=== PATIENT | female | born 1935 | race Caucasian/White ===

== ENCOUNTER 2019-02-09 08:46 | Day surgery (SDC) | payer MEDICARE, OTHER ==
--- NOTE | 2019-02-09 07:38 | HP ---
DATE OF SURGERY: 01/30/2019 HISTORY OF PRESENT ILLNESS: The patient is an 83 year-old with no prior colonoscopy, may have been hemoccult positive. She denied any gross bloody stools. Family history sister with colon cancer. She denies any abdominal pain, denies any change in bowel movements. She is in need of screening colonoscopy. PAST MEDICAL HISTORY: Hypertension. PAST SURGICAL HISTORY: Foot surgery. Hysterectomy. Bilateral knee surgery. MEDICATIONS: Potassium. Pravastatin for some hypercholesterolemia. She takes some clonidine, lisinopril. ALLERGIES: NKDA. FAMILY HISTORY: Colon cancer. SOCIAL HISTORY: No smoking or alcohol abuse. REVIEW OF SYSTEMS: Twelve systems reviewed negative or noncontributory as above and per preadmission questionnaire. PHYSICAL EXAMINATION: GENERAL: No acute distress. HEENT: Sclerae nonicteric. NECK: No JVD. CHEST: Equal excursion, nonlabored breathing. CVS: Regular rate and rhythm. ABDOMEN: Soft. No peritoneal signs. EXTREMITIES: No significant edema. NEURO: Alert, oriented, moving extremities symmetrically. No gross motor deficits noted. RECTAL: Deferred timed to endoscopy exam. IMPRESSION: No prior colonoscopy. Question whether she is hemoccult positive or not. Either way she is in need of screening colonoscopy as she has not had a prior colonoscopy. Risks and benefits explained in detail including but not limited to bleeding or infection, risk of bowel injury or perforation possibly requiring open procedure, risk of missed or nondiagnosis or incomplete exam possibly requiring barium enema, other studies or procedures. She understands and agrees to the planned procedure, will proceed with outpatient colonoscopy.
[~2019-02-09 08:46] MED LIST: Lactated Ringers 1,000 ML IV ONE; Lactated Ringers 1,000 ML IV SCH
[2019-02-09] MEDS ORDERED: Ketamine HCl 50 MG/ML IV ONE (08:47)
[2019-02-09] MEDS ORDERED: DIPRIVAN 200 MG/20 ML IV ONE (08:47)
[2019-02-09 13:12] VITALS: BP 176/93; PULSE 71; O2SAT 93
[2019-02-09 13:12] LABS: BLOOD UREA NITROGEN 12 mg/dL (7-17); Creatinine 1 0.89 mg/dL (0.52-1.04)
--- NOTE | 2019-02-10 08:32 | OP ---
SURGERY DATE/TIME: 02/09/2019 1135 PREOPERATIVE DIAGNOSES: 1) Need for screening colonoscopy. No history of colonoscopy. 2) Question whether she was hemoccult positive or not. We do not have the results. Family history of colon cancer. POSTOPERATIVE DIAGNOSES: 1) Sessile polypoid lesion ascending colon. Unable to be safely removed endoscopically. 2) Diverticulosis. 3) Small internal and external hemorrhoids. 4) Small raised lesion versus hyperplastic lesion versus early polyp transverse colon. PROCEDURES: 1) Colonoscopy to cecum with multiple cold biopsies as well as some hot biopsies of areas of this descending colon sessile polypoid lesion. 2) Hot biopsy removal of small raised lesion proximal transverse colon. SURGEON: Dr. Luke Velasquez. ANESTHESIA: MAC. ESTIMATED BLOOD LOSS: Minimal. INDICATIONS: As noted above. Risks and benefits explained in detail but not limited to and consent obtained. DESCRIPTION OF PROCEDURE AND FINDINGS: The patient is taken to the operating room. MAC anesthesia introduced. Digital rectal exam did not reveal any rectal masses. She did have some internal and external hemorrhoids. Video colonoscope inserted and passed up the tortuous sigmoid, descending, transverse and ascending colon. With positioning on her back as the colon is tortuous and with a couple staff members external pressure the scope was able to be passed to the cecum. Appendiceal orifice and valve well visualized. It should be noted in the proximal ascending colon there is a sessile polypoid lesion appeared to be about 3.5 cm in size, this was behind a fold and was to flat and large to be safely removed endoscopically. The scope required retroflexion to take multiple biopsies of this area. A few cold and a few hot small vascular areas of the specimen. Good hemostasis noted. The scope is then straightened and pulled back slowly carefully through the colon. Prep overall was adequate. There was some semisolid liquidy stool limiting exam but slowly and carefully withdrawn this was suction irrigated as well as possible slightly limiting exam for very tiny lesions. The scope was carefully withdrawn. Proximal transverse colon small raised lesion versus hyperplastic lesion versus early polyp removed with hot biopsy forceps. Good hemostasis noted. The scope is slowly and carefully withdrawn throughout the colon. She had some mild diverticulosis, had some small internal and external hemorrhoids. There were no signs of any other large polyps, masses or obstructing lesions. Again the prep did limit the exam a little bit. The scope is withdrawn. Findings discussed with the family out in the waiting area including the fact that it was recommended that this be removed surgically whether it is a malignancy or large polyp that would remove surgically. Will order a CEA level, check CT scan abdomen and pelvis to evaluate for any other lesions anywhere else as an outpatient and see her back in the office in a week or two to go over the results and discuss timing of operative intervention.
== END 2019-02-09 13:24 | disposition home or self-care (01) ==
LOC: SDC 08:46
PROVIDERS: ATTEND Surgery
DX: Z12.11 Encounter for screening for malignant neoplasm of colon (principal); K63.5 Polyp of colon; D12.2 Benign neoplasm of ascending colon; K64.4 Residual hemorrhoidal skin tags; K57.30 Diverticulosis of large intestine without perforation or abscess without bleeding; K64.8 Other hemorrhoids; Z80.0 Family history of malignant neoplasm of digestive organs
CPT/HCPCS: 36415; 82378; 82565; 84520; 99100; J2704

== ENCOUNTER 2019-04-27 09:22 | Inpatient (IN) | payer MEDICARE, OTHER | END 2019-05-01 16:15 | disposition home or self-care (01) | LOC: MED SURG 09:22 ==

== ENCOUNTER 2023-09-24 10:59 | Emergency (ER) | payer MEDICARE, OTHER ==
[2023-09-24 11:14] VITALS: TEMP 97.4
[2023-09-24] MEDS ORDERED: Sodium Chloride 0.9% 1000 ML 1,000 ML IV SCH (11:30)
[2023-09-24 11:44] LABS: BASOPHIL % 0.6 % (0.0-0.4); Basophil (Absolute #) 0.06 x10^3/uL (0-0.4); Eosinophil % 1.2 % (0.00-5.0); Eosinophil (Absolute #) 0.12 x10^3/uL (0-0.5); Hematocrit 44.9 % (35-47); Hemoglobin 14.5 g/dL (12.0-16.0); IMMATURE GRAN # 0.04 x10^3u/L (0.00-0.03); IMMATURE GRAN % 0.4 % (0.00-0.4); Lymphocyte (Absolute #) 1.83 x10^3/uL (1.0-4.6); Lymphocytes % 17.6 % (24.0-44.0); Mean Cell Volume 91.4 fL (78-100); Mean Corpuscular Hemoglobin 29.5 pg (26-32); Mean Corpuscular Hgb Concent. 32.3 g/dL (32-36); Mean Platelet Volume 9.6 fL (7.5-11.0); Monocyte (Absolute #) 0.76 x10^3/uL (0.0-1.3); Monocytes % 7.3 % (0.0-12.0); Neutrophil % 72.9 % (36.0-66.0); Platelet Count 336 x10^3/uL (150-450); Red Blood Count 4.91 x10^6/uL (4.1-5.4); Red Cell Distribution Width 13.3 % (11.5-14.0); White Blood Count 10.4 x10^3/uL (4.0-10.5)
[2023-09-24 11:55] LABS: ALBUMIN 3.4 g/dL (3.5-5.0); ANION GAP 13.9 MEQ/L (5-15); BILIRUBIN,TOTAL 1.2 mg/dL (0.2-1.3); Calcium 8.8 mg/dL (8.4-10.2); Creatinine 1 0.93 mg/dL (0.52-1.04); EST GLOMERULAR FILTRATION RATE 60.2 ML/MIN; Potassium 3.8 mmol/L (3.5-5.1); Total Protein 6.7 g/dL (6.3-8.2)
--- NOTE | 2023-09-24 12:11 | XRAY ---
Indication: Confusion. Multiple contiguous axial images obtained through the head without contrast. Comparison: None. Age-appropriate global atrophy and moderate periventricular degenerative micro-ischemia bilaterally. No acute intracranial hemorrhage, abnormal extra-axial fluid collection, or mass effect. Fourth ventricle is midline without hydrocephalus. Bony calvarium intact. Visualized paranasal sinuses and mastoid air cells are clear. Impression: Nonacute senile brain.
[2023-09-24 12:18] VITALS: O2SAT 94
[2023-09-24] MEDS ORDERED: Sodium Chloride 0.9% 1000 ML 1,000 ML ONE (12:18)
--- NOTE | 2023-09-24 12:37 | ERPHSYRPT ---
- History of Present Illness Time Seen by Provider: 09/24/23 11:10 Source: patient Exam Limitations: no limitations Patient Subjective Stated Complaint: Pt daughter states "She brought urine into the hospital on Saturday and they called today and said she has a UTI but we have not picked up the antibiotics yet and today she is a little more confused than normal. She does have dementia." Triage Nursing Assessment: PT presented alert and oriented X 3, skin pwd. Pt ambulates with a slow gait, able to speak in clear full sentences. Pt resting comfortably on the bed. Physician History: 89-year-old female presents to our ED with her daughter for evaluation of confusion. She reports patient was diagnosed with a urinary tract infection recently. However she has yet to start her antibiotics. Patient denies numbness tingling or weakness. No trauma no fever. Symptoms are mild to moderate in intensity. No specific worsening or improving factors. They voiced no other complaints or concerns at this time Portions of this note were created with voice recognition technology. There may be grammatical, spelling, punctuation or sound alike errors Timing/Duration: yesterday Severity: moderate Modifying Factors: Improves With: nothing Associated Symptoms: denies symptoms Allergies/Adverse Reactions: No Known Drug Allergies Allergy (Verified 04/27/19 10:15) Home Medications: Clonidine HCl 0.1 mg [Clonidine 0.1 mg Tablet] 0.1 mg PO BID 01/29/19 [H istory] Lisinopril 10 mg [Zestril 10 MG] 10 mg PO DAILY 01/29/19 [History] Potassium Chloride Tab* [Klor Con] 10 meq PO BID 01/29/19 [History] Pravastatin Sodium [Pravachol] 10 mg PO DAILY 01/29/19 [History] Hx Tetanus, Diphtheria Vaccination/Date Given: No Hx Influenza Vaccination/Date Given: Yes Hx Pneumococcal Vaccination/Date Given: Yes Immunizations Up to Date: No Travel Risk - International Travel Have you traveled outside of the country in past 3 weeks: No - Coronavirus Screening Are you exhibiting any of the following symptoms?: No Close contact with a COVID-19 positive Pt in past 14-21 Days: No - Vaccine Status Have you recieved a Covid-19 vaccination: Yes Commodities Clerk: Unknown - Vaccination Dates Dates if Unknown: 2020 - Review of Systems Constitutional: No Symptoms, No Fever, No Chills Eyes: No Symptoms Ears, Nose, & Throat: No Symptoms Respiratory: No Symptoms, No Cough, No Dyspnea Cardiac: No Symptoms, No Chest Pain, No Edema, No Syncope Abdominal/Gastrointestinal: No Symptoms, No Abdominal Pain, No Nausea, No Vomiting, No Diarrhea Genitourinary Symptoms: No Symptoms, No Dysuria Musculoskeletal: No Symptoms, No Back Pain, No Neck Pain Skin: No Symptoms, No Rash Neurological: No Symptoms, No Dizziness, No Focal Weakness, No Sensory Changes Psychological: No Symptoms Endocrine: No Symptoms Hematologic/Lymphatic: No Symptoms Immunological/Allergic: No Symptoms - Past Medical History Pertinent Past Medical History: Yes Neurological History: Dementia ENT History: No Pertinent History Cardiac History: Hypertension Respiratory History: No Pertinent History Endocrine Medical History: No Pertinent History Musculoskeletal History: Arthritis GI Medical History: No Pertinent History History: No Pertinent History Psycho-Social History: No Pertinent History Female Reproductive Disorders: No Pertinent History - Past Surgical History Past Surgical History: Yes Neuro Surgical History: No Pertinent History Cardiac: No Pertinent History Respiratory: No Pertinent History Gastrointestinal: No Pertinent History Genitourinary: No Pertinent History Musculoskeletal: Joint Replacement, Orthopedic Surgery Female Surgical History: Hysterectomy Other Surgical History: Abdias. Knee replacements, left ankle reconstruction - Social History Smoking Status: Never smoker Exposure to second hand smoke: No Drug Use: none Patient Lives Alone: No - Nursing Vital Signs Nursing Vital Signs: Initial Vital Signs Temperature 97.4 F 09/24/23 11:05 Pain Scale Pain Intensity 0 - Physical Exam General Appearance: no apparent distress, alert Eye Exam: PERRL/EOMI, eyes nml inspection Ears, Nose, Throat Exam: normal ENT inspection, TMs normal, pharynx normal, moist mucous membranes Neck Exam: normal inspection, non-tender, supple, full range of motion Respiratory Exam: normal breath sounds, lungs clear, airway intact, No respiratory distress Cardiovascular Exam: regular rate/rhythm, normal heart sounds, normal peripheral pulses Gastrointestinal/Abdomen Exam: soft, normal bowel sounds, No tenderness, No mass Back Exam: normal inspection, normal range of motion, No CVA tenderness, No vertebral tenderness Extremity Exam: normal inspection, normal range of motion, pelvis stable Neurologic Exam: alert, oriented x 3, cooperative, normal mood/affect, sensation nml, No motor deficits Skin Exam: normal color, warm, dry, No rash Lymphatic Exam: No adenopathy SpO2 Interpretation: normal SpO2: 94 O2 Delivery: Room Air - Course Nursing assessment & vital signs reviewed: Yes EKG Interpreted by Me: RATE (94), Sinus Rhythm, NORMAL AXIS, NORMAL INTERVALS, Right Bundle Branch Block - CT Exams Head CT Interpretation: Tele-radiologist Report (Nonacute senile brain) Ordered Tests: Active Orders 24 hr Category Date Time Status Automatic Brine Mixer Operator STAT Care 09/24/23 11:24 Active EKG-ER Only STAT Care 09/24/23 11:23 Active IV Insertion STAT Care 09/24/23 11:23 Active Pulse Oximetry (ED) STAT Care 09/24/23 11:23 Active HEAD WITHOUT CONTRAST [CT] Stat Exams 09/24/23 11:53 Completed CBC W DIFF Stat Lab 09/24/23 11:30 Completed CMP Stat Lab 09/24/23 11:30 Completed TROPONIN Q4H Lab 09/24/23 11:30 Completed TROPONIN Q4H Lab 09/24/23 15:30 Ordered TROPONIN Q4H Lab 09/24/23 19:30 Ordered UA W/RFX UR CULTURE Stat Lab 09/24/23 11:24 Ordered Medication Summary Generic Name Dose Route Start Last Admin Trade Name Freq PRN Reason Stop Dose Admin Sodium Chloride 1,000 mls @ 50 mls/hr 09/24/23 11:30 09/24/23 12:20 Sodium Chloride 0.9% 1000 Ml IV 10/24/23 11:29 50 mls/hr .Q20H ARMEN Administration Lab/Rad Data: Laboratory Result Diagrams 09/24/23 11:30 09/24/23 11:30 Laboratory Results 09/24/23 09/24/23 09/24/23 Range/Units 11:30 11:30 11:30 WBC 10.4 (4.0-10.5) x10^3/uL RBC 4.91 (4.1-5.4) x10^6/uL Hgb 14.5 (12.0-16.0) g/dL Hct 44.9 (35-47) % MCV 91.4 (78-100) fL MCH 29.5 (26-32) pg MCHC 32.3 (32-36) g/dL RDW 13.3 (11.5-14.0) % Plt Count 336 (150-450) x10^3/uL MPV 9.6 (7.5-11.0) fL Gran % 72.9 H (36.0-66.0) % Immature Gran % (Auto) 0.4 (0.00-0.4) % Nucleat RBC Rel Count 0.0 (0.00-0.1) % Eos # (Auto) 0.12 (0-0.5) x10^3/uL Immature Gran # (Auto) 0.04 H (0.00-0.03) x10^3u/L Absolute Lymphs (auto) 1.83 (1.0-4.6) x10^3/uL Absolute Monos (auto) 0.76 (0.0-1.3) x10^3/uL Absolute Nucleated RBC 0.00 (0.00-0.01) x10^3u/L Lymphocytes % 17.6 L (24.0-44.0) % Monocytes % 7.3 (0.0-12.0) % Eosinophils % 1.2 (0.00-5.0) % Basophils % 0.6 (0.0-0.4) % Absolute Granulocytes 7.60 H (1.4-6.9) x10^3/uL Basophils # 0.06 (0-0.4) x10^3/uL Sodium 136 L (137-145) mmol/L Potassium 3.8 (3.5-5.1) mmol/L Chloride 103 (98-107) mmol/L Carbon Dioxide 23 (22-30) mmol/L Anion Gap 13.9 (5-15) MEQ/L BUN 14 (7-17) mg/dL Creatinine 0.93 (0.52-1.04) mg/dL Estimated GFR 60.2 ML/MIN Glucose 104 (74-106) mg/dL Calcium 8.8 (8.4-10.2) mg/dL Total Bilirubin 1.20 (0.2-1.3) mg/dL AST 31 (14-36) U/L ALT 19 (0-35) U/L Alkaline Phosphatase 98 (38-126) U/L Troponin I 0.017 (0.000-0.034) ng/mL Serum Total Protein 6.7 (6.3-8.2) g/dL Albumin 3.4 L (3.5-5.0) g/dL - Progress Progress: improved Progress Note: 87-year-old female With a history of dementiapresents to our ED with daughter for evaluation of some confusion. On physical exam patient appears to be at her baseline. Patient conversant well-appearing no distress. No focal or lateralizing symptoms. Neurologic exam At patient's baseline.Workup essentially nonremarkable. CBC CMP nonremarkable. Troponin negative. Urinalysis not obtained. However it is noted that patient has a urinary tract infection. Patient received a dose of Rocephin and normal saline in our ED. Daughter is a nurse and states they will lease picker patient's antibiotics at the pharmacy and Ini tiate them today. Complexity of problems addressed is moderate acute complicated No critical care time. Complexity of data reviewed and analyzed is moderate. Test ordered test reviewed. Results analyzed and correlated clinically with history and physical exam. Risk of complication and or risk of morbidity/mortality of patient management is moderate. Patient received a dose of Rocephin in our ED. Patient has a prescription written to her by Dr. Jj for urinary tract infection. Vital stable. Time spent to discharge patient is approximately 15 minutes. Plan of care established for shared decision making. No social determinants of health present impede follow-up. Portions of this note were created with voice recognition technology. There may be grammatical, spelling, punctuation or sound alike errors 09/24/23 12:48 Counseled pt/family regarding: lab results, diagnosis, need for follow-up, rad results - Departure Departure Disposition: Home Clinical Impression: UTI (urinary tract infection) Condition: Stable Critical Care Time: No Referrals: BRITTANY JJ DO [Primary Care Provider] - Follow up/PCP as directed Additional Instructions: Discharge/Care Plan VINAYAK RIVERO was seen on 09/24/23 in the Emergency Room. The patient was counseled regarding Diagnosis,Lab results, Imaging studies, need for follow up and when to return to the Emergency Room. Prescriptions given: Discharge Note I have spoken with the patient and/or caregivers. I have explained the patient's condition, diagnosis and treatment plan based on the information available to me at this time. I have answered the patient's and/or caregiver's questions and addressed any concerns. The patient and/or caregivers have as good understanding of the patient's diagnosis, condition and treatment plan as can be expected at this point. The vital signs have been stable. The patient's condition is stable and appropriate for discharge from the emergency department. The patient will pursue further outpatient evaluation with the primary care physician or other designated or consulting physician as outlined in the discharge instructions. The patient and/or caregivers are agreeable to this plan of care and follow-up instructions have been explained in detail. The patient and/or caregivers have received these instruction. The patient/and or caregivers are aware that any significant change in condition or worsening of symptoms should prompt an immediate return to this or the closest emergency department or call 911.
[2023-09-24 12:41] VITALS: BP 114/58; PULSE 91; RESP 22
[2023-09-24] MEDS ORDERED: ROCEPHIN 1 Gm-D5w 50 ml Bag** 1 G/50 ML IVPB IV STA (12:45)
[2023-09-24] MEDS ORDERED: ROCEPHIN 1 Gm-D5w 50 ml Bag** 1 G/50 ML IVPB IV ONE (12:46)
== END 2023-09-24 13:07 | disposition home or self-care (01) ==
LOC: ED 10:59
DX: N39.0 Urinary tract infection, site not specified (principal); R41.0 Disorientation, unspecified; I10 Essential (primary) hypertension; Z79.899 Other long term (current) drug therapy
CPT/HCPCS: 36000; 36415; 70450; 80053; 84484; 85025; 93005; 93041; 94760; 96360; 99284; J0696

== ENCOUNTER 2024-01-12 12:35 | Observation (INO) | payer MEDICARE, OTHER ==
--- NOTE | 2024-01-12 13:21 | ERPHSYRPT ---
- History of Present Illness Time Seen by Provider: 01/12/24 12:46 Source: patient, family Exam Limitations: no limitations Patient Subjective Stated Complaint: C/O UTI symptoms. Daughter at bedside states that patient was confused during the night yelling "help me, help me" out her window at 0300. Triage Nursing Assessment: Patient ambulated back to ER. She is alert but not oriented to time. No s/s of pain and denies pain. Attempted to get a urine specimen from patient but she could only void a few drops. Physician History: 88-year-old female with history of recurrent UTIs currently on prophylactic antibiotics is brought in the ER by daughter with complains of not acting herself, some confusion. Patient has history of baseline dementia but she is a little more confused than usual. She woke up around 3 AM, crying for help. She denies any chest pain, difficulty breathing, abdominal pain nausea or vomiting. Patient walked in the room without any limitations. Daughter reports having symptoms similar to when she had UTI. No recent fall or trauma reported. Patient is awake and alert but not fully oriented, history is limited. Allergies/Adverse Reactions: No Known Drug Allergies Allergy (Verified 01/12/24 12:54) Home Medications: Lisinopril 10 mg [Zestril 10 MG] 20 mg PO DAILY 01/29/19 [History] Potassium Chloride Tab* [Klor Con] 10 meq PO DAILY 01/29/19 [History] Pravastatin Sodium [Pravachol] 20 mg PO DAILY 01/29/19 [History] cephALEXin [Cephalexin] 1 cap PO DAILY 01/12/24 [History] Hx Tetanus, Diphtheria Vaccination/Date Given: No Hx Influenza Vaccination/Date Given: Yes Hx Pneumococcal Vaccination/Date Given: Yes Immunizations Up to Date: Yes Travel Risk - International Travel Have you traveled outside of the country in past 3 weeks: No - Emerging Infectious Disease Are you exhibiting symptoms associated with any current EIDs: No - Review of Systems All Other Systems: Unable due to dementia - Past Medical History Pertinent Past Medical History: Yes Neurological History: Dementia ENT History: No Pertinent History Cardiac History: High Cholesterol, Hypertension Respiratory History: No Pertinent History Endocrine Medical History: No Pertinent History Musculoskeletal History: Arthritis GI Medical History: No Pertinent History History: Other Psycho-Social History: No Pertinent History Female Reproductive Disorders: No Pertinent History Other Medical History: UTI (can't get into Dr. Guerin until May 2024). - Past Surgical History Past Surgical History: Yes Neuro Surgical History: No Pertinent History Cardiac: No Pertinent History Respiratory: No Pertinent History Gastrointestinal: No Pertinent History Genitourinary: No Pertinent History Musculoskeletal: Orthopedic Surgery, Joint Replacement Female Surgical History: Hysterectomy Other Surgical History: Abdias. Knee replacements, left ankle reconstruction - Social History Smoking Status: Never smoker Exposure to second hand smoke: No Drug Use: none Patient Lives Alone: No - Nursing Vital Signs Nursing Vital Signs: Initial Vital Signs Temperature 97.6 F 01/12/24 13:03 Pulse Rate 104 H 01/12/24 13:03 Respiratory Rate 18 01/12/24 13:03 Blood Pressure 121/83 01/12/24 13:03 O2 Sat by Pulse Oximetry 94 L 01/12/24 13:03 Pain Scale Pain Intensity 0 - Physical Exam General Appearance: no apparent distress, alert Eye Exam: PERRL/EOMI Ears, Nose, Throat Exam: normal ENT inspection Neck Exam: normal inspection, supple, full range of motion Respiratory Exam: normal breath sounds, lungs clear Cardiovascular Exam: regular rate/rhythm, normal heart sounds Gastrointestinal/Abdomen Exam: soft, normal bowel sounds, No tenderness Back Exam: normal inspection Extremity Exam: normal inspection, normal range of motion Neurologic Exam: alert, oriented x 3, cooperative Skin Exam: normal color SpO2 Interpretation: normal SpO2: 95 O2 Delivery: Room Air Ordered Tests: Active Orders 24 hr Category Date Time Status IV Insertion STAT Care 01/12/24 13:18 Active CHEST 1 VIEW (PORTABLE) Stat Exams 01/12/24 13:38 Taken BLOOD CULTURE Stat Lab 01/12/24 13:17 Received CBC W DIFF Stat Lab 01/12/24 13:18 Completed CMP Stat Lab 01/12/24 13:18 Completed CULTURE,URINE Stat Lab 01/12/24 13:25 Received Lactic Acid Stat Lab 01/12/24 13:04 Completed MAGNESIUM Stat Lab 01/12/24 13:18 Completed PROCALCITONIN Stat Lab 01/12/24 13:25 Completed UA W/RFX UR CULTURE Stat Lab 01/12/24 13:18 Completed Medication Summary Discontinued Medications Generic Name Dose Route Start Last Admin Trade Name Freq PRN Reason Stop Dose Admin Ceftriaxone Sodium 2 gm/ 100 mls @ 200 mls/hr 01/12/24 14:32 01/12/24 14:51 Sodium Chloride IV 01/12/24 15:01 200 mls/hr STAT STA Administration Ceftriaxone Sodium/Dextrose Confirm 01/12/24 14:50 Rocephin 2 Gm-D5w 50ml Bag Administered 01/12/24 14:51 Dose 2 g in 50 mls @ ud IV .STK-MED ONE Lab/Rad Data: Laboratory Result Diagrams 01/12/24 13:18 01/12/24 13:18 Laboratory Results 01/12/24 01/12/24 01/12/24 Range/Units 13:25 13:18 13:18 WBC (4.0-10.5) x10^3/uL RBC (4.1-5.4) x10^6/uL Hgb (12.0-16.0) g/dL Hct (35-47) % MCV (78-100) fL MCH (26-32) pg MCHC (32-36) g/dL RDW (11.5-14.0) % Plt Count (150-450) x10^3/uL MPV (7.5-11.0) fL Gran % (36.0-66.0) % Immature Gran % (Auto) (0.00-0.4) % Nucleat RBC Rel Count (0.00-0.1) % Eos # (Auto) (0-0.5) x10^3/uL Immature Gran # (Auto) (0.00-0.03) x10^3u/L Absolute Lymphs (auto) (1.0-4.6) x10^3/uL Absolute Monos (auto) (0.0-1.3) x10^3/uL Absolute Nucleated RBC (0.00-0.01) x10^3u/L Lymphocytes % (24.0-44.0) % Monocytes % (0.0-12.0) % Eosinophils % (0.00-5.0) % Basophils % (0.0-0.4) % Absolute Granulocytes (1.4-6.9) x10^3/uL Basophils # (0-0.4) x10^3/uL Sodium 142 (135-145) mmol/L Potassium 3.8 (3.5-5.1) mmol/L Chloride 111 H (98-107) mmol/L Carbon Dioxide 20 L (22-30) mmol/L Anion Gap 14.3 (5-15) MEQ/L BUN 25 H (7-17) mg/dL Creatinine 0.98 (0.52-1.04) mg/dL Estimated GFR 56.2 ML/MIN Glucose 105 (74-106) mg/dL Lactic Acid (0.4-2.0) Calcium 8.6 (8.4-10.2) mg/dL Magnesium 1.7 (1.6-2.3) mg/dL Total Bilirubin 0.70 (0.2-1.3) mg/dL AST 32 (14-36) U/L ALT 21 (0-35) U/L Alkaline Phosphatase 93 (38-126) U/L Serum Total Protein 7.3 (6.3-8.2) g/dL Albumin 3.7 (3.5-5.0) g/dL Procalcitonin 0.064 (0.030-0.080) ng/mL Urine Color Dark Yellow A (Yellow) Urine Appearance Turbid A (Clear) Urine pH 5.5 (4.6-8.0) Ur Specific [place] 1.020 (1.005-1.030) Urine Protein 30 (Negative) Urine Glucose (UA) Negative (Negative) mg/dL Urine Ketones Negative (Negative) Urine Blood Small A (Negative) Urine Nitrite Negative (Negative) Urine Bilirubin Negative (Negative) Urine Urobilinogen 0.2 (0.2) mg/dL Ur Leukocyte Esterase Large A (Negative) U Hyaline Cast (Auto) 3-5 A (0-2) /LPF Urine Microscopic RBC 0-2 (0-5) /HPF Urine Microscopic WBC >100 A (0-5) /HPF Ur Epithelial Cells Moderate A (None Seen) /HPF Urine Bacteria Few A (None Seen) /HPF Urine Culture Reflexed ORDERED SEPARATELY (NO) 01/12/24 01/12/24 Range/Units 13:18 13:04 WBC 6.8 (4.0-10.5) x10^3/uL RBC 5.17 (4.1-5.4) x10^6/uL Hgb 15.3 (12.0-16.0) g/dL Hct 47.1 H (35-47) % MCV 91.1 (78-100) fL MCH 29.6 (26-32) pg MCHC 32.5 (32-36) g/dL RDW 13.2 (11.5-14.0) % Plt Count 308 (150-450) x10^3/uL MPV 10.7 (7.5-11.0) fL Gran % 47.6 (36.0-66.0) % Immature Gran % (Auto) 0.4 (0.00-0.4) % Nucleat RBC Rel Count 0.0 (0.00-0.1) % Eos # (Auto) 0.02 (0-0.5) x10^3/uL Immature Gran # (Auto) 0.03 (0.00-0.03) x10^3u/L Absolute Lymphs (auto) 2.81 (1.0-4.6) x10^3/uL Absolute Monos (auto) 0.66 (0.0-1.3) x10^3/uL Absolute Nucleated RBC 0.00 (0.00-0.01) x10^3u/L Lymphocytes % 41.4 (24.0-44.0) % Monocytes % 9.7 (0.0-12.0) % Eosinophils % 0.3 (0.00-5.0) % Basophils % 0.6 (0.0-0.4) % Absolute Granulocytes 3.22 (1.4-6.9) x10^3/uL Basophils # 0.04 (0-0.4) x10^3/uL Sodium (135-145) mmol/L Potassium (3.5-5.1) mmol/L Chloride (98-107) mmol/L Carbon Dioxide (22-30) mmol/L Anion Gap (5-15) MEQ/L BUN (7-17) mg/dL Creatinine (0.52-1.04) mg/dL Estimated GFR ML/MIN Glucose (74-106) mg/dL Lactic Acid 2.4 H (0.4-2.0) Calcium (8.4-10.2) mg/dL Magnesium (1.6-2.3) mg/dL Total Bilirubin (0.2-1.3) mg/dL AST (14-36) U/L ALT (0-35) U/L Alkaline Phosphatase (38-126) U/L Serum Total Protein (6.3-8.2) g/dL Albumin (3.5-5.0) g/dL Procalcitonin (0.030-0.080) ng/mL Urine Color (Yellow) Urine Appearance (Clear) Urine pH (4.6-8.0) Ur Specific [place] (1.005-1.030) Urine Protein (Negative) Urine Glucose (UA) (Negative) mg/dL Urine Ketones (Negative) Urine Blood (Negative) Urine Nitrite (Negative) Urine Bilirubin (Negative) Urine Urobilinogen (0.2) mg/dL Ur Leukocyte Esterase (Negative) U Hyaline Cast (Auto) (0-2) /LPF Urine Microscopic RBC (0-5) /HPF Urine Microscopic WBC (0-5) /HPF Ur Epithelial Cells (None Seen) /HPF Urine Bacteria (None Seen) /HPF Urine Culture Reflexed (NO) - Progress Progress: unchanged, re-examined Progress Note: 01/12/24 15:20 88 years old is evaluated in the ER for possible UTI, altered mental status. Patient is awake alert but not fully oriented. She is not in any distress. She walked in the ER without any limitations. Lungs bilateral clear to auscultation. She is on room air in mid 90s. She has no abdominal tenderness. Chest x-ray negative for any acute cardiopulmonary findings reviewed by me, official report is pending. EKG did not show any acute ischemic changes. Workup showed normal white count, fairly unremarkable chemistries but does have UTI. Given a dose of Rocephin IV. I believe patient with being on antibiotics and still having UTI with altered mental status, would benefit with IV and discussed with Dr. Dawson, reviewed history, workup and agreed with admission. Shared the results of workup with patient and her daughter, plan of admission which they understand and agree. Discussed with DrNaresh: Other Will see patient in: hospital (observation) Counseled pt/family regarding: lab results, diagnosis, rad results Medical Desision Making - Independent Historian Additional History obtained from: Child - Discussion of managment Care discussed with:: hospitalist (Dr. Driver) Reviewed:: Test results Agreed on:: Treatment plan Will see patient: in hospital - Diagnostic Testing Diagnostic test were ordered, analyzed, and reviewed by me: Yes Radiological Interpretation: Interpreted by me, Reviewed by me - Risk of complications The pt has a high risk of morbidity or mortality based on: Decision regarding hospitilization or escalation of hosp level of care - Departure Departure Disposition: Observation Clinical Impression: Acute UTI (urinary tract infection), Sepsis Condition: Stable Critical Care Time: No Referrals: BRITTANY JJ DO [Primary Care Provider] - Follow up/PCP as directed
[2024-01-12 13:30] LABS: Absolute Neutrophil Ct (ANC) 3.22 x10^3/uL (1.4-6.9); BASOPHIL % 0.6 % (0.0-0.4); Basophil (Absolute #) 0.04 x10^3/uL (0-0.4); Eosinophil % 0.3 % (0.00-5.0); Eosinophil (Absolute #) 0.02 x10^3/uL (0-0.5); Hematocrit 47.1 % (35-47); Hemoglobin 15.3 g/dL (12.0-16.0); IMMATURE GRAN # 0.03 x10^3u/L (0.00-0.03); IMMATURE GRAN % 0.4 % (0.00-0.4); Lymphocyte (Absolute #) 2.81 x10^3/uL (1.0-4.6); Lymphocytes % 41.4 % (24.0-44.0); Mean Cell Volume 91.1 fL (78-100); Mean Corpuscular Hemoglobin 29.6 pg (26-32); Mean Corpuscular Hgb Concent. 32.5 g/dL (32-36); Mean Platelet Volume 10.7 fL (7.5-11.0); Monocyte (Absolute #) 0.66 x10^3/uL (0.0-1.3); Monocytes % 9.7 % (0.0-12.0); Neutrophil % 47.6 % (36.0-66.0); Platelet Count 308 x10^3/uL (150-450); Red Blood Count 5.17 x10^6/uL (4.1-5.4); Red Cell Distribution Width 13.2 % (11.5-14.0); White Blood Count 6.8 x10^3/uL (4.0-10.5)
[2024-01-12 13:45] LABS: Appearance Turbid (Clear); Bacteria Few /HPF (None Seen); Bilirubin Negative (Negative); Blood Small (Negative); Epithelial Cells Moderate /HPF (None Seen); Glucose, Urine Negative (Negative); Ketones Negative (Negative); Leukocyte Esterase Large (Negative); Nitrite Negative (Negative); Ph 5.5 (4.6-8.0); Protein,Urine Dip 30 (Negative); RBC 0-2 /HPF (0-5); Urobilinogen 0.2 mg/dL (0.2); WBC >100 /HPF (0-5)
[2024-01-12 13:49] LABS: ALBUMIN 3.7 g/dL (3.5-5.0); ANION GAP 14.3 MEQ/L (5-15); BILIRUBIN,TOTAL 0.7 mg/dL (0.2-1.3); Calcium 8.6 mg/dL (8.4-10.2); Creatinine 1 0.98 mg/dL (0.52-1.04); EST GLOMERULAR FILTRATION RATE 56.2 ML/MIN; MAGNESIUM 1.7 mg/dL (1.6-2.3); Potassium 3.8 mmol/L (3.5-5.1); Total Protein 7.3 g/dL (6.3-8.2)
[2024-01-12 14:02] LABS: ADD URINE CULTURE? ORDERED SEPARATELY (NO)
[2024-01-12] MEDS ORDERED: ROCEPHIN 2 Gm-D5w 50ML BAG** 2 G/50 ML IVPB IV ONE (14:50)
[2024-01-12] MEDS: SODIUM CHLORIDE MINI IV STA (14:51)
[2024-01-12] MEDS: CEFTRIAXONE IV STA (14:51)
--- NOTE | 2024-01-12 16:22 | PCM.HP ---
History of Present Illness - Chief Complaint Chief Complaint: Sepsis UTI Date: 01/12/24 History of Present Illness: is a 88 year old female with hx of chronic UTI's, CAD, dementia, HTN, Hyperlipidemia, and chronic low potassium. With history of recurrent UTIs c urrently on prophylactic antibiotics. She was brought in the ER by daughter with complains of not acting herself, some confusion. Patient has history of baseline dementia but she is a little more confused than usual. She woke up around 3 AM, crying for help. She denies any chest pain, difficulty breathing, abdominal pain nausea or vomiting. Patient walked in the room without any limitations. Daughter reports having symptoms similar to when she had UTI in the past. No recent fall or trauma reported. Patient is awake and alert but not fully oriented, history is limited. Daughter is in room and she is a nurse. She explains pt has been getting UTI's Q 3 weeks since October. She is scheduled to see Urology in May and that is the earliest she could get in with Dr. Guerin'. She denies any further concerns at this time and states she feels fine other than a little bit of back pain. - Review of Systems Constitutional: No Fever, No Chills Eyes: No Symptoms Ears, Nose, & Throat: No Symptoms Respiratory: No Cough, No Short Of Breath Cardiac: Edema (BLLE), No Chest Pain, No Syncope Abdominal/Gastrointestinal: No Abdominal Pain, No Nausea, No Vomiting, No Diarrhea Genitourinary Symptoms: No Dysuria Musculoskeletal: Back Pain, No Neck Pain Skin: No Rash Neurological: Other (increased confusion), No Dizziness, No Focal Weakness, No Sensory Changes Psychological: No Symptoms Endocrine: No Symptoms Hematologic/Lymphatic: No Symptoms Immunological/Allergic: No Symptoms Medications & Allergies Home Medications: Home Medication List Lisinopril 10 mg [Zestril 10 MG] 20 mg PO DAILY 01/29/19 [History Confirmed 01/12/24] Potassium Chloride Tab* [Klor Con] 10 meq PO DAILY 01/29/19 [History Confirmed 01/12/24] Atorvastatin Calcium [Lipitor] 20 mg PO DAILY 01/12/24 [History Confirmed 01/12/24] cephALEXin [Cephalexin] 250 mg PO DAILY 01/12/24 [History Confirmed 01/12/24] Allergies/Adverse Reactions: Allergies Allergy/AdvReac Type Severity Reaction Status Date / Time No Known Drug Allergies Allergy Verified 01/12/24 12:54 - Past Medical History Past Medical History: Yes Neurological History: Dementia ENT History: No Pertinent History Cardiac History: High Cholesterol, Hypertension Respiratory History: No Pertinent History Endocrine Medical History: No Pertinent History Musculoskelatal History: Arthritis GI Medical History: No Pertinent History History: Other Pyscho-Social History: No Pertinent History Reproductive Disorders: No Pertinent History Comment: UTI (can't get into Dr. Guerin until May 2024). - Past Surgical History Past Surgical History: Yes Neuro Surgical History: No Pertinent History Cardiac History: No Pertinent History Respiratory Surgery: No Pertinent History GI Surgical History: No Pertinent History Genitourinary Surgical Hx: No Pertinent History Musculskeletal Surgical Hx: Orthopedic Surgery, Joint Replacement Female Surgical History: Hysterectomy Other Surgical History: Abdias. Knee replacements, left ankle reconstruction - Social History Smoking Status: Never smoker Exposure to second hand smoke: No Alcohol: None Drug Use: none - Social Determinants of Health Will the patient participate in the screening: Yes Do you worry about a steady place to live?: No Do you have any problems with any of the following?: No known problems In the past 12 months,have you had to go without utilities?: No Have you or anyone in your house had to go without enough: No Transportation Issues: No Has anyone in your support network made you feel unsafe?: No - Physical Exam Vital Signs: Vital Signs - 24 hr Temp Pulse Resp BP BP Pulse Ox 01/12/24 15:25 95 01/12/24 15:01 145/81 95 01/12/24 15:00 96 01/12/24 14:50 96 H 19 95 01/12/24 14:40 96 01/12/24 14:33 95 01/12/24 14:01 111/61 91 L 01/12/24 13:30 90 114/57 93 L 01/12/24 13:03 97.6 F 89 18 121/83 121/83 95 General Appearance: no apparent distress, alert Neurologic Exam: alert, cooperative, normal mood/affect, nml cerebellar function, nml station & gait, sensation nml, No motor deficits Eye Exam: PERRL/EOMI, eyes nml inspection Ears, Nose, Throat Exam: normal ENT inspection, TMs normal, pharynx normal, moist mucous membranes Neck Exam: normal inspection, non-tender, supple, full range of motion Respiratory Exam: normal breath sounds, lungs clear, No respiratory distress Cardiovascular Exam: regular rate/rhythm, normal heart sounds, normal peripheral pulses Gastrointestinal/Abdomen Exam: soft, normal bowel sounds, No tenderness, No mass Back Exam: normal inspection, normal range of motion, No CVA tenderness, No vertebral tenderness Extremity Exam: normal inspection, normal range of motion, pelvis stable Skin Exam: normal color, warm, dry, No rash Lymphatic Exam: No adenopathy Results - Labs Lab/Micro Results: Lab Results-Last 24 Hours 01/12/24 01/12/24 01/12/24 Range/Units 13:04 13:18 13:18 WBC 6.8 (4.0-10.5) x10^3/uL RBC 5.17 (4.1-5.4) x10^6/uL Hgb 15.3 (12.0-16.0) g/dL Hct 47.1 H (35-47) % MCV 91.1 (78-100) fL MCH 29.6 (26-32) pg MCHC 32.5 (32-36) g/dL RDW 13.2 (11.5-14.0) % Plt Count 308 (150-450) x10^3/uL MPV 10.7 (7.5-11.0) fL Gran % 47.6 (36.0-66.0) % Immature Gran % (Auto) 0.4 (0.00-0.4) % Nucleat RBC Rel Count 0.0 (0.00-0.1) % Eos # (Auto) 0.02 (0-0.5) x10^3/uL Immature Gran # (Auto) 0.03 (0.00-0.03) x10^3u/L Absolute Lymphs (auto) 2.81 (1.0-4.6) x10^3/uL Absolute Monos (auto) 0.66 (0.0-1.3) x10^3/uL Absolute Nucleated RBC 0.00 (0.00-0.01) x10^3u/L Lymphocytes % 41.4 (24.0-44.0) % Monocytes % 9.7 (0.0-12.0) % Eosinophils % 0.3 (0.00-5.0) % Basophils % 0.6 (0.0-0.4) % Absolute Granulocytes 3.22 (1.4-6.9) x10^3/uL Basophils # 0.04 (0-0.4) x10^3/uL Sodium 142 (135-145) mmol/L Potassium 3.8 (3.5-5.1) mmol/L Chloride 111 H (98-107) mmol/L Carbon Dioxide 20 L (22-30) mmol/L Anion Gap 14.3 (5-15) MEQ/L BUN 25 H (7-17) mg/dL Creatinine 0.98 (0.52-1.04) mg/dL Estimated GFR 56.2 ML/MIN Glucose 105 (74-106) mg/dL Lactic Acid 2.4 H (0.4-2.0) Calcium 8.6 (8.4-10.2) mg/dL Magnesium 1.7 (1.6-2.3) mg/dL Total Bilirubin 0.70 (0.2-1.3) mg/dL AST 32 (14-36) U/L ALT 21 (0-35) U/L Alkaline Phosphatase 93 (38-126) U/L Serum Total Protein 7.3 (6.3-8.2) g/dL Albumin 3.7 (3.5-5.0) g/dL Procalcitonin (0.030-0.080) ng/mL Urine Color (Yellow) Urine Appearance (Clear) Urine pH (4.6-8.0) Ur Specific [place] (1.005-1.030) Urine Protein (Negative) Urine Glucose (UA) (Negative) mg/dL Urine Ketones (Negative) Urine Blood (Negative) Urine Nitrite (Negative) Urine Bilirubin (Negative) Urine Urobilinogen (0.2) mg/dL Ur Leukocyte Esterase (Negative) U Hyaline Cast (Auto) (0-2) /LPF Urine Microscopic RBC (0-5) /HPF Urine Microscopic WBC (0-5) /HPF Ur Epithelial Cells (None Seen) /HPF Urine Bacteria (None Seen) /HPF Urine Culture Reflexed (NO) 01/12/24 01/12/24 Range/Units 13:18 13:25 WBC (4.0-10.5) x10^3/uL RBC (4.1-5.4) x10^6/uL Hgb (12.0-16.0) g/dL Hct (35-47) % MCV (78-100) fL MCH (26-32) pg MCHC (32-36) g/dL RDW (11.5-14.0) % Plt Count (150-450) x10^3/uL MPV (7.5-11.0) fL Gran % (36.0-66.0) % Immature Gran % (Auto) (0.00-0.4) % Nucleat RBC Rel Count (0.00-0.1) % Eos # (Auto) (0-0.5) x10^3/uL Immature Gran # (Auto) (0.00-0.03) x10^3u/L Absolute Lymphs (auto) (1.0-4.6) x10^3/uL Absolute Monos (auto) (0.0-1.3) x10^3/uL Absolute Nucleated RBC (0.00-0.01) x10^3u/L Lymphocytes % (24.0-44.0) % Monocytes % (0.0-12.0) % Eosinophils % (0.00-5.0) % Basophils % (0.0-0.4) % Absolute Granulocytes (1.4-6.9) x10^3/uL Basophils # (0-0.4) x10^3/uL Sodium (135-145) mmol/L Potassium (3.5-5.1) mmol/L Chloride (98-107) mmol/L Carbon Dioxide (22-30) mmol/L Anion Gap (5-15) MEQ/L BUN (7-17) mg/dL Creatinine (0.52-1.04) mg/dL Estimated GFR ML/MIN Glucose (74-106) mg/dL Lactic Acid (0.4-2.0) Calcium (8.4-10.2) mg/dL Magnesium (1.6-2.3) mg/dL Total Bilirubin (0.2-1.3) mg/dL AST (14-36) U/L ALT (0-35) U/L Alkaline Phosphatase (38-126) U/L Serum Total Protein (6.3-8.2) g/dL Albumin (3.5-5.0) g/dL Procalcitonin 0.064 (0.030-0.080) ng/mL Urine Color Dark Yellow A (Yellow) Urine Appearance Turbid A (Clear) Urine pH 5.5 (4.6-8.0) Ur Specific [place] 1.020 (1.005-1.030) Urine Protein 30 (Negative) Urine Glucose (UA) Negative (Negative) mg/dL Urine Ketones Negative (Negative) Urine Blood Small A (Negative) Urine Nitrite Negative (Negative) Urine Bilirubin Negative (Negative) Urine Urobilinogen 0.2 (0.2) mg/dL Ur Leukocyte Esterase Large A (Negative) U Hyaline Cast (Auto) 3-5 A (0-2) /LPF Urine Microscopic RBC 0-2 (0-5) /HPF Urine Microscopic WBC >100 A (0-5) /HPF Ur Epithelial Cells Moderate A (None Seen) /HPF Urine Bacteria Few A (None Seen) /HPF Urine Culture Reflexed ORDERED SEPARATELY (NO) - Radiology Impressions Radiology Exams & Impressions: Radiology Procedures Category Date Time Status CHEST 1 VIEW (PORTABLE) Stat Exams 01/12/24 13:38 Taken Assessment/Plan (1) Sepsis Current Visit: Yes Status: Acute Assessment & Plan: - 2:2 UTI - antbx - IVF - Lactic acid 2.4 in ER- no IVF gave - give 500ml fluid bolus now. - hx CAD Echo EF 58% per old records - repeat LA @ 1700 - gentle hydration after bolus - chest XR pending- ordered in ER (2) Complicated UTI (urinary tract infection) Current Visit: Yes Status: Acute Assessment & Plan: - Acute on chronic - Has chronic UTI's on prophylactic antibiotics OP - UC pending - BC x2 pending - IVF - She has been on Keflex, Levaquin, Macrobid all recently for UTI's OP- no current diarrhea - Ceftriaxone started in ER- will continue - KUB - Consider CT - Increased confusion from baseline per daughter. Code(s): N39.0 - URINARY TRACT INFECTION, SITE NOT SPECIFIED (3) HTN (hypertension) Current Visit: No Status: Chronic Assessment & Plan: - BP stable- continue home meds Code(s): I10 - ESSENTIAL (PRIMARY) HYPERTENSION (4) Hyperlipidemia Current Visit: No Status: Chronic Qualifiers: Assessment & Plan: - Cont statin Code(s): E78.5 - HYPERLIPIDEMIA, UNSPECIFIED (5) Edema Current Visit: Yes Status: Acute Qualifiers: Edema type: localized Qualified Code(s): R60.0 - Localized edema Assessment & Plan: - BLLE - elevate legs - OCHOA hose Code(s): R60.9 - EDEMA, UNSPECIFIED (6) JOSE (acute kidney injury) Current Visit: Yes Status: Acute Assessment & Plan: - trend labs - IVF Code(s): N17.9 - ACUTE KIDNEY FAILURE, UNSPECIFIED (7) Confusion Current Visit: Yes Status: Acute Assessment & Plan: - HAs hx of dementia - currenlty more confused than usual per family - 2:2 UTI VTE: Lovenox Next of Kin: Luke Chacon - child D/C plan: 1-2 days Code status: full Code(s): R41.0 - DISORIENTATION, UNSPECIFIED Telemedicine Encounter - Telemedicine Encounter Telemedicine Encounter: The entirety of this encounter was performed via Telemedicine"
[2024-01-12] MEDS: Sodium Chloride 0.9% 500 ML 500 ML IV ONE (17:12)
[2024-01-12] MEDS: ROCEPHIN 1 GM / 100 ML NaCl 1 GM/100 ML IVPB IV SCH (19:10)
--- NOTE | 2024-01-12 19:45 | XRAY ---
Indication: Chronic UTI. Comparison: None KUB nonacute and nonobstructed. Solid organs unremarkable. Osseous structures intact with osteopenia, moderate/advanced multilevel degenerative spondylosis, and mild double curvature scoliosis.
--- NOTE | 2024-01-12 19:51 | XRAY ---
Indication: Confusion. Comparison: None Portable chest clear with chronic right hemidiaphragm elevation. Heart not enlarged with tortuous descending aorta. Bony thorax intact with osteopenia, mild degenerative changes, and mild double curvature scoliosis. Impression: Nonacute chest with chronic features.
[2024-01-12] MEDS: Sodium Chloride 0.9% 1000 ML 1,000 ML IV SCH (20:41)
[2024-01-12] MEDS: MELATONIN PO PRN (23:47)
[2024-01-13 05:19] LABS: Hematocrit 46.3 % (35-47); Hemoglobin 14.4 g/dL (12.0-16.0); Mean Cell Volume 93.2 fL (78-100); Mean Corpuscular Hgb Concent. 31.1 g/dL (32-36); Mean Platelet Volume 11.2 fL (7.5-11.0); Platelet Count 243 x10^3/uL (150-450); Red Blood Count 4.97 x10^6/uL (4.1-5.4); Red Cell Distribution Width 13.2 % (11.5-14.0); White Blood Count 6.8 x10^3/uL (4.0-10.5)
[2024-01-13 05:31] LABS: ALBUMIN 3.2 g/dL (3.5-5.0); ANION GAP 11.6 MEQ/L (5-15); BILIRUBIN,TOTAL 0.4 mg/dL (0.2-1.3); Calcium 8.2 mg/dL (8.4-10.2); Creatinine 1 0.87 mg/dL (0.52-1.04); EST GLOMERULAR FILTRATION RATE 64.8 ML/MIN; Potassium 3.6 mmol/L (3.5-5.1); Total Protein 6.4 g/dL (6.3-8.2)
--- NOTE | 2024-01-13 05:34 | PCM.NOTE ---
Date and Time: 01/13/24530 Subjective Assessment: 88 year old female with a pmhx of chronic UTI's(on prophylactic antibiotics/Urology Dr. Guerin), CAD, dementia, HTN, Hyperlipidemia, and chronic low potassium admitted 01/12/24 with AMS secondary to UTI and JOSE. Current treatment with Rocephin with blood and urine cultures pending. 01/12: Met with patient and daughter bedside. Patient A&O to self which is baseline for her. Daughter states mentation is better today but not at baseline. Urine cult with gram negative ID. Plan for Ceftriaxone tonight, most likely discharge tomorrow. - Review of Systems Constitutional: No Symptoms Eyes: No Symptoms Ears, Nose, & Throat: No Symptoms Respiratory: No Symptoms Cardiac: No Symptoms Abdominal/Gastrointestinal: No Symptoms Genitourinary Symptoms: Dysuria Musculoskeletal: No Symptoms Skin: No Symptoms Neurological: No Symptoms Psychological: Other (confusion above baseline) Endocrine: No Symptoms Hematologic/Lymphatic: No Symptoms Immunological/Allergic: No Symptoms Objective Exam General Appearance: no apparent distress Neurologic Exam: alert, cooperative, confusion, other (A&O to self) Skin Exam: normal color Eye Exam: PERRL Ears, Nose, Throat Exam: normal ENT inspection Neck Exam: normal inspection Respiratory Exam: normal breath sounds, lungs clear Cardiovascular Exam: regular rate/rhythm, normal heart sounds Gastrointestinal/Abdomen Exam: soft, normal bowel sounds Extremity Exam: normal inspection Back Exam: normal inspection Pelvic Exam: deferred Objective Data Vital Signs: Vital Signs - 24 hr Temp Pulse Resp BP BP Pulse Ox 01/13/24 04:00 97.4 F 89 19 140/70 92 L 01/13/24 00:00 98.2 F 80 20 154/77 94 L 01/12/24 20:00 98.7 F 86 21 176/86 94 L 01/12/24 18:20 95 01/12/24 17:58 97.1 F 83 18 142/84 97 01/12/24 17:29 97 01/12/24 16:09 97.1 F 83 19 142/84 97 01/12/24 15:25 95 01/12/24 15:01 145/81 95 01/12/24 15:00 96 01/12/24 14:50 96 H 19 95 01/12/24 14:40 96 01/12/24 14:33 95 01/12/24 14:01 111/61 91 L 01/12/24 13:30 90 114/57 93 L 01/12/24 13:03 97.6 F 89 18 121/83 121/83 95 Pain Assessment - Last Documented Pain Intensity 0 Intake and Output: Intake & Output 01/10/24 01/11/24 01/12/24 01/13/24 11:59 11:59 11:59 11:59 Weight 82.5 kg Lab Results: Lab Results-Last 24 Hours 01/12/24 01/12/24 01/12/24 Range/Units 13:04 13:18 13:18 WBC 6.8 (4.0-10.5) x10^3/uL RBC 5.17 (4.1-5.4) x10^6/uL Hgb 15.3 (12.0-16.0) g/dL Hct 47.1 H (35-47) % MCV 91.1 (78-100) fL MCH 29.6 (26-32) pg MCHC 32.5 (32-36) g/dL RDW 13.2 (11.5-14.0) % Plt Count 308 (150-450) x10^3/uL MPV 10.7 (7.5-11.0) fL Gran % 47.6 (36.0-66.0) % Immature Gran % (Auto) 0.4 (0.00-0.4) % Nucleat RBC Rel Count 0.0 (0.00-0.1) % Eos # (Auto) 0.02 (0-0.5) x10^3/uL Immature Gran # (Auto) 0.03 (0.00-0.03) x10^3u/L Absolute Lymphs (auto) 2.81 (1.0-4.6) x10^3/uL Absolute Monos (auto) 0.66 (0.0-1.3) x10^3/uL Absolute Nucleated RBC 0.00 (0.00-0.01) x10^3u/L Lymphocytes % 41.4 (24.0-44.0) % Monocytes % 9.7 (0.0-12.0) % Eosinophils % 0.3 (0.00-5.0) % Basophils % 0.6 (0.0-0.4) % Absolute Granulocytes 3.22 (1.4-6.9) x10^3/uL Basophils # 0.04 (0-0.4) x10^3/uL Sodium 142 (135-145) mmol/L Potassium 3.8 (3.5-5.1) mmol/L Chloride 111 H (98-107) mmol/L Carbon Dioxide 20 L (22-30) mmol/L Anion Gap 14.3 (5-15) MEQ/L BUN 25 H (7-17) mg/dL Creatinine 0.98 (0.52-1.04) mg/dL Estimated GFR 56.2 ML/MIN Glucose 105 (74-106) mg/dL Lactic Acid 2.4 H (0.4-2.0) Calcium 8.6 (8.4-10.2) mg/dL Magnesium 1.7 (1.6-2.3) mg/dL Total Bilirubin 0.70 (0.2-1.3) mg/dL AST 32 (14-36) U/L ALT 21 (0-35) U/L Alkaline Phosphatase 93 (38-126) U/L Serum Total Protein 7.3 (6.3-8.2) g/dL Albumin 3.7 (3.5-5.0) g/dL Procalcitonin (0.030-0.080) ng/mL Urine Color (Yellow) Urine Appearance (Clear) Urine pH (4.6-8.0) Ur Specific [place] (1.005-1.030) Urine Protein (Negative) Urine Glucose (UA) (Negative) mg/dL Urine Ketones (Negative) Urine Blood (Negative) Urine Nitrite (Negative) Urine Bilirubin (Negative) Urine Urobilinogen (0.2) mg/dL Ur Leukocyte Esterase (Negative) U Hyaline Cast (Auto) (0-2) /LPF Urine Microscopic RBC (0-5) /HPF Urine Microscopic WBC (0-5) /HPF Ur Epithelial Cells (None Seen) /HPF Urine Bacteria (None Seen) /HPF Urine Culture Reflexed (NO) 01/12/24 01/12/24 01/12/24 Range/Units 13:18 13:25 17:00 WBC (4.0-10.5) x10^3/uL RBC (4.1-5.4) x10^6/uL Hgb (12.0-16.0) g/dL Hct (35-47) % MCV (78-100) fL MCH (26-32) pg MCHC (32-36) g/dL RDW (11.5-14.0) % Plt Count (150-450) x10^3/uL MPV (7.5-11.0) fL Gran % (36.0-66.0) % Immature Gran % (Auto) (0.00-0.4) % Nucleat RBC Rel Count (0.00-0.1) % Eos # (Auto) (0-0.5) x10^3/uL Immature Gran # (Auto) (0.00-0.03) x10^3u/L Absolute Lymphs (auto) (1.0-4.6) x10^3/uL Absolute Monos (auto) (0.0-1.3) x10^3/uL Absolute Nucleated RBC (0.00-0.01) x10^3u/L Lymphocytes % (24.0-44.0) % Monocytes % (0.0-12.0) % Eosinophils % (0.00-5.0) % Basophils % (0.0-0.4) % Absolute Granulocytes (1.4-6.9) x10^3/uL Basophils # (0-0.4) x10^3/uL Sodium (135-145) mmol/L Potassium (3.5-5.1) mmol/L Chloride (98-107) mmol/L Carbon Dioxide (22-30) mmol/L Anion Gap (5-15) MEQ/L BUN (7-17) mg/dL Creatinine (0.52-1.04) mg/dL Estimated GFR ML/MIN Glucose (74-106) mg/dL Lactic Acid 0.8 (0.4-2.0) Calcium (8.4-10.2) mg/dL Magnesium (1.6-2.3) mg/dL Total Bilirubin (0.2-1.3) mg/dL AST (14-36) U/L ALT (0-35) U/L Alkaline Phosphatase (38-126) U/L Serum Total Protein (6.3-8.2) g/dL Albumin (3.5-5.0) g/dL Procalcitonin 0.064 (0.030-0.080) ng/mL Urine Color Dark Yellow A (Yellow) Urine Appearance Turbid A (Clear) Urine pH 5.5 (4.6-8.0) Ur Specific [place] 1.020 (1.005-1.030) Urine Protein 30 (Negative) Urine Glucose (UA) Negative (Negative) mg/dL Urine Ketones Negative (Negative) Urine Blood Small A (Negative) Urine Nitrite Negative (Negative) Urine Bilirubin Negative (Negative) Urine Urobilinogen 0.2 (0.2) mg/dL Ur Leukocyte Esterase Large A (Negative) U Hyaline Cast (Auto) 3-5 A (0-2) /LPF Urine Microscopic RBC 0-2 (0-5) /HPF Urine Microscopic WBC >100 A (0-5) /HPF Ur Epithelial Cells Moderate A (None Seen) /HPF Urine Bacteria Few A (None Seen) /HPF Urine Culture Reflexed ORDERED SEPARATELY (NO) Radiology Exams: Radiology Procedures Category Date Time Status CHEST 1 VIEW (PORTABLE) Stat Exams 01/12/24 13:38 Completed KUB Routine Exams 01/12/24 18:45 Completed Assessment/Plan (1) Sepsis Current Visit: Yes Status: Acute Assessment & Plan: - 2:2 UTI - antbx - IVF - Lactic acid 2.4 in ER- no IVF gave - give 500ml fluid bolus now. - hx CAD Echo EF 58% per old records - repeat LA @ 1700 - gentle hydration after bolus - chest XR pending- ordered in ER 01/13/24: -Does not meet criteria (2) Complicated UTI (urinary tract infection) Current Visit: Yes Status: Acute Assessment & Plan: - Acute on chronic - Has chronic UTI's on prophylactic antibiotics OP - UC pending - BC x2 pending - IVF - She has been on Keflex, Levaquin, Macrobid all recently for UTI's OP- no current diarrhea - Ceftriaxone started in ER- will continue - KUB - Consider CT - Increased confusion from baseline per daughter. 01/12: -KUB is nonacute/nonobstructed -continue ceftriaxone - switch to oral tomorrow -Appt with urology moved up Code(s): N39.0 - URINARY TRACT INFECTION, SITE NOT SPECIFIED (3) HTN (hypertension) Current Visit: No Status: Chronic Assessment & Plan: - BP stable- continue home meds Code(s): I10 - ESSENTIAL (PRIMARY) HYPERTENSION (4) Hyperlipidemia Current Visit: No Status: Chronic Qualifiers: Assessment & Plan: - Cont statin Code(s): E78.5 - HYPERLIPIDEMIA, UNSPECIFIED (5) Edema Current Visit: Yes Status: Acute Qualifiers: Edema type: localized Qualified Code(s): R60.0 - Localized edema Assessment & Plan: - BLLE - elevate legs - OCHOA grise Code(s): R60.9 - EDEMA, UNSPECIFIED (6) JOSE (acute kidney injury) Current Visit: Yes Status: Acute Assessment & Plan: - trend labs - IVF 01/12: -Resolved Code(s): N17.9 - ACUTE KIDNEY FAILURE, UNSPECIFIED (7) Confusion Current Visit: Yes Status: Acute Assessment & Plan: - HAs hx of dementia - currenlty more confused than usual per family - 2:2 UTI 01/12: -near baseline per family, will continue to monitor VTE: Lovenox Next of Kin: Luke Chacon - child D/C plan: 1-2 days Code status: full (2) JOSE (acute kidney injury) Current Visit: Yes Status: Acute Code(s): N17.9 - ACUTE KIDNEY FAILURE, UNSPECIFIED (3) Complicated UTI (urinary tract infection) Current Visit: Yes Status: Acute Code(s): N39.0 - URINARY TRACT INFECTION, SITE NOT SPECIFIED (4) Confusion Current Visit: Yes Status: Acute Code(s): R41.0 - DISORIENTATION, UNSPECIFIED (5) Edema Current Visit: Yes Status: Acute Qualifiers: Edema type: localized Qualified Code(s): R60.0 - Localized edema Code(s): R60.9 - EDEMA, UNSPECIFIED (6) HTN (hypertension) Current Visit: No Status: Chronic Code(s): I10 - ESSENTIAL (PRIMARY) HYPERTENSION (7) Hyperlipidemia Current Visit: No Status: Chronic Qualifiers: Code(s): E78.5 - HYPERLIPIDEMIA, UNSPECIFIED
[2024-01-13] MEDS ORDERED: Zestril 10 MG PO SCH (10:00)
[2024-01-13] MEDS ORDERED: PRAVASTATIN SODIUM 10 MG PO SCH (10:00)
[2024-01-13] MEDS ORDERED: NON-FORMULARY ITEM (Atorvastatin Calcium [Lipitor] 20 MG Tablet) PO SCH (10:00)
[2024-01-13] MEDS: Zestril 20 MG PO SCH (10:47)
[2024-01-13] MEDS: ENOXAPARIN SODIUM SQ SCH (10:47)
[2024-01-13] MEDS: ROCEPHIN 1 GM / 100 ML NaCl 1 GM/100 ML IVPB IV SCH (10:48)
[2024-01-13] MEDS: Klor Con PO SCH (10:48)
[2024-01-13] MEDS: ZOCOR 20MG PO SCH (10:48)
[2024-01-14 04:46] LABS: Absolute Neutrophil Ct (ANC) 1.08 x10^3/uL (1.4-6.9); BASOPHIL % 0.9 % (0.0-0.4); Basophil (Absolute #) 0.04 x10^3/uL (0-0.4); Eosinophil % 2.9 % (0.00-5.0); Eosinophil (Absolute #) 0.13 x10^3/uL (0-0.5); Hematocrit 40.7 % (35-47); Hemoglobin 12.9 g/dL (12.0-16.0); IMMATURE GRAN # 0.02 x10^3u/L (0.00-0.03); IMMATURE GRAN % 0.5 % (0.00-0.4); Lymphocyte (Absolute #) 2.61 x10^3/uL (1.0-4.6); Lymphocytes % 58.9 % (24.0-44.0); Mean Cell Volume 92.9 fL (78-100); Mean Corpuscular Hemoglobin 29.5 pg (26-32); Mean Corpuscular Hgb Concent. 31.7 g/dL (32-36); Mean Platelet Volume 10.9 fL (7.5-11.0); Monocyte (Absolute #) 0.55 x10^3/uL (0.0-1.3); Monocytes % 12.4 % (0.0-12.0); Neutrophil % 24.4 % (36.0-66.0); Platelet Count 211 x10^3/uL (150-450); Red Blood Count 4.38 x10^6/uL (4.1-5.4); Red Cell Distribution Width 13.2 % (11.5-14.0); White Blood Count 4.4 x10^3/uL (4.0-10.5)
[2024-01-14 05:14] LABS: ALBUMIN 2.5 g/dL (3.5-5.0); BILIRUBIN,TOTAL 0.3 mg/dL (0.2-1.3); Calcium 7.6 mg/dL (8.4-10.2); Creatinine 1 0.83 mg/dL (0.52-1.04); EST GLOMERULAR FILTRATION RATE 68.6 ML/MIN; Potassium 3.5 mmol/L (3.5-5.1); Total Protein 5.4 g/dL (6.3-8.2)
--- NOTE | 2024-01-14 10:38 | PCM.DS ---
Discharge Summary Date of Admission: 01/12/24 16:04 Date of Discharge: 01/14/24 Admitting Physician: ARLEEN BROTHERS MD Primary Care Provider: BRITTANY JJ DO Allergies Allergies No Known Drug Allergies Allergy (Verified 01/12/24 12:54) Hospital Summary - Hospital Course Hospital Course: 88 year old female with a pmhx of chronic UTI's(on prophylactic antibiotics/Urology Dr. Guerin), CAD, dementia, HTN, Hyperlipidemia, and chronic low potassium admitted 01/12/24 with AMS secondary to UTI and JOSE. IP treatment with Rocephin. Urine Culture with enterobacter clocae complex. Mentation now at baseline. Paitent stable for discharge. Will send home on cefdinir. Patient does have appt with urology in February to evaluate recurrent UTIs. Advised follow up with PCP for resolution of current UTI. Patient/daughter agreeable to plan and ready for discharge. Discharge Note New Diagnosis:UTI New Medications:Cefdinir Follow Up: PCP Latest Assessment & Plan (1) Sepsis Current Visit: Yes Status: Acute Assessment & Plan: - 2:2 UTI - antbx - IVF - Lactic acid 2.4 in ER- no IVF gave - give 500ml fluid bolus now. - hx CAD Echo EF 58% per old records - repeat LA @ 1700 - gentle hydration after bolus - chest XR pending- ordered in ER 01/13/24: -Does not meet criteria (2) Complicated UTI (urinary tract infection) Current Visit: Yes Status: Acute Assessment & Plan: - Acute on chronic - Has chronic UTI's on prophylactic antibiotics OP - UC pending - BC x2 pending - IVF - She has been on Keflex, Levaquin, Macrobid all recently for UTI's OP- no current diarrhea - Ceftriaxone started in ER- will continue - KUB - Consider CT - Increased confusion from baseline per daughter. 01/12: -KUB is nonacute/nonobstructed -continue ceftriaxone - switch to oral cefdinir tomorrow -Appt with urology moved up to February Code(s): N39.0 - URINARY TRACT INFECTION, SITE NOT SPECIFIED (3) HTN (hypertension) Current Visit: No Status: Chronic Assessment & Plan: - BP stable- continue home meds Code(s): I10 - ESSENTIAL (PRIMARY) HYPERTENSION (4) Hyperlipidemia Current Visit: No Status: Chronic Qualifiers: Assessment & Plan: - Cont statin Code(s): E78.5 - HYPERLIPIDEMIA, UNSPECIFIED (5) Edema Current Visit: Yes Status: Acute Qualifiers: Edema type: localized Qualified Code(s): R60.0 - Localized edema Assessment & Plan: - BLLE - elevate legs - OCHOA hose Code(s): R60.9 - EDEMA, UNSPECIFIED (6) JOSE (acute kidney injury) Current Visit: Yes Status: Acute Assessment & Plan: - trend labs - IVF 01/12: -Resolved Code(s): N17.9 - ACUTE KIDNEY FAILURE, UNSPECIFIED (7) Confusion Current Visit: Yes Status: Acute Assessment & Plan: - HAs hx of dementia - currenlty more confused than usual per family - 2:2 UTI 01/12: -near baseline per family, will continue to monitor 01/13: -at baseline I spent 35 minutes [id number] with the patient on the day of discharge performing discharge exam, discussing hospital stay and discharge instructions with patient and caregivers, preparation of discharge records, prescriptions & referral forms and addressing any questions/concerns the patient had as documented above. - Vitals & Intake/Output Vital Signs: Vital Signs Temperature 97.5 F 01/14/24 06:46 Pulse Rate 69 01/14/24 06:46 Respiratory Rate 20 01/14/24 06:46 Blood Pressure 137/84 01/14/24 06:46 O2 Sat by Pulse Oximetry 96 01/14/24 06:46 Intake & Output: Intake & Output 01/11/24 01/12/24 01/13/24 01/14/24 11:59 11:59 11:59 11:59 Intake Total 1423 2014 Balance 1423 2014 Weight 82.5 kg - Lab Result Diagrams: 01/14/24 04:19 01/14/24 04:19 Lab Results-Last 24 Hrs: Lab Results-Last 24 Hours 01/14/24 01/14/24 Range/Units 04:19 04:19 WBC 4.4 (4.0-10.5) x10^3/uL RBC 4.38 (4.1-5.4) x10^6/uL Hgb 12.9 (12.0-16.0) g/dL Hct 40.7 (35-47) % MCV 92.9 (78-100) fL MCH 29.5 (26-32) pg MCHC 31.7 L (32-36) g/dL RDW 13.2 (11.5-14.0) % Plt Count 211 (150-450) x10^3/uL MPV 10.9 (7.5-11.0) fL Gran % 24.4 L (36.0-66.0) % Immature Gran % (Auto) 0.5 H (0.00-0.4) % Nucleat RBC Rel Count 0.0 (0.00-0.1) % Eos # (Auto) 0.13 (0-0.5) x10^3/uL Immature Gran # (Auto) 0.02 (0.00-0.03) x10^3u/L Absolute Lymphs (auto) 2.61 (1.0-4.6) x10^3/uL Absolute Monos (auto) 0.55 (0.0-1.3) x10^3/uL Absolute Nucleated RBC 0.00 (0.00-0.01) x10^3u/L Lymphocytes % 58.9 H (24.0-44.0) % Monocytes % 12.4 H (0.0-12.0) % Eosinophils % 2.9 (0.00-5.0) % Basophils % 0.9 (0.0-0.4) % Absolute Granulocytes 1.08 L (1.4-6.9) x10^3/uL Basophils # 0.04 (0-0.4) x10^3/uL Sodium 139 (135-145) mmol/L Potassium 3.5 (3.5-5.1) mmol/L Chloride 113 H (98-107) mmol/L Carbon Dioxide 23 (22-30) mmol/L Anion Gap 7.0 (5-15) MEQ/L BUN 18 H (7-17) mg/dL Creatinine 0.83 (0.52-1.04) mg/dL Estimated GFR 68.6 ML/MIN Glucose 80 (74-106) mg/dL Calcium 7.6 L (8.4-10.2) mg/dL Total Bilirubin 0.30 (0.2-1.3) mg/dL AST 27 (14-36) U/L ALT 15 (0-35) U/L Alkaline Phosphatase 71 (38-126) U/L Serum Total Protein 5.4 L (6.3-8.2) g/dL Albumin 2.5 L (3.5-5.0) g/dL Micro Results-Entire Visit: Microbiology 01/12/24 13:23 Blood Culture - Preliminary Blood 01/12/24 13:17 Blood Culture - Preliminary Blood 01/12/24 13:25 Urine Culture - Final Urine, Catheterized Enterobacter Clocae Complex - Radiology Exams Ordered Rad Exams-Entire Visit: Radiology Procedures Category Date Time Status CHEST 1 VIEW (PORTABLE) Stat Exams 01/12/24 13:38 Completed KUB Routine Exams 01/12/24 18:45 Completed - Procedures and Test Procedures and Tests throughout Hospitalization: Therapy Orders & Screens 01/12/24 18:54 OT Screen per Nursing Assess ONCE Comment: Protocol Order Physician Instructions: Greater than 3 points order OT Admission Screening Reason For Exam: Triggered on Admission Diagnosis: Sepsis UTI Open Wound/Cellutlitis/Pressure Ulcers: Yes: top of head Acute Fx/ORIF/Change in wt bearing status: No Severe MUSCULOSKELETAL pain: No ADL Dysfunction: No Acute CVA w/Hemiparesis/Hemiplegia: No Decreased Functional Mobility/Strength: No Sprain/Strain: No Acute Post-op Mobility Dysfunction: No Total Points: 5 PT Screen per Nursing Assess ONCE Comment: Protocol Order Physician Instructions: Greater than 3 points order PT Admission Screenin Reason For Exam: Triggered on Admission Diagnosis: Sepsis UTI Open Wound/Cellutlitis/Pressure Ulcers: Yes: top of head Acute Fx/ORIF/Change in wt bearing status: No Severe MUSCULOSKELETAL pain: No ADL Dysfunction: No Acute CVA w/Hemiparesis/Hemiplegia: No Decreased Functional Mobility/Strength: No Sprain/Strain: No Acute Post-op Mobility Dysfunction: No Total Points: 5 Discharge Exam General Appearance: no apparent distress Neurologic Exam: alert, cooperative, confusion Eye Exam: PERRL Ears, Nose, Throat Exam: normal ENT inspection Neck Exam: normal inspection Respiratory Exam: normal breath sounds Cardiovascular Exam: regular rate/rhythm, normal heart sounds Gastrointestinal/Abdomen Exam: soft, normal bowel sounds Pelvic Exam: deferred Rectal Exam: deferred Back Exam: normal inspection Extremity Exam: normal inspection Skin Exam: normal color Final Diagnosis/Problem List - Final Discharge Diagnosis/Problem (1) Sepsis Current Visit: Yes Status: Acute (2) JOSE (acute kidney injury) Current Visit: Yes Status: Acute Code(s): N17.9 - ACUTE KIDNEY FAILURE, UNSPECIFIED (3) Complicated UTI (urinary tract infection) Current Visit: Yes Status: Acute Code(s): N39.0 - URINARY TRACT INFECTION, SITE NOT SPECIFIED (4) Confusion Current Visit: Yes Status: Acute Code(s): R41.0 - DISORIENTATION, UNSPECIFIED (5) Edema Current Visit: Yes Status: Acute Code(s): R60.9 - EDEMA, UNSPECIFIED (6) HTN (hypertension) Current Visit: No Status: Chronic Code(s): I10 - ESSENTIAL (PRIMARY) HYPERTENSION (7) Hyperlipidemia Current Visit: No Status: Chronic Code(s): E78.5 - HYPERLIPIDEMIA, UNSPECIFIED - Discharge Disposition: Home, Self-Care Condition: Stable Prescriptions: New Cefdinir 300 mg PO BID 10 Days #20 cap Continue Lisinopril 10 mg [Zestril 10 MG] 20 mg PO DAILY Potassium Chloride Tab* [Klor Con] 10 meq PO DAILY Atorvastatin Calcium [Lipitor] 20 mg PO DAILY Discontinued cephALEXin [Cephalexin] 250 mg PO DAILY Follow up with: REBEL GUERIN [COURTESY STAFF] - 02/12/24 2:15 pm
[2024-01-14 12:00] VITALS: BP 146/87; PULSE 93; RESP 18; TEMP 97; O2SAT 99
== END 2024-01-14 13:17 | disposition home or self-care (01) ==
LOC: ED 12:35 → MED SURG 16:04
PROVIDERS: ADMIT Internal Medicine; ATTEND Internal Medicine
DX: A41.9 Sepsis, unspecified organism (principal); N39.0 Urinary tract infection, site not specified; I10 Essential (primary) hypertension; E78.5 Hyperlipidemia, unspecified; R60.9 Edema, unspecified; N17.9 Acute kidney failure, unspecified; R41.0 Disorientation, unspecified; I25.10 Atherosclerotic heart disease of native coronary artery without angina pectoris; E87.6 Hypokalemia; F03.90 Unspecified dementia, unspecified severity, without behavioral disturbance, psychotic disturbance, mood disturbance, and anxiety; Z79.899 Other long term (current) drug therapy; Z20.828 Contact with and (suspected) exposure to other viral communicable diseases
CPT/HCPCS: 36000; 36415; 71045; 74018; 80053; 81001; 83605; 83735; 84145; 85025; 85027; 87040; 87077; 87086; 87186; 93268; 94762; 96374; 99285; J0696; J1650; P9612; Q3014; A9270-GY; G0378

== ENCOUNTER 2024-05-23 13:16 | Observation (INO) | payer MEDICARE, OTHER ==
--- NOTE | 2024-05-23 13:37 | ERPHSYRPT ---
- History of Present Illness Time Seen by Provider: 05/23/24 13:36 Source: patient, family Exam Limitations: no limitations Physician History: 88yo f presents w/ son via private vehicle for confusion. Son reports he took pt out for lunch today and believes she has been much more confused than her baseline. Pt reports she has behaved this way before on several occasions, states pt has had a UTI each time. Pt is AxO x 2 on exam, not alert to time, does have some tangential speech on exam. Pt denies any diaphoresis, cp, n/v/d. Pt has mild nonpitting LE edema b/l that son states is baseline for pt. Timing/Duration: today Activites at Onset: none Quality: other (no pain) Onset Location: other (no pain) Pain Radiation: none Severity of Pain-Max: none Severity of Pain-Current: none Prior abdominal problems: UTI Sexual intercourse history: not active Modifying Factors: Improves With: nothing Associated Symptoms: No abdominal pain, No fever, No diaphoresis, No nausea, No vomiting, No dysuria, No loss of bladder control, No lower back pain Allergies/Adverse Reactions: No Known Drug Allergies Allergy (Verified 05/23/24 13:29) Home Medications: Lisinopril 10 mg [Zestril 10 MG] 20 mg PO DAILY 01/29/19 [History] Potassium Chloride Tab* [Klor Con] 10 meq PO DAILY 01/29/19 [History] Atorvastatin Calcium [Lipitor] 20 mg PO DAILY 01/12/24 [History] Memantine HCl 10 mg PO DAILY 02/15/24 [History] Hx Tetanus, Diphtheria Vaccination/Date Given: No Hx Influenza Vaccination/Date Given: Yes Hx Pneumococcal Vaccination/Date Given: Yes Travel Risk - Emerging Infectious Disease Are you exhibiting symptoms associated with any current EIDs: No - Review of Systems Constitutional: No Fever, No Chills Respiratory: No Symptoms Cardiac: No Symptoms Abdominal/Gastrointestinal: No Symptoms Genitourinary Symptoms: No Dysuria, No Frequency, No Hematuria, No Hesitancy, No Incontinence, No Urgency, No Urinary Retention, No Flank Pain - Past Medical History Pertinent Past Medical History: Yes Neurological History: Dementia ENT History: No Pertinent History Cardiac History: High Cholesterol, Hypertension Respiratory History: No Pertinent History Endocrine Medical History: No Pertinent History Musculoskeletal History: Arthritis GI Medical History: No Pertinent History History: Other Psycho-Social History: No Pertinent History Female Reproductive Disorders: No Pertinent History Other Medical History: UTI (can't get into Dr. Guerin until May 2024). - Past Surgical History Past Surgical History: Yes Neuro Surgical History: No Pertinent History Cardiac: No Pertinent History Respiratory: No Pertinent History Gastrointestinal: Colon Resection Genitourinary: No Pertinent History Musculoskeletal: Orthopedic Surgery, Joint Replacement Female Surgical History: Hysterectomy Other Surgical History: Abdias. Knee replacements, left ankle reconstruction - Social History Smoking Status: Never smoker Exposure to second hand smoke: Yes Drug Use: none Patient Lives Alone: No - Social Determinants of Health Will the patient participate in the screening: Yes Do you worry about a steady place to live?: No In the past 12 months,have you had to go without utilities?: No Transportation Issues: No Has anyone in your support network made you feel unsafe?: No Have you or anyone in your house had to go without enough: No - Nursing Vital Signs Nursing Vital Signs: Initial Vital Signs Temperature 98 F 05/23/24 13:30 Pulse Rate 104 H 05/23/24 13:30 Respiratory Rate 18 05/23/24 13:30 Blood Pressure 145/83 05/23/24 13:30 O2 Sat by Pulse Oximetry 94 L 05/23/24 13:30 Pain Scale Pain Intensity 0 - Physical Exam General Appearance: no apparent distress, alert Respiratory Exam: normal breath sounds, lungs clear, airway intact, No chest tenderness, No respiratory distress Cardiovascular Exam: regular rate/rhythm, normal heart sounds Gastrointestinal/Abdomen Exam: soft, normal bowel sounds, No tenderness, No distention Neurologic Exam: alert, cooperative, solutions operator II-XII nml as tested, sensation nml, disoriented, confusion, other (AxO x 2, not oriented to place, pleasantly confused, tangential speech), No motor deficits, No sensory deficit, No agitation, No motor weakness, No facial droop, No slurred speech Ordered Tests: Active Orders 24 hr Category Date Time Status IV Insertion STAT Care 05/23/24 13:37 Active cath [Cath for Specimen-Straight] STAT Care 05/23/24 13:28 Active BLOOD CULTURE Stat Lab 05/23/24 13:50 Received CBC W DIFF Stat Lab 05/23/24 13:40 Completed CMP Stat Lab 05/23/24 13:40 Completed CULTURE,URINE Stat Lab 05/23/24 13:29 Received UA W/RFX UR CULTURE Stat Lab 05/23/24 13:29 Completed Medication Summary Generic Name Dose Route Start Last Admin Trade Name Malik PRN Reason Stop Dose Admin Sodium Chloride 1,000 mls @ 999 mls/hr 05/23/24 13:37 05/23/24 13:44 Sodium Chloride 0.9% 1000 Ml IV 05/23/24 14:37 999 mls/hr .Q1H1M STA Administration Ceftriaxone Sodium 1 gm in 100 mls @ 200 mls/hr 05/23/24 14:20 05/23/24 14:24 Rocephin 1 Gm / 100 Ml Nacl IV 05/23/24 14:49 200 ml/hr STAT ONE 200 mls/hr Administration Discontinued Medications Generic Name Dose Route Start Last Admin Trade Name Malik PRN Reason Stop Dose Admin Sodium Chloride Confirm 05/23/24 13:42 Sodium Chloride 0.9% 1000 Ml Administered 05/23/24 13:43 Dose 1,000 mls @ ud .ROUTE .STK-MED ONE Ceftriaxone Sodium Confirm 05/23/24 14:22 Rocephin 1 Gm / 100 Ml Nacl Administered 05/23/24 14:23 Dose 1 gm in 100 mls @ ud IV .STK-MED ONE Lab/Rad Data: Laboratory Result Diagrams 05/23/24 13:40 05/23/24 13:40 Laboratory Results 05/23/24 05/23/24 05/23/24 Range/Units 13:40 13:40 13:29 WBC 9.7 (3.98-10.04) x10^3/uL RBC 5.27 H (3.93-5.22) x10^6/uL Hgb 15.4 (11.2-15.7) g/dL Hct 47.6 H (34.1-44.9) % MCV 90.3 (79.4-94.8) fL MCH 29.2 (25.6-32.2) pg MCHC 32.4 (32.2-35.5) g/dL RDW 13.0 (11.7-14.4) % Plt Count 303 (182-369) x10^3/uL MPV 10.2 (9.4-12.3) fL Gran % 68.8 (34.0-71.1) % Immature Gran % (Auto) 0.3 (0.001-0.429) % Nucleat RBC Rel Count 0.0 (0.00-0.2) % Eos # (Auto) 0.13 (0.04-0.36) x10^3/uL Immature Gran # (Auto) 0.03 (0.001-0.031) x10^3u/L Absolute Lymphs (auto) 2.08 (1.18-3.74) x10^3/uL Absolute Monos (auto) 0.71 (0.24-0.86) x10^3/uL Absolute Nucleated RBC 0.00 (0.00-0.012) x10^3u/L Lymphocytes % 21.4 (19.3-51.7) % Monocytes % 7.3 (4.7-12.5) % Eosinophils % 1.3 (0.7-5.8) % Basophils % 0.9 (0.1-1.2) % Absolute Granulocytes 6.69 H (1.56-6.13) x10^3/uL Basophils # 0.09 H (0.01-0.08) x10^3/uL Sodium 143 (135-145) mmol/L Potassium 3.9 (3.5-5.1) mmol/L Chloride 110 H (98-107) mmol/L Carbon Dioxide 21 L (22-30) mmol/L Anion Gap 15.8 H (5-15) MEQ/L BUN 17 (7-17) mg/dL Creatinine 1.07 H (0.52-1.04) mg/dL Estimated GFR 50.6 ML/MIN Glucose 133 H (74-106) mg/dL Calcium 8.9 (8.4-10.2) mg/dL Total Bilirubin 0.80 (0.2-1.3) mg/dL AST 29 (14-36) U/L ALT 28 (0-35) U/L Alkaline Phosphatase 93 (38-126) U/L Serum Total Protein 7.1 (6.3-8.2) g/dL Albumin 3.9 (3.5-5.0) g/dL Urine Color Yellow (Yellow) Urine Appearance Clear (Clear) Urine pH 6.5 (4.6-8.0) Ur Specific [place] 1.020 (1.005-1.030) Urine Protein 30 (Negative) Urine Glucose (UA) Negative (Negative) mg/dL Urine Ketones Trace A (Negative) Urine Blood Negative (Negative) Urine Nitrite Negative (Negative) Urine Bilirubin Negative (Negative) Urine Urobilinogen 1.0 A (0.2) mg/dL Ur Leukocyte Esterase Small A (Negative) U Hyaline Cast (Auto) NONE SEEN (0-2) /LPF Urine Microscopic RBC 3-5 (0-5) /HPF Urine Microscopic WBC 21-50 A (0-5) /HPF Ur Epithelial Cells Rare (None Seen) /HPF Calcium Oxalate Crystal 3-5 A (None Seen) /HPF Urine Bacteria None Seen (None Seen) /HPF Urine Culture Reflexed ORDERED SEPARATELY (NO) - Progress Progress: re-examined Air Movement: good Progress Note: 05/23/24 14:31 UA suggestive of UTI given dose of IV rocephin in ED pt continues to be pleasantly confused w/ tangential speech I discussed admission for obs w/ hospitalist Dr Lawson who is willing to accept Blood Culture(s) Obtained: Yes Antibiotics given: Yes Will see patient in: hospital (observation) Counseled pt/family regarding: lab results, diagnosis Medical Desision Making - Discussion of managment Care discussed with:: hospitalist Reviewed:: Test results Agreed on:: place in obs Will see patient: in hospital - Diagnostic Testing Diagnostic test were ordered, analyzed, and reviewed by me: No - Risk of complications The pt has a high risk of morbidity or mortality based on: Decision regarding hospitilization or escalation of hosp level of care - Departure Departure Disposition: Observation Clinical Impression: Confusion UTI (urinary tract infection) Qualifiers: Urinary tract infection type: acute cystitis Hematuria presence: without hematuria Qualified Code(s): N30.00 - Acute cystitis without hematuria Condition: Stable Critical Care Time: No Referrals: BRITTANY JJ DO [Primary Care Provider] - Follow up/PCP as directed
[2024-05-23] MEDS ORDERED: Sodium Chloride 0.9% 1000 ML 1,000 ML ONE (13:42)
[2024-05-23] MEDS: Sodium Chloride 0.9% 1000 ML 1,000 ML IV STA (13:44)
[2024-05-23 13:57] LABS: Absolute Neutrophil Ct (ANC) 6.69 x10^3/uL (1.56-6.13); BASOPHIL % 0.9 % (0.1-1.2); Basophil (Absolute #) 0.09 x10^3/uL (0.01-0.08); Eosinophil % 1.3 % (0.7-5.8); Eosinophil (Absolute #) 0.13 x10^3/uL (0.04-0.36); Hematocrit 47.6 % (34.1-44.9); Hemoglobin 15.4 g/dL (11.2-15.7); IMMATURE GRAN # 0.03 x10^3u/L (0.001-0.031); IMMATURE GRAN % 0.3 % (0.001-0.429); Lymphocyte (Absolute #) 2.08 x10^3/uL (1.18-3.74); Lymphocytes % 21.4 % (19.3-51.7); Mean Cell Volume 90.3 fL (79.4-94.8); Mean Corpuscular Hemoglobin 29.2 pg (25.6-32.2); Mean Corpuscular Hgb Concent. 32.4 g/dL (32.2-35.5); Mean Platelet Volume 10.2 fL (9.4-12.3); Monocyte (Absolute #) 0.71 x10^3/uL (0.24-0.86); Monocytes % 7.3 % (4.7-12.5); Neutrophil % 68.8 % (34.0-71.1); Platelet Count 303 x10^3/uL (182-369); Red Blood Count 5.27 x10^6/uL (3.93-5.22); White Blood Count 9.7 x10^3/uL (3.98-10.04)
[2024-05-23 14:10] LABS: ALBUMIN 3.9 g/dL (3.5-5.0); ANION GAP 15.8 MEQ/L (5-15); BILIRUBIN,TOTAL 0.8 mg/dL (0.2-1.3); Calcium 8.9 mg/dL (8.4-10.2); Creatinine 1 1.07 mg/dL (0.52-1.04); EST GLOMERULAR FILTRATION RATE 50.6 ML/MIN; Potassium 3.9 mmol/L (3.5-5.1); Total Protein 7.1 g/dL (6.3-8.2)
[2024-05-23 14:13] LABS: ADD URINE CULTURE? ORDERED SEPARATELY (NO); Appearance Clear (Clear); Bacteria None Seen /HPF (None Seen); Bilirubin Negative (Negative); Blood Negative (Negative); Epithelial Cells Rare /HPF (None Seen); Glucose, Urine Negative (Negative); Hyaline Casts NONE SEEN /LPF (0-2); Ketones Trace (Negative); Leukocyte Esterase Small (Negative); Nitrite Negative (Negative); Ph 6.5 (4.6-8.0); Protein,Urine Dip 30 (Negative); WBC 21-50 /HPF (0-5)
[2024-05-23] MEDS ORDERED: ROCEPHIN 1 GM / 100 ML NaCl 1 GM/100 ML IVPB IV ONE (14:22)
[2024-05-23] MEDS: ROCEPHIN 1 GM / 100 ML NaCl 1 GM/100 ML IVPB IV ONE (14:24)
--- NOTE | 2024-05-23 15:39 | PCM.HP ---
<CHARLES PENA - Last Filed: 05/23/24 15:44> History of Present Illness - Chief Complaint Chief Complaint: UTI Date: 05/23/24 History of Present Illness: Ms. Mckenzie is an 88 year old female with a pmhx of HLD, dementia, HTN, and recurrent UTI (follows with Dr. Guerin urology) who presented to ED 05/23/24 with AMS. Son reports that during lunch today he noticed her confusion was above baseline. She does have recurrent UTIs for which she follows with urologist Dr. Guerin. Cystoscopy was normal. She is on prophylactic antibiotics (family to call with abx information). Son explains she has presented with similar symptoms with previous UTIs. She does report back pain and some nausea. Denies dysuria, frequency, hematuria. She is alert to self. Upon arrival to ED patient afebrile with stable vitals. Lab findings remarkable for elevated GAP, hypochloremia, mild JOSE, and UA with trace ketones, leukocyte and microscopic WBC. Previous urine cultures reviewed from 01/12/24 showing enterobacter clocae complex -sensitive to ceftriaxone. Ceftriaxone given in ED along with fluid bolus. Plan for Obs admission with IV abx. Follow culture. - Review of Systems Constitutional: No Symptoms Eyes: No Symptoms Ears, Nose, & Throat: No Symptoms Respiratory: No Symptoms Cardiac: No Symptoms Abdominal/Gastrointestinal: Nausea Genitourinary Symptoms: No Symptoms Musculoskeletal: Back Pain Skin: No Symptoms Neurological: No Symptoms Psychological: Other (confusion) Endocrine: No Symptoms Hematologic/Lymphatic: No Symptoms Immunological/Allergic: No Symptoms Medications & Allergies Home Medications: Home Medication List Lisinopril 10 mg [Zestril 10 MG] 20 mg PO DAILY 01/29/19 [History Confirmed 05/23/24] Potassium Chloride Tab* [Klor Con] 10 meq PO DAILY 01/29/19 [History Confirmed 05/23/24] Atorvastatin Calcium [Lipitor] 20 mg PO DAILY 01/12/24 [History Confirmed 05/23/24] Memantine HCl 10 mg PO DAILY 02/15/24 [History Confirmed 05/23/24] Cephalexin Mh 250 mg [Keflex 250 mg] 250 mg PO DAILY 05/23/24 [History Confirmed 05/23/24] Allergies/Adverse Reactions: Allergies Allergy/AdvReac Type Severity Reaction Status Date / Time No Known Drug Allergies Allergy Verified 05/23/24 13:29 - Past Medical History Past Medical History: Yes Neurological History: Dementia ENT History: No Pertinent History Cardiac History: High Cholesterol, Hypertension Respiratory History: No Pertinent History Endocrine Medical History: No Pertinent History Musculoskelatal History: Arthritis GI Medical History: No Pertinent History History: Other Pyscho-Social History: No Pertinent History Reproductive Disorders: No Pertinent History Comment: UTI (can't get into Dr. Guerin until May 2024). - Past Surgical History Past Surgical History: Yes Neuro Surgical History: No Pertinent History Cardiac History: No Pertinent History Respiratory Surgery: No Pertinent History GI Surgical History: Colon Resection Genitourinary Surgical Hx: No Pertinent History Musculskeletal Surgical Hx: Orthopedic Surgery, Joint Replacement Female Surgical History: Hysterectomy Other Surgical History: Abdias. Knee replacements, left ankle reconstruction - Social History Smoking Status: Never smoker Exposure to second hand smoke: Yes Alcohol: None Drug Use: none - Social Determinants of Health Will the patient participate in the screening: Yes Do you worry about a steady place to live?: No In the past 12 months,have you had to go without utilities?: No Have you or anyone in your house had to go without enough: No Transportation Issues: No Has anyone in your support network made you feel unsafe?: No Does the patient want assistance with any of the above?: No - Physical Exam Vital Signs: Vital Signs - 24 hr Temp Pulse Resp BP BP Pulse Ox 05/23/24 15:04 97.8 F 84 20 173/83 91 L 05/23/24 14:10 88 18 133/75 94 L 05/23/24 14:01 210/148 95 05/23/24 13:34 145/83 95 05/23/24 13:30 98 F 104 H 18 145/83 94 L General Appearance: no apparent distress Neurologic Exam: alert, cooperative, confusion Eye Exam: PERRL/EOMI Ears, Nose, Throat Exam: normal ENT inspection Neck Exam: normal inspection Respiratory Exam: normal breath sounds, lungs clear Cardiovascular Exam: regular rate/rhythm, normal heart sounds Pelvic Exam: not done Rectal Exam: deferred Back Exam: normal inspection Extremity Exam: other (BLE edema -trace) Skin Exam: normal color Results - Labs Lab/Micro Results: Lab Results-Last 24 Hours 05/23/24 05/23/2405/23/24 Range/Units 13:29 13:40 13:40 WBC 9.7 (3.98-10.04) x10^3/uL RBC 5.27 H (3.93-5.22) x10^6/uL Hgb 15.4 (11.2-15.7) g/dL Hct 47.6 H (34.1-44.9) % MCV 90.3 (79.4-94.8) fL MCH 29.2 (25.6-32.2) pg MCHC 32.4 (32.2-35.5) g/dL RDW 13.0 (11.7-14.4) % Plt Count 303 (182-369) x10^3/uL MPV 10.2 (9.4-12.3) fL Gran % 68.8 (34.0-71.1) % Immature Gran % (Auto) 0.3 (0.001-0.429) % Nucleat RBC Rel Count 0.0 (0.00-0.2) % Eos # (Auto) 0.13 (0.04-0.36) x10^3/uL Immature Gran # (Auto) 0.03 (0.001-0.031) x10^3u/L Absolute Lymphs (auto) 2.08 (1.18-3.74) x10^3/uL Absolute Monos (auto) 0.71 (0.24-0.86) x10^3/uL Absolute Nucleated RBC 0.00 (0.00-0.012) x10^3u/L Lymphocytes % 21.4 (19.3-51.7) % Monocytes % 7.3 (4.7-12.5) % Eosinophils % 1.3 (0.7-5.8) % Basophils % 0.9 (0.1-1.2) % Absolute Granulocytes 6.69 H (1.56-6.13) x10^3/uL Basophils # 0.09 H (0.01-0.08) x10^3/uL Sodium 143 (135-145) mmol/L Potassium 3.9 (3.5-5.1) mmol/L Chloride 110 H (98-107) mmol/L Carbon Dioxide 21 L (22-30) mmol/L Anion Gap 15.8 H (5-15) MEQ/L BUN 17 (7-17) mg/dL Creatinine 1.07 H (0.52-1.04) mg/dL Estimated GFR 50.6 ML/MIN Glucose 133 H (74-106) mg/dL Calcium 8.9 (8.4-10.2) mg/dL Total Bilirubin 0.80 (0.2-1.3) mg/dL AST 29 (14-36) U/L ALT 28 (0-35) U/L Alkaline Phosphatase 93 (38-126) U/L Serum Total Protein 7.1 (6.3-8.2) g/dL Albumin 3.9 (3.5-5.0) g/dL Urine Color Yellow (Yellow) Urine Appearance Clear (Clear) Urine pH 6.5 (4.6-8.0) Ur Specific [place] 1.020 (1.005-1.030) Urine Protein 30 (Negative) Urine Glucose (UA) Negative (Negative) mg/dL Urine Ketones Trace A (Negative) Urine Blood Negative (Negative) Urine Nitrite Negative (Negative) Urine Bilirubin Negative (Negative) Urine Urobilinogen 1.0 A (0.2) mg/dL Ur Leukocyte Esterase Small A (Negative) U Hyaline Cast (Auto) NONE SEEN (0-2) /LPF Urine Microscopic RBC 3-5 (0-5) /HPF Urine Microscopic WBC 21-50 A (0-5) /HPF Ur Epithelial Cells Rare (None Seen) /HPF Calcium Oxalate Crystal 3-5 A (None Seen) /HPF Urine Bacteria None Seen (None Seen) /HPF Urine Culture Reflexed ORDERED SEPARATELY (NO) Assessment/Plan (1) UTI (urinary tract infection) Current Visit: Yes Status: Acute Qualifiers: Urinary tract infection type: acute cystitis Hematuria presence: without hematuria Qualified Code(s): N30.00 - Acute cystitis without hematuria Assessment & Plan: -recurrent -follows with Urology- has appt this month -cystoscopy with normal results -prophylactic abx as OP -previous UTI with enterobacter clocae complex on culture sensitive to ceftriaxone -Ceftriaxone started in ED, will continue - follow culture -IVF Code(s): N39.0 - URINARY TRACT INFECTION, SITE NOT SPECIFIED (2) AMS (altered mental status) Current Visit: Yes Status: Acute Assessment & Plan: -Most likely secondary to UTI, similar symptoms in the past -consider head CT if no improvement Code(s): R41.82 - ALTERED MENTAL STATUS, UNSPECIFIED (3) Dementia Current Visit: Yes Status: Acute Assessment & Plan: -Continue memantine Code(s): F03.90 - UNSP DEMENTIA, UNSP SEVERITY, WITHOUT BEH/PSYCH/MOOD/ANX (4) JOSE (acute kidney injury) Current Visit: No Status: Acute Assessment & Plan: -mild -Most likely secondary to hypovolemia - poor oral intake -Avoid nephrotoxic medications -monitor renal/lytes daily -IVF Code(s): N17.9 - ACUTE KIDNEY FAILURE, UNSPECIFIED (5) HTN (hypertension) Current Visit: No Status: Chronic Assessment & Plan: -Continue home meds Code(s): I10 - ESSENTIAL (PRIMARY) HYPERTENSION (6) Hyperlipidemia Current Visit: No Status: Chronic Assessment & Plan: -continue statin VTE: Heparin Code status: full code Dispo: 1-2 days Code(s): E78.5 - HYPERLIPIDEMIA, UNSPECIFIED Telemedicine Encounter - Telemedicine Encounter Telemedicine Encounter: "The entirety of this encounter was performed via Telemedicine" This visit was performed using real-time audio and video connection between my location and thepatients locationwith the assistance of a surrogateat the patients location. Written or verbal consent was obtained from the patient/guardian to perform this visit [facility]. Any patient questions regarding the telemedicine interaction were answered. <JOHNNY DANG - Last Filed: 05/23/24 22:22> History of Present Illness - Chief Complaint History of Present Illness: is a 88 year old female. - Physical Exam Vital Signs: Vital Signs - 24 hr Temp Pulse Resp BP BP Pulse Ox 05/23/24 20:00 97.2 F 71 22 146/74 93 L 05/23/24 15:26 84 20 173/83 91 L 05/23/24 15:04 97.8 F 84 20 173/83 91 L 05/23/24 14:10 88 18 133/75 94 L 05/23/24 14:01 210/148 95 05/23/24 13:34 145/83 95 05/23/24 13:30 98 F 104 H 18 145/83 94 L Results - Labs Lab/Micro Results: Lab Results-Last Hours 05/23/24 05/23/24 05/23/24 Range/Units 13:29 13:40 13:40 WBC 9.7 (3.98-10.04) x10^3/uL RBC 5.27 H (3.93-5.22) x10^6/uL Hgb 15.4 (11.2-15.7) g/dL Hct 47.6 H (34.1-44.9) % MCV 90.3 (79.4-94.8) fL MCH 29.2 (25.6-32.2) pg MCHC 32.4 (32.2-35.5) g/dL RDW 13.0 (11.7-14.4) % Plt Count 303 (182-369) x10^3/uL MPV 10.2 (9.4-12.3) fL Gran % 68.8 (34.0-71.1) % Immature Gran % (Auto) 0.3 (0.001-0.429) % Nucleat RBC Rel Count 0.0 (0.00-0.2) % Eos # (Auto) 0.13 (0.04-0.36) x10^3/uL Immature Gran # (Auto) 0.03 (0.001-0.031) x10^3u/L Absolute Lymphs (auto) 2.08 (1.18-3.74) x10^3/uL Absolute Monos (auto) 0.71 (0.24-0.86) x10^3/uL Absolute Nucleated RBC 0.00 (0.00-0.012) x10^3u/L Lymphocytes % 21.4 (19.3-51.7) % Monocytes % 7.3 (4.7-12.5) % Eosinophils % 1.3 (0.7-5.8) % Basophils % 0.9 (0.1-1.2) % Absolute Granulocytes 6.69 H (1.56-6.13) x10^3/uL Basophils # 0.09 H (0.01-0.08) x10^3/uL Sodium 143 (135-145) mmol/L Potassium 3.9 (3.5-5.1) mmol/L Chloride 110 H (98-107) mmol/L Carbon Dioxide 21 L (22-30) mmol/L Anion Gap 15.8 H (5-15) MEQ/L BUN 17 (7-17) mg/dL Creatinine 1.07 H (0.52-1.04) mg/dL Estimated GFR 50.6 ML/MIN Glucose 133 H (74-106) mg/dL Calcium 8.9 (8.4-10.2) mg/dL Total Bilirubin 0.80 (0.2-1.3) mg/dL AST 29 (14-36) U/L ALT 28 (0-35) U/L Alkaline Phosphatase 93 (38-126) U/L Serum Total Protein 7.1 (6.3-8.2) g/dL Albumin 3.9 (3.5-5.0) g/dL Urine Color Yellow (Yellow) Urine Appearance Clear (Clear) Urine pH 6.5 (4.6-8.0) Ur Specific [place] 1.020 (1.005-1.030) Urine Protein 30 (Negative) Urine Glucose (UA) Negative (Negative) mg/dL Urine Ketones Trace A (Negative) Urine Blood Negative (Negative) Urine Nitrite Negative (Negative) Urine Bilirubin Negative (Negative) Urine Urobilinogen 1.0 A (0.2) mg/dL Ur Leukocyte Esterase Small A (Negative) U Hyaline Cast (Auto) NONE SEEN (0-2) /LPF Urine Microscopic RBC 3-5 (0-5) /HPF Urine Microscopic WBC 21-50 A (0-5) /HPF Ur Epithelial Cells Rare (None Seen) /HPF Calcium Oxalate Crystal 3-5 A (None Seen) /HPF Urine Bacteria None Seen (None Seen) /HPF Urine Culture Reflexed ORDERED SEPARATELY (NO) Telemedicine Encounter - Telemedicine Encounter Telemedicine Encounter: "The entirety of this encounter was performed via Telemedicine" This visit was performed using real-time audio and video connection between my location and thepatients locationwith the assistance of a surrogateat the patients location. Written or verbal consent was obtained from the patient/guardian to perform this visit usingsynchrBlueSwarmtelemedicine technology. Any patient questions regarding the telemedicine interaction were answered. ЕЛЕНА Encounter - ЕЛЕНА Encounter Attestation ЕЛЕНА Encounter Attestation: "IhavepersonallyseenandexaminedLAND,VINAYAK DONALD andhavediscussed pertinent aspects of their care with Charles Deanand agree with the history, physical exam (any modifications based on my personal exam will be noted below), assessment, and plan as outlined in original note. Please see immediately below for my summary of findings and additional assessment and plan along with any meaningful corrections/explanations to the Subjective/Objective portions of the ЕЛЕНА note will be noted." My portion of the encounter took place via telemedicine. -Patient with dementia, presenting with worsening confusion per family who were concerned about a UTI. Patient pleasant but does appear to have some confusion when answering questions. Will start antibiotic pending culture results.
[2024-05-23] MEDS ORDERED: Zofran 4 MG/2 ML VIAL IV PRN (15:46)
[2024-05-23] MEDS ORDERED: TYLENOL 325 MG PO PRN (15:46)
[2024-05-23] MEDS: Sodium Chloride 0.9% 1000 ML 1,000 ML IV SCH (16:12)
[2024-05-23] MEDS: HEPARIN 5000 UNITS/0.5 ML (HIGH RISK MED) SQ SCH (23:11)
[2024-05-24 06:29] LABS: BASOPHIL % 1.3 % (0.1-1.2); Basophil (Absolute #) 0.09 x10^3/uL (0.01-0.08); Eosinophil % 3.1 % (0.7-5.8); Eosinophil (Absolute #) 0.22 x10^3/uL (0.04-0.36); Hemoglobin 13.2 g/dL (11.2-15.7); IMMATURE GRAN # 0.03 x10^3u/L (0.001-0.031); IMMATURE GRAN % 0.4 % (0.001-0.429); Lymphocyte (Absolute #) 2.16 x10^3/uL (1.18-3.74); Lymphocytes % 30.9 % (19.3-51.7); Mean Cell Volume 91.3 fL (79.4-94.8); Mean Corpuscular Hemoglobin 28.7 pg (25.6-32.2); Mean Corpuscular Hgb Concent. 31.4 g/dL (32.2-35.5); Mean Platelet Volume 10.2 fL (9.4-12.3); Monocyte (Absolute #) 0.69 x10^3/uL (0.24-0.86); Monocytes % 9.9 % (4.7-12.5); Neutrophil % 54.4 % (34.0-71.1); Platelet Count 241 x10^3/uL (182-369)
[2024-05-24 06:48] LABS: ANION GAP 9.7 MEQ/L (5-15); BILIRUBIN,TOTAL 0.7 mg/dL (0.2-1.3); Calcium 8.2 mg/dL (8.4-10.2); Creatinine 1 0.86 mg/dL (0.52-1.04); EST GLOMERULAR FILTRATION RATE 65.8 ML/MIN; Potassium 3.7 mmol/L (3.5-5.1); Total Protein 5.8 g/dL (6.3-8.2)
[2024-05-24] MEDS: ROCEPHIN 1 GM / 100 ML NaCl 1 GM/100 ML IVPB IV SCH (10:00)
[2024-05-24] MEDS: Zestril 20 MG PO SCH (11:43)
[2024-05-24] MEDS: Namenda 5 MG PO SCH (11:43)
[2024-05-24] MEDS: Klor Con PO SCH (11:43)
[2024-05-24] MEDS: ZOCOR 20MG PO SCH (11:44)
--- NOTE | 2024-05-24 12:08 | PCM.NOTE ---
Date and Time: 05/24/24 1204 Subjective Assessment: HPI: Ms. Mckenzie is an 88 year old female with a pmhx of HLD, dementia, HTN, and recurrent UTI (follows with Dr. Guerin urology) who presented to ED 05/23/24 with AMS. Son reports that during lunch today he noticed her confusion was above baseline. She does have recurrent UTIs for which she follows with urologist Dr. Guerin. Cystoscopy was normal. She is on prophylactic antibiotics (family to call with abx information). Son explains she has presented with similar symptoms with previous UTIs. She does report back pain and some nausea. Denies dysuria, frequency, hematuria. She is alert to self. Upon arrival to ED patient afebrile with stable vitals. Lab findings remarkable for elevated GAP, hypochloremia, mild JOSE, and UA with trace ketones, leukocyte and microscopic WBC. Previous urine cultures reviewed from 01/12/24 showing enterobacter clocae complex -sensitive to ceftriaxone. Ceftriaxone given in ED along with fluid bolus. Plan for Obs admission with IV abx. Follow culture. 05/24/24: Met with patient bedside. Mentation has improved some but not at baseline. Urine culture with gram - ID, will continue on ceftriaxone. Plan for discharge tomorrow if mentation improved. <CHARLES PENA - Last Filed: 05/24/24 12:04> Date and Time: 05/24/24 4205 <JOHNNY DANG - Last Filed: 05/24/24 21:47> - Review of Systems Constitutional: No Symptoms Eyes: No Symptoms Ears, Nose, & Throat: No Symptoms Respiratory: No Symptoms Cardiac: No Symptoms Abdominal/Gastrointestinal: No Symptoms Genitourinary Symptoms: Dysuria Musculoskeletal: No Symptoms Neurological: No Symptoms Psychological: Memory Loss, Other (confusion) Endocrine: No Symptoms Hematologic/Lymphatic: No Symptoms Immunological/Allergic: No Symptoms <CHARLES PENA - Last Filed: 05/24/24 12:04> Objective Exam General Appearance: no apparent distress Neurologic Exam: alert, cooperative, confusion Skin Exam: normal color Eye Exam: PERRL Ears, Nose, Throat Exam: normal ENT inspection Neck Exam: normal inspection Respiratory Exam: normal breath sounds, lungs clear Cardiovascular Exam: regular rate/rhythm, normal heart sounds Gastrointestinal/Abdomen Exam: soft, normal bowel sounds Extremity Exam: normal inspection Back Exam: normal inspection Pelvic Exam: deferred Rectal Exam: deferred <CHARLES PENA - Last Filed: 05/24/24 12:04> Objective Data Vital Signs: Vital Signs - 24 hr Temp Pulse Resp BP BP Pulse Ox 05/24/24 08:00 98.4 F 75 20 145/87 94 L 05/24/24 04:00 97.8 F 71 18 129/85 94 L 05/24/24 00:00 97.8 F 75 20 136/64 95 05/23/24 20:00 97.2 F 71 22 146/74 93 L 05/23/24 15:26 84 20 173/83 91 L 05/23/24 15:04 97.8 F 84 20 173/83 91 L 05/23/24 14:10 88 18 133/75 94 L 05/23/24 14:01 210/148 95 05/23/24 13:34 145/83 95 05/23/24 13:30 98 F 104 H 18 145/83 94 L Pain Assessment - Last Documented Pain Intensity 0 Intake and Output: Intake & Output 05/22/24 05/23/24 05/24/24 05/25/24 11:59 11:59 11:59 11:59 Intake Total 977 Balance 977 Weight 85.3 kg Lab Results: Lab Results-Last 24 Hours 05/23/24 05/23/24 05/23/24 Range/Units 13:29 13:40 13:40 WBC 9.7 (3.98-10.04) x10^3/uL RBC 5.27 H (3.93-5.22) x10^6/uL Hgb 15.4 (11.2-15.7) g/dL Hct 47.6 H (34.1-44.9) % MCV 90.3 (79.4-94.8) fL MCH 29.2 (25.6-32.2) pg MCHC 32.4 (32.2-35.5) g/dL RDW 13.0 (11.7-14.4) % Plt Count 303 (182-369) x10^3/uL MPV 10.2 (9.4-12.3) fL Gran % 68.8 (34.0-71.1) % Immature Gran % (Auto) 0.3 (0.001-0.429) % Nucleat RBC Rel Count 0.0 (0.00-0.2) % Eos # (Auto) 0.13 (0.04-0.36) x10^3/uL Immature Gran # (Auto) 0.03 (0.001-0.031) x10^3u/L Absolute Lymphs (auto) 2.08 (1.18-3.74) x10^3/uL Absolute Monos (auto) 0.71 (0.24-0.86) x10^3/uL Absolute Nucleated RBC 0.00 (0.00-0.012) x10^3u/L Lymphocytes % 21.4 (19.3-51.7) % Monocytes % 7.3 (4.7-12.5) % Eosinophils % 1.3 (0.7-5.8) % Basophils % 0.9 (0.1-1.2) % Absolute Granulocytes 6.69 H (1.56-6.13) x10^3/uL Basophils # 0.09 H (0.01-0.08) x10^3/uL Sodium 143 (135-145) mmol/L Potassium 3.9 (3.5-5.1) mmol/L Chloride 110 H (98-107) mmol/L Carbon Dioxide 21 L (22-30) mmol/L Anion Gap 15.8 H (5-15) MEQ/L BUN 17 (7-17) mg/dL Creatinine 1.07 H (0.52-1.04) mg/dL Estimated GFR 50.6 ML/MIN Glucose 133 H (74-106) mg/dL Calcium 8.9 (8.4-10.2) mg/dL Total Bilirubin 0.80 (0.2-1.3) mg/dL AST 29 (14-36) U/L ALT 28 (0-35) U/L Alkaline Phosphatase 93 (38-126) U/L Serum Total Protein 7.1 (6.3-8.2) g/dL Albumin 3.9 (3.5-5.0) g/dL Urine Color Yellow (Yellow) Urine Appearance Clear (Clear) Urine pH 6.5 (4.6-8.0) Ur Specific Rodney 1.020 (1.005-1.030) Urine Protein 30 (Negative) Urine Glucose (UA) Negative (Negative) mg/dL Urine Ketones Trace A (Negative) Urine Blood Negative (Negative) Urine Nitrite Negative (Negative) Urine Bilirubin Negative (Negative) Urine Urobilinogen 1.0 A (0.2) mg/dL Ur Leukocyte Esterase Small A (Negative) U Hyaline Cast (Auto) NONE SEEN (0-2) /LPF Urine Microscopic RBC 3-5 (0-5) /HPF Urine Microscopic WBC 21-50 A (0-5) /HPF Ur Epithelial Cells Rare (None Seen) /HPF Calcium Oxalate Crystal 3-5 A (None Seen) /HPF Urine Bacteria None Seen (None Seen) /HPF Urine Culture Reflexed ORDERED SEPARATELY (NO) 05/24/24 05/24/24 Range/Units 06:20 06:20 WBC 7.0 (3.98-10.04) x10^3/uL RBC 4.60 (3.93-5.22) x10^6/uL Hgb 13.2 (11.2-15.7) g/dL Hct 42.0 (34.1-44.9) % MCV 91.3 (79.4-94.8) fL MCH 28.7 (25.6-32.2) pg MCHC 31.4 L (32.2-35.5) g/dL RDW 13.0 (11.7-14.4) % Plt Count 241 (182-369) x10^3/uL MPV 10.2 (9.4-12.3) fL Gran % 54.4 (34.0-71.1) % Immature Gran % (Auto) 0.4 (0.001-0.429) % Nucleat RBC Rel Count 0.0 (0.00-0.2) % Eos # (Auto) 0.22 (0.04-0.36) x10^3/uL Immature Gran # (Auto) 0.03 (0.001-0.031) x10^3u/L Absolute Lymphs (auto) 2.16 (1.18-3.74) x10^3/uL Absolute Monos (auto) 0.69 (0.24-0.86) x10^3/uL Absolute Nucleated RBC 0.00 (0.00-0.012) x10^3u/L Lymphocytes % 30.9 (19.3-51.7) % Monocytes % 9.9 (4.7-12.5) % Eosinophils % 3.1 (0.7-5.8) % Basophils % 1.3 H (0.1-1.2) % Absolute Granulocytes 3.80 (1.56-6.13) x10^3/uL Basophils # 0.09 H (0.01-0.08) x10^3/uL Sodium 142 (135-145) mmol/L Potassium 3.7 (3.5-5.1) mmol/L Chloride 114 H (98-107) mmol/L Carbon Dioxide 22 (22-30) mmol/L Anion Gap 9.7 (5-15) MEQ/L BUN 13 (7-17) mg/dL Creatinine 0.86 (0.52-1.04) mg/dL Estimated GFR 65.8 ML/MIN Glucose 87 (74-106) mg/dL Calcium 8.2 L (8.4-10.2) mg/dL Total Bilirubin 0.70 (0.2-1.3) mg/dL AST 22 (14-36) U/L ALT 18 (0-35) U/L Alkaline Phosphatase 83 (38-126) U/L Serum Total Protein 5.8 L (6.3-8.2) g/dL Albumin 3.0 L (3.5-5.0) g/dL Urine Color (Yellow) Urine Appearance (Clear) Urine pH (4.6-8.0) Ur Specific Rodney (1.005-1.030) Urine Protein (Negative) Urine Glucose (UA) (Negative) mg/dL Urine Ketones (Negative) Urine Blood (Negative) Urine Nitrite (Negative) Urine Bilirubin (Negative) Urine Urobilinogen (0.2) mg/dL Ur Leukocyte Esterase (Negative) U Hyaline Cast (Auto) (0-2) /LPF Urine Microscopic RBC (0-5) /HPF Urine Microscopic WBC (0-5) /HPF Ur Epithelial Cells (None Seen) /HPF Calcium Oxalate Crystal (None Seen) /HPF Urine Bacteria (None Seen) /HPF Urine Culture Reflexed (NO) <CHARLES PENA - Last Filed: 05/24/24 12:04> Vital Signs: Vital Signs - 24 hr Temp Pulse Resp BP Pulse Ox 05/24/24 16:00 97.7 F 87 16 145/82 97 05/24/24 12:00 97.2 F 88 17 136/68 97 05/24/24 08:00 98.4 F 75 20 145/87 94 L 05/24/24 04:00 97.8 F 71 18 129/85 94 L 05/24/24 00:00 97.8 F 75 20 136/64 95 Pain Assessment - Last Documented Pain Intensity 0 Intake and Output: Intake & Output 05/22/24 05/23/24 05/24/24 05/25/24 11:59 11:59 11:59 11:59 Intake Total 977 240 Balance 977 240 Weight 85.3 kg Lab Results: Lab Results-Last 24 Hours 05/24/24 05/24/24 Range/Units 06:20 06:20 WBC 7.0 (3.98-10.04) x10^3/uL RBC 4.60 (3.93-5.22) x10^6/uL Hgb 13.2 (11.2-15.7) g/dL Hct 42.0 (34.1-44.9) % MCV 91.3 (79.4-94.8) fL MCH 28.7 (25.6-32.2) pg MCHC 31.4 L (32.2-35.5) g/dL RDW 13.0 (11.7-14.4) % Plt Count 241 (182-369) x10^3/uL MPV 10.2 (9.4-12.3) fL Gran % 54.4 (34.0-71.1) % Immature Gran % (Auto) 0.4 (0.001-0.429) % Nucleat RBC Rel Count 0.0 (0.00-0.2) % Eos # (Auto) 0.22 (0.04-0.36) x10^3/uL Immature Gran # (Auto) 0.03 (0.001-0.031) x10^3u/L Absolute Lymphs (auto) 2.16 (1.18-3.74) x10^3/uL Absolute Monos (auto) 0.69 (0.24-0.86) x10^3/uL Absolute Nucleated RBC 0.00 (0.00-0.012) x10^3u/L Lymphocytes % 30.9 (19.3-51.7) % Monocytes % 9.9 (4.7-12.5) % Eosinophils % 3.1 (0.7-5.8) % Basophils % 1.3 H (0.1-1.2) % Absolute Granulocytes 3.80 (1.56-6.13) x10^3/uL Basophils # 0.09 H (0.01-0.08) x10^3/uL Sodium 142 (135-145) mmol/L Potassium 3.7 (3.5-5.1) mmol/L Chloride 114 H (98-107) mmol/L Carbon Dioxide 22 (22-30) mmol/L Anion Gap 9.7 (5-15) MEQ/L BUN 13 (7-17) mg/dL Creatinine 0.86 (0.52-1.04) mg/dL Estimated GFR 65.8 ML/MIN Glucose 87 (74-106) mg/dL Calcium 8.2 L (8.4-10.2) mg/dL Total Bilirubin 0.70 (0.2-1.3) mg/dL AST 22 (14-36) U/L ALT 18 (0-35) U/L Alkaline Phosphatase 83 (38-126) U/L Serum Total Protein 5.8 L (6.3-8.2) g/dL Albumin 3.0 L (3.5-5.0) g/dL <DANAGARLANDJOHNNY - Last Filed: 05/24/24 21:47> Assessment/Plan (1) UTI (urinary tract infection) Current Visit: Yes Status: Acute Qualifiers: Urinary tract infection type: acute cystitis Hematuria presence: without hematuria Qualified Code(s): N30.00 - Acute cystitis without hematuria Assessment & Plan: -recurrent -follows with Urology- has appt this month -cystoscopy with normal results -prophylactic abx as OP -previous UTI with enterobacter clocae complex on culture sensitive to ceftriaxone -Ceftriaxone started in ED, will continue - follow culture -IVF 05/24/24: -Ucult with gram - ID - continue ceftriaxone Code(s): N39.0 - URINARY TRACT INFECTION, SITE NOT SPECIFIED (2) AMS (altered mental status) Current Visit: Yes Status: Acute Assessment & Plan: -Most likely secondary to UTI, similar symptoms in the past -consider head CT if no improvement 05/24: -improved but not at baseline Code(s): R41.82 - ALTERED MENTAL STATUS, UNSPECIFIED (3) Dementia Current Visit: Yes Status: Acute Assessment & Plan: -Continue memantine Code(s): F03.90 - UNSP DEMENTIA, UNSP SEVERITY, WITHOUT BEH/PSYCH/MOOD/ANX (4) JOSE (acute kidney injury) Current Visit: No Status: Acute Assessment & Plan: -mild -Most likely secondary to hypovolemia - poor oral intake -Avoid nephrotoxic medications -monitor renal/lytes daily -IVF 05/24: -resolved - dc IVF Code(s): N17.9 - ACUTE KIDNEY FAILURE, UNSPECIFIED (5) HTN (hypertension) Current Visit: No Status: Chronic Assessment & Plan: -Continue home meds Code(s): I10 - ESSENTIAL (PRIMARY) HYPERTENSION (6) Hyperlipidemia Current Visit: No Status: Chronic Assessment & Plan: -continue statin VTE: Heparin Code status: full code Dispo: 1-2 days Code(s): N39.0 - URINARY TRACT INFECTION, SITE NOT SPECIFIED (2) AMS (altered mental status) Current Visit: Yes Status: Acute Code(s): R41.82 - ALTERED MENTAL STATUS, UNSPECIFIED (3) Dementia Current Visit: Yes Status: Acute Code(s): F03.90 - UNSP DEMENTIA, UNSP SEVERITY, WITHOUT BEH/PSYCH/MOOD/ANX (4) JOSE (acute kidney injury) Current Visit: No Status: Acute Code(s): N17.9 - ACUTE KIDNEY FAILURE, UNSPECIFIED (5) HTN (hypertension) Current Visit: No Status: Chronic Code(s): I10 - ESSENTIAL (PRIMARY) HYPERTENSION (6) Hyperlipidemia Current Visit: No Status: Chronic Code(s): E78.5 - HYPERLIPIDEMIA, UNSPECIFIED <CHARLES PENA - Last Filed: 05/24/24 12:04> ЕЛЕНА Encounter - ЕЛЕНА Encounter Attestation ЕЛЕНА Encounter Attestation: "IhavepersonallyseenandexaminedLAND,VINAYAK DONALD andhavediscussed pertinent aspects of their care with Charles Camacho agree with the history, physical exam (any modifications based on my personal exam will be noted below), assessment, and plan as outlined in original note. Please see immediately below for my summary of findings and additional assessment and plan along with any meaningful corrections/explanations to the Subjective/Objective portions of the ЕЛЕНА note will be noted." My portion of the encounter took place via telemedicine. -Metabolic encephalopathy due to UTI with underlying dementia. Mental status improved today with less confusion but daughter says patient still not at baseline. Will observe for another day, possible discharge tomorrow. <JOHNNY DANG - Last Filed: 05/24/24 21:47>
[2024-05-25 05:14] LABS: Absolute Neutrophil Ct (ANC) 3.24 x10^3/uL (1.56-6.13); Basophil (Absolute #) 0.07 x10^3/uL (0.01-0.08); Eosinophil % 5.1 % (0.7-5.8); Eosinophil (Absolute #) 0.37 x10^3/uL (0.04-0.36); Hematocrit 39.8 % (34.1-44.9); Hemoglobin 12.7 g/dL (11.2-15.7); IMMATURE GRAN # 0.04 x10^3u/L (0.001-0.031); IMMATURE GRAN % 0.6 % (0.001-0.429); Lymphocyte (Absolute #) 2.73 x10^3/uL (1.18-3.74); Lymphocytes % 37.6 % (19.3-51.7); Mean Cell Volume 91.3 fL (79.4-94.8); Mean Corpuscular Hemoglobin 29.1 pg (25.6-32.2); Mean Corpuscular Hgb Concent. 31.9 g/dL (32.2-35.5); Mean Platelet Volume 10.6 fL (9.4-12.3); Monocyte (Absolute #) 0.81 x10^3/uL (0.24-0.86); Monocytes % 11.2 % (4.7-12.5); Neutrophil % 44.5 % (34.0-71.1); Platelet Count 233 x10^3/uL (182-369); Red Blood Count 4.36 x10^6/uL (3.93-5.22); Red Cell Distribution Width 13.2 % (11.7-14.4); White Blood Count 7.3 x10^3/uL (3.98-10.04)
[2024-05-25 05:41] LABS: ALBUMIN 2.9 g/dL (3.5-5.0); ANION GAP 7.4 MEQ/L (5-15); BILIRUBIN,TOTAL 0.5 mg/dL (0.2-1.3); Calcium 8.3 mg/dL (8.4-10.2); Creatinine 1 0.91 mg/dL (0.52-1.04); EST GLOMERULAR FILTRATION RATE 61.4 ML/MIN; Potassium 3.9 mmol/L (3.5-5.1); Total Protein 5.6 g/dL (6.3-8.2)
[2024-05-25] MEDS: Levofloxacin 250MG Tablet PO SCH (10:29)
[2024-05-25 12:16] VITALS: BP 115/59; PULSE 87; RESP 16; TEMP 98.2; O2SAT 90
--- NOTE | 2024-05-25 13:27 | PCM.DS ---
Discharge Summary Date of Admission: 05/23/24 15:01 Date of Discharge: 05/25/24 Admitting Physician: JOHNNY DANG MD Primary Care Provider: BRITTANY JJ DO Allergies Allergies No Known Drug Allergies Allergy (Verified 05/23/24 13:29) Hospital Summary - Hospital Course Hospital Course: 05/25/24 Ms. Mckenzie is an 88 year old female with a pmhx of HLD, dementia, HTN, and recurrent UTI (follows with Dr. Guerin urology) who presented to ED 05/23/24 with AMS. Son reports that during lunch on 05/23 he noticed her confusion was above baseline. She does have recurrent UTIs for which she follows with urologist Dr. Guerin. Cystoscopy was normal. She is on prophylactic antibiotics (family to call with abx information). Son explains she has presented with similar symptoms with previous UTIs. She did report back pain and some nausea. Denied dysuria, frequency, hematuria. She was only alert to self. Upon arrival to ED patient afebrile with stable vitals. Lab findings remarkable for elevated GAP, hypochloremia, mild JOSE, and UA with trace ketones, leukocyte and microscopic WBC. Previous urine cultures reviewed from 01/12/24 showing enterobacter clocae complex -sensitive to ceftriaxone. Ceftriaxone given in ED along with fluid bolus. Continued IV antibiotics IP. Today she is at baseline mental status per daughter. She has been walking around and doing well. UC + for pseudomonas Aeruginosa- Antibiotics changed to Levaquin and will continue OP x10 days. Will have pt F/u with urology OP. She denies any further concerns at this time. - Vitals & Intake/Output Vital Signs: Vital Signs Temperature 98.2 F 05/25/24 12:00 Pulse Rate 87 05/25/24 12:00 Respiratory Rate 16 05/25/24 12:00 Blood Pressure 115/59 05/25/24 12:00 O2 Sat by Pulse Oximetry 90 L 05/25/24 12:00 Intake & Output: Intake & Output 05/23/24 05/24/24 05/25/24 05/26/24 11:59 11:59 11:59 11:59 Intake Total 977 1000 Balance 977 1000 Weight 85.3 kg - Lab Result Diagrams: 05/25/24 04:31 08/12/24 04:31 Lab Results-Last 24 Hrs: Lab Results-Last 24 Hours 05/25/24 05/25/24 Range/Units 04:31 04:31 WBC 7.3 (3.98-10.04) x10^3/uL RBC 4.36 (3.93-5.22) x10^6/uL Hgb 12.7 (11.2-15.7) g/dL Hct 39.8 (34.1-44.9) % MCV 91.3 (79.4-94.8) fL MCH 29.1 (25.6-32.2) pg MCHC 31.9 L (32.2-35.5) g/dL RDW 13.2 (11.7-14.4) % Plt Count 233 (182-369) x10^3/uL MPV 10.6 (9.4-12.3) fL Gran % 44.5 (34.0-71.1) % Immature Gran % (Auto) 0.6 H (0.001-0.429) % Nucleat RBC Rel Count 0.0 (0.00-0.2) % Eos # (Auto) 0.37 H (0.04-0.36) x10^3/uL Immature Gran # (Auto) 0.04 H (0.001-0.031) x10^3u/L Absolute Lymphs (auto) 2.73 (1.18-3.74) x10^3/uL Absolute Monos (auto) 0.81 (0.24-0.86) x10^3/uL Absolute Nucleated RBC 0.00 (0.00-0.012) x10^3u/L Lymphocytes % 37.6 (19.3-51.7) % Monocytes % 11.2 (4.7-12.5) % Eosinophils % 5.1 (0.7-5.8) % Basophils % 1.0 (0.1-1.2) % Absolute Granulocytes 3.24 (1.56-6.13) x10^3/uL Basophils # 0.07 (0.01-0.08) x10^3/uL Sodium 140 (135-145) mmol/L Potassium 3.9 (3.5-5.1) mmol/L Chloride 113 H (98-107) mmol/L Carbon Dioxide 23 (22-30) mmol/L Anion Gap 7.4 (5-15) MEQ/L BUN 12 (7-17) mg/dL Creatinine 0.91 (0.52-1.04) mg/dL Estimated GFR 61.4 ML/MIN Glucose 88 (74-106) mg/dL Calcium 8.3 L (8.4-10.2) mg/dL Total Bilirubin 0.50 (0.2-1.3) mg/dL AST 25 (14-36) U/L ALT 21 (0-35) U/L Alkaline Phosphatase 86 (38-126) U/L Serum Total Protein 5.6 L (6.3-8.2) g/dL Albumin 2.9 L (3.5-5.0) g/dL Micro Results-Entire Visit: Microbiology 05/23/24 13:29 Urine Culture - Final Catherized Pseudomonas Aeruginosa 05/23/24 13:50 Blood Culture - Preliminary Blood 05/23/24 13:40 Blood Culture - Preliminary Blood Discharge Exam General Appearance: no apparent distress, alert Neurologic Exam: alert, oriented x 3 (Baseline orientation x2), cooperative, normal mood/affect, nml cerebellar function, sensation nml, No motor deficits Eye Exam: PERRL, EOMI, eyes nml inspection Ears, Nose, Throat Exam: normal ENT inspection, pharynx normal, moist mucous membranes Neck Exam: normal inspection, non-tender, supple, full range of motion Respiratory Exam: normal breath sounds, lungs clear, No respiratory distress Cardiovascular Exam: regular rate/rhythm, normal heart sounds Gastrointestinal/Abdomen Exam: soft, No tenderness, No mass Pelvic Exam: deferred Rectal Exam: deferred Back Exam: normal inspection, normal range of motion, No CVA tenderness, No vertebral tenderness Extremity Exam: normal inspection, normal range of motion Skin Exam: normal color, warm, dry Final Diagnosis/Problem List - Final Discharge Diagnosis/Problem (1) Acute UTI (urinary tract infection) Current Visit: No Status: Acute Assessment & Plan: Complicated UTI - UC + Pseudomonas Aeruginosa - IV antibiotics changed to PO Levaquin x 10 days - F/U with urology OP Code(s): N39.0 - URINARY TRACT INFECTION, SITE NOT SPECIFIED (2) AMS (altered mental status) Current Visit: Yes Status: Acute Code(s): R41.82 - ALTERED MENTAL STATUS, UNSPECIFIED (3) Dementia Current Visit: Yes Status: Chronic Assessment & Plan: - Chronic at baseline Code(s): F03.90 - UNSP DEMENTIA, UNSP SEVERITY, WITHOUT BEH/PSYCH/MOOD/ANX (4) JOSE (acute kidney injury) Current Visit: No Status: Resolved Assessment & Plan: - resolved Code(s): N17.9 - ACUTE KIDNEY FAILURE, UNSPECIFIED (5) HTN (hypertension) Current Visit: No Status: Chronic Assessment & Plan: - BP stable- continue home meds Code(s): I10 - ESSENTIAL (PRIMARY) HYPERTENSION (6) Hyperlipidemia Current Visit: No Status: Chronic Assessment & Plan: -continue statin Code(s): E78.5 - HYPERLIPIDEMIA, UNSPECIFIED - Discharge Discharge Date: 05/25/24 Disposition: Home, Self-Care Condition: Stable Prescriptions: New Levofloxacin [Levofloxacin 250MG Tablet] 250 mg PO DAILY 9 Days #9 tablet Continue Lisinopril 10 mg [Zestril 10 MG] 20 mg PO DAILY Potassium Chloride Tab* [Klor Con] 10 meq PO DAILY Atorvastatin Calcium [Lipitor] 20 mg PO DAILY Memantine HCl 10 mg PO DAILY Discontinued Cephalexin Mh 250 mg [Keflex 250 mg] 250 mg PO DAILY Instructions: Urinary tract infection - Discharge instructions Follow up with: BRITTANY JJ DO [Primary Care Provider] - (Pt already has an appointment June 10) Forms: Discharge Instructions
== END 2024-05-25 14:48 | disposition home or self-care (01) ==
LOC: ED 13:16 → MED SURG 15:01
PROVIDERS: ADMIT Internal Medicine; ATTEND Internal Medicine
DX: N39.0 Urinary tract infection, site not specified (principal); R41.82 Altered mental status, unspecified; I10 Essential (primary) hypertension; E78.5 Hyperlipidemia, unspecified; F03.90 Unspecified dementia, unspecified severity, without behavioral disturbance, psychotic disturbance, mood disturbance, and anxiety; N17.9 Acute kidney failure, unspecified; Z79.899 Other long term (current) drug therapy
CPT/HCPCS: 36000; 36415; 80053; 81001; 85025; 87040; 87077; 87086; 87186; 96360; 96365; 99285; P9612; Q3014; G0378; J0696; J1644; A9270-GY

== ENCOUNTER 2024-06-24 09:15 | Emergency (ER) | payer MEDICARE, OTHER ==
--- NOTE | 2024-06-24 09:18 | ERPHSYRPT ---
- History of Present Illness Time Seen by Provider: 06/24/24 09:17 Source: patient, family Exam Limitations: clinical condition Physician History: This is an 88-year-old white female patient who was brought in by her son by private vehicle and who is a patient of Dr. Jj, for the medical issue of confusion. The patient's son stated that he has noticed increasing confusion over the last 2 days. The patient does live alone but has family members who live close by and they are frequently visiting her and checking up on her. Patient has a history of recurrent urinary tract infections and her symptoms are similar to the time she has been diagnosed with urinary tract infection. Patient has a history of hypertension, hyperlipidemia, dementia and arthritis. Patient's son states that the difference between her dementia is mild forgetfulness and currently she is very confused. There are no new medications. She has not had a fever. She has no chest pain. She denies shortness of breath. She has no abdominal pain. She has had no nausea vomiting or diarrhea symptoms. Patient appears in no distress. Patient and her son deny any recent head injury. Timing/Duration: day(s) (2) Allergies/Adverse Reactions: No Known Drug Allergies Allergy (Verified 05/23/24 13:29) Home Medications: Lisinopril 10 mg [Zestril 10 MG] 20 mg PO DAILY 01/29/19 [History] Potassium Chloride Tab* [Klor Con] 10 meq PO DAILY 01/29/19 [History] Atorvastatin Calcium [Lipitor] 20 mg PO DAILY 01/12/24 [History] Memantine HCl 10 mg PO DAILY 02/15/24 [History] Hx Tetanus, Diphtheria Vaccination/Date Given: No Hx Influenza Vaccination/Date Given: Yes Hx Pneumococcal Vaccination/Date Given: Yes Travel Risk - International Travel Have you traveled outside of the country in past 3 weeks: No - Emerging Infectious Disease Are you exhibiting symptoms associated with any current EIDs: No - Review of Systems Constitutional: No Symptoms Eyes: No Symptoms Ears, Nose, & Throat: No Symptoms Respiratory: No Symptoms Cardiac: No Symptoms Abdominal/Gastrointestinal: No Symptoms Genitourinary Symptoms: No Symptoms Musculoskeletal: No Symptoms Skin: No Symptoms Neurological: Other (Confusion intermittently and worsening over the last 2 days) Psychological: No Symptoms Endocrine: No Symptoms Hematologic/Lymphatic: No Symptoms Immunological/Allergic: No Symptoms All Other Systems: Reviewed and Negative - Past Medical History Pertinent Past Medical History: Yes Neurological History: Dementia ENT History: No Pertinent History Cardiac History: High Cholesterol, Hypertension Respiratory History: No Pertinent History Endocrine Medical History: No Pertinent History Musculoskeletal History: Arthritis GI Medical History: No Pertinent History History: Other Psycho-Social History: No Pertinent History Female Reproductive Disorders: No Pertinent History Other Medical History: UTI (can't get into Dr. Guerin until May 2024). - Past Surgical History Past Surgical History: Yes Neuro Surgical History: No Pertinent History Cardiac: No Pertinent History Respiratory: No Pertinent History Gastrointestinal: Colon Resection Genitourinary: No Pertinent History Musculoskeletal: Orthopedic Surgery, Joint Replacement Female Surgical History: Hysterectomy Other Surgical History: Abdias. Knee replacements, left ankle reconstruction - Social History Smoking Status: Never smoker Exposure to second hand smoke: Yes Drug Use: none Patient Lives Alone: No - Social Determinants of Health Will the patient participate in the screening: Yes Do you worry about a steady place to live?: No In the past 12 months,have you had to go without utilities?: No Transportation Issues: No Has anyone in your support network made you feel unsafe?: No Have you or anyone in your house had to go without enough: No - Nursing Vital Signs Nursing Vital Signs: Initial Vital Signs Temperature 97.2 F 06/24/24 09:22 Pulse Rate 94 H 06/24/24 09:22 Respiratory Rate 18 06/24/24 09:22 Blood Pressure 123/81 06/24/24 09:22 O2 Sat by Pulse Oximetry 92 L 06/24/24 09:22 Pain Scale Pain Intensity 0 - [place] Coma Scale Best Eye Response ([place]): (4) open spontaneously Best Verbal Response ([place]): (4) confused conversation Best Motor Response ([place]): (6) obeys commands [place] Total: 14 - Physical Exam General Appearance: no apparent distress, alert, obese Eye Exam: bilateral eye: normal inspection, PERRL, EOMI Ears, Nose, Throat Exam: normal ENT inspection, moist mucous membranes Neck Exam: normal inspection, non-tender, supple, full range of motion Respiratory: normal breath sounds, lungs clear, airway intact, No chest ten derness, No respiratory distress Cardiovascular: regular rate/rhythm, normal heart sounds, normal peripheral pulses Gastrointestinal: soft, normal bowel sounds, No tenderness Pelvic Exam: not done Rectal Exam: not done Back Exam: normal inspection, normal range of motion, No CVA tenderness, No vertebral tenderness Extremity Exam: normal range of motion, pelvis stable, other (Patient has chronic bilateral lower extremity lymphedema) Mental Status: alert, oriented x 3, 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 Exam: normal hearing, normal speech, PERRL, tongue midline Coordination/Gait: normal gait, normal cerebellar function Motor/Sensory: no motor deficit, no sensory deficit Skin Exam: normal color, warm, dry SpO2 Interpretation: normal O2 Delivery: Room Air - Course Nursing assessment & vital signs reviewed: Yes Ordered Tests: Active Orders 24 hr Category Date Time Status IV Insertion STAT Care 06/24/24 09:31 Active HEAD WITHOUT CONTRAST [CT] Stat Exams 06/24/24 09:32 Completed CBC W DIFF Stat Lab 06/24/24 09:35 Completed CMP Stat Lab 06/24/24 09:35 Completed CULTURE,URINE Stat Lab 06/24/24 09:32 Ordered CULTURE,URINE Stat Lab 06/24/24 09:35 Received MAGNESIUM Stat Lab 06/24/24 09:35 Completed UA W/RFX UR CULTURE Stat Lab 06/24/24 09:35 Completed Medication Summary Generic Name Dose Route Start Last Admin Trade Name Freq PRN Reason Stop Dose Admin Sodium Chloride 1,000 mls @ 100 mls/hr 06/24/24 09:45 06/24/24 09:42 Sodium Chloride 0.9% 1000 Ml IV 07/24/24 09:44 100 mls/hr .Q10H ARMEN Administration Ceftriaxone Sodium 1 gm in 100 mls @ 200 mls/hr 06/24/24 11:05 06/24/24 11:15 Rocephin 1 Gm / 100 Ml Nacl IV 06/24/24 11:34 200 mls/hr STAT ONE 200 mls/hr Administration Discontinued Medications Generic Name Dose Route Start Last Admin Trade Name Freq PRN Reason Stop Dose Admin Ceftriaxone Sodium Confirm 06/24/24 11:14 Rocephin 1 Gm / 100 Ml Nacl Administered 06/24/24 11:15 Dose 1 gm in 100 mls @ ud IV .STK-MED ONE Scopolamine HBr 1.5 mg 06/24/24 09:31 06/24/24 09:41 Scopolamine 1.5 Mg Patch TOP 06/24/24 09:32 Not Given STAT ONE Lab/Rad Data: Laboratory Result Diagrams 06/24/24 09:35 06/24/24 09:35 Laboratory Results 06/24/24 06/24/24 06/24/24 Range/Units 09:35 09:35 09:35 WBC 7.2 (3.98-10.04) x10^3/uL RBC 5.02 (3.93-5.22) x10^6/uL Hgb 15.0 (11.2-15.7) g/dL Hct 45.3 H (34.1-44.9) % MCV 90.2 (79.4-94.8) fL MCH 29.9 (25.6-32.2) pg MCHC 33.1 (32.2-35.5) g/dL RDW 13.3 (11.7-14.4) % Plt Count 309 (182-369) x10^3/uL MPV 9.6 (9.4-12.3) fL Gran % 53.1 (34.0-71.1) % Immature Gran % (Auto) 0.6 H (0.001-0.429) % Nucleat RBC Rel Count 0.0 (0.00-0.2) % Eos # (Auto) 0.24 (0.04-0.36) x10^3/uL Immature Gran # (Auto) 0.04 H (0.001-0.031) x10^3u/L Absolute Lymphs (auto) 2.41 (1.18-3.74) x10^3/uL Absolute Monos (auto) 0.62 (0.24-0.86) x10^3/uL Absolute Nucleated RBC 0.00 (0.00-0.012) x10^3u/L Lymphocytes % 33.4 (19.3-51.7) % Monocytes % 8.6 (4.7-12.5) % Eosinophils % 3.3 (0.7-5.8) % Basophils % 1.0 (0.1-1.2) % Absolute Granulocytes 3.84 (1.56-6.13) x10^3/uL Basophils # 0.07 (0.01-0.08) x10^3/uL Sodium 140 (135-145) mmol/L Potassium 4.0 (3.5-5.1) mmol/L Chloride 107 (98-107) mmol/L Carbon Dioxide 26 (22-30) mmol/L Anion Gap 11.6 (5-15) MEQ/L BUN 11 (7-17) mg/dL Creatinine 1.04 (0.52-1.04) mg/dL Estimated GFR 52.3 ML/MIN Glucose 99 (74-106) mg/dL Calcium 9.1 (8.4-10.2) mg/dL Magnesium 1.9 (1.6-2.3) mg/dL Total Bilirubin 1.10 (0.2-1.3) mg/dL AST 31 (14-36) U/L ALT 28 (0-35) U/L Alkaline Phosphatase 94 (38-126) U/L Serum Total Protein 6.9 (6.3-8.2) g/dL Albumin 3.8 (3.5-5.0) g/dL Urine Color Yellow (Yellow) Urine Appearance Cloudy A (Clear) Urine pH 6.0 (4.6-8.0) Ur Specific [place] 1.015 (1.005-1.030) Urine Protein Trace A (Negative) Urine Glucose (UA) Negative (Negative) mg/dL Urine Ketones Negative (Negative) Urine Blood Negative (Negative) Urine Nitrite Negative (Negative) Urine Bilirubin Negative (Negative) Urine Urobilinogen 1.0 A (0.2) mg/dL Ur Leukocyte Esterase Moderate A (Negative) U Hyaline Cast (Auto) 11-20 (0-2) /LPF Urine Microscopic RBC 3-5 (0-5) /HPF Urine Microscopic WBC 11-20 A (0-5) /HPF Ur Epithelial Cells Many A (None Seen) /HPF Urine Bacteria None Seen (None Seen) /HPF Urine Culture Reflexed YES (NO) - Progress Progress: improved, re-examined Progress Note: 06/24/24 09:39 My medical decision making and the assignment of moderate to high complexity of this patient's medical issue today is based on review of the patient's past medical history, review of the patient's medication list, review patient drug allergy list, history present illness and physical findings on examination. The workup in this patient includes placement of an intravenous line, infusion of low rate normal saline solution, CBC, CMP, magnesium level, urinalysis, and CT scan of the head without contrast. Differential diagnosis includes but is not limited to acute intracranial abnormality, urinary tract infection, electrolyte abnormalities 06/24/24 10:57 CT scan of the head without contrast was interpreted by the radiologist and I r eviewed the impression. The impression states continued nonacute senile brain. 06/24/24 11:05 I interpreted the patient's laboratory data results. Based on the laboratory data results, the patient has a urinary tract infection. 06/24/24 11:23 I reviewed the workup results with the patient and the patient's son. The patient's son feels that the the patient is doing well and is stable and well en ough to be discharged to home. The patient and the patient's son are comfortable with her going home. I think, medically speaking, the patient is also stable enough for discharge. Counseled pt/family regarding: lab results, diagnosis, rad results Medical Desision Making - Independent Historian Additional History obtained from: Family - Diagnostic Testing Diagnostic test were ordered, analyzed, and reviewed by me: Yes Radiological Interpretation: Reviewed by me, Teleradiologist Report - Risk of complications The pt has a mod risk of morbidity or mortality based on: Need for prescription drug management - Departure Departure Disposition: Home Clinical Impression: UTI (urinary tract infection) Condition: Stable Critical Care Time: No Referrals: BRITTANY JJ, [Primary Care Provider] - Follow up/PCP as directed Additional Instructions: Drink plenty of fluids. Take your antibiotics and other prescription medications as prescribed. Call your primary care provider and urologist today, 06/24/2024, to make arrangements for follow-up appointment and to discuss measures that can be taken to help avoid recurrent urinary tract infections (possibly daily, low-dose antibiotics). Prescriptions: Cefdinir 300 mg PO BID #14 cap
[2024-06-24 09:31] VITALS: RESP 18; TEMP 97.2
[2024-06-24] MEDS: Transderm Scop 1.5MG Patch TOP ONE (09:41)
[2024-06-24] MEDS ORDERED: Sodium Chloride 0.9% 1000 ML 1,000 ML ONE (09:42)
[2024-06-24] MEDS: Sodium Chloride 0.9% 1000 ML 1,000 ML IV SCH (09:42)
[2024-06-24 09:44] LABS: Absolute Neutrophil Ct (ANC) 3.84 x10^3/uL (1.56-6.13); Basophil (Absolute #) 0.07 x10^3/uL (0.01-0.08); Eosinophil % 3.3 % (0.7-5.8); Eosinophil (Absolute #) 0.24 x10^3/uL (0.04-0.36); Hematocrit 45.3 % (34.1-44.9); IMMATURE GRAN # 0.04 x10^3u/L (0.001-0.031); IMMATURE GRAN % 0.6 % (0.001-0.429); Lymphocyte (Absolute #) 2.41 x10^3/uL (1.18-3.74); Lymphocytes % 33.4 % (19.3-51.7); Mean Cell Volume 90.2 fL (79.4-94.8); Mean Corpuscular Hemoglobin 29.9 pg (25.6-32.2); Mean Corpuscular Hgb Concent. 33.1 g/dL (32.2-35.5); Mean Platelet Volume 9.6 fL (9.4-12.3); Monocyte (Absolute #) 0.62 x10^3/uL (0.24-0.86); Monocytes % 8.6 % (4.7-12.5); Neutrophil % 53.1 % (34.0-71.1); Platelet Count 309 x10^3/uL (182-369); Red Blood Count 5.02 x10^6/uL (3.93-5.22); Red Cell Distribution Width 13.3 % (11.7-14.4); White Blood Count 7.2 x10^3/uL (3.98-10.04)
[2024-06-24 09:56] LABS: ALBUMIN 3.8 g/dL (3.5-5.0); ANION GAP 11.6 MEQ/L (5-15); BILIRUBIN,TOTAL 1.1 mg/dL (0.2-1.3); Calcium 9.1 mg/dL (8.4-10.2); Creatinine 1 1.04 mg/dL (0.52-1.04); EST GLOMERULAR FILTRATION RATE 52.3 ML/MIN; MAGNESIUM 1.9 mg/dL (1.6-2.3); Total Protein 6.9 g/dL (6.3-8.2)
[2024-06-24 10:03] LABS: Appearance Cloudy (Clear); Bacteria None Seen /HPF (None Seen); Bilirubin Negative (Negative); Blood Negative (Negative); Epithelial Cells Many /HPF (None Seen); Glucose, Urine Negative (Negative); Ketones Negative (Negative); Leukocyte Esterase Moderate (Negative); Nitrite Negative (Negative); Protein,Urine Dip Trace (Negative); Specific Gravity 1.015 (1.005-1.030)
[2024-06-24 10:19] LABS: ADD URINE CULTURE? YES (NO)
[2024-06-24 10:26] VITALS: PULSE 81
--- NOTE | 2024-06-24 10:44 | XRAY ---
Indication: Confusion. Multiple contiguous axial images obtained through the head without contrast. Comparison: September 24, 2023 Again age-appropriate global atrophy and moderate periventricular degenerative micro-ischemia unchanged. No acute intracranial hemorrhage, abnormal extra-axial fluid collection, or mass affect. Fourth ventricle is midline without hydrocephalus. Bony calvarium intact. Visualized paranasal sinuses and mastoid air cells are clear. Impression: Continued nonacute senile brain.
[2024-06-24] MEDS ORDERED: ROCEPHIN 1 GM / 100 ML NaCl 1 GM/100 ML IVPB IV ONE (11:14)
[2024-06-24] MEDS: ROCEPHIN 1 GM / 100 ML NaCl 1 GM/100 ML IVPB IV ONE (11:15)
[2024-06-24 12:02] VITALS: BP 133/89; O2SAT 99
== END 2024-06-24 12:01 | disposition home or self-care (01) ==
LOC: ED 09:15
DX: N39.0 Urinary tract infection, site not specified (principal); R41.0 Disorientation, unspecified; I10 Essential (primary) hypertension; E78.5 Hyperlipidemia, unspecified; Z79.899 Other long term (current) drug therapy
CPT/HCPCS: 36000; 36415; 70450; 80053; 81001; 83735; 85025; 87077; 87086; 87186; 96365; 99284; J0696

== ENCOUNTER 2024-07-05 19:29 | Observation (INO) | payer MEDICARE, OTHER ==
--- NOTE | 2024-07-05 19:57 | ERPHSYRPT ---
- History of Present Illness Time Seen by Provider: 07/05/24 19:56 Source: patient Exam Limitations: no limitations Physician History: 88yo f presents via private vehicle w/ daughter for confusion and dark urine. Daughter reports pt has been progressively more confused at home for the past 3d. Daughter reports that pt had UTI treated w/ outpatient abx 3 wks ago. Pt fol lows w/ urology in [place]. Pt currently denies any abdominal pain, n/v. Daughter denies any fevers at home. Severity: mild Associated Symptoms: No nausea, No vomiting, No abdominal pain, No fever, No headaches Allergies/Adverse Reactions: No Known Drug Allergies Allergy (Verified 07/05/24 20:11) Home Medications: Lisinopril 10 mg [Zestril 10 MG] 20 mg PO DAILY 01/29/19 [History] Potassium Chloride Tab* [Klor Con] 10 meq PO DAILY 01/29/19 [History] Atorvastatin Calcium [Lipitor] 20 mg PO DAILY 01/12/24 [History] Memantine HCl 10 mg PO DAILY 02/15/24 [History] Hx Tetanus, Diphtheria Vaccination/Date Given: No Hx Influenza Vaccination/Date Given: Yes Hx Pneumococcal Vaccination/Date Given: Yes Travel Risk - Emerging Infectious Disease Are you exhibiting symptoms associated with any current EIDs: No - Review of Systems Constitutional: No Fever, No Chills, No Fatigue Respiratory: No No Symptoms Cardiac: No No Symptoms Abdominal/Gastrointestinal: No Abdominal Pain, No Nausea, No Vomiting Genitourinary Symptoms: Dysuria, Urgency, No Frequency, No Hematuria, No Incontinence - Past Medical History Pertinent Past Medical History: Yes Neurological History: Dementia ENT History: No Pertinent History Cardiac History: High Cholesterol, Hypertension Respiratory History: No Pertinent History Endocrine Medical History: No Pertinent History Musculoskeletal History: Arthritis GI Medical History: No Pertinent History History: Other Psycho-Social History: No Pertinent History Female Reproductive Disorders: No Pertinent History Other Medical History: UTI (can't get into Dr. Guerin until May 2024). - Past Surgical History Past Surgical History: Yes Neuro Surgical History: No Pertinent History Cardiac: No Pertinent History Respiratory: No Pertinent History Gastrointestinal: Colon Resection Genitourinary: No Pertinent History Musculoskeletal: Orthopedic Surgery, Joint Replacement Female Surgical History: Hysterectomy Other Surgical History: Abdias. Knee replacements, left ankle reconstruction - Social History Smoking Status: Never smoker Exposure to second hand smoke: Yes Drug Use: none Patient Lives Alone: No - Social Determinants of Health Will the patient participate in the screening: Yes Do you worry about a steady place to live?: No In the past 12 months,have you had to go without utilities?: No Transportation Issues: No Has anyone in your support network made you feel unsafe?: No Have you or anyone in your house had to go without enough: No - Nursing Vital Signs Nursing Vital Signs: Initial Vital Signs Temperature 97.5 F 07/05/24 19:47 Pulse Rate 98 H 07/05/24 19:47 Respiratory Rate 18 07/05/24 19:47 Blood Pressure 124/77 07/05/24 19:47 O2 Sat by Pulse Oximetry 94 L 07/05/24 19:47 Pain Scale Pain Intensity 0 - Physical Exam General Appearance: no apparent distress, alert Respiratory Exam: normal breath sounds, lungs clear, airway intact, No chest tenderness, No respiratory distress Cardiovascular Exam: regular rate/rhythm, normal heart sounds Gastrointestinal/Abdomen Exam: soft, normal bowel sounds, No tenderness, No distention Neurologic Exam: alert, oriented x 3, cooperative, normal mood/affect, sensation nml, other (tangential speech, mild confusion appreciated during exam) SpO2 Interpretation: normal SpO2: 95 O2 Delivery: Room Air Ordered Tests: Active Orders 24 hr Category Date Time Status Observation [Place in Observation] ROUTINE Care 07/05/24 22:42 Ordered CBC W DIFF Stat Lab 07/05/24 20:00 Completed CMP Stat Lab 07/05/24 20:00 Completed CULTURE,URINE Stat Lab 07/05/24 20:14 Received Lactic Acid Stat Lab 07/05/24 19:55 Completed Lactic Acid Stat Lab 07/05/24 22:13 Received UA W/RFX UR CULTURE Stat Lab 07/05/24 20:14 Completed Transfer Order Routine Transfer 07/05/24 Ordered Medication Summary Generic Name Dose Route Start Last Admin Trade Name Freq PRN Reason Stop Dose Admin Ceftriaxone Sodium 1 gm in 100 mls @ 200 mls/hr 07/05/24 22:21 Rocephin 1 Gm / 100 Ml Nacl IV 07/05/24 22:50 STAT ONE Discontinued Medications Generic Name Dose Route Start Last Admin Trade Name Freq PRN Reason Stop Dose Admin Sodium Chloride 1,000 mls @ 999 mls/hr 07/05/24 19:55 07/05/24 21:27 Sodium Chloride 0.9% 1000 Ml IV 07/05/24 20:55 Infused .Q1H1M STA Infusion Sodium Chloride Confirm 07/05/24 20:23 Sodium Chloride 0.9% 1000 Ml Administered 07/05/24 20:24 Dose 1,000 mls @ ud .ROUTE .STK-MED ONE Ceftriaxone Sodium Confirm 07/05/24 22:40 Rocephin 1 Gm / 100 Ml Nacl Administered 07/05/24 22:41 Dose 1 gm in 100 mls @ ud IV .STK-MED ONE Lab/Rad Data: Laboratory Result Diagrams 07/05/24 20:00 07/05/24 20:00 Laboratory Results 07/05/24 07/05/24 07/05/24 Range/Units 20:14 20:00 20:00 WBC 9.3 (3.98-10.04) x10^3/uL RBC 4.98 (3.93-5.22) x10^6/uL Hgb 14.6 (11.2-15.7) g/dL Hct 44.4 (34.1-44.9) % MCV 89.2 (79.4-94.8) fL MCH 29.3 (25.6-32.2) pg MCHC 32.9 (32.2-35.5) g/dL RDW 13.8 (11.7-14.4) % Plt Count 312 (182-369) x10^3/uL MPV 9.8 (9.4-12.3) fL Gran % 67.7 (34.0-71.1) % Immature Gran % (Auto) 0.3 (0.001-0.429) % Nucleat RBC Rel Count 0.0 (0.00-0.2) % Eos # (Auto) 0.04 (0.04-0.36) x10^3/uL Immature Gran # (Auto) 0.03 (0.001-0.031) x10^3u/L Absolute Lymphs (auto) 2.02 (1.18-3.74) x10^3/uL Absolute Monos (auto) 0.86 (0.24-0.86) x10^3/uL Absolute Nucleated RBC 0.00 (0.00-0.012) x10^3u/L Lymphocytes % 21.8 (19.3-51.7) % Monocytes % 9.3 (4.7-12.5) % Eosinophils % 0.4 L (0.7-5.8) % Basophils % 0.5 (0.1-1.2) % Absolute Granulocytes 6.26 H (1.56-6.13) x10^3/uL Basophils # 0.05 (0.01-0.08) x10^3/uL Sodium 142 (135-145) mmol/L Potassium 4.7 (3.5-5.1) mmol/L Chloride 110 H (98-107) mmol/L Carbon Dioxide 24 (22-30) mmol/L Anion Gap 12.2 (5-15) MEQ/L BUN 28 H (7-17) mg/dL Creatinine 1.81 H (0.52-1.04) mg/dL Estimated GFR 26.9 ML/MIN Glucose 104 (74-106) mg/dL Lactic Acid (0.4-2.0) Calcium 9.2 (8.4-10.2) mg/dL Total Bilirubin 1.00 (0.2-1.3) mg/dL AST 33 (14-36) U/L ALT 20 (0-35) U/L Alkaline Phosphatase 84 (38-126) U/L Serum Total Protein 6.9 (6.3-8.2) g/dL Albumin 3.8 (3.5-5.0) g/dL Urine Color Dark Yellow A (Yellow) Urine Appearance Cloudy A (Clear) Urine pH 6.0 (4.6-8.0) Ur Specific [place] 1.025 (1.005-1.030) Urine Protein 30 (Negative) Urine Glucose (UA) Negative (Negative) mg/dL Urine Ketones Trace A (Negative) Urine Blood Negative (Negative) Urine Nitrite Negative (Negative) Urine Bilirubin Negative (Negative) Urine Urobilinogen 1.0 A (0.2) mg/dL Ur Leukocyte Esterase Trace A (Negative) U Hyaline Cast (Auto) 6-10 A (0-2) /LPF Urine Microscopic RBC 6-10 A (0-5) /HPF Urine Microscopic WBC 6-10 A (0-5) /HPF Ur Epithelial Cells Rare (None Seen) /HPF Calcium Oxalate Crystal 0-2 A (None Seen) /HPF Urine Bacteria None Seen (None Seen) /HPF Urine Culture Reflexed YES (NO) 07/05/24 Range/Units 19:55 WBC (3.98-10.04) x10^3/uL RBC (3.93-5.22) x10^6/uL Hgb (11.2-15.7) g/dL Hct (34.1-44.9) % MCV (79.4-94.8) fL MCH (25.6-32.2) pg MCHC (32.2-35.5) g/dL RDW (11.7-14.4) % Plt Count (182-369) x10^3/uL MPV (9.4-12.3) fL Gran % (34.0-71.1) % Immature Gran % (Auto) (0.001-0.429) % Nucleat RBC Rel Count (0.00-0.2) % Eos # (Auto) (0.04-0.36) x10^3/uL Immature Gran # (Auto) (0.001-0.031) x10^3u/L Absolute Lymphs (auto) (1.18-3.74) x10^3/uL Absolute Monos (auto) (0.24-0.86) x10^3/uL Absolute Nucleated RBC (0.00-0.012) x10^3u/L Lymphocytes % (19.3-51.7) % Monocytes % (4.7-12.5) % Eosinophils % (0.7-5.8) % Basophils % (0.1-1.2) % Absolute Granulocytes (1.56-6.13) x10^3/uL Basophils # (0.01-0.08) x10^3/uL Sodium (135-145) mmol/L Potassium (3.5-5.1) mmol/L Chloride (98-107) mmol/L Carbon Dioxide (22-30) mmol/L Anion Gap (5-15) MEQ/L BUN (7-17) mg/dL Creatinine (0.52-1.04) mg/dL Estimated GFR ML/MIN Glucose (74-106) mg/dL Lactic Acid 2.2 H (0.4-2.0) Calcium (8.4-10.2) mg/dL Total Bilirubin (0.2-1.3) mg/dL AST (14-36) U/L ALT (0-35) U/L Alkaline Phosphatase (38-126) U/L Serum Total Protein (6.3-8.2) g/dL Albumin (3.5-5.0) g/dL Urine Color (Yellow) Urine Appearance (Clear) Urine pH (4.6-8.0) Ur Specific [place] (1.005-1.030) Urine Protein (Negative) Urine Glucose (UA) (Negative) mg/dL Urine Ketones (Negative) Urine Blood (Negative) Urine Nitrite (Negative) Urine Bilirubin (Negative) Urine Urobilinogen (0.2) mg/dL Ur Leukocyte Esterase (Negative) U Hyaline Cast (Auto) (0-2) /LPF Urine Microscopic RBC (0-5) /HPF Urine Microscopic WBC (0-5) /HPF Ur Epithelial Cells (None Seen) /HPF Calcium Oxalate Crystal (None Seen) /HPF Urine Bacteria (None Seen) /HPF Urine Culture Reflexed (NO) - Progress Progress: re-examined Progress Note: 07/05/24 22:48 UA suggestive of UTI Cr elevated suggesting JOSE slightly more confused from baseline at time of exam plan for admission to obs for IV abx and IV fluid resuscitation I discussed admission for obs w/ Dr Ramirez who is willing to accept Counseled pt/family regarding: lab results, diagnosis, need for follow-up Medical Desision Making - Diagnostic Testing Diagnostic test were ordered, analyzed, and reviewed by me: No - Risk of complications The pt has a high risk of morbidity or mortality based on: Decision regarding hospitilization or escalation of hosp level of care - Departure Departure Disposition: Observation Clinical Impression: Confusion, JOSE (acute kidney injury) UTI (urinary tract infection) Qualifiers: Urinary tract infection type: acute cystitis Hematuria presence: with hematuria Qualified Code(s): N30.01 - Acute cystitis with hematuria Condition: Stable Critical Care Time: No Referrals: BRITTANY JJ DO [Primary Care Provider] - Follow up/PCP as directed
[2024-07-05 20:10] LABS: Absolute Neutrophil Ct (ANC) 6.26 x10^3/uL (1.56-6.13); BASOPHIL % 0.5 % (0.1-1.2); Basophil (Absolute #) 0.05 x10^3/uL (0.01-0.08); Eosinophil % 0.4 % (0.7-5.8); Eosinophil (Absolute #) 0.04 x10^3/uL (0.04-0.36); Hematocrit 44.4 % (34.1-44.9); Hemoglobin 14.6 g/dL (11.2-15.7); IMMATURE GRAN # 0.03 x10^3u/L (0.001-0.031); IMMATURE GRAN % 0.3 % (0.001-0.429); Lymphocyte (Absolute #) 2.02 x10^3/uL (1.18-3.74); Lymphocytes % 21.8 % (19.3-51.7); Mean Cell Volume 89.2 fL (79.4-94.8); Mean Corpuscular Hemoglobin 29.3 pg (25.6-32.2); Mean Corpuscular Hgb Concent. 32.9 g/dL (32.2-35.5); Mean Platelet Volume 9.8 fL (9.4-12.3); Monocyte (Absolute #) 0.86 x10^3/uL (0.24-0.86); Monocytes % 9.3 % (4.7-12.5); Neutrophil % 67.7 % (34.0-71.1); Platelet Count 312 x10^3/uL (182-369); Red Blood Count 4.98 x10^6/uL (3.93-5.22); Red Cell Distribution Width 13.8 % (11.7-14.4); White Blood Count 9.3 x10^3/uL (3.98-10.04)
[2024-07-05] MEDS ORDERED: Sodium Chloride 0.9% 1000 ML 1,000 ML ONE (20:23)
[2024-07-05] MEDS: Sodium Chloride 0.9% 1000 ML 1,000 ML IV STA (20:24)
[2024-07-05 20:45] LABS: ALBUMIN 3.8 g/dL (3.5-5.0); ANION GAP 12.2 MEQ/L (5-15); Calcium 9.2 mg/dL (8.4-10.2); Creatinine 1 1.81 mg/dL (0.52-1.04); EST GLOMERULAR FILTRATION RATE 26.9 ML/MIN; Potassium 4.7 mmol/L (3.5-5.1); Total Protein 6.9 g/dL (6.3-8.2)
[2024-07-05 21:18] LABS: Appearance Cloudy (Clear); Bacteria None Seen /HPF (None Seen); Bilirubin Negative (Negative); Blood Negative (Negative); Epithelial Cells Rare /HPF (None Seen); Glucose, Urine Negative (Negative); Ketones Trace (Negative); Leukocyte Esterase Trace (Negative); Nitrite Negative (Negative); Protein,Urine Dip 30 (Negative); Specific Gravity 1.025 (1.005-1.030)
[2024-07-05 21:19] LABS: ADD URINE CULTURE? YES (NO); Calcium Oxalate Crystals 0-2 /HPF (None Seen)
[2024-07-05] MEDS ORDERED: ROCEPHIN 1 GM / 100 ML NaCl 1 GM/100 ML IVPB IV ONE (22:40)
[2024-07-05] MEDS: ROCEPHIN 1 GM / 100 ML NaCl 1 GM/100 ML IVPB IV ONE (22:47)
--- NOTE | 2024-07-06 00:04 | PCM.HP ---
History of Present Illness - Chief Complaint Chief Complaint: UTI Date: 07/06/24 History of Present Illness: 88 years old very pleasant lady with past medical history significant for hypertension hyperlipidemia, mild dementia, recurrent UTI follows with urologist operative regularly, she has cystoscopy in the past remained unremarkable she is on prophylactic antibiotics, she has been treated for UTI 3 weeks ago with oral antibiotics brought to ER by family for altered mental status and dark urine. denied fever, nausea/ vomiting, flank pains. In the ER vital signs were stable she is afebrile lab workup was remarkable for creatinine 1.8, urine was positive for trace leukocyte esterase and 6-12 WBCs. Patient admitted for another UTI failure to Oral antibiotics. - Review of Systems All Other Systems: Reviewed and Negative (14 systems reviewed and marked ve except mentioned in [place]) Medications & Allergies Home Medications: Home Medication List Lisinopril 10 mg [Zestril 10 MG] 20 mg PO DAILY 01/29/19 [History Confirmed 07/05/24] Potassium Chloride Tab* [Klor Con] 10 meq PO DAILY 01/29/19 [History Confirmed 07/05/24] Atorvastatin Calcium [Lipitor] 20 mg PO DAILY 01/12/24 [History Confirmed 07/05/24] Memantine HCl 10 mg PO DAILY 02/15/24 [History Confirmed 07/05/24] Levofloxacin [Levofloxacin 500 MG Tablet] 500 mg PO DAILY 07/05/24 [History Confirmed 07/05/24] Allergies/Adverse Reactions: Allergies Allergy/AdvReac Type Severity Reaction Status Date / Time No Known Drug Allergies Allergy Verified 07/05/24 20:11 - Past Medical History Past Medical History: Yes Neurological History: Dementia ENT History: No Pertinent History Cardiac History: High Cholesterol, Hypertension Respiratory History: No Pertinent History Endocrine Medical History: No Pertinent History Musculoskelatal History: Arthritis GI Medical History: No Pertinent History History: Other Pyscho-Social History: No Pertinent History Reproductive Disorders: No Pertinent History Comment: UTI (can't get into Dr. Guerin until May 2024). - Past Surgical History Past Surgical History: Yes Neuro Surgical History: No Pertinent History Cardiac History: No Pertinent History Respiratory Surgery: No Pertinent History GI Surgical History: Colon Resection Genitourinary Surgical Hx: No Pertinent History Musculskeletal Surgical Hx: Orthopedic Surgery, Joint Replacement Female Surgical History: Hysterectomy Other Surgical History: Abdias. Knee replacements, left ankle reconstruction Significant Family History: no pertinent family hx - Social History Smoking Status: Never smoker Exposure to second hand smoke: Yes Alcohol: None Drug Use: none - Social Determinants of Health Will the patient participate in the screening: Yes Do you worry about a steady place to live?: No Do you have any problems with any of the following?: No known problems In the past 12 months,have you had to go without utilities?: No Have you or anyone in your house had to go without enough: No Transportation Issues: No Has anyone in your support network made you feel unsafe?: No Does the patient want assistance with any of the above?: No - Physical Exam Vital Signs: Vital Signs - 24 hr Temp Pulse Resp BP BP Pulse Ox 07/05/24 23:53 102 H 19 141/75 94 L 07/05/24 23:00 102 H 19 141/75 94 L 07/05/24 22:50 95 07/05/24 22:31 94 H 22 126/72 96 07/05/24 22:00 94 H 18 113/83 96 07/05/24 21:30 91 H 20 150/79 95 07/05/24 21:00 94 H 25 H 131/86 96 07/05/24 20:30 92 H 24 117/86 96 07/05/24 20:00 97 H 22 114/65 94 L 07/05/24 19:47 97.5 F 98 H 18 124/77 94 L Additional Findings: 07/06/24 00:03 HEENT Very old aged, average built in no distress NECK Supple,no thyromegaly, CVS S1+S2 + 0, no murmers RESP Bilateral equal air entry without Crepts/Wheezes heard GIT Soft non tender,non distended Skin, No rah, no Bruises LEGS No Edema 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 NEURO AOX2, no focal deficit 07/06/24 00:38 Results - Labs Lab/Micro Results: Lab Results-Last 24 Hours 07/05/24 07/05/24 07/05/24 Range/Units 19:55 20:00 20:00 WBC 9.3 (3.98-10.04) x10^3/uL RBC 4.98 (3.93-5.22) x10^6/uL Hgb 14.6 (11.2-15.7) g/dL Hct 44.4 (34.1-44.9) % MCV 89.2 (79.4-94.8) fL MCH 29.3 (25.6-32.2) pg MCHC 32.9 (32.2-35.5) g/dL RDW 13.8 (11.7-14.4) % Plt Count 312 (182-369) x10^3/uL MPV 9.8 (9.4-12.3) fL Gran % 67.7 (34.0-71.1) % Immature Gran % (Auto) 0.3 (0.001-0.429) % Nucleat RBC Rel Count 0.0 (0.00-0.2) % Eos # (Auto) 0.04 (0.04-0.36) x10^3/uL Immature Gran # (Auto) 0.03 (0.001-0.031) x10^3u/L Absolute Lymphs (auto) 2.02 (1.18-3.74) x10^3/uL Absolute Monos (auto) 0.86 (0.24-0.86) x10^3/uL Absolute Nucleated RBC 0.00 (0.00-0.012) x10^3u/L Lymphocytes % 21.8 (19.3-51.7) % Monocytes % 9.3 (4.7-12.5) % Eosinophils % 0.4 L (0.7-5.8) % Basophils % 0.5 (0.1-1.2) % Absolute Granulocytes 6.26 H (1.56-6.13) x10^3/uL Basophils # 0.05 (0.01-0.08) x10^3/uL Sodium 142 (135-145) mmol/L Potassium 4.7 (3.5-5.1) mmol/L Chloride 110 H (98-107) mmol/L Carbon Dioxide 24 (22-30) mmol/L Anion Gap 12.2 (5-15) MEQ/L BUN 28 H (7-17) mg/dL Creatinine 1.81 H (0.52-1.04) mg/dL Estimated GFR 26.9 ML/MIN Glucose 104 (74-106) mg/dL Lactic Acid 2.2 H (0.4-2.0) Calcium 9.2 (8.4-10.2) mg/dL Total Bilirubin 1.00 (0.2-1.3) mg/dL AST 33 (14-36) U/L ALT 20 (0-35) U/L Alkaline Phosphatase 84 (38-126) U/L Serum Total Protein 6.9 (6.3-8.2) g/dL Albumin 3.8 (3.5-5.0) g/dL Urine Color (Yellow) Urine Appearance (Clear) Urine pH (4.6-8.0) Ur Specific [place] (1.005-1.030) Urine Protein (Negative) Urine Glucose (UA) (Negative) mg/dL Urine Ketones (Negative) Urine Blood (Negative) Urine Nitrite (Negative) Urine Bilirubin (Negative) Urine Urobilinogen (0.2) mg/dL Ur Leukocyte Esterase (Negative) U Hyaline Cast (Auto) (0-2) /LPF Urine Microscopic RBC (0-5) /HPF Urine Microscopic WBC (0-5) /HPF Ur Epithelial Cells (None Seen) /HPF Calcium Oxalate Crystal (None Seen) /HPF Urine Bacteria (None Seen) /HPF Urine Culture Reflexed (NO) 07/05/24 Range/Units 20:14 WBC (3.98-10.04) x10^3/uL RBC (3.93-5.22) x10^6/uL Hgb (11.2-15.7) g/dL Hct (34.1-44.9) % MCV (79.4-94.8) fL MCH (25.6-32.2) pg MCHC (32.2-35.5) g/dL RDW (11.7-14.4) % Plt Count (182-369) x10^3/uL MPV (9.4-12.3) fL Gran % (34.0-71.1) % Immature Gran % (Auto) (0.001-0.429) % Nucleat RBC Rel Count (0.00-0.2) % Eos # (Auto) (0.04-0.36) x10^3/uL Immature Gran # (Auto) (0.001-0.031) x10^3u/L Absolute Lymphs (auto) (1.18-3.74) x10^3/uL Absolute Monos (auto) (0.24-0.86) x10^3/uL Absolute Nucleated RBC (0.00-0.012) x10^3u/L Lymphocytes % (19.3-51.7) % Monocytes % (4.7-12.5) % Eosinophils % (0.7-5.8) % Basophils % (0.1-1.2) % Absolute Granulocytes (1.56-6.13) x10^3/uL Basophils # (0.01-0.08) x10^3/uL Sodium (135-145) mmol/L Potassium (3.5-5.1) mmol/L Chloride (98-107) mmol/L Carbon Dioxide (22-30) mmol/L Anion Gap (5-15) MEQ/L BUN (7-17) mg/dL Creatinine (0.52-1.04) mg/dL Estimated GFR ML/MIN Glucose (74-106) mg/dL Lactic Acid (0.4-2.0) Calcium (8.4-10.2) mg/dL Total Bilirubin (0.2-1.3) mg/dL AST (14-36) U/L ALT (0-35) U/L Alkaline Phosphatase (38-126) U/L Serum Total Protein (6.3-8.2) g/dL Albumin (3.5-5.0) g/dL Urine Color Dark Yellow A (Yellow) Urine Appearance Cloudy A (Clear) Urine pH 6.0 (4.6-8.0) Ur Specific [place] 1.025 (1.005-1.030) Urine Protein 30 (Negative) Urine Glucose (UA) Negative (Negative) mg/dL Urine Ketones Trace A (Negative) Urine Blood Negative (Negative) Urine Nitrite Negative (Negative) Urine Bilirubin Negative (Negative) Urine Urobilinogen 1.0 A (0.2) mg/dL Ur Leukocyte Esterase Trace A (Negative) U Hyaline Cast (Auto) 6-10 A (0-2) /LPF Urine Microscopic RBC 6-10 A (0-5) /HPF Urine Microscopic WBC 6-10 A (0-5) /HPF Ur Epithelial Cells Rare (None Seen) /HPF Calcium Oxalate Crystal 0-2 A (None Seen) /HPF Urine Bacteria None Seen (None Seen) /HPF Urine Culture Reflexed YES (NO) Assessment/Plan (1) UTI (urinary tract infection) Current Visit: Yes Status: Acute Qualifiers: Urinary tract infection type: acute cystitis Hematuria presence: with hematuria Qualified Code(s): N30.01 - Acute cystitis with hematuria Code(s): N39.0 - URINARY TRACT INFECTION, SITE NOT SPECIFIED (2) JOSE (acute kidney injury) Current Visit: Yes Status: Acute Code(s): N17.9 - ACUTE KIDNEY FAILURE, UNSPECIFIED (3) Confusion Current Visit: Yes Status: Acute Code(s): R41.0 - DISORIENTATION, UNSPECIFIED (4) HTN (hypertension) Current Visit: No Status: Chronic Code(s): I10 - ESSENTIAL (PRIMARY) HYPERTENSION Telemedicine Encounter - Telemedicine Encounter Telemedicine Encounter: The entirety of this encounter was performed via TelemedicineThis visit was performed using real-time audio and video connection between my location and thepatients locationwith the assistance of a surrogateat the patients location. Written or verbal consent was obtained from the patient/guardian to perform this visit usingFiz technology. Any patient questions regarding the telemedicine interaction were answered. Acute encephalopathy Seems metabolic due to underlying UTI Will keep holding further workup Delirium precautions Keep avoiding sedatives Acute urinary tract infection Previous culture positive for Pseudomonas pansensitive Will keep her on cefepime for now Keep following up cultures Of note patient is having recurrent UTI for that she follows with Dr. Guerin, prior to cystoscopy remain negative and she is on prophylactic antibiotic Acute kidney injury Baseline creatinine 1.0 Creatinine upon admission 1.8 Continue hydration Keep avoiding nephrotoxins Hypertension Blood pressure stable Will resume home blood pressure meds Hyperlipidemia Continue home statins Mild dementia Baseline, continue supportive therapy DVT prophylaxis subcu heparin CODE STATUS full Discharge planning pending clinical stability. I have reviewed patient lab vitals and imaging in detail all question and concerns were addressed
[2024-07-06] MEDS ORDERED: APRESOLINE 20 MG/ML INJ IV PRN (00:38)
[2024-07-06] MEDS: Sodium Chloride 0.9% 1000 ML 1,000 ML IV SCH (01:15)
[2024-07-06 05:00] LABS: Hematocrit 39.9 % (34.1-44.9); Hemoglobin 13.1 g/dL (11.2-15.7); Mean Cell Volume 89.7 fL (79.4-94.8); Mean Corpuscular Hemoglobin 29.4 pg (25.6-32.2); Mean Corpuscular Hgb Concent. 32.8 g/dL (32.2-35.5); Platelet Count 239 x10^3/uL (182-369); Red Blood Count 4.45 x10^6/uL (3.93-5.22); Red Cell Distribution Width 13.9 % (11.7-14.4); White Blood Count 8.4 x10^3/uL (3.98-10.04)
[2024-07-06 05:36] LABS: ANION GAP 9.2 MEQ/L (5-15); Calcium 8.2 mg/dL (8.4-10.2); Creatinine 1 1.45 mg/dL (0.52-1.04); EST GLOMERULAR FILTRATION RATE 35.1 ML/MIN
[2024-07-06] MEDS: HEPARIN 5000 UNITS/0.5 ML (HIGH RISK MED) SQ SCH (05:58)
[2024-07-06] MEDS: MAXIPIME 1 GM** 1 G in Dextrose 5%/Water IV Soln. 100ML PLUS BAG 100 ML IV SCH (07:30)
[2024-07-06] MEDS: NORVASC 5 MG PO SCH (09:54)
[2024-07-06] MEDS: Namenda 5 MG PO SCH (09:54)
[2024-07-06] MEDS: ZOCOR 20MG PO SCH (09:54)
[2024-07-06] MEDS ORDERED: NON-FORMULARY ITEM (Memantine Hcl [Memantine Hcl] 10 MG Tablet) PO SCH (10:00)
[2024-07-06] MEDS ORDERED: NON-FORMULARY ITEM (Atorvastatin Calcium [Lipitor] 20 MG Tablet) PO SCH (10:00)
[2024-07-07 05:11] LABS: Hematocrit 37.9 % (34.1-44.9); Hemoglobin 12.2 g/dL (11.2-15.7); Mean Corpuscular Hgb Concent. 32.2 g/dL (32.2-35.5); Mean Platelet Volume 9.9 fL (9.4-12.3); Platelet Count 229 x10^3/uL (182-369); Red Blood Count 4.21 x10^6/uL (3.93-5.22); White Blood Count 8.2 x10^3/uL (3.98-10.04)
[2024-07-07 05:42] LABS: ALBUMIN 2.7 g/dL (3.5-5.0); ANION GAP 8.3 MEQ/L (5-15); BILIRUBIN,TOTAL 0.7 mg/dL (0.2-1.3); Calcium 7.9 mg/dL (8.4-10.2); Creatinine 1 1.04 mg/dL (0.52-1.04); EST GLOMERULAR FILTRATION RATE 52.3 ML/MIN; Potassium 3.9 mmol/L (3.5-5.1); Total Protein 5.4 g/dL (6.3-8.2)
--- NOTE | 2024-07-07 09:47 | PCM.NOTE ---
Date and Time: 07/07/24945 Subjective Assessment: 88 years old very pleasant lady with past medical history significant for hypertension hyperlipidemia, mild dementia, and recurrent UTI. She follows with urology regularly (Dr. Carranza). She has had a cystoscopy in the past and remained unremarkable she is on prophylactic antibiotics for UTI. She has been treated for a UTI 3 weeks ago with oral antibiotics brought to ER by family for altered mental status and dark urine. She denied fever, nausea/ vomiting, flank pains. In the ER vital signs were stable she was afebrile. Lab workup was remarkable for creatinine 1.8, urine was positive for trace leukocyte esterase and 6-12 WBCs. Patient admitted for another UTI failure to Oral antibiotics. She was started on cefepmine after reviewing old culture results. She is resistant to ceftriaxone. Mental status improved today, but not at baseline. JOSE resolved. She will need f/u OP with ID and urology for a complicated UTI. Likely will d/c tomorrow. Denies further c/o at this time. UC pending. - Review of Systems Constitutional: No Fever, No Chills Eyes: No Symptoms Ears, Nose, & Throat: No Symptoms Respiratory: No Cough, No Short Of Breath Cardiac: No Chest Pain, No Edema, No Syncope Abdominal/Gastrointestinal: No Abdominal Pain, No Nausea, No Vomiting, No Diarrhea Genitourinary Symptoms: No Dysuria Musculoskeletal: No Back Pain, No Neck Pain Skin: No Rash Neurological: No Dizziness, No Focal Weakness, No Sensory Changes Psychological: No Symptoms Endocrine: No Symptoms Hematologic/Lymphatic: No Symptoms Immunological/Allergic: No Symptoms Objective Exam General Appearance: no apparent distress, alert, obese Neurologic Exam: alert, cooperative, normal mood/affect, nml cerebellar function, sensation nml, confusion (A& O x2- not oriented to time.), No motor deficits Skin Exam: normal color, warm, dry Wound Assessment: Skin/Wound Assessment Wound/Incision Assessment Start: 07/06/24 01:06 Text: Status: Active Freq: Q6H Protocol: Document 07/07/24 08:00 AIPATRICIA (Rec: 07/07/24 09:00 [facility] [id number]) Wound/Incision Assessment Bilateral Abdominal Folds Wound Assessment Shift Assessment Wound Type REDNESS Wound Stage Non Pressure Wound Drainage Amount None General Appearance Open to air,Reddened Comment POWDER APPLIED Left Breast Fold Wound Assessment Shift Assessment Wound Type REDNESS Wound Stage Non Pressure Wound Drainage Amount None General Appearance Open to air,Reddened Comment POWDER APPLIED Wound Photo Photo Taken Yes Date: 07/06/24 Time: 00:05 Eye Exam: PERRL, EOMI, eyes nml inspection Ears, Nose, Throat Exam: normal ENT inspection, pharynx normal, moist mucous membranes Neck Exam: normal inspection, non-tender, supple, full range of motion Respiratory Exam: normal breath sounds, lungs clear, No respiratory distress Cardiovascular Exam: regular rate/rhythm, normal heart sounds Gastrointestinal/Abdomen Exam: soft, No tenderness, No mass Extremity Exam: normal inspection, normal range of motion Back Exam: normal inspection, normal range of motion, No CVA tenderness, No vertebral tenderness Pelvic Exam: deferred Rectal Exam: deferred Objective Data Vital Signs: Vital Signs - 24 hr Temp Pulse Resp BP Pulse Ox 07/07/24 07:40 97.8 F 85 16 144/65 94 L 07/07/24 04:00 97.1 F 84 16 164/70 91 L 07/06/24 23:13 96.6 F 85 16 157/68 96 07/06/24 18:54 98.0 F 79 16 138/67 94 L 07/06/24 16:00 98.1 F 71 18 125/69 97 07/06/24 11:51 97.9 F 93 H 20 123/60 96 Pain Assessment - Last Documented Pain Intensity 0 Intake and Output: Intake & Output 07/04/24 07/05/24 07/06/24 07/07/24 11:59 11:59 11:59 11:59 Intake Total 646 3200 Balance 646 3200 Weight 86.3 kg Lab Results: Lab Results-Last 24 Hours 07/07/24 07/07/24 07/07/24 Range/Units 05:05 05:05 07:51 WBC 8.2 (3.98-10.04) x10^3/uL RBC 4.21 (3.93-5.22) x10^6/uL Hgb 12.2 (11.2-15.7) g/dL Hct 37.9 (34.1-44.9) % MCV 90.0 (79.4-94.8) fL MCH 29.0 (25.6-32.2) pg MCHC 32.2 (32.2-35.5) g/dL RDW 14.0 (11.7-14.4) % Plt Count 229 (182-369) x10^3/uL MPV 9.9 (9.4-12.3) fL Sodium 139 (135-145) mmol/L Potassium 3.9 (3.5-5.1) mmol/L Chloride 113 H (98-107) mmol/L Carbon Dioxide 21 L (22-30) mmol/L Anion Gap 8.3 (5-15) MEQ/L BUN 20 H (7-17) mg/dL Creatinine 1.04 (0.52-1.04) mg/dL Estimated GFR 52.3 ML/MIN Glucose 102 (74-106) mg/dL Lactic Acid 1.3 (0.4-2.0) Calcium 7.9 L (8.4-10.2) mg/dL Total Bilirubin 0.70 (0.2-1.3) mg/dL AST 27 (14-36) U/L ALT 17 (0-35) U/L Alkaline Phosphatase 69 (38-126) U/L Serum Total Protein 5.4 L (6.3-8.2) g/dL Albumin 2.7 L (3.5-5.0) g/dL Assessment/Plan (1) UTI (urinary tract infection) Current Visit: Yes Status: Acute Qualifiers: Urinary tract infection type: acute cystitis Hematuria presence: with hematuria Qualified Code(s): N30.01 - Acute cystitis with hematuria Assessment & Plan: - Complex - Cefepime IV - IVF- stopped today - UC pending - will need urology and ID OP f/u Code(s): N39.0 - URINARY TRACT INFECTION, SITE NOT SPECIFIED (2) JOSE (acute kidney injury) Current Visit: Yes Status: Resolved Assessment & Plan: - Resolved Code(s): N17.9 - ACUTE KIDNEY FAILURE, UNSPECIFIED (3) Confusion Current Visit: Yes Status: Acute Assessment & Plan: - improved today, a&O x2- baseline x3 Code(s): R41.0 - DISORIENTATION, UNSPECIFIED (4) HTN (hypertension) Current Visit: No Status: Chronic Assessment & Plan: - resume home meds- stable - trend Code(s): I10 - ESSENTIAL (PRIMARY) HYPERTENSION (5) Obesity (BMI 30.0-34.9) Current Visit: Yes Status: Chronic Assessment & Plan: - advised diet and exercise control VTE: heparin Next of KIN: daughter D/C plan: tomorrow Code(s): E66.9 - OBESITY, UNSPECIFIED
[2024-07-07] MEDS: Zestril 20 MG PO SCH (10:15)
[2024-07-08 05:32] LABS: ALBUMIN 3.1 g/dL (3.5-5.0); ANION GAP 9.3 MEQ/L (5-15); BILIRUBIN,TOTAL 0.5 mg/dL (0.2-1.3); Calcium 8.3 mg/dL (8.4-10.2); Creatinine 1 0.87 mg/dL (0.52-1.04); EST GLOMERULAR FILTRATION RATE 64.8 ML/MIN; Potassium 3.6 mmol/L (3.5-5.1); Total Protein 5.9 g/dL (6.3-8.2)
--- NOTE | 2024-07-08 11:48 | PCM.DS ---
Discharge Summary Date of Admission: 07/05/24 23:44 Date of Discharge: 07/08/24 Admitting Physician: MARGARITO LAMB MD Primary Care Provider: BRITTANY JJ DO Allergies Allergies No Known Drug Allergies Allergy (Verified 07/05/24 20:11) Hospital Summary - Hospital Course Hospital Course: 07/07/24 88 years old very pleasant lady with past medical history significant for hypertension hyperlipidemia, mild dementia, and recurrent UTI. She follows with urology regularly (Dr. Carranza). She has had a cystoscopy in the past and remained unremarkable she is on prophylactic antibiotics for UTI. She has been treated for a UTI 3 weeks ago with oral antibiotics brought to ER by family for altered mental status and dark urine. She denied fever, nausea/ vomiting, flank pains. In the ER vital signs were stable she was afebrile. Lab workup was remarkable for creatinine 1.8, urine was positive for trace leukocyte esterase and 6-12 WBCs. Patient admitted for another UTI failure to Oral antibiotics. She was started on cefepmine after reviewing old culture results. She is resistant to ceftriaxone. Mental status improved today, but not at baseline. JOSE resolved. She will need f/u OP with ID and urology for a complicated UTI. Likely will d/c tomorrow. Denies further c/o at this time. UC pending. 07/08/25 Pt resting in bed. She is A&Ox3 today. She is feeling better and wants to d/c. UC negative and antibiotics stopped. Sxs appears to be r/t JOSE which has also resolved. Discussed to encourage oral intake at home to prevent JOSE and repeat UTI. F/U with urology OP as scheduled. She denies any further concerns at this time. - Vitals & Intake/Output Vital Signs: Vital Signs Temperature 96.8 F 07/08/24 07:16 Pulse Rate 92 H 07/08/24 07:16 Respiratory Rate 18 07/08/24 07:16 Blood Pressure 134/68 07/08/24 07:16 O2 Sat by Pulse Oximetry 92 L 07/08/24 07:16 Intake & Output: Intake & Output 07/05/24 07/06/24 07/07/24 07/08/24 11:59 11:59 11:59 11:59 Intake Total 646 3200 1380 Balance 646 3200 1380 Weight 86.3 kg - Lab Result Diagrams: 07/07/24 05:05 07/08/24 05:00 Lab Results-Last 24 Hrs: Lab Results-Last 24 Hours 07/08/24 Range/Units 05:00 Sodium 141 (135-145) mmol/L Potassium 3.6 (3.5-5.1) mmol/L Chloride 112 H (98-107) mmol/L Carbon Dioxide 23 (22-30) mmol/L Anion Gap 9.3 (5-15) MEQ/L BUN 13 (7-17) mg/dL Creatinine 0.87 (0.52-1.04) mg/dL Estimated GFR 64.8 ML/MIN Glucose 99 (74-106) mg/dL Calcium 8.3 L (8.4-10.2) mg/dL Total Bilirubin 0.50 (0.2-1.3) mg/dL AST 30 (14-36) U/L ALT 24 (0-35) U/L Alkaline Phosphatase 81 (38-126) U/L Serum Total Protein 5.9 L (6.3-8.2) g/dL Albumin 3.1 L (3.5-5.0) g/dL Micro Results-Entire Visit: Microbiology 07/05/24 20:14 Urine Culture - Final Urine, Catheterized NO GROWTH - Procedures and Test Procedures and Tests throughout Hospitalization: Therapy Orders & Screens 07/06/24 07:30 OT Screen per Nursing Assess ONCE Comment: Protocol Order Physician Instructions: Greater than 3 points order OT Admission Screening Reason For Exam: Triggered on Admission Diagnosis: UTI Open Wound/Cellutlitis/Pressure Ulcers: No Acute Fx/ORIF/Change in wt bearing status: No Severe MUSCULOSKELETAL pain: No ADL Dysfunction: Yes Acute CVA w/Hemiparesis/Hemiplegia: No Decreased Functional Mobility/Strength: Yes Sprain/Strain: No Acute Post-op Mobility Dysfunction: No Total Points: 4 PT Screen per Nursing Assess ONCE Comment: Protocol Order Physician Instructions: Greater than 3 points order PT Admission Screenin Reason For Exam: Triggered on Admission Diagnosis: UTI Open Wound/Cellutlitis/Pressure Ulcers: No Acute Fx/ORIF/Change in wt bearing status: No Severe MUSCULOSKELETAL pain: No ADL Dysfunction: Yes Acute CVA w/Hemiparesis/Hemiplegia: No Decreased Functional Mobility/Strength: Yes Sprain/Strain: No Acute Post-op Mobility Dysfunction: No Total Points: 4 Discharge Exam General Appearance: no apparent distress, alert, obese Neurologic Exam: alert, oriented x 3, cooperative, normal mood/affect, nml cerebellar function, sensation nml, No motor deficits Eye Exam: PERRL, EOMI, eyes nml inspection Ears, Nose, Throat Exam: normal ENT inspection, pharynx normal, moist mucous membranes Neck Exam: normal inspection, non-tender, supple, full range of motion Respiratory Exam: normal breath sounds, lungs clear, No respiratory distress Cardiovascular Exam: regular rate/rhythm, normal heart sounds Gastrointestinal/Abdomen Exam: soft, No tenderness, No mass Pelvic Exam: deferred Rectal Exam: deferred Back Exam: normal inspection, normal range of motion, No CVA tenderness, No vertebral tenderness Extremity Exam: normal inspection, normal range of motion Skin Exam: normal color, warm, dry Wound Assessment: Skin/Wound Assessment Wound/Incision Assessment Start: 07/06/24 01:06 Text: Status: Active Freq: Q6H Protocol: Document 07/08/24 08:00 GIL (Rec: 07/08/24 08:03 GIL [id number]) Wound/Incision Assessment Bilateral Abdominal Folds Wound Assessment Shift Assessment Wound Type REDNESS Wound Stage Non Pressure Wound Drainage Amount None General Appearance Open to air,Reddened Surrounding Tissue [place] Comment WILL APPLY POWDER Left Breast Fold Wound Assessment Shift Assessment Wound Type REDNESS Wound Stage Non Pressure Wound Drainage Amount None General Appearance Open to air,Reddened Surrounding Tissue [place] Comment WILL APPLY POWDER Final Diagnosis/Problem List - Final Discharge Diagnosis/Problem (1) UTI (urinary tract infection) Current Visit: Yes Status: Resolved Code(s): N39.0 - URINARY TRACT INFECTION, SITE NOT SPECIFIED (2) OJSE (acute kidney injury) Current Visit: Yes Status: Resolved Code(s): N17.9 - ACUTE KIDNEY FAILURE, UNSPECIFIED (3) Confusion Current Visit: Yes Status: Resolved Code(s): R41.0 - DISORIENTATION, UNSPECIFIED (4) HTN (hypertension) Current Visit: No Status: Chronic Code(s): I10 - ESSENTIAL (PRIMARY) HYPERTENSION (5) Obesity (BMI 30.0-34.9) Current Visit: Yes Status: Chronic Assessment & Plan: (1) UTI (urinary tract infection) Current Visit: Yes Status: Acute Qualifiers: Urinary tract infection type: acute cystitis Hematuria presence: with hematuria Qualified Code(s): N30.01 - Acute cystitis with hematuria Assessment & Plan: - Complex - Cefepime IV - IVF- stopped today - UC pending - will need urology and ID OP f/u 07/08 - UC negative- IV antibiotics stopped Code(s): N39.0 - URINARY TRACT INFECTION, SITE NOT SPECIFIED (2) JOSE (acute kidney injury) Current Visit: Yes Status: Resolved Assessment & Plan: - Resolved Code(s): N17.9 - ACUTE KIDNEY FAILURE, UNSPECIFIED (3) Confusion Current Visit: Yes Status: Acute Assessment & Plan: - improved today, a&O x2- baseline x3 07/08 - A&O x3- resolved Code(s): R41.0 - DISORIENTATION, UNSPECIFIED (4) HTN (hypertension) Current Visit: No Status: Chronic Assessment & Plan: - resume home meds- stable - trend Code(s): I10 - ESSENTIAL (PRIMARY) HYPERTENSION (5) Obesity (BMI 30.0-34.9) Current Visit: Yes Status: Chronic Assessment & Plan: - advised diet and exercise control Code(s): E66.9 - OBESITY, UNSPECIFIED - Discharge Discharge Date: 07/08/24 Disposition: Home, Self-Care Condition: Stable Prescriptions: Continue Lisinopril 10 mg [Zestril 10 MG] 20 mg PO DAILY Potassium Chloride Tab* [Klor Con] 10 meq PO DAILY Atorvastatin Calcium [Lipitor] 20 mg PO DAILY Memantine HCl 10 mg PO DAILY Levofloxacin [Levofloxacin 500 MG Tablet] 500 mg PO DAILY Instructions: Acute kidney injury, Dehydration, Adult ED Follow up with: BRITTANY JJ DO [Primary Care Provider] - 07/14/24 3:30 pm LYUDMILA MENENDEZ [NON-STAFF PHY W/O PRIVILEGES] - 07/16/24 11:15 am ALYX VITALE NP [ALLIED HEALTH PROFESSION STAFF] - 07/15/24 10:30 am Forms: Discharge Instructions
[2024-07-08 12:24] VITALS: BP 128/89; PULSE 84; RESP 16; TEMP 97.9; O2SAT 93
== END 2024-07-08 12:44 | disposition home or self-care (01) ==
LOC: ED 19:29 → MED SURG 23:44
PROVIDERS: ADMIT Internal Medicine; ATTEND Internal Medicine
DX: N39.0 Urinary tract infection, site not specified (principal); N17.9 Acute kidney failure, unspecified; R41.0 Disorientation, unspecified; I10 Essential (primary) hypertension; E66.9 Obesity, unspecified; E78.5 Hyperlipidemia, unspecified; F03.90 Unspecified dementia, unspecified severity, without behavioral disturbance, psychotic disturbance, mood disturbance, and anxiety; Z79.899 Other long term (current) drug therapy
CPT/HCPCS: 36415; 80048; 80053; 81001; 83605; 84134; 85025; 85027; 87086; 96360; 96365; 99285; Q3014; G0378; J0692; J0696; J1644; A9270-GY

== ENCOUNTER 2024-07-31 09:42 | Emergency (ER) | payer MEDICARE, OTHER ==
--- NOTE | 2024-07-31 09:58 | ERPHSYRPT ---
- History of Present Illness Time Seen by Provider: 07/31/24 09:58 Source: patient, family Exam Limitations: no limitations Physician History: This is an 88-year-old white female patient of Dr. Jj who was brought by private vehicle escorted by her daughter and presents with UTI symptoms. Patient has a history of hypertension, hyperlipidemia and dementia. She has no complaints of headache, chest pain or shortness of breath. She has no abdominal pain. Patient's daughter states that the patient usually has signs of insomnia when she has a urinary tract infection which has happened in the last 1 to 2 days. The patient's daughter states that she is concerned her mother has a urinary tract infection. Timing/Duration: day(s) (Last day or so) Activites at Onset: other (Not sleeping) Quality: other (Pain) Onset Location: other Pain Radiation: other (No pain) Severity of Pain-Max: none (No pain) Severity of Pain-Current: none Prior abdominal problems: none Sexual intercourse history: non-contributory, not active Modifying Factors: Improves With: nothing Associated Symptoms: denies symptoms Allergies/Adverse Reactions: No Known Drug Allergies Allergy (Verified 07/31/24 10:10) Home Medications: Lisinopril 10 mg [Zestril 10 MG] 20 mg PO DAILY 01/29/19 [History] Potassium Chloride Tab* [Klor Con] 10 meq PO DAILY 01/29/19 [History] Atorvastatin Calcium [Lipitor] 20 mg PO DAILY 01/12/24 [History] Nitrofurantoin Macro 100 mg [Macrobid 100MG Capsule] 100 mg PO DAILY 07/31/24 [History] Hx Tetanus, Diphtheria Vaccination/Date Given: No Hx Influenza Vaccination/Date Given: Yes Hx Pneumococcal Vaccination/Date Given: Yes Travel Risk - International Travel Have you traveled outside of the country in past 3 weeks: No - Emerging Infectious Disease Are you exhibiting symptoms associated with any current EIDs: No - Review of Systems Constitutional: No Symptoms Eyes: No Symptoms Ears, Nose, & Throat: No Symptoms Respiratory: No Symptoms Cardiac: No Symptoms Abdominal/Gastrointestinal: No Symptoms Genitourinary Symptoms: No Symptoms Musculoskeletal: No Symptoms Neurological: Other (Insomnia which occurs in this patient when she has a urinary tract infection per her daughter) Psychological: No Symptoms Endocrine: No Symptoms Hematologic/Lymphatic: No Symptoms Immunological/Allergic: No Symptoms All Other Systems: Reviewed and Negative - Past Medical History Pertinent Past Medical History: Yes Neurological History: Dementia ENT History: No Pertinent History Cardiac History: High Cholesterol, Hypertension Respiratory History: No Pertinent History Endocrine Medical History: No Pertinent History Musculoskeletal History: Arthritis GI Medical History: No Pertinent History History: Other Psycho-Social History: No Pertinent History Female Reproductive Disorders: No Pertinent History Other Medical History: . - Past Surgical History Past Surgical History: Yes Neuro Surgical History: No Pertinent History Cardiac: No Pertinent History Respiratory: No Pertinent History Gastrointestinal: Colon Resection Genitourinary: No Pertinent History Musculoskeletal: Orthopedic Surgery, Joint Replacement Female Surgical History: Hysterectomy Other Surgical History: Abdias. Knee replacements, left ankle reconstruction Significant Family History: no pertinent family hx - Social History Smoking Status: Never smoker Exposure to second hand smoke: Yes Drug Use: none Patient Lives Alone: No - Social Determinants of Health Will the patient participate in the screening: Yes Do you worry about a steady place to live?: No In the past 12 months,have you had to go without utilities?: No Transportation Issues: No Has anyone in your support network made you feel unsafe?: No Have you or anyone in your house had to go without enough: No - Nursing Vital Signs Nursing Vital Signs: Initial Vital Signs Temperature 97.5 F 07/31/24 09:53 Pulse Rate 103 H 07/31/24 09:53 Blood Pressure 154/110 07/31/24 09:53 O2 Sat by Pulse Oximetry 92 L 07/31/24 09:53 Pain Scale Pain Intensity 0 - Physical Exam General Appearance: no apparent distress, alert Eye Exam: PERRL/EOMI, eyes nml inspection Ears, Nose, Throat Exam: normal ENT inspection, moist mucous membranes Neck Exam: normal inspection, non-tender, supple, full range of motion Respiratory Exam: normal breath sounds, lungs clear, airway intact, No chest tenderness, No respiratory distress Cardiovascular Exam: regular rate/rhythm, normal heart sounds, normal peripheral pulses Gastrointestinal/Abdomen Exam: soft, normal bowel sounds, No tenderness Pelvic Exam: not done Rectal Exam: not done Back Exam: normal inspection, normal range of motion, No CVA tenderness, No vertebral tenderness Extremity Exam: normal inspection, normal range of motion, pelvis stable Neurologic Exam: alert, cooperative, tubing drier II-XII nml as tested, normal mood/affect, sensation nml Skin Exam: normal color, warm, dry Lymphatic Exam: No adenopathy SpO2 Interpretation: normal O2 Delivery: Room Air - Course Nursing assessment & vital signs reviewed: Yes Ordered Tests: Active Orders 24 hr Category Date Time Status cath [Cath for Specimen-Straight] STAT Care 07/31/24 11:34 Active CULTURE,URINE Stat Lab 07/31/24 11:34 Received UA W/RFX UR CULTURE Stat Lab 07/31/24 11:34 Completed Lab/Rad Data: Laboratory Results 07/31/24 Range/Units 11:34 Urine Color Yellow (Yellow) Urine Appearance Cloudy A (Clear) Urine pH 6.0 (4.6-8.0) Ur Specific [place] 1.025 (1.005-1.030) Urine Protein Trace A (Negative) Urine Glucose (UA) Negative (Negative) mg/dL Urine Ketones Negative (Negative) Urine Blood Negative (Negative) Urine Nitrite Negative (Negative) Urine Bilirubin Negative (Negative) Urine Urobilinogen 0.2 (0.2) mg/dL Ur Leukocyte Esterase Trace A (Negative) U Hyaline Cast (Auto) NONE SEEN (0-2) /LPF Urine Microscopic RBC 3-5 (0-5) /HPF Urine Microscopic WBC 6-10 A (0-5) /HPF Ur Epithelial Cells Moderate A (None Seen) /HPF Urine Bacteria None Seen (None Seen) /HPF Urine Culture Reflexed ORDERED SEPARATELY (NO) - Progress Progress: re-examined, unchanged Air Movement: good Progress Note: 07/31/24 10:33 My medical decision making and the assignment of low complexity of this patient's medical issue today is based on review of the patient's past medical history, review the patient's medication list, reviewed patient drug allergy list, history present illness and physical findings on examination. The workup in this patient includes urinalysis. Differential diagnosis includes but is not limited to urinary tract infection, worsening dementia 07/31/24 12:14 I interpreted the patient's laboratory data results. Based on the laboratory data results, the patient has a urinary tract infection. Blood Culture(s) Obtained: No Antibiotics given: Yes Counseled pt/family regarding: lab results, diagnosis, need for follow-up Medical Desision Making - Independent Historian Additional History obtained from: Family - Diagnostic Testing Diagnostic test were ordered, analyzed, and reviewed by me: Yes - Risk of complications The pt has a mod risk of morbidity or mortality based on: Need for prescription drug management - Departure Departure Disposition: Home Clinical Impression: UTI (urinary tract infection) Condition: Stable Critical Care Time: No Referrals: BRITTANY JJ DO [Primary Care Provider] - Follow up/PCP as directed Additional Instructions: Drink plenty of fluids. Take your antibiotics and other medications as prescribed. Call your primary care provider today, 07/31/2024, to make arrangements for follow-up appointment for further evaluation and management. Prescriptions: Cefdinir 300 mg PO BID #14 cap
[2024-07-31 10:10] VITALS: TEMP 97.5
[2024-07-31 11:08] VITALS: PULSE 64; RESP 16
[2024-07-31 12:03] LABS: Appearance Cloudy (Clear); Bacteria None Seen /HPF (None Seen); Bilirubin Negative (Negative); Blood Negative (Negative); Epithelial Cells Moderate /HPF (None Seen); Glucose, Urine Negative (Negative); Hyaline Casts NONE SEEN /LPF (0-2); Ketones Negative (Negative); Leukocyte Esterase Trace (Negative); Nitrite Negative (Negative); Protein,Urine Dip Trace (Negative); Specific Gravity 1.025 (1.005-1.030); Urobilinogen 0.2 mg/dL (0.2)
[2024-07-31 12:04] VITALS: BP 153/77; O2SAT 97
[2024-07-31] MEDS ORDERED: Rocephin 1000 MG INJ ONE (12:24)
[2024-07-31] MEDS: Rocephin 1000 MG INJ IM ONE (12:26)
== END 2024-07-31 12:38 | disposition home or self-care (01) ==
LOC: ED 09:42
DX: N39.0 Urinary tract infection, site not specified (principal); G47.00 Insomnia, unspecified; E78.5 Hyperlipidemia, unspecified; I10 Essential (primary) hypertension; Z79.899 Other long term (current) drug therapy
CPT/HCPCS: 81001; 87086; 96372; 99283; P9612; J0696

== ENCOUNTER 2024-09-08 17:51 | Observation (INO) | payer MEDICARE, OTHER ==
[2024-09-08 18:14] LABS: Appearance Cloudy (Clear); Bacteria None Seen /HPF (None Seen); Bilirubin Negative (Negative); Blood Negative (Negative); Epithelial Cells Few /HPF (None Seen); Glucose, Urine Negative (Negative); Ketones Negative (Negative); Leukocyte Esterase Moderate (Negative); Nitrite Negative (Negative); Protein,Urine Dip Trace (Negative); RBC 0-2 /HPF (0-5); WBC 21-50 /HPF (0-5)
--- NOTE | 2024-09-08 18:28 | ERPHSYRPT ---
- History of Present Illness Time Seen by Provider: 09/08/24 18:24 Source: patient Exam Limitations: no limitations Patient Subjective Stated Complaint: possible uti Triage Nursing Assessment: Pt brought to the ER by her daughter, tachycardic, hypoxic, hypertensive, denies pain, daughter states that she hasn't been acting herself and she usually has a uti, dementia, pulses normal, skin n/w/d, lasha lower leg extremity, no difficulty breathing, doesn't appear to be in any distress Physician History: Patient is a 88-year-old female presents to our ED with her daughter for evaluation of confusion. Daughter states patient has baseline dementia however has observed that patient is saying things that do not make sense. Patient told her daughter "ever since mom I do not want to stay by myself". Daughter reports that patient typically develops a level of confusion when she develops a urinary tract infection. Patient's daughter feels that her confusion is due to a UTI. No trauma no fever no chest pain or shortness of breath. Patient has no complaints. Symptoms are mild to moderate in intensity. No specific worsening or improving factors. Patient/daughter voiced no other complaints or concerns at this time. Daughter reports that patient lives with family member Portions of this note were created with voice recognition technology. There may be grammatical, spelling, punctuation or sound alike errors Timing/Duration: today Severity: moderate Modifying Factors: Improves With: nothing Associated Symptoms: denies symptoms Allergies/Adverse Reactions: No Known Drug Allergies Allergy (Verified 09/08/24 18:11) Home Medications: Lisinopril 10 mg [Zestril 10 MG] 20 mg PO DAILY 01/29/19 [History] Potassium Chloride Tab* [Klor Con] 10 meq PO DAILY 01/29/19 [History] Atorvastatin Calcium [Lipitor] 20 mg PO DAILY 01/12/24 [History] Nitrofurantoin Macro 100 mg [Macrobid 100MG Capsule] 100 mg PO DAILY 07/31/24 [History] Hx Tetanus, Diphtheria Vaccination/Date Given: No Hx Influenza Vaccination/Date Given: Yes Hx Pneumococcal Vaccination/Date Given: Yes Travel Risk - International Travel Have you traveled outside of the country in past 3 weeks: No - Emerging Infectious Disease Are you exhibiting symptoms associated with any current EIDs: No - Review of Systems Constitutional: No Symptoms, No Fever, No Chills Eyes: No Symptoms Ears, Nose, & Throat: No Symptoms Respiratory: No Symptoms, No Cough, No Dyspnea Cardiac: No Symptoms, No Chest Pain, No Edema, No Syncope Abdominal/Gastrointestinal: No Symptoms, No Abdominal Pain, No Nausea, No Vomiting, No Diarrhea Genitourinary Symptoms: No Symptoms, No Dysuria Musculoskeletal: No Symptoms, No Back Pain, No Neck Pain Skin: No Symptoms, No Rash Neurological: No Symptoms, No Dizziness, No Focal Weakness, No Sensory Changes Psychological: No Symptoms Endocrine: No Symptoms Hematologic/Lymphatic: No Symptoms Immunological/Allergic: No Symptoms All Other Systems: Reviewed and Negative - Past Medical History Pertinent Past Medical History: Yes Neurological History: Dementia ENT History: No Pertinent History Cardiac History: High Cholesterol, Hypertension Respiratory History: No Pertinent History Endocrine Medical History: No Pertinent History Musculoskeletal History: Arthritis GI Medical History: No Pertinent History History: Other Psycho-Social History: No Pertinent History Female Reproductive Disorders: No Pertinent History Other Medical History: . - Past Surgical History Past Surgical History: Yes Neuro Surgical History: No Pertinent History Cardiac: No Pertinent History Respiratory: No Pertinent History Gastrointestinal: Colon Resection Genitourinary: No Pertinent History Musculoskeletal: Orthopedic Surgery, Joint Replacement Female Surgical History: Hysterectomy Other Surgical History: Lasha. Knee replacements, left ankle reconstruction Significant Family History: no pertinent family hx - Social History Smoking Status: Never smoker Exposure to second hand smoke: No Drug Use: none Patient Lives Alone: No - Social Determinants of Health Will the patient participate in the screening: Yes Do you worry about a steady place to live?: No Do you have any problems with any of the following?: No known problems In the past 12 months,have you had to go without utilities?: No Transportation Issues: No Has anyone in your support network made you feel unsafe?: No Have you or anyone in your house had to go without enough: No - Nursing Vital Signs Nursing Vital Signs: Initial Vital Signs Temperature 98.2 F 09/08/24 18:02 Pulse Rate 119 H 09/08/24 18:02 Blood Pressure 157/100 09/08/24 18:02 O2 Sat by Pulse Oximetry 92 L 09/08/24 18:02 Pain Scale Pain Intensity 0 - Physical Exam General Appearance: no apparent distress, alert Eye Exam: PERRL/EOMI, eyes nml inspection Ears, Nose, Throat Exam: normal ENT inspection, moist mucous membranes Neck Exam: normal inspection, full range of motion Respiratory Exam: normal breath sounds, lungs clear, No respiratory distress Cardiovascular Exam: regular rate/rhythm, normal heart sounds, normal peripheral pulses Gastrointestinal/Abdomen Exam: soft, normal bowel sounds, No tenderness, No mass Back Exam: normal inspection, normal range of motion, No CVA tenderness, No vertebral tenderness Extremity Exam: normal inspection, normal range of motion, pelvis stable Neurologic Exam: alert, oriented x 3, cooperative, normal mood/affect, sensation nml, No motor deficits Skin Exam: normal color, warm, dry, No rash Lymphatic Exam: No adenopathy SpO2 Interpretation: normal SpO2: 92 O2 Delivery: Room Air - Course Nursing assessment & vital signs reviewed: Yes EKG Interpreted by Me: RATE (97), Sinus Rhythm, NORMAL AXIS, NORMAL INTERVALS, Right Bundle Branch Block - Radiology Exams Chest X-ray Interpretation: Interpreted by me (Nonacute chest with chronic features) - CT Exams Head CT Interpretation: Tele-radiologist Report (Stable nonacute senile brain) Ordered Tests: Active Orders 24 hr Category Date Time Status Supervisor Prep STAT Care 09/08/24 18:23 Active IV Insertion STAT Care 09/08/24 18:22 Active Pulse Oximetry (ED) STAT Care 09/08/24 18:22 Active CHEST 1 VIEW (PORTABLE) Stat Exams 09/08/24 18:41 Taken HEAD WITHOUT CONTRAST [CT] Stat Exams 09/08/24 18:22 Taken BLOOD CULTURE Stat Lab 09/08/24 18:36 Received CBC W DIFF Stat Lab 09/08/24 18:40 Completed CMP Stat Lab 09/08/24 18:40 Completed CULTURE,URINE Stat Lab 09/08/24 18:04 Received NT PRO BNPII Stat Lab 09/08/24 18:40 Completed TROPONIN Q4H Lab 09/08/24 18:40 Completed TROPONIN Q4H Lab 09/08/24 22:30 Ordered TROPONIN Q4H Lab 09/09/24 02:30 Ordered UA W/RFX UR CULTURE Stat Lab 09/08/24 18:04 Completed Transfer Order Routine Transfer 09/08/24 Ordered Medication Summary Generic Name Dose Route Start Last Admin Trade Name Freq PRN Reason Stop Dose Admin Sodium Chloride 1,000 mls @ 150 mls/hr 09/08/24 20:30 09/08/24 20:21 Sodium Chloride 0.9% 1000 Ml IV 10/08/24 20:29 150 mls/hr .[id number] ARMEN Administration Discontinued Medications Generic Name Dose Route Start Last Admin Trade Name Malik PRN Reason Stop Dose Admin Ceftriaxone Sodium 1 gm in 100 mls @ 200 mls/hr 09/08/24 19:45 09/08/24 19:53 Rocephin 1 Gm / 100 Ml Nacl IV 09/08/24 20:14 200 mls/hr STAT ONE 200 mls/hr Administration Ceftriaxone Sodium Confirm 09/08/24 19:48 Rocephin 1 Gm / 100 Ml Nacl Administered 09/08/24 19:49 Dose 1 gm in 100 mls @ ud IV .STK-MED ONE Lab/Rad Data: Laboratory Result Diagrams 09/08/24 18:40 09/08/24 18:40 Laboratory Results 09/08/24 09/08/24 09/08/24 Range/Units 18:40 18:40 18:40 WBC (3.98-10.04) x10^3/uL RBC (3.93-5.22) x10^6/uL Hgb (11.2-15.7) g/dL Hct (34.1-44.9) % MCV (79.4-94.8) fL MCH (25.6-32.2) pg MCHC (32.2-35.5) g/dL RDW (11.7-14.4) % Plt Count (182-369) x10^3/uL MPV (9.4-12.3) fL Gran % (34.0-71.1) % Immature Gran % (Auto) (0.001-0.429) % Nucleat RBC Rel Count (0.00-0.2) % Eos # (Auto) (0.04-0.36) x10^3/uL Immature Gran # (Auto) (0.001-0.031) x10^3u/L Absolute Lymphs (auto) (1.18-3.74) x10^3/uL Absolute Monos (auto) (0.24-0.86) x10^3/uL Absolute Nucleated RBC (0.00-0.012) x10^3u/L Lymphocytes % (19.3-51.7) % Monocytes % (4.7-12.5) % Eosinophils % (0.7-5.8) % Basophils % (0.1-1.2) % Absolute Granulocytes (1.56-6.13) x10^3/uL Basophils # (0.01-0.08) x10^3/uL Sodium 145 (135-145) mmol/L Potassium 4.0 (3.5-5.1) mmol/L Chloride 114 H (98-107) mmol/L Carbon Dioxide 23 (22-30) mmol/L Anion Gap 12.2 (5-15) MEQ/L BUN 23 H (7-17) mg/dL Creatinine 0.92 (0.52-1.04) mg/dL Estimated GFR 60.6 ML/MIN Glucose 117 H (74-106) mg/dL Calcium 9.0 (8.4-10.2) mg/dL Total Bilirubin 0.90 (0.2-1.3) mg/dL AST 25 (14-36) U/L ALT 24 (0-35) U/L Alkaline Phosphatase 82 (38-126) U/L Troponin I < 0.012 (0.000-0.033) ng/mL NT-Pro-B Natriuret Pep 849 (<300) pg/mL Serum Total Protein 6.3 (6.3-8.2) g/dL Albumin 3.5 (3.5-5.0) g/dL Urine Color (Yellow) Urine Appearance (Clear) Urine pH (4.6-8.0) Ur Specific [place] (1.005-1.030) Urine Protein (Negative) Urine Glucose (UA) (Negative) mg/dL Urine Ketones (Negative) Urine Blood (Negative) Urine Nitrite (Negative) Urine Bilirubin (Negative) Urine Urobilinogen (0.2) mg/dL Ur Leukocyte Esterase (Negative) U Hyaline Cast (Auto) (0-2) /LPF Urine Microscopic RBC (0-5) /HPF Urine Microscopic WBC (0-5) /HPF Ur Epithelial Cells (None Seen) /HPF Urine Bacteria (None Seen) /HPF Urine Culture Reflexed (NO) 09/08/24 09/08/24 Range/Units 18:40 18:04 WBC 8.0 (3.98-10.04) x10^3/uL RBC 4.94 (3.93-5.22) x10^6/uL Hgb 14.6 (11.2-15.7) g/dL Hct 44.7 (34.1-44.9) % MCV 90.5 (79.4-94.8) fL MCH 29.6 (25.6-32.2) pg MCHC 32.7 (32.2-35.5) g/dL RDW 14.4 (11.7-14.4) % Plt Count 326 (182-369) x10^3/uL MPV 10.0 (9.4-12.3) fL Gran % 62.4 (34.0-71.1) % Immature Gran % (Auto) 0.1 (0.001-0.429) % Nucleat RBC Rel Count 0.0 (0.00-0.2) % Eos # (Auto) 0.22 (0.04-0.36) x10^3/uL Immature Gran # (Auto) 0.01 (0.001-0.031) x10^3u/L Absolute Lymphs (auto) 2.13 (1.18-3.74) x10^3/uL Absolute Monos (auto) 0.58 (0.24-0.86) x10^3/uL Absolute Nucleated RBC 0.00 (0.00-0.012) x10^3u/L Lymphocytes % 26.8 (19.3-51.7) % Monocytes % 7.3 (4.7-12.5) % Eosinophils % 2.8 (0.7-5.8) % Basophils % 0.6 (0.1-1.2) % Absolute Granulocytes 4.97 (1.56-6.13) x10^3/uL Basophils # 0.05 (0.01-0.08) x10^3/uL Sodium (135-145) mmol/L Potassium (3.5-5.1) mmol/L Chloride (98-107) mmol/L Carbon Dioxide (22-30) mmol/L Anion Gap (5-15) MEQ/L BUN (7-17) mg/dL Creatinine (0.52-1.04) mg/dL Estimated GFR ML/MIN Glucose (74-106) mg/dL Calcium (8.4-10.2) mg/dL Total Bilirubin (0.2-1.3) mg/dL AST (14-36) U/L ALT (0-35) U/L Alkaline Phosphatase (38-126) U/L Troponin I (0.000-0.033) ng/mL NT-Pro-B Natriuret Pep (<300) pg/mL Serum Total Protein (6.3-8.2) g/dL Albumin (3.5-5.0) g/dL Urine Color Dark Yellow A (Yellow) Urine Appearance Cloudy A (Clear) Urine pH 5.0 (4.6-8.0) Ur Specific [place] 1.020 (1.005-1.030) Urine Protein Trace A (Negative) Urine Glucose (UA) Negative (Negative) mg/dL Urine Ketones Negative (Negative) Urine Blood Negative (Negative) Urine Nitrite Negative (Negative) Urine Bilirubin Negative (Negative) Urine Urobilinogen 1.0 A (0.2) mg/dL Ur Leukocyte Esterase Moderate A (Negative) U Hyaline Cast (Auto) 3-5 A (0-2) /LPF Urine Microscopic RBC 0-2 (0-5) /HPF Urine Microscopic WBC 21-50 A (0-5) /HPF Ur Epithelial Cells Few (None Seen) /HPF Urine Bacteria None Seen (None Seen) /HPF Urine Culture Reflexed YES (NO) - Progress Progress: improved Progress Note: Chest x-ray ordered as patient was initially hypoxic on arrival. However O2 sat is since normalized. Chest x-ray negative for acute findings. 09/08/24 20:09 88-year-old female lives alone presents to our ED for evaluation of confusion. Workup reveals a urinary tract infection. Patient is dehydrated as per her labs BUN/creatinine ratio/specific gravity. Daughter at bedside states that patient does not drink very much water at all. Patient currently receiving IV antibiotics and IV fluids. Patient will require hospitalization for further evaluation and treatment. Case discussed with hospitalist Dr. Zhou who accepts admission to observation. Plan of care discussed with patient and daughter who agree with admission to [facility] for further evaluation and treatment. Portions of this note were created with voice recognition technology. There may be grammatical, spelling, punctuation or sound alike errors Complexity of problem addressed is moderate acute complicated. No critical care time. Complex of data reviewed analyzes extensive. Test ordered chest reviewed results analyzed and correlated clinically with history and physical exam. Management discussed with hospitalist who accepts admission to observation at 8:19 PM. Risk of complication and or risk of morbidity/mortality of patient management is high. Patient requires hospitalization for further evaluation and treatment. Vital stable. Time spent to admit patient is approximately 20 minutes. Plan of care established for shared decision making. No social determinants of health present to impede follow-up. Portions of this note were created with voice recognition technology. There may be grammatical, spelling, punctuation or sound alike errors 09/08/24 20:21 Counseled pt/family regarding: lab results, diagnosis, rad results - Departure Departure Disposition: Observation Clinical Impression: Confusion, UTI (urinary tract infection), Dehydration Condition: Stable Critical Care Time: No Referrals: BRITTANY JJ, [Primary Care Provider] - Follow up/PCP as directed
[2024-09-08 18:42] LABS: Absolute Neutrophil Ct (ANC) 4.97 x10^3/uL (1.56-6.13); BASOPHIL % 0.6 % (0.1-1.2); Basophil (Absolute #) 0.05 x10^3/uL (0.01-0.08); Eosinophil % 2.8 % (0.7-5.8); Eosinophil (Absolute #) 0.22 x10^3/uL (0.04-0.36); Hematocrit 44.7 % (34.1-44.9); Hemoglobin 14.6 g/dL (11.2-15.7); IMMATURE GRAN # 0.01 x10^3u/L (0.001-0.031); IMMATURE GRAN % 0.1 % (0.001-0.429); Lymphocyte (Absolute #) 2.13 x10^3/uL (1.18-3.74); Lymphocytes % 26.8 % (19.3-51.7); Mean Cell Volume 90.5 fL (79.4-94.8); Mean Corpuscular Hemoglobin 29.6 pg (25.6-32.2); Mean Corpuscular Hgb Concent. 32.7 g/dL (32.2-35.5); Monocyte (Absolute #) 0.58 x10^3/uL (0.24-0.86); Monocytes % 7.3 % (4.7-12.5); Neutrophil % 62.4 % (34.0-71.1); Platelet Count 326 x10^3/uL (182-369); Red Blood Count 4.94 x10^6/uL (3.93-5.22); Red Cell Distribution Width 14.4 % (11.7-14.4)
[2024-09-08 18:59] LABS: ALBUMIN 3.5 g/dL (3.5-5.0); ANION GAP 12.2 MEQ/L (5-15); BILIRUBIN,TOTAL 0.9 mg/dL (0.2-1.3); Creatinine 1 0.92 mg/dL (0.52-1.04); EST GLOMERULAR FILTRATION RATE 60.6 ML/MIN; Total Protein 6.3 g/dL (6.3-8.2)
[2024-09-08] MEDS ORDERED: ROCEPHIN 1 GM / 100 ML NaCl 1 GM/100 ML IVPB IV ONE (19:48)
[2024-09-08] MEDS: ROCEPHIN 1 GM / 100 ML NaCl 1 GM/100 ML IVPB IV ONE (19:53)
[2024-09-08] MEDS ORDERED: Sodium Chloride 0.9% 1000 ML 1,000 ML ONE (20:20)
[2024-09-08] MEDS: Sodium Chloride 0.9% 1000 ML 1,000 ML IV SCH (20:21)
--- NOTE | 2024-09-08 20:58 | PCM.HP ---
History of Present Illness - Chief Complaint Chief Complaint: UTI, confusion History of Present Illness: 88 year old female with dementia, HTN presents with worsening mental status, malaise and found to have a UTI. Patient is unable to provide history and was obtained by daughter. No fever, SOB, nausea, vomiting, diarrhea. Daughter is concerned about taking care of the patient due to escalating needs. CTH in the ED was negative. CXR without pneumonia. Daughter confirms pt is DNR/DNI. She lives in her own home but has a nephew that lives with her and the daughter comes over often to help with ADLs. - Review of Systems Constitutional: No Fever, No Chills Eyes: No Symptoms Ears, Nose, & Throat: No Symptoms Respiratory: No Cough, No Short Of Breath Cardiac: No Chest Pain, No Edema, No Syncope Abdominal/Gastrointestinal: No Abdominal Pain, No Nausea, No Vomiting, No Diarrhea Genitourinary Symptoms: No Dysuria Musculoskeletal: No Back Pain, No Neck Pain Skin: No Rash Neurological: No Dizziness, No Focal Weakness, No Sensory Changes Psychological: No Symptoms Endocrine: No Symptoms Hematologic/Lymphatic: No Symptoms Immunological/Allergic: No Symptoms Medications & Allergies Home Medications: Home Medication List Lisinopril 10 mg [Zestril 10 MG] 20 mg PO DAILY 01/29/19 [History Confirmed 09/08/24] Potassium Chloride Tab* [Klor Con] 10 meq PO DAILY 01/29/19 [History Confirmed 09/08/24] Atorvastatin Calcium [Lipitor] 20 mg PO DAILY 01/12/24 [History Confirmed 09/08/24] Nitrofurantoin Macro 100 mg [Macrobid 100MG Capsule] 100 mg PO DAILY 07/31/24 [History Confirmed 09/08/24] Allergies/Adverse Reactions: Allergies Allergy/AdvReac Type Severity Reaction Status Date / Time No Known Drug Allergies Allergy Verified 09/08/24 18:11 - Past Medical History Past Medical History: Yes Neurological History: Dementia ENT History: No Pertinent History Cardiac History: High Cholesterol, Hypertension Respiratory History: No Pertinent History Endocrine Medical History: No Pertinent History Musculoskelatal History: Arthritis GI Medical History: No Pertinent History History: Other Pyscho-Social History: No Pertinent History Reproductive Disorders: No Pertinent History Comment: . - Past Surgical History Past Surgical History: Yes Neuro Surgical History: No Pertinent History Cardiac History: No Pertinent History Respiratory Surgery: No Pertinent History GI Surgical History: Colon Resection Genitourinary Surgical Hx: No Pertinent History Musculskeletal Surgical Hx: Orthopedic Surgery, Joint Replacement Female Surgical History: Hysterectomy Other Surgical History: Abdias. Knee replacements, left ankle reconstruction Significant Family History: no pertinent family hx - Social History Smoking Status: Never smoker Exposure to second hand smoke: No Alcohol: None Drug Use: none - Social Determinants of Health Will the patient participate in the screening: Yes Do you worry about a steady place to live?: No Do you have any problems with any of the following?: No known problems In the past 12 months,have you had to go without utilities?: No Have you or anyone in your house had to go without enough: No Transportation Issues: No Has anyone in your support network made you feel unsafe?: No Does the patient want assistance with any of the above?: No - Physical Exam Vital Signs: Vital Signs - 24 hr Temp Pulse Resp BP BP Pulse Ox 09/08/24 20:30 82 17 143/73 96 09/08/24 20:25 92 L 09/08/24 20:00 86 19 153/92 94 L 09/08/24 19:30 85 18 143/82 96 09/08/24 19:13 85 16 135/88 95 09/08/24 19:12 89 15 94 L 09/08/24 19:10 86 18 95 09/08/24 19:04 93 H 17 93 L 09/08/24 18:50 87 14 94 L 09/08/24 18:39 93 L 09/08/24 18:02 98.2 F 119 H 157/100 92 L General Appearance: no apparent distress, alert Neurologic Exam: disoriented, confusion Eye Exam: PERRL/EOMI, eyes nml inspection Ears, Nose, Throat Exam: normal ENT inspection, TMs normal, pharynx normal, moist mucous membranes Neck Exam: normal inspection, non-tender, supple, full range of motion Respiratory Exam: normal breath sounds, lungs clear, No respiratory distress Cardiovascular Exam: regular rate/rhythm, normal heart sounds, normal peripheral pulses Gastrointestinal/Abdomen Exam: soft, normal bowel sounds, No tenderness, No mass Back Exam: normal inspection, normal range of motion, No CVA tenderness, No vertebral tenderness Extremity Exam: normal inspection, normal range of motion, pelvis stable Skin Exam: normal color, warm, dry, No rash Lymphatic Exam: No adenopathy Results - Labs Lab/Micro Results: Lab Results-Last 24 Hours 09/08/24 09/08/24 09/08/24 Range/Units 18:04 18:40 18:40 WBC 8.0 (3.98-10.04) x10^3/uL RBC 4.94 (3.93-5.22) x10^6/uL Hgb 14.6 (11.2-15.7) g/dL Hct 44.7 (34.1-44.9) % MCV 90.5 (79.4-94.8) fL MCH 29.6 (25.6-32.2) pg MCHC 32.7 (32.2-35.5) g/dL RDW 14.4 (11.7-14.4) % Plt Count 326 (182-369) x10^3/uL MPV 10.0 (9.4-12.3) fL Gran % 62.4 (34.0-71.1) % Immature Gran % (Auto) 0.1 (0.001-0.429) % Nucleat RBC Rel Count 0.0 (0.00-0.2) % Eos # (Auto) 0.22 (0.04-0.36) x10^3/uL Immature Gran # (Auto) 0.01 (0.001-0.031) x10^3u/L Absolute Lymphs (auto) 2.13 (1.18-3.74) x10^3/uL Absolute Monos (auto) 0.58 (0.24-0.86) x10^3/uL Absolute Nucleated RBC 0.00 (0.00-0.012) x10^3u/L Lymphocytes % 26.8 (19.3-51.7) % Monocytes % 7.3 (4.7-12.5) % Eosinophils % 2.8 (0.7-5.8) % Basophils % 0.6 (0.1-1.2) % Absolute Granulocytes 4.97 (1.56-6.13) x10^3/uL Basophils # 0.05 (0.01-0.08) x10^3/uL Sodium 145 (135-145) mmol/L Potassium 4.0 (3.5-5.1) mmol/L Chloride 114 H (98-107) mmol/L Carbon Dioxide 23 (22-30) mmol/L Anion Gap 12.2 (5-15) MEQ/L BUN 23 H (7-17) mg/dL Creatinine 0.92 (0.52-1.04) mg/dL Estimated GFR 60.6 ML/MIN Glucose 117 H (74-106) mg/dL Calcium 9.0 (8.4-10.2) mg/dL Total Bilirubin 0.90 (0.2-1.3) mg/dL AST 25 (14-36) U/L ALT 24 (0-35) U/L Alkaline Phosphatase 82 (38-126) U/L Troponin I (0.000-0.033) ng/mL NT-Pro-B Natriuret Pep (<300) pg/mL Serum Total Protein 6.3 (6.3-8.2) g/dL Albumin 3.5 (3.5-5.0) g/dL Urine Color Dark Yellow A (Yellow) Urine Appearance Cloudy A (Clear) Urine pH 5.0 (4.6-8.0) Ur Specific [place] 1.020 (1.005-1.030) Urine Protein Trace A (Negative) Urine Glucose (UA) Negative (Negative) mg/dL Urine Ketones Negative (Negative) Urine Blood Negative (Negative) Urine Nitrite Negative (Negative) Urine Bilirubin Negative (Negative) Urine Urobilinogen 1.0 A (0.2) mg/dL Ur Leukocyte Esterase Moderate A (Negative) U Hyaline Cast (Auto) 3-5 A (0-2) /LPF Urine Microscopic RBC 0-2 (0-5) /HPF Urine Microscopic WBC 21-50 A (0-5) /HPF Ur Epithelial Cells Few (None Seen) /HPF Urine Bacteria None Seen (None Seen) /HPF Urine Culture Reflexed YES (NO) 09/08/24 09/08/24 Range/Units 18:40 18:40 WBC (3.98-10.04) x10^3/uL RBC (3.93-5.22) x10^6/uL Hgb (11.2-15.7) g/dL Hct (34.1-44.9) % MCV (79.4-94.8) fL MCH (25.6-32.2) pg MCHC (32.2-35.5) g/dL RDW (11.7-14.4) % Plt Count (182-369) x10^3/uL MPV (9.4-12.3) fL Gran % (34.0-71.1) % Immature Gran % (Auto) (0.001-0.429) % Nucleat RBC Rel Count (0.00-0.2) % Eos # (Auto) (0.04-0.36) x10^3/uL Immature Gran # (Auto) (0.001-0.031) x10^3u/L Absolute Lymphs (auto) (1.18-3.74) x10^3/uL Absolute Monos (auto) (0.24-0.86) x10^3/uL Absolute Nucleated RBC (0.00-0.012) x10^3u/L Lymphocytes % (19.3-51.7) % Monocytes % (4.7-12.5) % Eosinophils % (0.7-5.8) % Basophils % (0.1-1.2) % Absolute Granulocytes (1.56-6.13) x10^3/uL Basophils # (0.01-0.08) x10^3/uL Sodium (135-145) mmol/L Potassium (3.5-5.1) mmol/L Chloride (98-107) mmol/L Carbon Dioxide (22-30) mmol/L Anion Gap (5-15) MEQ/L BUN (7-17) mg/dL Creatinine (0.52-1.04) mg/dL Estimated GFR ML/MIN Glucose (74-106) mg/dL Calcium (8.4-10.2) mg/dL Total Bilirubin (0.2-1.3) mg/dL AST (14-36) U/L ALT (0-35) U/L Alkaline Phosphatase (38-126) U/L Troponin I < 0.012 (0.000-0.033) ng/mL NT-Pro-B Natriuret Pep 849 (<300) pg/mL Serum Total Protein (6.3-8.2) g/dL Albumin (3.5-5.0) g/dL Urine Color (Yellow) Urine Appearance (Clear) Urine pH (4.6-8.0) Ur Specific [place] (1.005-1.030) Urine Protein (Negative) Urine Glucose (UA) (Negative) mg/dL Urine Ketones (Negative) Urine Blood (Negative) Urine Nitrite (Negative) Urine Bilirubin (Negative) Urine Urobilinogen (0.2) mg/dL Ur Leukocyte Esterase (Negative) U Hyaline Cast (Auto) (0-2) /LPF Urine Microscopic RBC (0-5) /HPF Urine Microscopic WBC (0-5) /HPF Ur Epithelial Cells (None Seen) /HPF Urine Bacteria (None Seen) /HPF Urine Culture Reflexed (NO) - Radiology Impressions Radiology Exams & Impressions: Radiology Procedures Category Date Time Status CHEST 1 VIEW (PORTABLE) Stat Exams 09/08/24 18:41 Taken HEAD WITHOUT CONTRAST [CT] Stat Exams 09/08/24 18:22 Taken Assessment/Plan (1) UTI (urinary tract infection) Current Visit: Yes Status: Acute Assessment & Plan: 1. UCx pending 2. Started on ceftriaxone 3. IVF Code(s): N39.0 - URINARY TRACT INFECTION, SITE NOT SPECIFIED (2) Confusion Current Visit: Yes Status: Acute Assessment & Plan: 1. Secondary to chronic dementia and worsened with UTI 2. Daughter denies need for a SW; states family has enough resources to take care of her at home Code(s): R41.0 - DISORIENTATION, UNSPECIFIED (3) Dehydration Current Visit: Yes Status: Acute Assessment & Plan: 1. Secondary to UTI 2. IVF overnight Code(s): E86.0 - DEHYDRATION Telemedicine Encounter - Telemedicine Encounter Telemedicine Encounter: "The entirety of this encounter was performed via Telemedicine" This visit was performed using real-time audio and video connection between my location and thepatients locationwith the assistance of a surrogateat the patients location. Written or verbal consent was obtained from the patient/guardian to perform this visit [email or web address] technology. Any patient questions regarding the telemedicine interaction were answered.
[2024-09-09 05:05] LABS: Absolute Neutrophil Ct (ANC) 4.09 x10^3/uL (1.56-6.13); Basophil (Absolute #) 0.07 x10^3/uL (0.01-0.08); Eosinophil % 3.3 % (0.7-5.8); Eosinophil (Absolute #) 0.24 x10^3/uL (0.04-0.36); Hematocrit 40.1 % (34.1-44.9); Hemoglobin 13.2 g/dL (11.2-15.7); IMMATURE GRAN # 0.03 x10^3u/L (0.001-0.031); IMMATURE GRAN % 0.4 % (0.001-0.429); Lymphocyte (Absolute #) 2.16 x10^3/uL (1.18-3.74); Mean Cell Volume 90.3 fL (79.4-94.8); Mean Corpuscular Hemoglobin 29.7 pg (25.6-32.2); Mean Corpuscular Hgb Concent. 32.9 g/dL (32.2-35.5); Mean Platelet Volume 9.9 fL (9.4-12.3); Monocyte (Absolute #) 0.61 x10^3/uL (0.24-0.86); Monocytes % 8.5 % (4.7-12.5); Neutrophil % 56.8 % (34.0-71.1); Platelet Count 279 x10^3/uL (182-369); Red Blood Count 4.44 x10^6/uL (3.93-5.22); Red Cell Distribution Width 14.3 % (11.7-14.4); White Blood Count 7.2 x10^3/uL (3.98-10.04)
--- NOTE | 2024-09-09 05:09 | PCM.NOTE ---
Date and Time: 09/09/24 0504 Subjective Assessment: Ms. Mckenzie is an 88 year old female with a pmhx of HLD, dementia, HTN, and recurrent UTI (follows with Dr. Guerin urology) who presented to ED 09/08/24 with worsening mental status, malaise and found to have a UTI. Patient is unable to provide history and was obtained by daughter. She does have recurrent UTIs for which she follows with urologist Dr. Guerin. Cystoscopy was normal. She is on prophylactic antibiotics (family to call with abx information).No fever, SOB, nausea, vomiting, diarrhea. Daughter is concerned about taking care of the patient due to escalating needs. CTH in the ED was negative. CXR without pneumonia. Daughter confirms pt is DNR/DNI. She lives in her own home but has a nephew that lives with her and the daughter comes over often to help with ADLs. Admission for UTI. IP treatment with ceftriaxone - follow culture. Objective Data Vital Signs: Vital Signs - 24 hr Temp Pulse Resp BP BP Pulse Ox 09/09/24 03:37 97.8 F 81 20 145/78 95 09/08/24 23:56 97.5 F 76 20 157/70 94 L 09/08/24 20:57 98.3 F 83 17 171/75 96 09/08/24 20:30 82 17 143/73 96 09/08/24 20:25 92 L 09/08/24 20:00 86 19 153/92 94 L 09/08/24 19:30 85 18 143/82 96 09/08/24 19:13 85 16 135/88 95 09/08/24 19:12 89 15 94 L 09/08/24 19:10 86 18 95 09/08/24 19:04 93 H 17 93 L 09/08/24 18:50 87 14 94 L 09/08/24 18:39 93 L 09/08/24 18:02 98.2 F 119 H 157/100 92 L Pain Assessment - Last Documented Pain Intensity 0 Intake and Output: Intake & Output 09/06/24 09/07/24 09/08/24 09/09/24 11:59 11:59 11:59 11:59 Intake Total 760 Balance 760 Weight 79.6 kg Lab Results: Lab Results-Last 24 Hours 09/08/24 09/08/24 09/08/24 Range/Units 18:04 18:40 18:40 WBC 8.0 (3.98-10.04) x10^3/uL RBC 4.94 (3.93-5.22) x10^6/uL Hgb 14.6 (11.2-15.7) g/dL Hct 44.7 (34.1-44.9) % MCV 90.5 (79.4-94.8) fL MCH 29.6 (25.6-32.2) pg MCHC 32.7 (32.2-35.5) g/dL RDW 14.4 (11.7-14.4) % Plt Count 326 (182-369) x10^3/uL MPV 10.0 (9.4-12.3) fL Gran % 62.4 (34.0-71.1) % Immature Gran % (Auto) 0.1 (0.001-0.429) % Nucleat RBC Rel Count 0.0 (0.00-0.2) % Eos # (Auto) 0.22 (0.04-0.36) x10^3/uL Immature Gran # (Auto) 0.01 (0.001-0.031) x10^3u/L Absolute Lymphs (auto) 2.13 (1.18-3.74) x10^3/uL Absolute Monos (auto) 0.58 (0.24-0.86) x10^3/uL Absolute Nucleated RBC 0.00 (0.00-0.012) x10^3u/L Lymphocytes % 26.8 (19.3-51.7) % Monocytes % 7.3 (4.7-12.5) % Eosinophils % 2.8 (0.7-5.8) % Basophils % 0.6 (0.1-1.2) % Absolute Granulocytes 4.97 (1.56-6.13) x10^3/uL Basophils # 0.05 (0.01-0.08) x10^3/uL Sodium 145 (135-145) mmol/L Potassium 4.0 (3.5-5.1) mmol/L Chloride 114 H (98-107) mmol/L Carbon Dioxide 23 (22-30) mmol/L Anion Gap 12.2 (5-15) MEQ/L BUN 23 H (7-17) mg/dL Creatinine 0.92 (0.52-1.04) mg/dL Estimated GFR 60.6 ML/MIN Glucose 117 H (74-106) mg/dL Calcium 9.0 (8.4-10.2) mg/dL Total Bilirubin 0.90 (0.2-1.3) mg/dL AST 25 (14-36) U/L ALT 24 (0-35) U/L Alkaline Phosphatase 82 (38-126) U/L Troponin I (0.000-0.033) ng/mL NT-Pro-B Natriuret Pep (<300) pg/mL Serum Total Protein 6.3 (6.3-8.2) g/dL Albumin 3.5 (3.5-5.0) g/dL Urine Color Dark Yellow A (Yellow) Urine Appearance Cloudy A (Clear) Urine pH 5.0 (4.6-8.0) Ur Specific [place] 1.020 (1.005-1.030) Urine Protein Trace A (Negative) Urine Glucose (UA) Negative (Negative) mg/dL Urine Ketones Negative (Negative) Urine Blood Negative (Negative) Urine Nitrite Negative (Negative) Urine Bilirubin Negative (Negative) Urine Urobilinogen 1.0 A (0.2) mg/dL Ur Leukocyte Esterase Moderate A (Negative) U Hyaline Cast (Auto) 3-5 A (0-2) /LPF Urine Microscopic RBC 0-2 (0-5) /HPF Urine Microscopic WBC 21-50 A (0-5) /HPF Ur Epithelial Cells Few (None Seen) /HPF Urine Bacteria None Seen (None Seen) /HPF Urine Culture Reflexed YES (NO) 09/08/24 09/08/24 Range/Units 18:40 18:40 WBC (3.98-10.04) x10^3/uL RBC (3.93-5.22) x10^6/uL Hgb (11.2-15.7) g/dL Hct (34.1-44.9) % MCV (79.4-94.8) fL MCH (25.6-32.2) pg MCHC (32.2-35.5) g/dL RDW (11.7-14.4) % Plt Count (182-369) x10^3/uL MPV (9.4-12.3) fL Gran % (34.0-71.1) % Immature Gran % (Auto) (0.001-0.429) % Nucleat RBC Rel Count (0.00-0.2) % Eos # (Auto) (0.04-0.36) x10^3/uL Immature Gran # (Auto) (0.001-0.031) x10^3u/L Absolute Lymphs (auto) (1.18-3.74) x10^3/uL Absolute Monos (auto) (0.24-0.86) x10^3/uL Absolute Nucleated RBC (0.00-0.012) x10^3u/L Lymphocytes % (19.3-51.7) % Monocytes % (4.7-12.5) % Eosinophils % (0.7-5.8) % Basophils % (0.1-1.2) % Absolute Granulocytes (1.56-6.13) x10^3/uL Basophils # (0.01-0.08) x10^3/uL Sodium (135-145) mmol/L Potassium (3.5-5.1) mmol/L Chloride (98-107) mmol/L Carbon Dioxide (22-30) mmol/L Anion Gap (5-15) MEQ/L BUN (7-17) mg/dL Creatinine (0.52-1.04) mg/dL Estimated GFR ML/MIN Glucose (74-106) mg/dL Calcium (8.4-10.2) mg/dL Total Bilirubin (0.2-1.3) mg/dL AST (14-36) U/L ALT (0-35) U/L Alkaline Phosphatase (38-126) U/L Troponin I < 0.012 (0.000-0.033) ng/mL NT-Pro-B Natriuret Pep 849 (<300) pg/mL Serum Total Protein (6.3-8.2) g/dL Albumin (3.5-5.0) g/dL Urine Color (Yellow) Urine Appearance (Clear) Urine pH (4.6-8.0) Ur Specific [place] (1.005-1.030) Urine Protein (Negative) Urine Glucose (UA) (Negative) mg/dL Urine Ketones (Negative) Urine Blood (Negative) Urine Nitrite (Negative) Urine Bilirubin (Negative) Urine Urobilinogen (0.2) mg/dL Ur Leukocyte Esterase (Negative) U Hyaline Cast (Auto) (0-2) /LPF Urine Microscopic RBC (0-5) /HPF Urine Microscopic WBC (0-5) /HPF Ur Epithelial Cells (None Seen) /HPF Urine Bacteria (None Seen) /HPF Urine Culture Reflexed (NO) Radiology Exams: Radiology Procedures Category Date Time Status CHEST 1 VIEW (PORTABLE) Stat Exams 09/08/24 18:41 Taken HEAD WITHOUT CONTRAST [CT] Stat Exams 09/08/24 18:22 Taken Assessment/Plan (1) UTI (urinary tract infection) Current Visit: Yes Status: Acute Assessment & Plan: -recurrent -follows with Urology- has appt this month -cystoscopy with normal results -prophylactic abx as OP -previous UTI with pseuodomonas on culture sensitive to Levaquin - will change abx -Ceftriaxone started in ED, will continue Levaquin- follow culture Code(s): N39.0 - URINARY TRACT INFECTION, SITE NOT SPECIFIED (2) AMS (altered mental status) Current Visit: No Status: Acute Assessment & Plan: -Dementia at baseline, most likely worsening due to UTI -orientation protocol -CT Head reviewed and negative for acute findings Code(s): R41.82 - ALTERED MENTAL STATUS, UNSPECIFIED (3) Dementia Current Visit: No Status: Chronic Assessment & Plan: -see ams - continue home meds Code(s): F03.90 - UNSP DEMENTIA, UNSP SEVERITY, WITHOUT BEH/PSYCH/MOOD/ANX (4) HTN (hypertension) Current Visit: No Status: Chronic Assessment & Plan: -stable continue home meds Code(s): I10 - ESSENTIAL (PRIMARY) HYPERTENSION (5) Hyperlipidemia Current Visit: No Status: Chronic Qualifiers: Assessment & Plan: -continue statin Code(s): E78.5 - HYPERLIPIDEMIA, UNSPECIFIED (6) Obesity (BMI 30.0-34.9) Current Visit: No Status: Chronic Assessment & Plan: -advised diet and exercise Code(s): E66.9 - OBESITY, UNSPECIFIED
[2024-09-09 05:34] LABS: ANION GAP 9.5 MEQ/L (5-15); Calcium 8.4 mg/dL (8.4-10.2); Creatinine 1 0.84 mg/dL (0.52-1.04); EST GLOMERULAR FILTRATION RATE 67.6 ML/MIN; Potassium 3.7 mmol/L (3.5-5.1)
[2024-09-09 07:23] VITALS: RESP 16
--- NOTE | 2024-09-09 08:39 | XRAY ---
Indication: Confusion. Multiple contiguous axial images obtained through the head without contrast. Comparison: June 24, 2024 Again age-appropriate global atrophy and moderate periventricular degenerative micro-ischemia bilaterally. No acute intracranial hemorrhage, abnormal extra-axial fluid collection, or mass effect. Fourth ventricle is midline without hydrocephalus. Bony calvarium intact. Visualized paranasal sinuses and mastoid air cells are clear. Impression: Continued nonacute senile brain.
--- NOTE | 2024-09-09 08:47 | XRAY ---
Indication: Hypoxia. Comparison: January 12, 2024 Portable chest again demonstrates chronic right hemidiaphragm elevation with adjacent subsegmental atelectasis and small left mid lung calcified granuloma. No focal infiltrate, consolidation, or large effusion. Heart not enlarged again with tortuous descending aorta. Bony thorax intact again with osteopenia, degenerative changes, and double curvature scoliosis. Impression: Continued nonacute chest with chronic features.
[2024-09-09] MEDS: Zestril 20 MG PO SCH (09:11)
[2024-09-09] MEDS: Levofloxacin 500 MG Tablet PO SCH (09:11)
[2024-09-09] MEDS: ZOCOR 20MG PO SCH (09:11)
[2024-09-09] MEDS: Levofloxacin 250MG Tablet PO SCH (09:11)
[2024-09-09] MEDS ORDERED: NON-FORMULARY ITEM (Atorvastatin Calcium [Lipitor] 20 MG Tablet) PO SCH (10:00)
[2024-09-09] MEDS ORDERED: Zestril 10 MG PO SCH (10:00)
[2024-09-09 11:51] VITALS: BP 125/60; PULSE 87; TEMP 96.7; O2SAT 94
--- NOTE | 2024-09-09 11:59 | PCM.DS ---
Discharge Summary Date of Admission: 09/08/24 20:41 Date of Discharge: 09/09/24 Admitting Physician: JUANJO WALKER MD Primary Care Provider: BRITTANY JJ DO Allergies Allergies No Known Drug Allergies Allergy (Verified 09/08/24 18:11) Hospital Summary - Hospital Course Hospital Course: Ms. Mckenzie is an 88 year old female with a pmhx of HLD, dementia, HTN, and recurrent UTI (follows with Dr. Guerin urology) who presented to ED 09/08/24 with worsening mental status, malaise and found to have a UTI. Patient is unable to provide history and was obtained by daughter. She does have recurrent UTIs for which she follows with urologist Dr. Guerin. Recent cystoscopy was normal. She is on prophylactic antibiotics (macrobid).No fever, SOB, nausea, vomiting, diarrhea. CTH in the ED was negative. CXR without pneumonia. Daughter confirms pt is DNR/DNI. She lives in her own home but has a nephew that lives with her and the daughter comes over often to help with ADLs. Admission for UTI. IP treatment with ceftriaxone and then levaquin. Mentation at baseline. Patient and family requesting discharge. Daughter is a nurse and will follow up with Dr. Hollingsworth (urology) and Heath (ID) for recurrent UTI. Will send home on Levaquin. Will follow culture results and call with any abx changes. Discharge Note New Diagnosis: UTI New Medications: Levaquin Follow Up: Urology/ID/PCP Results pending: UCult Outpatient testing to order: repeat UA Latest Assessment & Plan (1) UTI (urinary tract infection) Current Visit: Yes Status: Acute Assessment & Plan: -recurrent -follows with Urology- has appt this month -cystoscopy with normal r esults -prophylactic abx as OP -previous UTI with pseuodomonas on culture sensitive to Levaquin - will change abx -Ceftriaxone started in ED, will continue Levaquin- follow culture Code(s): N39.0 - URINARY TRACT INFECTION, SITE NOT SPECIFIED (2) AMS (altered mental status) Current Visit: No Status: Acute Assessment & Plan: -Dementia at baseline, most likely worsening due to UTI -orientation protocol -CT Head reviewed and negative for acute findings Code(s): R41.82 - ALTERED MENTAL STATUS, UNSPECIFIED (3) Dementia Current Visit: No Status: Chronic Assessment & Plan: -see ams - continue home meds Code(s): F03.90 - UNSP DEMENTIA, UNSP SEVERITY, WITHOUT BEH/PSYCH/MOOD/ANX (4) HTN (hypertension) Current Visit: No Status: Chronic Assessment & Plan: -stable continue home meds Code(s): I10 - ESSENTIAL (PRIMARY) HYPERTENSION (5) Hyperlipidemia Current Visit: No Status: Chronic Qualifiers: Assessment & Plan: -continue statin Code(s): E78.5 - HYPERLIPIDEMIA, UNSPECIFIED (6) Obesity (BMI 30.0-34.9) Current Visit: No Status: Chronic Assessment & Plan: -advised diet and exercise I spent 35 minutes [id number] with the patient on the day of discharge performing discharge exam, discussing hospital stay and discharge instructions with patient and caregivers, preparation of discharge records, prescriptions & referral forms and addressing any questions/concerns the patient had as documented above. - Vitals & Intake/Output Vital Signs: Vital Signs Temperature 96.7 F 09/09/24 11:50 Pulse Rate 87 09/09/24 11:50 Respiratory Rate 16 09/09/24 11:50 Blood Pressure 125/60 09/09/24 11:50 O2 Sat by Pulse Oximetry 94 L 09/09/24 11:50 Intake & Output: Intake & Output 09/06/24 09/07/24 09/08/24 09/09/24 11:59 11:59 11:59 11:59 Intake Total 880 Balance 880 Weight 79.6 kg - Lab Result Diagrams: 09/09/24 05:04 09/09/24 05:04 Lab Results-Last 24 Hrs: Lab Results-Last 24 Hours 09/08/24 09/08/24 09/08/24 Range/Units 18:04 18:40 18:40 WBC 8.0 (3.98-10.04) x10^3/uL RBC 4.94 (3.93-5.22) x10^6/uL Hgb 14.6 (11.2-15.7) g/dL Hct 44.7 (34.1-44.9) % MCV 90.5 (79.4-94.8) fL MCH 29.6 (25.6-32.2) pg MCHC 32.7 (32.2-35.5) g/dL RDW 14.4 (11.7-14.4) % Plt Count 326 (182-369) x10^3/uL MPV 10.0 (9.4-12.3) fL Gran % 62.4 (34.0-71.1) % Immature Gran % (Auto) 0.1 (0.001-0.429) % Nucleat RBC Rel Count 0.0 (0.00-0.2) % Eos # (Auto) 0.22 (0.04-0.36) x10^3/uL Immature Gran # (Auto) 0.01 (0.001-0.031) x10^3u/L Absolute Lymphs (auto) 2.13 (1.18-3.74) x10^3/uL Absolute Monos (auto) 0.58 (0.24-0.86) x10^3/uL Absolute Nucleated RBC 0.00 (0.00-0.012) x10^3u/L Lymphocytes % 26.8 (19.3-51.7) % Monocytes % 7.3 (4.7-12.5) % Eosinophils % 2.8 (0.7-5.8) % Basophils % 0.6 (0.1-1.2) % Absolute Granulocytes 4.97 (1.56-6.13) x10^3/uL Basophils # 0.05 (0.01-0.08) x10^3/uL Sodium 145 (135-145) mmol/L Potassium 4.0 (3.5-5.1) mmol/L Chloride 114 H (98-107) mmol/L Carbon Dioxide 23 (22-30) mmol/L Anion Gap 12.2 (5-15) MEQ/L BUN 23 H (7-17) mg/dL Creatinine 0.92 (0.52-1.04) mg/dL Estimated GFR 60.6 ML/MIN Glucose 117 H (74-106) mg/dL Calcium 9.0 (8.4-10.2) mg/dL Total Bilirubin 0.90 (0.2-1.3) mg/dL AST 25 (14-36) U/L ALT 24 (0-35) U/L Alkaline Phosphatase 82 (38-126) U/L Troponin I (0.000-0.033) ng/mL NT-Pro-B Natriuret Pep (<300) pg/mL Serum Total Protein 6.3 (6.3-8.2) g/dL Albumin 3.5 (3.5-5.0) g/dL Urine Color Dark Yellow A (Yellow) Urine Appearance Cloudy A (Clear) Urine pH 5.0 (4.6-8.0) Ur Specific [place] 1.020 (1.005-1.030) Urine Protein Trace A (Negative) Urine Glucose (UA) Negative (Negative) mg/dL Urine Ketones Negative (Negative) Urine Blood Negative (Negative) Urine Nitrite Negative (Negative) Urine Bilirubin Negative (Negative) Urine Urobilinogen 1.0 A (0.2) mg/dL Ur Leukocyte Esterase Moderate A (Negative) U Hyaline Cast (Auto) 3-5 A (0-2) /LPF Urine Microscopic RBC 0-2 (0-5) /HPF Urine Microscopic WBC 21-50 A (0-5) /HPF Ur Epithelial Cells Few (None Seen) /HPF Urine Bacteria None Seen (None Seen) /HPF Urine Culture Reflexed YES (NO) 09/08/24 09/08/24 09/09/24 Range/Units 18:40 18:40 05:04 WBC 7.2 (3.98-10.04) x10^3/uL RBC 4.44 (3.93-5.22) x10^6/uL Hgb 13.2 (11.2-15.7) g/dL Hct 40.1 (34.1-44.9) % MCV 90.3 (79.4-94.8) fL MCH 29.7 (25.6-32.2) pg MCHC 32.9 (32.2-35.5) g/dL RDW 14.3 (11.7-14.4) % Plt Count 279 (182-369) x10^3/uL MPV 9.9 (9.4-12.3) fL Gran % 56.8 (34.0-71.1) % Immature Gran % (Auto) 0.4 (0.001-0.429) % Nucleat RBC Rel Count 0.0 (0.00-0.2) % Eos # (Auto) 0.24 (0.04-0.36) x10^3/uL Immature Gran # (Auto) 0.03 (0.001-0.031) x10^3u/L Absolute Lymphs (auto) 2.16 (1.18-3.74) x10^3/uL Absolute Monos (auto) 0.61 (0.24-0.86) x10^3/uL Absolute Nucleated RBC 0.00 (0.00-0.012) x10^3u/L Lymphocytes % 30.0 (19.3-51.7) % Monocytes % 8.5 (4.7-12.5) % Eosinophils % 3.3 (0.7-5.8) % Basophils % 1.0 (0.1-1.2) % Absolute Granulocytes 4.09 (1.56-6.13) x10^3/uL Basophils # 0.07 (0.01-0.08) x10^3/uL Sodium (135-145) mmol/L Potassium (3.5-5.1) mmol/L Chloride (98-107) mmol/L Carbon Dioxide (22-30) mmol/L Anion Gap (5-15) MEQ/L BUN (7-17) mg/dL Creatinine (0.52-1.04) mg/dL Estimated GFR ML/MIN Glucose (74-106) mg/dL Calcium (8.4-10.2) mg/dL Total Bilirubin (0.2-1.3) mg/dL AST (14-36) U/L ALT (0-35) U/L Alkaline Phosphatase (38-126) U/L Troponin I < 0.012 (0.000-0.033) ng/mL NT-Pro-B Natriuret Pep 849 (<300) pg/mL Serum Total Protein (6.3-8.2) g/dL Albumin (3.5-5.0) g/dL Urine Color (Yellow) Urine Appearance (Clear) Urine pH (4.6-8.0) Ur Specific [place] (1.005-1.030) Urine Protein (Negative) Urine Glucose (UA) (Negative) mg/dL Urine Ketones (Negative) Urine Blood (Negative) Urine Nitrite (Negative) Urine Bilirubin (Negative) Urine Urobilinogen (0.2) mg/dL Ur Leukocyte Esterase (Negative) U Hyaline Cast (Auto) (0-2) /LPF Urine Microscopic RBC (0-5) /HPF Urine Microscopic WBC (0-5) /HPF Ur Epithelial Cells (None Seen) /HPF Urine Bacteria (None Seen) /HPF Urine Culture Reflexed (NO) 09/09/24 Range/Units 05:04 WBC (3.98-10.04) x10^3/uL RBC (3.93-5.22) x10^6/uL Hgb (11.2-15.7) g/dL Hct (34.1-44.9) % MCV (79.4-94.8) fL MCH (25.6-32.2) pg MCHC (32.2-35.5) g/dL RDW (11.7-14.4) % Plt Count (182-369) x10^3/uL MPV (9.4-12.3) fL Gran % (34.0-71.1) % Immature Gran % (Auto) (0.001-0.429) % Nucleat RBC Rel Count (0.00-0.2) % Eos # (Auto) (0.04-0.36) x10^3/uL Immature Gran # (Auto) (0.001-0.031) x10^3u/L Absolute Lymphs (auto) (1.18-3.74) x10^3/uL Absolute Monos (auto) (0.24-0.86) x10^3/uL Absolute Nucleated RBC (0.00-0.012) x10^3u/L Lymphocytes % (19.3-51.7) % Monocytes % (4.7-12.5) % Eosinophils % (0.7-5.8) % Basophils % (0.1-1.2) % Absolute Granulocytes (1.56-6.13) x10^3/uL Basophils # (0.01-0.08) x10^3/uL Sodium 144 (135-145) mmol/L Potassium 3.7 (3.5-5.1) mmol/L Chloride 114 H (98-107) mmol/L Carbon Dioxide 24 (22-30) mmol/L Anion Gap 9.5 (5-15) MEQ/L BUN 20 H (7-17) mg/dL Creatinine 0.84 (0.52-1.04) mg/dL Estimated GFR 67.6 ML/MIN Glucose 85 (74-106) mg/dL Calcium 8.4 (8.4-10.2) mg/dL Total Bilirubin (0.2-1.3) mg/dL AST (14-36) U/L ALT (0-35) U/L Alkaline Phosphatase (38-126) U/L Troponin I (0.000-0.033) ng/mL NT-Pro-B Natriuret Pep (<300) pg/mL Serum Total Protein (6.3-8.2) g/dL Albumin (3.5-5.0) g/dL Urine Color (Yellow) Urine Appearance (Clear) Urine pH (4.6-8.0) Ur Specific [place] (1.005-1.030) Urine Protein (Negative) Urine Glucose (UA) (Negative) mg/dL Urine Ketones (Negative) Urine Blood (Negative) Urine Nitrite (Negative) Urine Bilirubin (Negative) Urine Urobilinogen (0.2) mg/dL Ur Leukocyte Esterase (Negative) U Hyaline Cast (Auto) (0-2) /LPF Urine Microscopic RBC (0-5) /HPF Urine Microscopic WBC (0-5) /HPF Ur Epithelial Cells (None Seen) /HPF Urine Bacteria (None Seen) /HPF Urine Culture Reflexed (NO) Micro Results-Entire Visit: Microbiology 09/08/24 18:04 Urine Culture - Preliminary Clean Catch Midstream NO GROWTH TO DATE - Radiology Exams Ordered Rad Exams-Entire Visit: Radiology Procedures Category Date Time Status CHEST 1 VIEW (PORTABLE) Stat Exams 09/08/24 18:41 Completed HEAD WITHOUT CONTRAST [CT] Stat Exams 09/08/24 18:22 Completed Discharge Exam General Appearance: no apparent distress Neurologic Exam: alert, oriented x 3, cooperative Eye Exam: PERRL Ears, Nose, Throat Exam: normal ENT inspection Neck Exam: normal inspection Respiratory Exam: normal breath sounds, lungs clear Cardiovascular Exam: regular rate/rhythm, normal heart sounds Gastrointestinal/Abdomen Exam: soft, normal bowel sounds Pelvic Exam: deferred Rectal Exam: deferred Back Exam: normal inspection Extremity Exam: normal inspection Skin Exam: normal color Final Diagnosis/Problem List - Final Discharge Diagnosis/Problem (1) UTI (urinary tract infection) Current Visit: Yes Status: Acute Code(s): N39.0 - URINARY TRACT INFECTION, SITE NOT SPECIFIED (2) AMS (altered mental status) Current Visit: No Status: Resolved Code(s): R41.82 - ALTERED MENTAL STATUS, UNSPECIFIED (3) Dementia Current Visit: No Status: Chronic Code(s): F03.90 - UNSP DEMENTIA, UNSP SEVERITY, WITHOUT BEH/PSYCH/MOOD/ANX (4) HTN (hypertension) Current Visit: No Status: Chronic Code(s): I10 - ESSENTIAL (PRIMARY) HYPERTENSION (5) Hyperlipidemia Current Visit: No Status: Chronic Code(s): E78.5 - HYPERLIPIDEMIA, UNSPECIFIED (6) Obesity (BMI 30.0-34.9) Current Visit: No Status: Chronic Code(s): E66.9 - OBESITY, UNSPECIFIED - Discharge Discharge Date: 09/09/24 Disposition: Home, Self-Care Condition: Stable Prescriptions: New levoFLOXacin [Levofloxacin] 750 mg PO DAILY 10 Days #10 tablet Continue Lisinopril 10 mg [Zestril 10 MG] 20 mg PO DAILY Potassium Chloride Tab* [Klor Con] 10 meq PO DAILY Atorvastatin Calcium [Lipitor] 20 mg PO DAILY Discontinued Nitrofurantoin Macro 100 mg [Macrobid 100MG Capsule] 100 mg PO DAILY Instructions: Urinary tract infection - Discharge instructions Additional Instructions: Hold prophylactic macrobid until completion of levaquin and follow up with urology/ID Follow up with: BRITTANY JJ DO [Primary Care Provider] - 09/16/24 11:00 am REBEL GUERIN [COURTESY STAFF] - 09/16/24 1:45 pm Forms: Discharge Instructions
[2024-09-10] MEDS ORDERED: ROCEPHIN 1 GM / 100 ML NaCl 1 GM/100 ML IVPB IV SCH (22:00)
== END 2024-09-09 12:35 | disposition home or self-care (01) ==
LOC: ED 17:51 → MED SURG 20:41
PROVIDERS: ADMIT Student in an Organized Health Care Education/Training Program; ATTEND Student in an Organized Health Care Education/Training Program
DX: N39.0 Urinary tract infection, site not specified (principal); E86.0 Dehydration; E78.5 Hyperlipidemia, unspecified; I10 Essential (primary) hypertension; R41.82 Altered mental status, unspecified; F03.90 Unspecified dementia, unspecified severity, without behavioral disturbance, psychotic disturbance, mood disturbance, and anxiety; E66.9 Obesity, unspecified; Z79.899 Other long term (current) drug therapy
CPT/HCPCS: 36415; 70450; 71045; 80048; 80053; 81001; 83880; 84484; 85025; 87040; 87077; 87086; 87186; 93041; 93268; 94760; 96365; 99284; G0378; Q3014; J0696; A9270-GY

== ENCOUNTER 2024-09-15 15:00 | Observation (INO) | payer MEDICARE, OTHER ==
[2024-09-15 16:05] LABS: Absolute Neutrophil Ct (ANC) 6.23 x10^3/uL (1.56-6.13); BASOPHIL % 0.5 % (0.1-1.2); Basophil (Absolute #) 0.04 x10^3/uL (0.01-0.08); Eosinophil % 0.2 % (0.7-5.8); Eosinophil (Absolute #) 0.02 x10^3/uL (0.04-0.36); Hematocrit 44.1 % (34.1-44.9); Hemoglobin 14.4 g/dL (11.2-15.7); IMMATURE GRAN # 0.05 x10^3u/L (0.001-0.031); IMMATURE GRAN % 0.6 % (0.001-0.429); Lymphocyte (Absolute #) 0.98 x10^3/uL (1.18-3.74); Lymphocytes % 12.2 % (19.3-51.7); Mean Cell Volume 89.3 fL (79.4-94.8); Mean Corpuscular Hemoglobin 29.1 pg (25.6-32.2); Mean Corpuscular Hgb Concent. 32.7 g/dL (32.2-35.5); Monocyte (Absolute #) 0.74 x10^3/uL (0.24-0.86); Monocytes % 9.2 % (4.7-12.5); Neutrophil % 77.3 % (34.0-71.1); Platelet Count 276 x10^3/uL (182-369); Red Blood Count 4.94 x10^6/uL (3.93-5.22); White Blood Count 8.1 x10^3/uL (3.98-10.04)
[2024-09-15 16:17] LABS: ALBUMIN 3.5 g/dL (3.5-5.0); ANION GAP 13.8 MEQ/L (5-15); BILIRUBIN,TOTAL 0.8 mg/dL (0.2-1.3); Creatinine 1 1.6 mg/dL (0.52-1.04); EST GLOMERULAR FILTRATION RATE 31.2 ML/MIN; Potassium 4.8 mmol/L (3.5-5.1); Total Protein 6.7 g/dL (6.3-8.2)
[2024-09-15 18:04] LABS: Appearance Cloudy (Clear); Bacteria None Seen /HPF (None Seen); Bilirubin Negative (Negative); Blood Negative (Negative); Epithelial Cells Few /HPF (None Seen); Glucose, Urine Negative (Negative); Ketones 15 (Negative); Leukocyte Esterase Negative (Negative); Nitrite Negative (Negative); Protein,Urine Dip 30 (Negative); Specific Gravity 1.015 (1.005-1.030); Urobilinogen 0.2 mg/dL (0.2)
--- NOTE | 2024-09-15 19:17 | ERPHSYRPT ---
- History of Present Illness Time Seen by Provider: 09/15/24 15:30 Source: patient Exam Limitations: no limitations Patient Subjective Stated Complaint: Pt was diagnosed with a UTI last week and had one dose of IV antibiotics and then pills and daughter states that she has gotten more confused and usually she stays 4 days for IV antibiotics and then she is good for a while Triage Nursing Assessment: Pt brought to the ER by her daughter, hypotensive, denies pain at this time, pulses normal, confused, skin n/w/d, no difficulty breathing, denies pain with urination, doesn't apper to be in any distress Physician History: Patient is an 88-year-old female presents to our ED for evaluation of confusion, generalized weakness. Daughter reports that patient has a baseline history of dementia. Patient was in our ED last week for urinary tract infection and confusion. Patient was admitted for a day and subsequently discharged on Levaquin. Since her discharge patient has been progressively weak and more confused. Daughter believes that maybe the Levaquin is worsening her symptomology. Daughter also concerned that possibly the UTI is not resolving. Patient denies urinary symptomology. No back pain no dysuria no hematuria no frequency no urgency. Patient symptoms are progressive. Symptoms are moderate in intensity. No specific worsening improving factors. Patient denies pain. She feels well otherwise. Daughter at bedside states that patient lives alone and cannot go home in this condition as she will not be able to self-care. Daughter/patient voices no other complaints or concerns at this time. Portions of this note were created with voice recognition technology. There may be grammatical, spelling, punctuation or sound alike errors Timing/Duration: day(s) Severity: moderate Modifying Factors: Improves With: nothing Associated Symptoms: denies symptoms Allergies/Adverse Reactions: No Known Drug Allergies Allergy (Verified 09/15/24 15:24) Home Medications: Lisinopril 10 mg [Zestril 10 MG] 20 mg PO DAILY 01/29/19 [History] Potassium Chloride Tab* [Klor Con] 10 meq PO DAILY 01/29/19 [History] Atorvastatin Calcium [Lipitor] 20 mg PO DAILY 01/12/24 [History] Hx Tetanus, Diphtheria Vaccination/Date Given: No Hx Influenza Vaccination/Date Given: Yes Hx Pneumococcal Vaccination/Date Given: Yes Travel Risk - International Travel Have you traveled outside of the country in past 3 weeks: No - Emerging Infectious Disease Are you exhibiting symptoms associated with any current EIDs: No - Review of Systems Constitutional: No Symptoms, No Fever, No Chills Eyes: No Symptoms Ears, Nose, & Throat: No Symptoms Respiratory: No Symptoms, No Cough, No Dyspnea Cardiac: No Symptoms, No Chest Pain, No Edema, No Syncope Abdominal/Gastrointestinal: No Symptoms, No Abdominal Pain, No Nausea, No Vomiting, No Diarrhea Genitourinary Symptoms: No Symptoms, No Dysuria Musculoskeletal: No Symptoms, No Back Pain, No Neck Pain Skin: No Symptoms, No Rash Neurological: No Symptoms, No Dizziness, No Focal Weakness, No Sensory Changes Psychological: No Symptoms Endocrine: No Symptoms Hematologic/Lymphatic: No Symptoms Immunological/Allergic: No Symptoms All Other Systems: Reviewed and Negative - Past Medical History Pertinent Past Medical History: Yes Neurological History: Dementia ENT History: No Pertinent History Cardiac History: High Cholesterol, Hypertension Respiratory History: No Pertinent History Endocrine Medical History: No Pertinent History Musculoskeletal History: Arthritis GI Medical History: No Pertinent History History: Other Psycho-Social History: No Pertinent History Female Reproductive Disorders: No Pertinent History Other Medical History: . - Past Surgical History Past Surgical History: Yes Neuro Surgical History: No Pertinent History Cardiac: No Pertinent History Respiratory: No Pertinent History Gastrointestinal: Colon Resection Genitourinary: No Pertinent History Musculoskeletal: Orthopedic Surgery, Joint Replacement Female Surgical History: Hysterectomy Other Surgical History: Abdias. Knee replacements, left ankle reconstruction Significant Family History: no pertinent family hx - Social History Smoking Status: Never smoker Exposure to second hand smoke: No Drug Use: none Patient Lives Alone: No - Social Determinants of Health Will the patient participate in the screening: Yes Do you worry about a steady place to live?: No Do you have any problems with any of the following?: No known problems In the past 12 months,have you had to go without utilities?: No Transportation Issues: No Has anyone in your support network made you feel unsafe?: No Have you or anyone in your house had to go without enough: No - Nursing Vital Signs Nursing Vital Signs: Initial Vital Signs Temperature 97.0 F 09/15/24 15:16 Pulse Rate 94 H 09/15/24 15:16 Blood Pressure 83/59 09/15/24 15:16 O2 Sat by Pulse Oximetry 92 L 09/15/24 15:16 Pain Scale Pain Intensity 0 - Physical Exam General Appearance: no apparent distress, alert Eye Exam: PERRL/EOMI, eyes nml inspection Ears, Nose, Throat Exam: normal ENT inspection, pharynx normal, moist mucous membranes Neck Exam: normal inspection, non-tender, supple, full range of motion Respiratory Exam: normal breath sounds, lungs clear, airway intact, No respiratory distress Cardiovascular Exam: regular rate/rhythm, normal heart sounds, normal peripheral pulses Gastrointestinal/Abdomen Exam: soft, normal bowel sounds, No tenderness, No mass Back Exam: normal inspection, normal range of motion, No CVA tenderness, No vertebral tenderness Extremity Exam: normal inspection, normal range of motion, pelvis stable, other (Lower extremity pedal edema that I am told is chronic.) Neurologic Exam: alert, oriented x 3, cooperative, normal mood/affect, nml cerebellar function, nml station & gait, sensation nml, No motor deficits Skin Exam: normal color, warm, dry, No rash Lymphatic Exam: No adenopathy SpO2 Interpretation: normal SpO2: 96 O2 Delivery: Room Air - Course Nursing assessment & vital signs reviewed: Yes Ordered Tests: Active Orders 24 hr Category Date Time Status IV Insertion STAT Care 09/15/24 15:49 Active CBC W DIFF Stat Lab 09/15/24 16:04 Completed CMP Stat Lab 09/15/24 16:04 Completed UA W/RFX UR CULTURE Stat Lab 09/15/24 16:43 Completed Transfer Order Routine Transfer 09/15/24 Ordered Medication Summary Generic Name Dose Route Start Last Admin Trade Name Freq PRN Reason Stop Dose Admin Sodium Chloride 1,000 mls @ 100 mls/hr 09/15/24 16:00 Sodium Chloride 0.9% 1000 Ml IV 10/15/24 15:59 .Q10H [facility] Lab/Rad Data: Laboratory Result Diagrams 09/15/24 16:04 09/15/24 16:04 Laboratory Results 09/15/24 09/15/24 09/15/24 Range/Units 16:43 16:04 16:04 WBC 8.1 (3.98-10.04) x10^3/uL RBC 4.94 (3.93-5.22) x10^6/uL Hgb 14.4 (11.2-15.7) g/dL Hct 44.1 (34.1-44.9) % MCV 89.3 (79.4-94.8) fL MCH 29.1 (25.6-32.2) pg MCHC 32.7 (32.2-35.5) g/dL RDW 14.0 (11.7-14.4) % Plt Count 276 (182-369) x10^3/uL MPV 10.0 (9.4-12.3) fL Gran % 77.3 H (34.0-71.1) % Immature Gran % (Auto) 0.6 H (0.001-0.429) % Nucleat RBC Rel Count 0.0 (0.00-0.2) % Eos # (Auto) 0.02 L (0.04-0.36) x10^3/uL Immature Gran # (Auto) 0.05 H (0.001-0.031) x10^3u/L Absolute Lymphs (auto) 0.98 L (1.18-3.74) x10^3/uL Absolute Monos (auto) 0.74 (0.24-0.86) x10^3/uL Absolute Nucleated RBC 0.00 (0.00-0.012) x10^3u/L Lymphocytes % 12.2 L (19.3-51.7) % Monocytes % 9.2 (4.7-12.5) % Eosinophils % 0.2 L (0.7-5.8) % Basophils % 0.5 (0.1-1.2) % Absolute Granulocytes 6.23 H (1.56-6.13) x10^3/uL Basophils # 0.04 (0.01-0.08) x10^3/uL Sodium 137 (135-145) mmol/L Potassium 4.8 (3.5-5.1) mmol/L Chloride 104 (98-107) mmol/L Carbon Dioxide 25 (22-30) mmol/L Anion Gap 13.8 (5-15) MEQ/L BUN 24 H (7-17) mg/dL Creatinine 1.60 H (0.52-1.04) mg/dL Estimated GFR 31.2 ML/MIN Glucose 97 (74-106) mg/dL Calcium 9.0 (8.4-10.2) mg/dL Total Bilirubin 0.80 (0.2-1.3) mg/dL AST 28 (14-36) U/L ALT 23 (0-35) U/L Alkaline Phosphatase 76 (38-126) U/L Serum Total Protein 6.7 (6.3-8.2) g/dL Albumin 3.5 (3.5-5.0) g/dL Urine Color Yellow (Yellow) Urine Appearance Cloudy A (Clear) Urine pH 7.0 (4.6-8.0) Ur Specific [place] 1.015 (1.005-1.030) Urine Protein 30 (Negative) Urine Glucose (UA) Negative (Negative) mg/dL Urine Ketones 15 A (Negative) Urine Blood Negative (Negative) Urine Nitrite Negative (Negative) Urine Bilirubin Negative (Negative) Urine Urobilinogen 0.2 (0.2) mg/dL Ur Leukocyte Esterase Negative (Negative) U Hyaline Cast (Auto) 6-10 A (0-2) /LPF Urine Microscopic RBC 3-5 (0-5) /HPF Urine Microscopic WBC 3-5 (0-5) /HPF Ur Epithelial Cells Few (None Seen) /HPF Calcium Oxalate Crystal 3-5 A (None Seen) /HPF Urine Bacteria None Seen (None Seen) /HPF Urine Culture Reflexed NO (NO) - Progress Progress: improved Progress Note: 88-year-old female presents to our emergency department for evaluation of ge neralized weakness progressive confusion since her discharge from our hospital after treatment for urinary tract infection. Patient currently on Levaquin. Daughter believes that Levaquin is worsening her symptoms. Laboratory workup reveals elevated creatinine of 1.6 previously 0.84. Patient lives alone however has family members frequently stopping by to assist. Patient unable to perform ADLs secondary to generalized weakness. Patient will require hospitalization for further evaluation and treatment of the confusion weakness and acute renal injury. Possible placement if patient symptomology does not improve. Case discussed with hospitalist Dr. Diop who accepts admission to observation at 7:16 PM. Plan of care discussed with daughter and patient. They agree to admission at [facility] for further evaluation and treatment. They voiced no other complaints or concerns at this time. CT head not repeated as patient had a CT head just 7 days ago. No interval trauma Portions of this note were created with voice recognition technology. There may be grammatical, spelling, punctuation or sound alike errors 09/15/24 19:28 Complexity of problem addressed is moderate acute complicated no critical care time. Complexity of data reviewed analyzes extensive. Test ordered test reviewed results analyzed and correlated clinically with history and physical ex am. Management discussed with hospitalist accepts admission to observation. Risk of complication and or risk of morbidity/mortality of patient management is high. Patient requires hospitalization for further evaluation and treatment. Vital stable. Time spent to admit patient approximately 20 minutes. Plan of care established for shared decision making. No social determinants of health present to impede follow-up. Portions of this note were created with voice recognition technology. There may be grammatical, spelling, punctuation or sound alike errors 09/15/24 19:[address] Other (Patient accepted by Dr. Diop at 7:16 PM) Counseled pt/family regarding: lab results, diagnosis, rad results - Departure Departure Disposition: Observation Clinical Impression: Generalized weakness, Elevated serum creatinine, Confusion, Acute renal injury Condition: Stable Critical Care Time: No Referrals: BRITTANY JJ, [Primary Care Provider] - Follow up/PCP as directed
--- NOTE | 2024-09-15 21:41 | PCM.HP ---
History of Present Illness - Chief Complaint Chief Complaint: Generalized weakness, elevated serum creatinine Date: 09/15/24 History of Present Illness: Ms. RIVERO is a 88 year old female with a past medical history significant for hypertension, hyperlipidemia and frequent UTIs who was just admitted for an infection and treated with Levaquin, then discharged, but returns when her daughter noted increasing confusion, weakness and lethargy. Upon arrival, she was found to have an elevated creatinine of 1.60, so she was admitted for further evaluation. She was seen by tele-health with nurse and daughter at bedside. No fever/chills. No chest pain or shortness of breath. No nausea, vomiting or diarrhea. Last creatinine was 0.8 - Review of Systems Constitutional: No Fever, No Chills Eyes: No Vision Changes Ears, Nose, & Throat: No Nose Discharge, No Sinus Drainage Respiratory: No Orthopnea, No Short Of Breath, No Stridor Cardiac: No Chest Pain, No Edema Abdominal/Gastrointestinal: No Abdominal Pain, No Nausea, No Vomiting, No Diarrhea Genitourinary Symptoms: No Dysuria, No Frequency, No Hematuria Musculoskeletal: No Neck Pain Skin: No Cellulitis, No Pruritis Neurological: No Dizziness, No Focal Weakness Psychological: No Suicidal Ideations Endocrine: No Polyuria, No Polydipsia Medications & Allergies Home Medications: Home Medication List Lisinopril 10 mg [Zestril 10 MG] 20 mg PO DAILY 01/29/19 [History Confirmed 09/15/24] Potassium Chloride Tab* [Klor Con] 10 meq PO DAILY 01/29/19 [History Confirmed 09/15/24] Atorvastatin Calcium [Lipitor] 20 mg PO DAILY 01/12/24 [History Confirmed 09/15/24] Allergies/Adverse Reactions: Allergies Allergy/AdvReac Type Severity Reaction Status Date / Time No Known Drug Allergies Allergy Verified 09/15/24 15:24 - Past Medical History Past Medical History: Yes Neurological History: Dementia ENT History: No Pertinent History Cardiac History: High Cholesterol, Hypertension Respiratory History: No Pertinent History Endocrine Medical History: No Pertinent History Musculoskelatal History: Arthritis GI Medical History: No Pertinent History History: Other Pyscho-Social History: No Pertinent History Reproductive Disorders: No Pertinent History Comment: . - Past Surgical History Past Surgical History: Yes Neuro Surgical History: No Pertinent History Cardiac History: No Pertinent History Respiratory Surgery: No Pertinent History GI Surgical History: Colon Resection Genitourinary Surgical Hx: No Pertinent History Musculskeletal Surgical Hx: Orthopedic Surgery, Joint Replacement Female Surgical History: Hysterectomy Other Surgical History: Abdias. Knee replacements, left ankle reconstruction Significant Family History: no pertinent family hx - Social History Smoking Status: Never smoker Exposure to second hand smoke: No Alcohol: None Drug Use: none - Social Determinants of Health Will the patient participate in the screening: Yes Do you worry about a steady place to live?: No Do you have any problems with any of the following?: No known problems In the past 12 months,have you had to go without utilities?: No Have you or anyone in your house had to go without enough: No Transportation Issues: No Has anyone in your support network made you feel unsafe?: No Does the patient want assistance with any of the above?: No - Physical Exam Vital Signs: Vital Signs - 24 hr Temp Pulse Resp BP BP Pulse Ox 09/15/24 20:14 97.1 F 95 H 18 129/62 95 09/15/24 20:00 95 H 95 09/15/24 19:37 109 H 18 88/58 93 L 09/15/24 19:36 84 L 09/15/24 19:33 96 09/15/24 18:31 122/86 96 09/15/24 18:00 114/86 87 L 09/15/24 17:30 131/90 95 09/15/24 17:00 128/83 94 L 09/15/24 16:30 107/69 94 L 09/15/24 16:00 110/71 96 09/15/24 15:30 99/53 09/15/24 15:20 83/59 91 L 09/15/24 15:16 97.0 F 94 H 83/59 92 L General Appearance: no apparent distress Neurologic Exam: alert Ears, Nose, Throat Exam: dry mucous membranes Neck Exam: normal inspection, supple Respiratory Exam: No respiratory distress Cardiovascular Exam: regular rate/rhythm Gastrointestinal/Abdomen Exam: soft Extremity Exam: No pedal edema, No swelling Skin Exam: normal color, No rash Results - Labs Lab/Micro Results: Lab Results-Last 24 Hours 09/15/24 09/15/24 09/15/24 Range/Units 16:04 16:04 16:43 WBC 8.1 (3.98-10.04) x10^3/uL RBC 4.94 (3.93-5.22) x10^6/uL Hgb 14.4 (11.2-15.7) g/dL Hct 44.1 (34.1-44.9) % MCV 89.3 (79.4-94.8) fL MCH 29.1 (25.6-32.2) pg MCHC 32.7 (32.2-35.5) g/dL RDW 14.0 (11.7-14.4) % Plt Count 276 (182-369) x10^3/uL MPV 10.0 (9.4-12.3) fL Gran % 77.3 H (34.0-71.1) % Immature Gran % (Auto) 0.6 H (0.001-0.429) % Nucleat RBC Rel Count 0.0 (0.00-0.2) % Eos # (Auto) 0.02 L (0.04-0.36) x10^3/uL Immature Gran # (Auto) 0.05 H (0.001-0.031) x10^3u/L Absolute Lymphs (auto) 0.98 L (1.18-3.74) x10^3/uL Absolute Monos (auto) 0.74 (0.24-0.86) x10^3/uL Absolute Nucleated RBC 0.00 (0.00-0.012) x10^3u/L Lymphocytes % 12.2 L (19.3-51.7) % Monocytes % 9.2 (4.7-12.5) % Eosinophils % 0.2 L (0.7-5.8) % Basophils % 0.5 (0.1-1.2) % Absolute Granulocytes 6.23 H (1.56-6.13) x10^3/uL Basophils # 0.04 (0.01-0.08) x10^3/uL Sodium 137 (135-145) mmol/L Potassium 4.8 (3.5-5.1) mmol/L Chloride 104 (98-107) mmol/L Carbon Dioxide 25 (22-30) mmol/L Anion Gap 13.8 (5-15) MEQ/L BUN 24 H (7-17) mg/dL Creatinine 1.60 H (0.52-1.04) mg/dL Estimated GFR 31.2 ML/MIN Glucose 97 (74-106) mg/dL Calcium 9.0 (8.4-10.2) mg/dL Total Bilirubin 0.80 (0.2-1.3) mg/dL AST 28 (14-36) U/L ALT 23 (0-35) U/L Alkaline Phosphatase 76 (38-126) U/L Serum Total Protein 6.7 (6.3-8.2) g/dL Albumin 3.5 (3.5-5.0) g/dL Urine Color Yellow (Yellow) Urine Appearance Cloudy A (Clear) Urine pH 7.0 (4.6-8.0) Ur Specific [place] 1.015 (1.005-1.030) Urine Protein 30 (Negative) Urine Glucose (UA) Negative (Negative) mg/dL Urine Ketones 15 A (Negative) Urine Blood Negative (Negative) Urine Nitrite Negative (Negative) Urine Bilirubin Negative (Negative) Urine Urobilinogen 0.2 (0.2) mg/dL Ur Leukocyte Esterase Negative (Negative) U Hyaline Cast (Auto) 6-10 A (0-2) /LPF Urine Microscopic RBC 3-5 (0-5) /HPF Urine Microscopic WBC 3-5 (0-5) /HPF Ur Epithelial Cells Few (None Seen) /HPF Calcium Oxalate Crystal 3-5 A (None Seen) /HPF Urine Bacteria None Seen (None Seen) /HPF Urine Culture Reflexed NO (NO) Assessment/Plan (1) Acute renal injury Current Visit: Yes Status: Acute Assessment & Plan: Likely from mild prerenal azotemia with urinary ketones versus AIN from recent antibiotics 1. IVFs 2. Defer steroids 3. Check urine lytes, urine eos 4. Follow I/Os 5. Watch electrolytes, creatinine closely Code(s): N17.9 - ACUTE KIDNEY FAILURE, UNSPECIFIED (2) Confusion Current Visit: Yes Status: Acute Assessment & Plan: Possibly from JOSE versus recent infection versus side effect of Levaquin 1. Admit to hospital 2. Fall precautions 3. PT/OT eval 4. DVT/GI prophylaxis Code(s): R41.0 - DISORIENTATION, UNSPECIFIED (3) Acute UTI (urinary tract infection) Current Visit: No Status: Acute Assessment & Plan: Appears to have cleared 1. Defer antibiotics for now 2. Trend WBC 3. Monitor for signs/symptoms of infection Code(s): N39.0 - URINARY TRACT INFECTION, SITE NOT SPECIFIED (4) HTN (hypertension) Current Visit: No Status: Chronic Qualifiers: Hypertension type: primary hypertension Qualified Code(s): I10 - Essential (primary) hypertension Assessment & Plan: Under fairly good control 1. Continue bp meds 2. Low Na diet 3. Monitor blood pressure readings Code(s): I10 - ESSENTIAL (PRIMARY) HYPERTENSION Telemedicine Encounter - Telemedicine Encounter Telemedicine Encounter: "The entirety of this encounter was performed via Telemedicine" This visit was performed using real-time audio and video connection between my location and thepatients locationwith the assistance of a surrogateat the patients location. Written or verbal consent was obtained from the patient/guardian to perform this visit usingncMeddiktelemedicine technology. Any patient questions regarding the telemedicine interaction were answered.
[2024-09-15] MEDS ORDERED: Zofran 4 MG/2 ML VIAL IV PRN (21:45)
[2024-09-15 22:32] LABS: CREATININE,URINE RANDOM 112.6 MG/DL
[2024-09-15] MEDS: Sodium Chloride 0.9% 1000 ML 1,000 ML IV SCH (22:35)
[2024-09-16 05:00] LABS: Absolute Neutrophil Ct (ANC) 3.92 x10^3/uL (1.56-6.13); BASOPHIL % 0.4 % (0.1-1.2); Basophil (Absolute #) 0.03 x10^3/uL (0.01-0.08); Eosinophil % 1.3 % (0.7-5.8); Hematocrit 40.9 % (34.1-44.9); Hemoglobin 13.7 g/dL (11.2-15.7); IMMATURE GRAN # 0.05 x10^3u/L (0.001-0.031); IMMATURE GRAN % 0.7 % (0.001-0.429); Lymphocyte (Absolute #) 2.46 x10^3/uL (1.18-3.74); Lymphocytes % 33.2 % (19.3-51.7); Mean Cell Volume 87.6 fL (79.4-94.8); Mean Corpuscular Hemoglobin 29.3 pg (25.6-32.2); Mean Corpuscular Hgb Concent. 33.5 g/dL (32.2-35.5); Mean Platelet Volume 10.3 fL (9.4-12.3); Monocyte (Absolute #) 0.86 x10^3/uL (0.24-0.86); Monocytes % 11.6 % (4.7-12.5); Neutrophil % 52.8 % (34.0-71.1); Platelet Count 270 x10^3/uL (182-369); Red Blood Count 4.67 x10^6/uL (3.93-5.22); Red Cell Distribution Width 14.2 % (11.7-14.4); White Blood Count 7.4 x10^3/uL (3.98-10.04)
[2024-09-16 05:15] LABS: ALBUMIN 3.3 g/dL (3.5-5.0); BILIRUBIN,TOTAL 0.6 mg/dL (0.2-1.3); Calcium 8.7 mg/dL (8.4-10.2); Creatinine 1 1.44 mg/dL (0.52-1.04); EST GLOMERULAR FILTRATION RATE 35.4 ML/MIN; Potassium 3.7 mmol/L (3.5-5.1); Total Protein 6.2 g/dL (6.3-8.2)
[2024-09-16] MEDS: ENOXAPARIN SODIUM SQ SCH (08:51)
[2024-09-16] MEDS: Protonix 40MG Tablet PO SCH (08:51)
[2024-09-16] MEDS: ZOCOR 20MG PO SCH (08:51)
--- NOTE | 2024-09-16 09:50 | PCM.NOTE ---
Date and Time: 09/16/24 0944 Subjective Assessment: Ms. RIVERO is a 88 year old female with a past medical history significant for hypertension, hyperlipidemia and frequent UTIs who was just admitted for an infection and treated with Levaquin, then discharged, but returns when her daughter noted increasing confusion, weakness and lethargy. Upon arrival, she was found to have an elevated creatinine of 1.60, so she was admitted for further evaluation. She was seen by tele-health with nurse and daughter at bedside. No fever/chills. No chest pain or shortness of breath. No nausea, vomiting or diarrhea. Last creatinine was 0.8. Today Creat. improved but not back to baseline. Will continue IVF. Will have pt work with PT. Daughter states that every time she gets Levaquin she gets confused and develops JOSE she wants this put as a medication allergy on her list. Her daughter reports she also has not slept until 3am yesterday. Will add melatonin at HS. PT to work with pt for weakness. When pt stood up today to work with PT she c/o pain in the back of her head. She had not had this complaint prior. Head CT ordered since she also has confusion intermittently. She was A&O x3 today this AM. On 09/08/[address] head and there were no acute concerning findings. Pt concerned she is very weak and may need placement. Pt denies CP, SOB, abd pain, N/V/D. - Review of Systems Constitutional: No Fever, No Chills Eyes: No Symptoms Ears, Nose, & Throat: No Symptoms Respiratory: No Cough, No Short Of Breath Cardiac: No Chest Pain, No Edema, No Syncope Abdominal/Gastrointestinal: No Abdominal Pain, No Nausea, No Vomiting, No Diarrhea Genitourinary Symptoms: No Dysuria Musculoskeletal: No Back Pain, No Neck Pain Skin: No Rash Neurological: No Dizziness, No Focal Weakness, No Sensory Changes Psychological: No Symptoms, Other (intermittent confusion) Endocrine: No Symptoms Hematologic/Lymphatic: No Symptoms Immunological/Allergic: No Symptoms Objective Exam General Appearance: no apparent distress, alert, obese Neurologic Exam: alert, oriented x 3, cooperative, normal mood/affect, nml cerebellar function, sensation nml, disoriented (intermittent), motor weakness, No motor deficits Skin Exam: normal color, warm, dry Eye Exam: PERRL, EOMI, eyes nml inspection Ears, Nose, Throat Exam: normal ENT inspection, pharynx normal, moist mucous membranes Neck Exam: normal inspection, non-tender, supple, full range of motion Respiratory Exam: normal breath sounds, lungs clear, No respiratory distress Cardiovascular Exam: regular rate/rhythm, normal heart sounds Gastrointestinal/Abdomen Exam: soft, No tenderness, No mass Extremity Exam: normal inspection, normal range of motion Back Exam: normal inspection, normal range of motion, No CVA tenderness, No vertebral tenderness Pelvic Exam: deferred Rectal Exam: deferred Objective Data Vital Signs: Vital Signs - 24 hr Temp Pulse Resp BP BP Pulse Ox 09/16/24 07:30 98.1 F 86 18 161/72 95 09/16/24 04:00 97.3 F 85 18 120/56 96 09/15/24 23:27 97.6 F 96 H 20 119/74 95 09/15/24 20:14 97.1 F 95 H 18 129/62 95 09/15/24 20:00 95 H 95 09/15/24 19:37 109 H 18 88/58 93 L 09/15/24 19:36 84 L 09/15/24 19:33 96 09/15/24 18:31 122/86 96 09/15/24 18:00 114/86 87 L 09/15/24 17:30 131/90 95 09/15/24 17:00 128/83 94 L 09/15/24 16:30 107/69 94 L 09/15/24 16:00 110/71 96 09/15/24 15:30 99/53 09/15/24 15:20 83/59 91 L 09/15/24 15:16 97.0 F 94 H 83/59 92 L Pain Assessment - Last Documented Pain Intensity 0 Intake and Output: Intake & Output 09/13/24 09/14/24 09/15/24 09/16/24 11:59 11:59 11:59 11:59 Intake Total 1141 Balance 1141 Weight 80.7 kg Lab Results: Lab Results-Last 24 Hours 09/15/24 09/15/24 09/15/24 Range/Units 15:50 16:04 16:04 WBC 8.1 (3.98-10.04) x10^3/uL RBC 4.94 (3.93-5.22) x10^6/uL Hgb 14.4 (11.2-15.7) g/dL Hct 44.1 (34.1-44.9) % MCV 89.3 (79.4-94.8) fL MCH 29.1 (25.6-32.2) pg MCHC 32.7 (32.2-35.5) g/dL RDW 14.0 (11.7-14.4) % Plt Count 276 (182-369) x10^3/uL MPV 10.0 (9.4-12.3) fL Gran % 77.3 H (34.0-71.1) % Immature Gran % (Auto) 0.6 H (0.001-0.429) % Nucleat RBC Rel Count 0.0 (0.00-0.2) % Eos # (Auto) 0.02 L (0.04-0.36) x10^3/uL Immature Gran # (Auto) 0.05 H (0.001-0.031) x10^3u/L Absolute Lymphs (auto) 0.98 L (1.18-3.74) x10^3/uL Absolute Monos (auto) 0.74 (0.24-0.86) x10^3/uL Absolute Nucleated RBC 0.00 (0.00-0.012) x10^3u/L Lymphocytes % 12.2 L (19.3-51.7) % Monocytes % 9.2 (4.7-12.5) % Eosinophils % 0.2 L (0.7-5.8) % Basophils % 0.5 (0.1-1.2) % Absolute Granulocytes 6.23 H (1.56-6.13) x10^3/uL Basophils # 0.04 (0.01-0.08) x10^3/uL Sodium 137 (135-145) mmol/L Potassium 4.8 (3.5-5.1) mmol/L Chloride 104 (98-107) mmol/L Carbon Dioxide 25 (22-30) mmol/L Anion Gap 13.8 (5-15) MEQ/L BUN 24 H (7-17) mg/dL Creatinine 1.60 H (0.52-1.04) mg/dL Estimated GFR 31.2 ML/MIN Glucose 97 (74-106) mg/dL Calcium 9.0 (8.4-10.2) mg/dL Total Bilirubin 0.80 (0.2-1.3) mg/dL AST 28 (14-36) U/L ALT 23 (0-35) U/L Alkaline Phosphatase 76 (38-126) U/L Serum Total Protein 6.7 (6.3-8.2) g/dL Albumin 3.5 (3.5-5.0) g/dL Urine Color (Yellow) Urine Appearance (Clear) Urine pH (4.6-8.0) Ur Specific [place] (1.005-1.030) Urine Protein (Negative) Urine Glucose (UA) (Negative) mg/dL Urine Ketones (Negative) Urine Blood (Negative) Urine Nitrite (Negative) Urine Bilirubin (Negative) Urine Urobilinogen (0.2) mg/dL Ur Leukocyte Esterase (Negative) U Hyaline Cast (Auto) (0-2) /LPF Urine Microscopic RBC (0-5) /HPF Urine Microscopic WBC (0-5) /HPF Ur Epithelial Cells (None Seen) /HPF Calcium Oxalate Crystal (None Seen) /HPF Urine Bacteria (None Seen) /HPF Urine Culture Reflexed (NO) Ur Random Creatinine 112.6 MG/DL Urine Sodium 41 (30-90) mmol/L 09/15/24 09/16/24 09/16/24 Range/Units 16:43 04:25 04:25 WBC 7.4 (3.98-10.04) x10^3/uL RBC 4.67 (3.93-5.22) x10^6/uL Hgb 13.7 (11.2-15.7) g/dL Hct 40.9 (34.1-44.9) % MCV 87.6 (79.4-94.8) fL MCH 29.3 (25.6-32.2) pg MCHC 33.5 (32.2-35.5) g/dL RDW 14.2 (11.7-14.4) % Plt Count 270 (182-369) x10^3/uL MPV 10.3 (9.4-12.3) fL Gran % 52.8 (34.0-71.1) % Immature Gran % (Auto) 0.7 H (0.001-0.429) % Nucleat RBC Rel Count 0.0 (0.00-0.2) % Eos # (Auto) 0.10 (0.04-0.36) x10^3/uL Immature Gran # (Auto) 0.05 H (0.001-0.031) x10^3u/L Absolute Lymphs (auto) 2.46 (1.18-3.74) x10^3/uL Absolute Monos (auto) 0.86 (0.24-0.86) x10^3/uL Absolute Nucleated RBC 0.00 (0.00-0.012) x10^3u/L Lymphocytes % 33.2 (19.3-51.7) % Monocytes % 11.6 (4.7-12.5) % Eosinophils % 1.3 (0.7-5.8) % Basophils % 0.4 (0.1-1.2) % Absolute Granulocytes 3.92 (1.56-6.13) x10^3/uL Basophils # 0.03 (0.01-0.08) x10^3/uL Sodium 138 (135-145) mmol/L Potassium 3.7 D (3.5-5.1) mmol/L Chloride 109 H (98-107) mmol/L Carbon Dioxide 22 (22-30) mmol/L Anion Gap 11.0 (5-15) MEQ/L BUN 27 H (7-17) mg/dL Creatinine 1.44 H (0.52-1.04) mg/dL Estimated GFR 35.4 ML/MIN Glucose 94 (74-106) mg/dL Calcium 8.7 (8.4-10.2) mg/dL Total Bilirubin 0.60 (0.2-1.3) mg/dL AST 28 (14-36) U/L ALT 19 (0-35) U/L Alkaline Phosphatase 79 (38-126) U/L Serum Total Protein 6.2 L (6.3-8.2) g/dL Albumin 3.3 L (3.5-5.0) g/dL Urine Color Yellow (Yellow) Urine Appearance Cloudy A (Clear) Urine pH 7.0 (4.6-8.0) Ur Specific [place] 1.015 (1.005-1.030) Urine Protein 30 (Negative) Urine Glucose (UA) Negative (Negative) mg/dL Urine Ketones 15 A (Negative) Urine Blood Negative (Negative) Urine Nitrite Negative (Negative) Urine Bilirubin Negative (Negative) Urine Urobilinogen 0.2 (0.2) mg/dL Ur Leukocyte Esterase Negative (Negative) U Hyaline Cast (Auto) 6-10 A (0-2) /LPF Urine Microscopic RBC 3-5 (0-5) /HPF Urine Microscopic WBC 3-5 (0-5) /HPF Ur Epithelial Cells Few (None Seen) /HPF Calcium Oxalate Crystal 3-5 A (None Seen) /HPF Urine Bacteria None Seen (None Seen) /HPF Urine Culture Reflexed NO (NO) Ur Random Creatinine MG/DL Urine Sodium (30-90) mmol/L Radiology Exams: Radiology Procedures Category Date Time Status HEAD W/WO CONTRAST [CT] Urgent Exams 09/16/24 09:16 Ordered Assessment/Plan (1) Acute renal injury Current Visit: Yes Status: Acute Assessment & Plan: - Creat 1.44 today- improved - Baseline renal function 0.84 - NS @ 100 ml/hr - CBC, CMP improved - hold lisinopril - 2:2 Levaquin? - this is a possibility- med added to allergy list Code(s): N17.9 - ACUTE KIDNEY FAILURE, UNSPECIFIED (2) Confusion Current Visit: Yes Status: Acute Assessment & Plan: - 2:2 insomnia and JOSE- see plans of care - Pt also has a hx of dementia Code(s): R41.0 - DISORIENTATION, UNSPECIFIED (3) Generalized weakness Current Visit: Yes Status: Acute Assessment & Plan: - PT eval - 2:2 JOSE Code(s): R53.1 - WEAKNESS (4) Dementia Current Visit: No Status: Chronic Assessment & Plan: - Chronic per hx - consider HHC vs. placement Code(s): F03.90 - UNSP DEMENTIA, UNSP SEVERITY, WITHOUT BEH/PSYCH/MOOD/ANX (5) Obesity (BMI 30.0-34.9) Current Visit: No Status: Chronic Assessment & Plan: - advised diet and exercise control Code(s): E66.9 - OBESITY, UNSPECIFIED (6) Insomnia Current Visit: Yes Status: Acute Assessment & Plan: - Start melatonin at HS Code(s): G47.00 - INSOMNIA, UNSPECIFIED (7) Headache Current Visit: Yes Status: Acute Assessment & Plan: - Pt reported H/A back of head when getting up with PT - CT on 09/08- negative for acute concern - Repeat head CT today as pt also has new acute confusion VTE: SCD's PPI: Protonix Next of KIN: Daughter D/C plan: 1-2 days Code status: SCO/DNR Code(s): R51.9 - HEADACHE, UNSPECIFIED
[2024-09-16] MEDS ORDERED: ENOXAPARIN SODIUM SQ SCH (10:00)
[2024-09-16] MEDS ORDERED: NON-FORMULARY ITEM (Atorvastatin Calcium [Lipitor] 20 MG Tablet) PO SCH (10:00)
--- NOTE | 2024-09-16 11:25 | XRAY ---
CLINICAL HISTORY: head pain back of head confusion COMPARISON: None. TECHNIQUE: An axial non-contrast CT scan of the brain was performed from the skull base to the high parietal region. One of the following dose reduction techniques was utilized for this exam: Automated exposure control, adjustment of the mA and/or kV according to patient size, and use of iterative reconstruction. FINDINGS: Brain Parenchyma and Ventricular System: Age-related marked central and cortical involutional brain changes are noted. Bilateral symmetrical significant periventricular white matter hypodensities are seen suggesting small vessel disease. No evidence of acute infarct, hemorrhage, or mass effect. Foci of calcification are seen in bilateral basal ganglia. No midline shift. Subarachnoid Spaces: Accentuated cortical sulci, Sylvian fissures, and supratentorial as well as infratentorial extra-axial CSF spaces, consistent with age. No evidence of subarachnoid hemorrhage or extra-axial fluid collections. Cerebellum and Brainstem: Normal size and density. No masses, lesions, or areas of abnormal density. Orbits: Normal appearance of the globes, optic nerves, and extraocular muscles. No evidence of orbital masses or abnormal density. Sinuses: Bilateral maxillary and ethmoid sinuses show mucosal thickening. Mastoid Air Cells: Clear mastoid air cells. No evidence of mastoiditis. Skull: Normal skull morphology. IMPRESSION: 1. Microvascular white matter ischemic changes and senile changes. 2. Bilateral maxillary and ethmoid sinuses show mucosal thickening. represents sinusitis. 3. No intra or extra-axial hematomas or parenchymal territorial hypodense areas suggestive of acute ischemic insult. 4. Early changes of stroke may not be detected on a CT scan. If there is strong clinical suspicion of stroke, then suggest MRI with diffusion-weighted imaging. Electronically Signed by: Noemy Ch MD. (09/16/2024 11:20:15 EST)
[2024-09-16] MEDS: TYLENOL 325 MG PO PRN (19:34)
[2024-09-16] MEDS: MELATONIN PO PRN (19:35)
[2024-09-17 04:52] LABS: Hematocrit 37.2 % (34.1-44.9); Hemoglobin 12.1 g/dL (11.2-15.7); Mean Cell Volume 89.9 fL (79.4-94.8); Mean Corpuscular Hemoglobin 29.2 pg (25.6-32.2); Mean Corpuscular Hgb Concent. 32.5 g/dL (32.2-35.5); Platelet Count 229 x10^3/uL (182-369); Red Blood Count 4.14 x10^6/uL (3.93-5.22); Red Cell Distribution Width 14.1 % (11.7-14.4); White Blood Count 5.6 x10^3/uL (3.98-10.04)
[2024-09-17 06:12] LABS: ALBUMIN 2.5 g/dL (3.5-5.0); ANION GAP 8.3 MEQ/L (5-15); BILIRUBIN,TOTAL 0.4 mg/dL (0.2-1.3); Calcium 7.7 mg/dL (8.4-10.2); Creatinine 1 1.06 mg/dL (0.52-1.04); EST GLOMERULAR FILTRATION RATE 51.2 ML/MIN; Potassium 3.7 mmol/L (3.5-5.1); Total Protein 5.1 g/dL (6.3-8.2)
--- NOTE | 2024-09-17 09:44 | PCM.DS ---
Discharge Summary Date of Admission: 09/15/24 19:50 Date of Discharge: 09/17/24 Admitting Physician: YANG ACOSTA MD Primary Care Provider: BRITTANY JJ DO Allergies Allergies levofloxacin [From Levaquin] Adverse Reaction (Severe, Verified 09/16/24 09:54) Confusion, JOSE Hospital Summary - Hospital Course Hospital Course: 09/16/24 Ms. RIVERO is a 88 year old female with a past medical history significant for hypertension, hyperlipidemia and frequent UTIs who was just admitted for an infection and treated with Levaquin, then discharged, but returns when her daughter noted increasing confusion, weakness and lethargy. Upon arrival, she was found to have an elevated creatinine of 1.60, so she was admitted for further evaluation. She was seen by tele-health with nurse and daughter at bedside. No fever/chills. No chest pain or shortness of breath. No nausea, vomiting or diarrhea. Last creatinine was 0.8. Today Creat. improved but not back to baseline. Will continue IVF. Will have pt work with PT. Daughter states that every time she gets Levaquin she gets confused and develops JOSE she wants this put as a medication allergy on her list. Her daughter reports she also has not slept until 3am yesterday. Will add melatonin at HS. PT to work with pt for weakness. When pt stood up today to work with PT she c/o pain in the back of her head. She had not had this complaint prior. Head CT ordered since she also has confusion intermittently. She was A&O x3 today this AM. On 09/08/[address] head and there were no acute concerning findings. Pt concerned she is very weak and may need placement. Pt denies CP, SOB, abd pain, N/V/D. 09/17/24 Pt resting in the chair. She is awake, alert and oriented. Kidney function near baseline. Per PT eval today pt did very well with walking. Pt reports she slept well last night. Pt's family would like her to d/c home today. She denies Cp, abd. pain, N/V/D. [facility] has been set up by case management. - Vitals & Intake/Output Vital Signs: Vital Signs Temperature 97.3 F 09/17/24 08:00 Pulse Rate 90 09/17/24 08:00 Respiratory Rate 17 09/17/24 08:00 Blood Pressure 129/87 09/17/24 08:00 O2 Sat by Pulse Oximetry 90 L 09/17/24 08:00 Intake & Output: Intake & Output 09/14/24 09/15/24 09/16/24 09/17/24 11:59 11:59 11:59 11:59 Intake Total 1141 540 Output Total 200 Balance 1141 340 Weight 80.7 kg - Lab Result Diagrams: 09/17/24 04:34 09/17/24 04:34 Lab Results-Last 24 Hrs: Lab Results-Last 24 Hours 09/17/24 09/17/24 Range/Units 04:34 04:34 WBC 5.6 (3.98-10.04) x10^3/uL RBC 4.14 (3.93-5.22) x10^6/uL Hgb 12.1 (11.2-15.7) g/dL Hct 37.2 (34.1-44.9) % MCV 89.9 (79.4-94.8) fL MCH 29.2 (25.6-32.2) pg MCHC 32.5 (32.2-35.5) g/dL RDW 14.1 (11.7-14.4) % Plt Count 229 (182-369) x10^3/uL MPV 10.0 (9.4-12.3) fL Sodium 140 (135-145) mmol/L Potassium 3.7 (3.5-5.1) mmol/L Chloride 114 H (98-107) mmol/L Carbon Dioxide 22 (22-30) mmol/L Anion Gap 8.3 (5-15) MEQ/L BUN 23 H (7-17) mg/dL Creatinine 1.06 H (0.52-1.04) mg/dL Estimated GFR 51.2 ML/MIN Glucose 97 (74-106) mg/dL Calcium 7.7 L (8.4-10.2) mg/dL Total Bilirubin 0.40 (0.2-1.3) mg/dL AST 28 (14-36) U/L ALT 18 (0-35) U/L Alkaline Phosphatase 69 (38-126) U/L Serum Total Protein 5.1 L (6.3-8.2) g/dL Albumin 2.5 L (3.5-5.0) g/dL - Radiology Exams Ordered Rad Exams-Entire Visit: Radiology Procedures Category Date Time Status HEAD WITHOUT CONTRAST [CT] Stat Exams 09/16/24 09:16 Completed - Procedures and Test Procedures and Tests throughout Hospitalization: Therapy Orders & Screens 09/15/24 21:45 PT Eval & Treat ( Order) ONCE Reason for Eval:: weakness Diagnosis: Generalized weakness, elevated serum creatinine Discharge Exam General Appearance: no apparent distress, alert Neurologic Exam: alert, oriented x 3, cooperative, normal mood/affect, nml cerebellar function, sensation nml, No motor deficits Eye Exam: PERRL, EOMI, eyes nml inspection Ears, Nose, Throat Exam: normal ENT inspection, pharynx normal, moist mucous membranes Neck Exam: normal inspection, non-tender, supple, full range of motion Respiratory Exam: normal breath sounds, lungs clear, No respiratory distress Cardiovascular Exam: regular rate/rhythm, normal heart sounds Gastrointestinal/Abdomen Exam: soft, No tenderness, No mass Pelvic Exam: deferred Rectal Exam: deferred Back Exam: normal inspection, normal range of motion, No CVA tenderness, No vertebral tenderness Extremity Exam: normal inspection, normal range of motion Skin Exam: normal color, warm, dry Final Diagnosis/Problem List - Final Discharge Diagnosis/Problem (1) Acute renal injury Current Visit: Yes Status: Acute Code(s): N17.9 - ACUTE KIDNEY FAILURE, UNSPECIFIED (2) Confusion Current Visit: Yes Status: Acute Code(s): R41.0 - DISORIENTATION, UNSPECIFIED (3) Generalized weakness Current Visit: Yes Status: Acute Code(s): R53.1 - WEAKNESS (4) Dementia Current Visit: No Status: Chronic Code(s): F03.90 - UNSP DEMENTIA, UNSP SEVERITY, WITHOUT BEH/PSYCH/MOOD/ANX (5) Obesity (BMI 30.0-34.9) Current Visit: No Status: Chronic Code(s): E66.9 - OBESITY, UNSPECIFIED (6) Insomnia Current Visit: Yes Status: Acute Code(s): G47.00 - INSOMNIA, UNSPECIFIED (7) Headache Current Visit: Yes Status: Acute Assessment & Plan: (1) Acute renal injury Current Visit: Yes Status: Acute Assessment & Plan: - Creat 1.44 today- improved - Baseline renal function 0.84 - NS @ 100 ml/hr - CBC, CMP improved - hold lisinopril - 2:2 Levaquin? - this is a possibility- med added to allergy list 09/17 - Creat. 1.06- near baseline - CMP reviewed Code(s): N17.9 - ACUTE KIDNEY FAILURE, UNSPECIFIED (2) Confusion Current Visit: Yes Status: Acute Assessment & Plan: - 2:2 insomnia and JOSE- see plans of care - Pt also has a hx of dementia 09/17 - resolved - CBC reviewed Code(s): R41.0 - DISORIENTATION, UNSPECIFIED (3) Generalized weakness Current Visit: Yes Status: Acute Assessment & Plan: - PT eval - 2:2 JOSE 09/17 - resolved per PT eval today Code(s): R53.1 - WEAKNESS (4) Dementia Current Visit: No Status: Chronic Assessment & Plan: - Chronic per hx - consider HHC vs. placement 09/17 - Will d/c with HH Code(s): F03.90 - UNSP DEMENTIA, UNSP SEVERITY, WITHOUT BEH/PSYCH/MOOD/ANX (5) Obesity (BMI 30.0-34.9) Current Visit: No Status: Chronic Assessment & Plan: - advised diet and exercise control Code(s): E66.9 - OBESITY, UNSPECIFIED (6) Insomnia Current Visit: Yes Status: Acute Assessment & Plan: - Start melatonin at HS 09/17 - Pt slept well last night Code(s): G47.00 - INSOMNIA, UNSPECIFIED (7) Headache Current Visit: Yes Status: Acute Assessment & Plan: - Pt reported H/A back of head when getting up with PT - CT on 09/08- negative for acute concern - Repeat head CT today as pt also has new acute confusion - Head CT negative for acute concern 09/17 - H/A resolved Code(s): R51.9 - HEADACHE, UNSPECIFIED - Discharge Discharge Date: 09/17/24 Disposition: HOME HEALTH SERVICE Condition: Stable Prescriptions: Continue Lisinopril 10 mg [Zestril 10 MG] 20 mg PO DAILY Potassium Chloride Tab* [Klor Con] 10 meq PO DAILY Atorvastatin Calcium [Lipitor] 20 mg PO DAILY Nitrofurantoin Macro 100 mg [Macrobid 100MG Capsule] 100 mg PO DAILY Additional Instructions: HOME HEALTHCARE HAS BEEN ARRANGED WITH [facility]. THEY WILL CALL [facility] TO ARRANGE A TIME TO COME SEE YOU. THEIR PHONE NUMBER IS [phone] IF YOU NEED ANYTHING BEFORE THEIR FIRST VISIT Follow up with: BRITTANY JJ DO [Primary Care Provider] -
[2024-09-17 11:44] VITALS: BP 122/56; PULSE 68; RESP 16; TEMP 97; O2SAT 98
== END 2024-09-17 13:10 | disposition home health service (06) ==
LOC: ED 15:00 → MED SURG 19:50
PROVIDERS: ADMIT Internal Medicine Nephrology; ATTEND Internal Medicine Nephrology
DX: N17.9 Acute kidney failure, unspecified (principal); E78.5 Hyperlipidemia, unspecified; I10 Essential (primary) hypertension; R41.0 Disorientation, unspecified; R53.1 Weakness; F03.90 Unspecified dementia, unspecified severity, without behavioral disturbance, psychotic disturbance, mood disturbance, and anxiety; E66.9 Obesity, unspecified; G47.00 Insomnia, unspecified; R51.9 Headache, unspecified; Z79.899 Other long term (current) drug therapy
CPT/HCPCS: 36415; 70450; 80053; 81001; 82570; 84300; 85025; 85027; 93268; 99284; J1650; Q3014; 97110-GP; A9270-GY; G0378

== ENCOUNTER 2024-11-17 00:13 | Emergency (ER) | payer MEDICARE, OTHER ==
[2024-11-17 00:44] VITALS: TEMP 96.7
--- NOTE | 2024-11-17 01:03 | ERPHSYRPT ---
- History of Present Illness Time Seen by Provider: 11/17/24 00:50 Source: patient, family Exam Limitations: no limitations Patient Subjective Stated Complaint: PT. STATES, "I'M JUST SO WEAK, I HAVE BEEN FOR THE PAST 2 DAYS.". EMS STATES THAT DAUGHTER REPORTS WEAK, NEAR SYNCOPE WITH NO LOSS OF CONSCIOUSSNESS AFTER RECEIVING AN ENEMA, POSSIBLE VAGAL RESPONSE. Triage Nursing Assessment: PT. ARRIVED BY AMBULANCE ON STRETCHER, TRANSFERRED TO [facility] WITH ASSIST OF 2, HAD LARGE FORMED BM, ALERT BUT PLEASANTLY CONFUSED PER HER NORMAL, ABLE TO MOVE ALL 4 EXT., RESP EVEN UNLABORED, Physician History: This is an 89-year-old white female patient brought to the emergency department by the handicraft or hobby shop manager service. The patient's daughter, who is a nurse, followed quickly behind and provided us with additional, independent history. The patient is pleasantly confused and has some dementia. She also has a history of hypertension hyperlipidemia. Patient was receiving a rectal enema prior to arrival and had what appears to be a vasovagal response. She did not hit her head. Upon arrival to the emergency department she did have a large bowel movement. Patient denies chest pain. Patient denies shortness of breath. She has no complaints. Her systolic blood pressure is 106. Patient does get urinary tract infections frequently so she is on nitrofurantoin chronically. Timing/Duration: today Severity: mild Associated Symptoms: denies symptoms Allergies/Adverse Reactions: levofloxacin [From Levaquin] Adverse Reaction (Severe, Verified 09/16/24 09:54) Confusion, JOSE Home Medications: Lisinopril 10 mg [Zestril 10 MG] 20 mg PO DAILY 01/29/19 [History] Potassium Chloride Tab* [Klor Con] 10 meq PO DAILY 01/29/19 [History] Atorvastatin Calcium [Lipitor] 20 mg PO DAILY 01/12/24 [History] Nitrofurantoin Macro 100 mg [Macrobid 100MG Capsule] 100 mg PO DAILY 09/16/24 [History] Hx Tetanus, Diphtheria Vaccination/Date Given: No Hx Influenza Vaccination/Date Given: Yes Hx Pneumococcal Vaccination/Date Given: Yes Immunizations Up to Date: No Travel Risk - International Travel Have you traveled outside of the country in past 3 weeks: No - Emerging Infectious Disease Are you exhibiting symptoms associated with any current EIDs: No - Review of Systems Constitutional: No Symptoms Eyes: No Symptoms Ears, Nose, & Throat: No Symptoms Respiratory: No Symptoms Cardiac: No Symptoms Abdominal/Gastrointestinal: No Symptoms Genitourinary Symptoms: No Symptoms Musculoskeletal: No Symptoms Skin: No Symptoms Neurological: Other (Vasovagal prior to arrival) Psychological: No Symptoms Endocrine: No Symptoms Hematologic/Lymphatic: No Symptoms Immunological/Allergic: No Symptoms All Other Systems: Reviewed and Negative - Past Medical History Pertinent Past Medical History: Yes Neurological History: Dementia ENT History: No Pertinent History Cardiac History: High Cholesterol, Hypertension Respiratory History: No Pertinent History Endocrine Medical History: No Pertinent History Musculoskeletal History: Arthritis GI Medical History: No Pertinent History History: Other Psycho-Social History: No Pertinent History Female Reproductive Disorders: No Pertinent History Other Medical History: . - Past Surgical History Past Surgical History: Yes Neuro Surgical History: No Pertinent History Cardiac: No Pertinent History Respiratory: No Pertinent History Gastrointestinal: Colon Resection Genitourinary: No Pertinent History Musculoskeletal: Orthopedic Surgery, Joint Replacement Female Surgical History: Hysterectomy Other Surgical History: Abdias. Knee replacements, left ankle reconstruction Significant Family History: no pertinent family hx - Social History Smoking Status: Never smoker Exposure to second hand smoke: No Drug Use: none Patient Lives Alone: No - Social Determinants of Health Will the patient participate in the screening: Yes Do you worry about a steady place to live?: No Do you have any problems with any of the following?: No known problems In the past 12 months,have you had to go without utilities?: No Transportation Issues: No Has anyone in your support network made you feel unsafe?: No Have you or anyone in your house had to go without enough: No - Nursing Vital Signs Nursing Vital Signs: Initial Vital Signs Temperature 96.7 F 11/17/24 00:29 Pulse Rate 94 H 11/17/24 00:29 Respiratory Rate 24 11/17/24 00:29 Blood Pressure 84/64 11/17/24 00:29 O2 Sat by Pulse Oximetry 94 L 11/17/24 00:29 Pain Scale Pain Intensity 0 - Physical Exam General Appearance: no apparent distress, alert, anxiety Eye Exam: PERRL/EOMI, eyes nml inspection Ears, Nose, Throat Exam: normal ENT inspection, moist mucous membranes Neck Exam: normal inspection, non-tender, supple, full range of motion Respiratory Exam: normal breath sounds, lungs clear, airway intact, No chest tenderness, No respiratory distress Cardiovascular Exam: regular rate/rhythm, normal heart sounds, normal peripheral pulses Gastrointestinal/Abdomen Exam: soft, normal bowel sounds, No tenderness, No guarding Pelvic Exam: not done Rectal Exam: not done Back Exam: normal inspection, normal range of motion, vertebral tenderness, No CVA tenderness Extremity Exam: normal inspection, normal range of motion, pelvis stable Neurologic Exam: alert, oriented x 3, cooperative, guest services attendant II-XII nml as tested, sensation nml Skin Exam: normal color, warm, dry Lymphatic Exam: No adenopathy SpO2 Interpretation: borderline oxygenation SpO2: 94 O2 Delivery: Room Air - Course Nursing assessment & vital signs reviewed: Yes EKG Interpreted by Me: RATE (90), Sinus Rhythm, NORMAL AXIS, NORMAL INTERVALS, Right Bundle Branch Block, Other (No acute ischemia. QTc is 476) Ordered Tests: Active Orders 24 hr Category Date Time Status EKG-ER Only STAT Care 11/17/24 01:05 Active IV Insertion STAT Care 11/17/24 01:05 Active CBC W DIFF Stat Lab 11/17/24 01:00 Completed CMP Stat Lab 11/17/24 01:00 Completed CULTURE,URINE Stat Lab 11/17/24 02:20 Received TROPONIN Q4H Lab 11/17/24 01:00 Completed TROPONIN Q4H Lab 11/17/24 05:15 Ordered TROPONIN Q4H Lab 11/17/24 09:15 Ordered UA W/RFX UR CULTURE Stat Lab 11/17/24 02:20 Completed Medication Summary Generic Name Dose Route Start Last Admin Trade Name Freq PRN Reason Stop Dose Admin Sodium Chloride 1,000 mls @ 100 mls/hr 11/17/24 01:15 11/17/24 01:10 Sodium Chloride 0.9% 1000 Ml IV 12/17/24 01:14 100 mls/hr .Q10H ARMEN Administration Lab/Rad Data: Laboratory Result Diagrams 11/17/24 01:00 11/17/24 01:00 Laboratory Results 11/17/24 11/17/24 11/17/24 Range/Units 02:20 01:00 01:00 WBC (3.98-10.04) x10^3/uL RBC (3.93-5.22) x10^6/uL Hgb (11.2-15.7) g/dL Hct (34.1-44.9) % MCV (79.4-94.8) fL MCH (25.6-32.2) pg MCHC (32.2-35.5) g/dL RDW (11.7-14.4) % Plt Count (182-369) x10^3/uL MPV (9.4-12.3) fL Gran % (34.0-71.1) % Immature Gran % (Auto) (0.001-0.429) % Nucleat RBC Rel Count (0.00-0.2) % Eos # (Auto) (0.04-0.36) x10^3/uL Immature Gran # (Auto) (0.001-0.031) x10^3u/L Absolute Lymphs (auto) (1.18-3.74) x10^3/uL Absolute Monos (auto) (0.24-0.86) x10^3/uL Absolute Nucleated RBC (0.00-0.012) x10^3u/L Lymphocytes % (19.3-51.7) % Monocytes % (4.7-12.5) % Eosinophils % (0.7-5.8) % Basophils % (0.1-1.2) % Absolute Granulocytes (1.56-6.13) x10^3/uL Basophils # (0.01-0.08) x10^3/uL Sodium 143 (135-145) mmol/L Potassium 3.6 (3.5-5.1) mmol/L Chloride 110 H (98-107) mmol/L Carbon Dioxide 20 L (22-30) mmol/L Anion Gap 17.2 H (5-15) MEQ/L BUN 22 H (7-17) mg/dL Creatinine 1.17 H (0.52-1.04) mg/dL Estimated GFR 45.2 ML/MIN Glucose 172 H (74-106) mg/dL Calcium 8.6 (8.4-10.2) mg/dL Total Bilirubin 1.70 H (0.2-1.3) mg/dL AST 30 (14-36) U/L ALT 23 (0-35) U/L Alkaline Phosphatase 112 (38-126) U/L Troponin I 0.013 (0.000-0.033) ng/mL Serum Total Protein 6.7 (6.3-8.2) g/dL Albumin 3.7 (3.5-5.0) g/dL Urine Color Dark Yellow A (Yellow) Urine Appearance Cloudy A (Clear) Urine pH 6.0 (4.6-8.0) Ur Specific Pitts 1.020 (1.005-1.030) Urine Protein 100 A (Negative) Urine Glucose (UA) 100 A (Negative) mg/dL Urine Ketones Negative (Negative) Urine Blood Negative (Negative) Urine Nitrite Negative (Negative) Urine Bilirubin Small A (Negative) Urine Urobilinogen 1.0 A (0.2) mg/dL Ur Leukocyte Esterase Trace A (Negative) U Hyaline Cast (Auto) 11-20 (0-2) /LPF Urine Microscopic RBC 0-2 (0-5) /HPF Urine Microscopic WBC 6-10 A (0-5) /HPF Ur Epithelial Cells Few (None Seen) /HPF Urine Bacteria None Seen (None Seen) /HPF Granular Casts 6-10 A (None Seen) /LPF Urine Mucus Few A (NEGATIVE) /HPF Urine Culture Reflexed YES (NO) 11/17/24 Range/Units 01:00 WBC 11.7 H (3.98-10.04) x10^3/uL RBC 4.90 (3.93-5.22) x10^6/uL Hgb 14.4 (11.2-15.7) g/dL Hct 45.1 H (34.1-44.9) % MCV 92.0 (79.4-94.8) fL MCH 29.4 (25.6-32.2) pg MCHC 31.9 L (32.2-35.5) g/dL RDW 13.9 (11.7-14.4) % Plt Count 324 (182-369) x10^3/uL MPV 11.7 (9.4-12.3) fL Gran % 65.4 (34.0-71.1) % Immature Gran % (Auto) 0.9 H (0.001-0.429) % Nucleat RBC Rel Count 0.0 (0.00-0.2) % Eos # (Auto) 0.14 (0.04-0.36) x10^3/uL Immature Gran # (Auto) 0.10 H (0.001-0.031) x10^3u/L Absolute Lymphs (auto) 3.06 (1.18-3.74) x10^3/uL Absolute Monos (auto) 0.65 (0.24-0.86) x10^3/uL Absolute Nucleated RBC 0.00 (0.00-0.012) x10^3u/L Lymphocytes % 26.1 (19.3-51.7) % Monocytes % 5.6 (4.7-12.5) % Eosinophils % 1.2 (0.7-5.8) % Basophils % 0.8 (0.1-1.2) % Absolute Granulocytes 7.67 H (1.56-6.13) x10^3/uL Basophils # 0.09 H (0.01-0.08) x10^3/uL Sodium (135-145) mmol/L Potassium (3.5-5.1) mmol/L Chloride (98-107) mmol/L Carbon Dioxide (22-30) mmol/L Anion Gap (5-15) MEQ/L BUN (7-17) mg/dL Creatinine (0.52-1.04) mg/dL Estimated GFR ML/MIN Glucose (74-106) mg/dL Calcium (8.4-10.2) mg/dL Total Bilirubin (0.2-1.3) mg/dL AST (14-36) U/L ALT (0-35) U/L Alkaline Phosphatase (38-126) U/L Troponin I (0.000-0.033) ng/mL Serum Total Protein (6.3-8.2) g/dL Albumin (3.5-5.0) g/dL Urine Color (Yellow) Urine Appearance (Clear) Urine pH (4.6-8.0) Ur Specific Pitts (1.005-1.030) Urine Protein (Negative) Urine Glucose (UA) (Negative) mg/dL Urine Ketones (Negative) Urine Blood (Negative) Urine Nitrite (Negative) Urine Bilirubin (Negative) Urine Urobilinogen (0.2) mg/dL Ur Leukocyte Esterase (Negative) U Hyaline Cast (Auto) (0-2) /LPF Urine Microscopic RBC (0-5) /HPF Urine Microscopic WBC (0-5) /HPF Ur Epithelial Cells (None Seen) /HPF Urine Bacteria (None Seen) /HPF Granular Casts (None Seen) /LPF Urine Mucus (NEGATIVE) /HPF Urine Culture Reflexed (NO) - Progress Progress: improved Progress Note: 11/17/24 01:15 Medical decision making and the assignment of moderate complexity of this patient's medical issue today is based on review of the patient's past medical history, review the patient's medication list, reviewed patient drug allergy list, history present illness and physical findings on examination. The workup in this patient includes placement of intravenous line, infusion of low rate intravenous crystalloid, CBC, CMP, twelve-lead EKG, urinalysis and troponin lev el. 11/17/24 01:16 Differential diagnosis includes but is not limited to vasovagal response, electrolyte abnormalities, dehydration, urinary tract infection, arrhythmia, myocardial infarction 11/17/24 03:03 I interpreted the patient's laboratory data results. Based on the laboratory data results patient has a urinary tract infection Counseled pt/family regarding: lab results, diagnosis, need for follow-up - Departure Departure Disposition: Home Clinical Impression: UTI (urinary tract infection) Condition: Stable Critical Care Time: No Referrals: BRITTANY JJ DO [Primary Care Provider] - Follow up/PCP as directed Additional Instructions: Stop the nitrofurantoin (Macrobid). Take the new antibiotics as prescribed. Take your other medication as prescribed. Drink plenty of fluids Prescriptions: Cefdinir 300 mg PO BID #10 cap
[2024-11-17] MEDS ORDERED: Sodium Chloride 0.9% 1000 ML 1,000 ML ONE (01:09)
[2024-11-17] MEDS: Sodium Chloride 0.9% 1000 ML 1,000 ML IV SCH (01:10)
[2024-11-17 01:23] LABS: Absolute Neutrophil Ct (ANC) 7.67 x10^3/uL (1.56-6.13); BASOPHIL % 0.8 % (0.1-1.2); Basophil (Absolute #) 0.09 x10^3/uL (0.01-0.08); Eosinophil % 1.2 % (0.7-5.8); Eosinophil (Absolute #) 0.14 x10^3/uL (0.04-0.36); Hematocrit 45.1 % (34.1-44.9); Hemoglobin 14.4 g/dL (11.2-15.7); IMMATURE GRAN % 0.9 % (0.001-0.429); Lymphocyte (Absolute #) 3.06 x10^3/uL (1.18-3.74); Lymphocytes % 26.1 % (19.3-51.7); Mean Corpuscular Hemoglobin 29.4 pg (25.6-32.2); Mean Corpuscular Hgb Concent. 31.9 g/dL (32.2-35.5); Mean Platelet Volume 11.7 fL (9.4-12.3); Monocyte (Absolute #) 0.65 x10^3/uL (0.24-0.86); Monocytes % 5.6 % (4.7-12.5); Neutrophil % 65.4 % (34.0-71.1); Platelet Count 324 x10^3/uL (182-369); Red Cell Distribution Width 13.9 % (11.7-14.4); White Blood Count 11.7 x10^3/uL (3.98-10.04)
[2024-11-17 01:28] LABS: ALBUMIN 3.7 g/dL (3.5-5.0); ANION GAP 17.2 MEQ/L (5-15); BILIRUBIN,TOTAL 1.7 mg/dL (0.2-1.3); Calcium 8.6 mg/dL (8.4-10.2); Creatinine 1 1.17 mg/dL (0.52-1.04); EST GLOMERULAR FILTRATION RATE 45.2 ML/MIN; Potassium 3.6 mmol/L (3.5-5.1); Total Protein 6.7 g/dL (6.3-8.2)
[2024-11-17 02:30] VITALS: RESP 24
[2024-11-17 02:39] LABS: Appearance Cloudy (Clear); Bacteria None Seen /HPF (None Seen); Bilirubin Small (Negative); Blood Negative (Negative); Epithelial Cells Few /HPF (None Seen); Glucose, Urine 100 mg/dL (Negative); Ketones Negative (Negative); Leukocyte Esterase Trace (Negative); Nitrite Negative (Negative); Protein,Urine Dip 100 (Negative); RBC 0-2 /HPF (0-5)
[2024-11-17 02:40] LABS: Mucus Few /HPF (NEGATIVE)
[2024-11-17] MEDS ORDERED: ROCEPHIN 1 GM / 100 ML NaCl 1 GM/100 ML IVPB IV ONE (03:05)
[2024-11-17 03:06] VITALS: O2SAT 94
[2024-11-17] MEDS: ROCEPHIN 1 GM / 100 ML NaCl 1 GM/100 ML IVPB IV ONE (03:06)
[2024-11-17 03:11] VITALS: PULSE 79
[2024-11-17 04:13] VITALS: BP 137/79
== END 2024-11-17 03:58 | disposition home or self-care (01) ==
LOC: ED 00:13
DX: N39.0 Urinary tract infection, site not specified (principal); R55 Syncope and collapse; I10 Essential (primary) hypertension; E78.5 Hyperlipidemia, unspecified; Z79.899 Other long term (current) drug therapy
CPT/HCPCS: 36415; 80053; 81001; 84484; 85025; 87086; 93005; 96360; 96361; 96374; 96375; 99284; J0696

== ENCOUNTER 2024-11-26 11:43 | Emergency (ER) | payer MEDICARE, OTHER ==
--- NOTE | 2024-11-26 11:49 | ERPHSYRPT ---
- History of Present Illness Time Seen by Provider: 11/26/24 11:49 Source: patient, family Exam Limitations: no limitations Physician History: This is an 89-year-old white female patient brought to the emergency department by the patient's daughter because of a fall that occurred yesterday evening. Patient lost her balance and hit her face. She arrives with no complaints of pain. She is oriented to self but not to time and place. Patient does have a history of dementia. She is pleasantly confused. She does have a history of hyperlipidemia and hypertension. She was seen in our emergency department on 11/17/2024 and diagnosed with a urinary tract infection and placed on cefdinir. She completed her cefdinir yesterday. Patient denies pain anywhere. Occurred: yesterday Loss of Consciousness: no loss of consciousness Associated Symptoms: denies symptoms Allergies/Adverse Reactions: levofloxacin [From [facility]] Adverse Reaction (Severe, Verified 11/26/24 11:57) Confusion, JOSE Home Medications: Lisinopril 10 mg [Zestril 10 MG] 20 mg PO DAILY 01/29/19 [History] Potassium Chloride Tab* [Klor Con] 10 meq PO DAILY 01/29/19 [History] Atorvastatin Calcium [Lipitor] 20 mg PO DAILY 01/12/24 [History] Hx Tetanus, Diphtheria Vaccination/Date Given: No Hx Influenza Vaccination/Date Given: Yes Hx Pneumococcal Vaccination/Date Given: Yes Travel Risk - International Travel Have you traveled outside of the country in past 3 weeks: No - Emerging Infectious Disease Are you exhibiting symptoms associated with any current EIDs: No - Review of Systems Constitutional: No Symptoms Eyes: No Symptoms Ears, Nose, & Throat: No Symptoms Respiratory: No Symptoms Cardiac: No Symptoms Abdominal/Gastrointestinal: No Symptoms Genitourinary Symptoms: No Symptoms Musculoskeletal: No Symptoms Skin: Other (Facial skin abrasions from fall) Neurological: No Symptoms Psychological: No Symptoms Endocrine: No Symptoms Hematologic/Lymphatic: No Symptoms Immunological/Allergic: No Symptoms All Other Systems: Reviewed and Negative - Past Medical History Pertinent Past Medical History: Yes Neurological History: Dementia ENT History: No Pertinent History Cardiac History: High Cholesterol, Hypertension Respiratory History: No Pertinent History Endocrine Medical History: No Pertinent History Musculoskeletal History: Arthritis GI Medical History: No Pertinent History History: Other Psycho-Social History: No Pertinent History Female Reproductive Disorders: No Pertinent History Other Medical History: . - Past Surgical History Past Surgical History: Yes Neuro Surgical History: No Pertinent History Cardiac: No Pertinent History Respiratory: No Pertinent History Gastrointestinal: Colon Resection Genitourinary: No Pertinent History Musculoskeletal: Orthopedic Surgery, Joint Replacement Female Surgical History: Hysterectomy Other Surgical History: Abdias. Knee replacements, left ankle reconstruction Significant Family History: no pertinent family hx - Social History Smoking Status: Never smoker Exposure to second hand smoke: No Drug Use: none Patient Lives Alone: No - Social Determinants of Health Will the patient participate in the screening: Yes Do you worry about a steady place to live?: No In the past 12 months,have you had to go without utilities?: No Transportation Issues: No Has anyone in your support network made you feel unsafe?: No Have you or anyone in your house had to go w/o enough food: No - Nursing Vital Signs Nursing Vital Signs: Initial Vital Signs Temperature 97.4 F 11/26/24 11:50 Pulse Rate 82 11/26/24 11:50 Respiratory Rate 18 11/26/24 11:50 Blood Pressure 111/72 11/26/24 11:50 O2 Sat by Pulse Oximetry 97 11/26/24 11:50 Pain Scale Pain Intensity 0 - Peewee Coma Score Best Eye Response (Peewee): (4) open spontaneously Best Verbal Response (Maple): (4) confused conversation Best Motor Response (Pee[place]e): (6) obeys commands [place]ee[place]e Total: 14 - Physical Exam General Appearance: no apparent distress, alert, anxiety Eye Exam: bilateral eye: normal inspection, PERRL, EOMI ENT Exam: airway nml, nml ext.inspection Neck Exam: supple, trachea midline, full range of motion, normal alignment, normal inspection Cardiovascular/Respiratory Exam: chest non-tender, normal breath sounds, regular rate/rhythm, heart sounds normal, no respiratory distress Gastrointestinal/Abdominal Exam: soft, non tender, no distention, no mass, no guarding, no ecchymosis, no organomegaly, no pulsatile mass, normal bowel sounds Pelvic Exam: not done Rectal Exam: not done Back Exam: normal inspection, normal range of motion, No CVA tenderness, No vertebral tenderness Extremity Exam: non-tender, normal range of motion, no calf tenderness, swelling (Patient has chronic lymphedema. Patient's daughter thinks it might be a little worse than typical) Mental Status Exam: alert (Patient is oriented to self. 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 No acute ischemia on today's twelve-lead EKG.) Ordered Tests: Active Orders 24 hr Category Date Time Status EKG-ER Only STAT Care 11/26/24 12:17 Active IV Insertion STAT Care 11/26/24 12:17 Active FACIAL BONES WO CONTRAST [CT] Stat Exams 11/26/24 12:20 Completed HEAD WITHOUT CONTRAST [CT] Stat Exams 11/26/24 12:20 Completed CBC W DIFF Stat Lab 11/26/24 12:47 Completed CMP Stat Lab 11/26/24 12:17 Completed CULTURE,URINE Stat Lab 11/26/24 12:20 Received TROPONIN Q4H Lab 11/26/24 12:30 Completed TROPONIN Q4H Lab 11/26/24 16:30 Ordered TROPONIN Q4H Lab 11/26/24 20:30 Ordered UA W/RFX UR CULTURE Stat Lab 11/26/24 12:20 Completed Medication Summary Generic Name Dose Route Start Last Admin Trade Name Freq PRN Reason Stop Dose Admin Sodium Chloride 1,000 mls @ 100 mls/hr 11/26/24 12:30 11/26/24 13:21 Sodium Chloride 0.9% 1000 Ml IV 12/26/24 12:29 100 mls/hr .Q10H ARMEN Administration Lab/Rad Data: Laboratory Result Diagrams 11/26/24 12:47 11/26/24 12:17 Laboratory Results 11/26/24 11/26/24 11/26/24 Range/Units 12:47 12:30 12:20 WBC 10.3 H (3.98-10.04) x10^3/uL RBC 4.55 (3.93-5.22) x10^6/uL Hgb 13.3 (11.2-15.7) g/dL Hct 41.2 (34.1-44.9) % MCV 90.5 (79.4-94.8) fL MCH 29.2 (25.6-32.2) pg MCHC 32.3 (32.2-35.5) g/dL RDW 14.5 H (11.7-14.4) % Plt Count 216 (182-369) x10^3/uL MPV 10.8 (9.4-12.3) fL Gran % 70.3 (34.0-71.1) % Immature Gran % (Auto) 1.0 H (0.001-0.429) % Nucleat RBC Rel Count 0.0 (0.00-0.2) % Eos # (Auto) 0.15 (0.04-0.36) x10^3/uL Immature Gran # (Auto) 0.10 H (0.001-0.031) x10^3u/L Absolute Lymphs (auto) 1.94 (1.18-3.74) x10^3/uL Absolute Monos (auto) 0.80 (0.24-0.86) x10^3/uL Absolute Nucleated RBC 0.00 (0.00-0.012) x10^3u/L Lymphocytes % 18.8 L (19.3-51.7) % Monocytes % 7.8 (4.7-12.5) % Eosinophils % 1.5 (0.7-5.8) % Basophils % 0.6 (0.1-1.2) % Absolute Granulocytes 7.27 H (1.56-6.13) x10^3/uL Basophils # 0.06 (0.01-0.08) x10^3/uL Sodium (135-145) mmol/L Potassium (3.5-5.1) mmol/L Chloride (98-107) mmol/L Carbon Dioxide (22-30) mmol/L Anion Gap (5-15) MEQ/L BUN (7-17) mg/dL Creatinine (0.52-1.04) mg/dL Estimated GFR ML/MIN Glucose (74-106) mg/dL Calcium (8.4-10.2) mg/dL Total Bilirubin (0.2-1.3) mg/dL AST (14-36) U/L ALT (0-35) U/L Alkaline Phosphatase (38-126) U/L Troponin I 0.013 (0.000-0.033) ng/mL Serum Total Protein (6.3-8.2) g/dL Albumin (3.5-5.0) g/dL Urine Color Yellow (Yellow) Urine Appearance Clear (Clear) Urine pH 5.0 (4.6-8.0) Ur Specific [place] 1.020 (1.005-1.030) Urine Protein Trace A (Negative) Urine Glucose (UA) Negative (Negative) mg/dL Urine Ketones Trace A (Negative) Urine Blood Negative (Negative) Urine Nitrite Negative (Negative) Urine Bilirubin Negative (Negative) Urine Urobilinogen 0.2 (0.2) mg/dL Ur Leukocyte Esterase Trace A (Negative) U Hyaline Cast (Auto) 11-20 (0-2) /LPF Urine Microscopic RBC 0-2 (0-5) /HPF Urine Microscopic WBC 6-10 A (0-5) /HPF Ur Epithelial Cells Moderate A (None Seen) /HPF Urine Bacteria None Seen (None Seen) /HPF Urine Culture Reflexed ORDERED SEPARATELY (NO) 11/26/24 Range/Units 12:17 WBC (3.98-10.04) x10^3/uL RBC (3.93-5.22) x10^6/uL Hgb (11.2-15.7) g/dL Hct (34.1-44.9) % MCV (79.4-94.8) fL MCH (25.6-32.2) pg MCHC (32.2-35.5) g/dL RDW (11.7-14.4) % Plt Count (182-369) x10^3/uL MPV (9.4-12.3) fL Gran % (34.0-71.1) % Immature Gran % (Auto) (0.001-0.429) % Nucleat RBC Rel Count (0.00-0.2) % Eos # (Auto) (0.04-0.36) x10^3/uL Immature Gran # (Auto) (0.001-0.031) x10^3u/L Absolute Lymphs (auto) (1.18-3.74) x10^3/uL Absolute Monos (auto) (0.24-0.86) x10^3/uL Absolute Nucleated RBC (0.00-0.012) x10^3u/L Lymphocytes % (19.3-51.7) % Monocytes % (4.7-12.5) % Eosinophils % (0.7-5.8) % Basophils % (0.1-1.2) % Absolute Granulocytes (1.56-6.13) x10^3/uL Basophils # (0.01-0.08) x10^3/uL Sodium 136 (135-145) mmol/L Potassium 4.6 (3.5-5.1) mmol/L Chloride 107 (98-107) mmol/L Carbon Dioxide 22 (22-30) mmol/L Anion Gap 12.3 (5-15) MEQ/L BUN 18 H (7-17) mg/dL Creatinine 1.18 H (0.52-1.04) mg/dL Estimated GFR 44.7 ML/MIN Glucose 81 (74-106) mg/dL Calcium 8.8 (8.4-10.2) mg/dL Total Bilirubin 1.00 (0.2-1.3) mg/dL AST 26 (14-36) U/L ALT 17 (0-35) U/L Alkaline Phosphatase 105 (38-126) U/L Troponin I (0.000-0.033) ng/mL Serum Total Protein 6.6 (6.3-8.2) g/dL Albumin 3.6 (3.5-5.0) g/dL Urine Color (Yellow) Urine Appearance (Clear) Urine pH (4.6-8.0) Ur Specific [place] (1.005-1.030) Urine Protein (Negative) Urine Glucose (UA) (Negative) mg/dL Urine Ketones (Negative) Urine Blood (Negative) Urine Nitrite (Negative) Urine Bilirubin (Negative) Urine Urobilinogen (0.2) mg/dL Ur Leukocyte Esterase (Negative) U Hyaline Cast (Auto) (0-2) /LPF Urine Microscopic RBC (0-5) /HPF Urine Microscopic WBC (0-5) /HPF Ur Epithelial Cells (None Seen) /HPF Urine Bacteria (None Seen) /HPF Urine Culture Reflexed (NO) - Progress Progress: unchanged Progress Note: 11/26/24 12:53 My medical decision making and the assignment of moderate complexity of this patient's medical issue today is based on review of the patient's past medical history, review of the patient's medication list, review the patient drug inocente rgy list, history present illness and physical findings on examination. The workup in this patient includes placement of intravenous line, infusion of low rate crystalloid, urinalysis, CBC, CMP, twelve-lead EKG, CT scan of head and face, both without contrast. Differential diagnosis includes but is not limited to syncopal episode, arrhythmia, anemia, dehydration, urinary tract infection, acute intracranial abnormality, facial fractures, facial abrasions 11/26/24 14:33 I interpreted the patient's laboratory data results. Based on the laboratory data results patient has trace ketones. No definite urinary tract infection. Will await the results of the culture before we treat her with antibiotics. The patient has been on Macrobid and cefdinir recently. I feel it is best to wait until we get the culture and sensitivities back. This was discussed with the patient's daughter. The CT scan of the head without contrast shows normal senile brain. CT scan of the face without contrast is negative for acute fracture. There is multilevel cervical degenerative spondylosis Counseled pt/family regarding: lab results, diagnosis, need for follow-up, rad results Medical Desision Making - Independent Historian Additional History obtained from: Family - Diagnostic Testing Diagnostic test were ordered, analyzed, and reviewed by me: Yes Radiological Interpretation: Reviewed by me, Teleradiologist Report - Risk of complications Low Risk: Low risk of morbidity from additional dx testing or treatment - Departure Departure Disposition: Home Clinical Impression: Facial abrasion, Fall with no significant injury, Mild dehydration Condition: Stable Critical Care Time: No Referrals: BRITTANY JJ DO [Primary Care Provider] - Follow up/PCP as directed Additional Instructions: Drink plenty of clear liquids. Take all your medications as prescribed. Follow-up with your primary care provider tomorrow, 11/27/2024, to make arr angements for follow-up appointment for further evaluation and management and to follow-up on the urine culture and sensitivities.
[2024-11-26 12:11] VITALS: TEMP 97.4
[2024-11-26 12:44] LABS: Appearance Clear (Clear); Bacteria None Seen /HPF (None Seen); Bilirubin Negative (Negative); Blood Negative (Negative); Epithelial Cells Moderate /HPF (None Seen); Glucose, Urine Negative (Negative); Ketones Trace (Negative); Leukocyte Esterase Trace (Negative); Nitrite Negative (Negative); Protein,Urine Dip Trace (Negative); RBC 0-2 /HPF (0-5); Urobilinogen 0.2 mg/dL (0.2)
[2024-11-26 12:46] LABS: Absolute Neutrophil Ct (ANC) 7.27 x10^3/uL (1.56-6.13); BASOPHIL % 0.6 % (0.1-1.2); Basophil (Absolute #) 0.06 x10^3/uL (0.01-0.08); Eosinophil % 1.5 % (0.7-5.8); Eosinophil (Absolute #) 0.15 x10^3/uL (0.04-0.36); Hematocrit 41.2 % (34.1-44.9); Hemoglobin 13.3 g/dL (11.2-15.7); Lymphocyte (Absolute #) 1.94 x10^3/uL (1.18-3.74); Lymphocytes % 18.8 % (19.3-51.7); Mean Cell Volume 90.5 fL (79.4-94.8); Mean Corpuscular Hemoglobin 29.2 pg (25.6-32.2); Mean Corpuscular Hgb Concent. 32.3 g/dL (32.2-35.5); Mean Platelet Volume 10.8 fL (9.4-12.3); Monocytes % 7.8 % (4.7-12.5); Neutrophil % 70.3 % (34.0-71.1); Platelet Count 216 x10^3/uL (182-369); Red Blood Count 4.55 x10^6/uL (3.93-5.22); Red Cell Distribution Width 14.5 % (11.7-14.4); White Blood Count 10.3 x10^3/uL (3.98-10.04)
[2024-11-26 13:02] LABS: ALBUMIN 3.6 g/dL (3.5-5.0); ANION GAP 12.3 MEQ/L (5-15); Calcium 8.8 mg/dL (8.4-10.2); Creatinine 1 1.18 mg/dL (0.52-1.04); EST GLOMERULAR FILTRATION RATE 44.7 ML/MIN; Potassium 4.6 mmol/L (3.5-5.1); Total Protein 6.6 g/dL (6.3-8.2)
[2024-11-26] MEDS ORDERED: Sodium Chloride 0.9% 1000 ML 1,000 ML ONE (13:20)
[2024-11-26] MEDS: Sodium Chloride 0.9% 1000 ML 1,000 ML IV SCH (13:21)
[2024-11-26 13:28] VITALS: RESP 16; O2SAT 97
--- NOTE | 2024-11-26 14:23 | XRAY ---
Indication: Status post fall. Multiple contiguous axial images obtained through the head without contrast. Comparison: September 16, 2024 Again age-appropriate global atrophy and moderate periventricular degenerative micro-ischemia bilaterally. No acute intracranial hemorrhage, abnormal extra-axial fluid collection, or mass effect. Fourth ventricle is midline without hydrocephalus. Bony calvarium intact. Visualized paranasal sinuses and mastoid air cells are clear. Impression: Continued nonacute senile brain.
--- NOTE | 2024-11-26 14:27 | XRAY ---
Indication: Status post fall. Multiple contiguous images obtained through the facial bones. Sagittal and coronal reformatted images obtained. Comparison: None Minimal motion artifact. Osseous structures demineralized. No acute fracture, suspicious bony lesions, or radiopaque foreign body. Orbits including roof, morales, and floors intact. Minimal mucosal thickening left maxillary sinus. Remaining paranasal sinuses and nasal passages are clear. Incidental mild nasal septal deviation to the right. Visualized cervical spine intact with mild/moderate multilevel degenerative spondylosis. TMJ demonstrates bilaterally symmetric subluxation. Visualized noncontrasted soft tissues are unremarkable. Impression: 1. Minimal motion artifact. 2. Negative acute fracture. 3. Incidental osteopenia, nasal septal deviation, multilevel cervical degenerative spondylosis, bilateral TMJ subluxation, and minimal left maxillary sinus disease.
[2024-11-26] MEDS ORDERED: Erythromycin 1 GM ONE (15:08)
[2024-11-26] MEDS: Erythromycin 1 GM OP STA (15:11)
[2024-11-26 15:16] VITALS: BP 133/76; PULSE 78
== END 2024-11-26 15:22 | disposition home or self-care (01) ==
LOC: ED 11:43
DX: Z04.3 Encounter for examination and observation following other accident (principal); S00.31XA Abrasion of nose, initial encounter; S00.81XA Abrasion of other part of head, initial encounter; W19.XXXA Unspecified fall, initial encounter; E86.0 Dehydration; E78.5 Hyperlipidemia, unspecified; I10 Essential (primary) hypertension; Z79.899 Other long term (current) drug therapy
CPT/HCPCS: 36415; 70450; 70486; 80053; 81001; 84484; 85025; 87086; 93005; 99284; 99285; A9270-GY

== ENCOUNTER 2025-02-20 20:34 | Emergency (ER) | payer MEDICARE, OTHER ==
--- NOTE | 2025-02-20 20:43 | ERPHSYRPT ---
- History of Present Illness Time Seen by Provider: 02/20/25 20:42 Source: patient, EMS, old records Exam Limitations: no limitations Physician History: This is an 89-year-old white female patient who arrives to the emergency department by the sales order specialist service. Her primary care provider is Dr. Jj. The ambulance service was called out to the home where this patient lives with her family because of the complaint of shortness of breath and dry heaving. Patient was placed on oxygen via nasal cannula. On arrival to the emergency department her oxygen saturations on 4 L of oxygen via nasal cannula is 100% therefore the respiratory therapist return to the nasal cannula oxygen down to 2 L and the patient maintained oxygen saturation level to 100%. She is not ordinarily on oxygen. Patient has a history of dementia and is a poor historian. Patient has a history of hypertension and hyperlipidemia. Patient currently denies chest pain. She denies aches and pains. She denies shortness of breath. She currently has no complaints of nausea vomiting or diarrhea. She has not had a fever. She has no abdominal pain. Timing/Duration: today Activities at Onset: none Severity of Dyspnea-Max: none Severity of Dyspnea-Current: none Possible Cause: occasional episodes Modifying Factors: Improves With: nothing Associated Symptoms: denies symptoms Allergies/Adverse Reactions: levofloxacin [From Levaquin] Adverse Reaction (Severe, Verified 02/20/25 20:51) Confusion, JOSE Home Medications: Lisinopril 10 mg [Zestril 10 MG] 20 mg PO DAILY 01/29/19 [History] Potassium Chloride Tab* [Klor Con] 10 meq PO DAILY 01/29/19 [History] Atorvastatin Calcium [Lipitor] 20 mg PO DAILY 01/12/24 [History] Nitrofurantoin Macro 100 mg [Macrobid 100MG Capsule] 100 mg PO DAILY 02/20/25 [History] Hx Tetanus, Diphtheria Vaccination/Date Given: No Hx Influenza Vaccination/Date Given: Yes Hx Pneumococcal Vaccination/Date Given: Yes Travel Risk - International Travel Have you traveled outside of the country in past 3 weeks: No - Emerging Infectious Disease Are you exhibiting symptoms associated with any current EIDs: No - Review of Systems Constitutional: No Symptoms Eyes: No Symptoms Ears, Nose, & Throat: No Symptoms Respiratory: Dyspnea (Shortness of breath at home), No Cough Cardiac: No Symptoms Abdominal/Gastrointestinal: No Symptoms (At this time.), Other (Patient, per sales order specialist report, was dry heaving. No vomitus) Genitourinary Symptoms: No Symptoms Musculoskeletal: No Symptoms Skin: No Symptoms Neurological: No Symptoms Psychological: No Symptoms Endocrine: No Symptoms Hematologic/Lymphatic: No Symptoms Immunological/Allergic: No Symptoms All Other Systems: Reviewed and Negative - Past Medical History Pertinent Past Medical History: Yes Neurological History: Dementia ENT History: No Pertinent History Cardiac History: High Cholesterol, Hypertension Respiratory History: No Pertinent History Endocrine Medical History: No Pertinent History Musculoskeletal History: Arthritis GI Medical History: No Pertinent History History: Other Psycho-Social History: No Pertinent History Female Reproductive Disorders: No Pertinent History Other Medical History: . - Past Surgical History Past Surgical History: Yes Neuro Surgical History: No Pertinent History Cardiac: No Pertinent History Respiratory: No Pertinent History Gastrointestinal: Colon Resection Genitourinary: No Pertinent History Musculoskeletal: Orthopedic Surgery, Joint Replacement Female Surgical History: Hysterectomy Other Surgical History: Abdias. Knee replacements, left ankle reconstruction Significant Family History: no pertinent family hx - Social History Smoking Status: Never smoker Exposure to second hand smoke: No Drug Use: none Patient Lives Alone: No - Social Determinants of Health Will the patient participate in the screening: Yes Do you worry about a steady place to live?: No In the past 12 months,have you had to go without utilities?: No Transportation Issues: No Has anyone in your support network made you feel unsafe?: No Have you or anyone in your house had to go w/o enough food: No - Nursing Vital Signs Nursing Vital Signs: Initial Vital Signs Pulse Rate 76 02/20/25 20:35 Respiratory Rate 18 02/20/25 20:35 O2 Sat by Pulse Oximetry 97 02/20/25 20:35 Pain Scale Pain Intensity 0 - Physical Exam General Appearance: no apparent distress, alert, obese Eye Exam: PERRL/EOMI, eyes nml inspection Ears, Nose, Throat Exam: hearing grossly normal, normal ENT inspection, normal pharynx Neck Exam: normal inspection, non-tender, supple, full range of motion Respiratory Exam: normal breath sounds, lungs clear, airway intact, No chest tenderness Cardiovascular/Chest Exam: normal heart sounds, regular rate/rhythm Abdominal/Gastrointestinal Exam: soft, normal bowel sounds, No tenderness Rectal Exam: not done Extremity Exam: normal range of motion (Patient has significant bilateral lower extremity lymphedema) Neurologic Exam: alert, cooperative, retail 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 QTc 468. No acute ischemia on today's twelve-lead EKG.) Ordered Tests: Active Orders 24 hr Category Date Time Status EKG-ER Only STAT Care 02/20/25 20:55 Active IV Insertion STAT Care 02/20/25 20:55 Active Oxygen-ED Only Nasal Cannula 2 lpm Care 02/20/25 20:55 Active Pulse Oximetry (ED) STAT Care 02/20/25 20:55 Active CHEST 1 VIEW (PORTABLE) Stat Exams 02/20/25 20:56 Taken BLOOD CULTURE Stat Lab 02/20/25 20:56 Received CBC W DIFF Stat Lab 02/20/25 21:35 Completed CMP Stat Lab 02/20/25 21:35 Completed CULTURE,URINE Stat Lab 02/20/25 21:56 Received Lactic Acid Stat Lab 02/20/25 21:00 Completed Lactic Acid Stat Lab 02/20/25 23:10 Completed MAGNESIUM Stat Lab 02/20/25 21:35 Completed MONO SCREEN Stat Lab 02/20/25 21:38 Completed NT PRO BNPII Stat Lab 02/20/25 21:35 Completed TROPONIN Q4H Lab 02/20/25 21:35 Completed TROPONIN Q4H Lab 02/21/25 01:00 Ordered TROPONIN Q4H Lab 02/21/25 05:00 Ordered UA W/RFX UR CULTURE Stat Lab 02/20/25 21:56 Completed Medication Summary Generic Name Dose Route Start Last Admin Trade Name Freq PRN Reason Stop Dose Admin Sodium Chloride 1,000 mls @ 50 mls/hr 02/20/25 21:00 02/20/25 21:07 Sodium Chloride 0.9% 1000 Ml IV 03/22/25 20:59 50 mls/hr .Q20H ARMEN Administration Lab/Rad Data: Laboratory Result Diagrams 02/20/25 21:35 02/20/25 21:35 Laboratory Results 05/08/0702/20/25 02/20/25 Range/Units 23:10 21:56 21:38 WBC (3.98-10.04) x10^3/uL RBC (3.93-5.22) x10^6/uL Hgb (11.2-15.7) g/dL Hct (34.1-44.9) % MCV (79.4-94.8) fL MCH (25.6-32.2) pg MCHC (32.2-35.5) g/dL RDW (11.7-14.4) % Plt Count (182-369) x10^3/uL MPV (9.4-12.3) fL Gran % (34.0-71.1) % Immature Gran % (Auto) (0.001-0.429) % Nucleat RBC Rel Count (0.00-0.2) % Eos # (Auto) (0.04-0.36) x10^3/uL Immature Gran # (Auto) (0.001-0.031) x10^3u/L Absolute Lymphs (auto) (1.18-3.74) x10^3/uL Absolute Monos (auto) (0.24-0.86) x10^3/uL Absolute Nucleated RBC (0.00-0.012) x10^3u/L Lymphocytes % (19.3-51.7) % Monocytes % (4.7-12.5) % Eosinophils % (0.7-5.8) % Basophils % (0.1-1.2) % Absolute Granulocytes (1.56-6.13) x10^3/uL Basophils # (0.01-0.08) x10^3/uL Sodium (135-145) mmol/L Potassium (3.5-5.1) mmol/L Chloride (98-107) mmol/L Carbon Dioxide (22-30) mmol/L Anion Gap (5-15) MEQ/L BUN (7-17) mg/dL Creatinine (0.52-1.04) mg/dL Estimated GFR ML/MIN Glucose (74-106) mg/dL Lactic Acid 1.4 (0.4-2.0) Calcium (8.4-10.2) mg/dL Magnesium (1.6-2.3) mg/dL Total Bilirubin (0.2-1.3) mg/dL AST (14-36) U/L ALT (0-35) U/L Alkaline Phosphatase (38-126) U/L Troponin I (0.000-0.033) ng/mL NT-Pro-B Natriuret Pep (<300) pg/mL Serum Total Protein (6.3-8.2) g/dL Albumin (3.5-5.0) g/dL Urine Color Yellow (Yellow) Urine Appearance Clear (Clear) Urine pH 7.0 (4.6-8.0) Ur Specific [place] 1.015 (1.005-1.030) Urine Protein 30 (Negative) Urine Glucose (UA) Negative (Negative) mg/dL Urine Ketones Negative (Negative) Urine Blood Negative (Negative) Urine Nitrite Negative (Negative) Urine Bilirubin Negative (Negative) Urine Urobilinogen 1.0 A (0.2) mg/dL Ur Leukocyte Esterase Negative (Negative) U Hyaline Cast (Auto) 0-2 (0-2) /LPF Urine Microscopic RBC 0-2 (0-5) /HPF Urine Microscopic WBC 0-2 (0-5) /HPF Ur Epithelial Cells Few (None Seen) /HPF Urine Bacteria Rare A (None Seen) /HPF Urine Culture Reflexed ORDERED SEPARATELY (NO) Monoscreen NEGATIVE (NEGATIVE) Influenza Type A Ag (NEGATIVE) Influenza Type B Ag (NEGATIVE) RSV (PCR) (NEGATIVE) SARS-CoV-2 (PCR) (NEGATIVE) 02/20/25 02/20/25 02/20/25 Range/Units 21:35 21:35 21:35 WBC (3.98-10.04) x10^3/uL RBC (3.93-5.22) x10^6/uL Hgb (11.2-15.7) g/dL Hct (34.1-44.9) % MCV (79.4-94.8) fL MCH (25.6-32.2) pg MCHC (32.2-35.5) g/dL RDW (11.7-14.4) % Plt Count (182-369) x10^3/uL MPV (9.4-12.3) fL Gran % (34.0-71.1) % Immature Gran % (Auto) (0.001-0.429) % Nucleat RBC Rel Count (0.00-0.2) % Eos # (Auto) (0.04-0.36) x10^3/uL Immature Gran # (Auto) (0.001-0.031) x10^3u/L Absolute Lymphs (auto) (1.18-3.74) x10^3/uL Absolute Monos (auto) (0.24-0.86) x10^3/uL Absolute Nucleated RBC (0.00-0.012) x10^3u/L Lymphocytes % (19.3-51.7) % Monocytes % (4.7-12.5) % Eosinophils % (0.7-5.8) % Basophils % (0.1-1.2) % Absolute Granulocytes (1.56-6.13) x10^3/uL Basophils # (0.01-0.08) x10^3/uL Sodium 138 (135-145) mmol/L Potassium 3.7 (3.5-5.1) mmol/L Chloride 109 H (98-107) mmol/L Carbon Dioxide 20 L (22-30) mmol/L Anion Gap 13.1 (5-15) MEQ/L BUN 13 (7-17) mg/dL Creatinine 0.84 (0.52-1.04) mg/dL Estimated GFR 67.2 ML/MIN Glucose 123 H (74-106) mg/dL Lactic Acid (0.4-2.0) Calcium 8.4 (8.4-10.2) mg/dL Magnesium 1.9 (1.6-2.3) mg/dL Total Bilirubin 1.00 (0.2-1.3) mg/dL AST 22 (14-36) U/L ALT 11 (0-35) U/L Alkaline Phosphatase 100 (38-126) U/L Troponin I < 0.012 (0.000-0.033) ng/mL NT-Pro-B Natriuret Pep 774 (<300) pg/mL Serum Total Protein 5.9 L (6.3-8.2) g/dL Albumin 3.1 L (3.5-5.0) g/dL Urine Color (Yellow) Urine Appearance (Clear) Urine pH (4.6-8.0) Ur Specific [place] (1.005-1.030) Urine Protein (Negative) Urine Glucose (UA) (Negative) mg/dL Urine Ketones (Negative) Urine Blood (Negative) Urine Nitrite (Negative) Urine Bilirubin (Negative) Urine Urobilinogen (0.2) mg/dL Ur Leukocyte Esterase (Negative) U Hyaline Cast (Auto) (0-2) /LPF Urine Microscopic RBC (0-5) /HPF Urine Microscopic WBC (0-5) /HPF Ur Epithelial Cells (None Seen) /HPF Urine Bacteria (None Seen) /HPF Urine Culture Reflexed (NO) Monoscreen (NEGATIVE) Influenza Type A Ag NEGATIVE (NEGATIVE) Influenza Type B Ag NEGATIVE (NEGATIVE) RSV (PCR) NEGATIVE (NEGATIVE) SARS-CoV-2 (PCR) NEGATIVE (NEGATIVE) 02/20/25 02/20/25 Range/Units 21:35 21:00 WBC 9.6 (3.98-10.04) x10^3/uL RBC 4.89 (3.93-5.22) x10^6/uL Hgb 14.3 (11.2-15.7) g/dL Hct 45.0 H (34.1-44.9) % MCV 92.0 (79.4-94.8) fL MCH 29.2 (25.6-32.2) pg MCHC 31.8 L (32.2-35.5) g/dL RDW 14.0 (11.7-14.4) % Plt Count 330 (182-369) x10^3/uL MPV 11.2 (9.4-12.3) fL Gran % 54.3 (34.0-71.1) % Immature Gran % (Auto) 0.4 (0.001-0.429) % Nucleat RBC Rel Count 0.0 (0.00-0.2) % Eos # (Auto) 0.20 (0.04-0.36) x10^3/uL Immature Gran # (Auto) 0.04 H (0.001-0.031) x10^3u/L Absolute Lymphs (auto) 3.57 (1.18-3.74) x10^3/uL Absolute Monos (auto) 0.49 (0.24-0.86) x10^3/uL Absolute Nucleated RBC 0.00 (0.00-0.012) x10^3u/L Lymphocytes % 37.3 (19.3-51.7) % Monocytes % 5.1 (4.7-12.5) % Eosinophils % 2.1 (0.7-5.8) % Basophils % 0.8 (0.1-1.2) % Absolute Granulocytes 5.20 (1.56-6.13) x10^3/uL Basophils # 0.08 (0.01-0.08) x10^3/uL Sodium (135-145) mmol/L Potassium (3.5-5.1) mmol/L Chloride (98-107) mmol/L Carbon Dioxide (22-30) mmol/L Anion Gap (5-15) MEQ/L BUN (7-17) mg/dL Creatinine (0.52-1.04) mg/dL Estimated GFR ML/MIN Glucose (74-106) mg/dL Lactic Acid 3.2 H (0.4-2.0) Calcium (8.4-10.2) mg/dL Magnesium (1.6-2.3) mg/dL Total Bilirubin (0.2-1.3) mg/dL AST (14-36) U/L ALT (0-35) U/L Alkaline Phosphatase (38-126) U/L Troponin I (0.000-0.033) ng/mL NT-Pro-B Natriuret Pep (<300) pg/mL Serum Total Protein (6.3-8.2) g/dL Albumin (3.5-5.0) g/dL Urine Color (Yellow) Urine Appearance (Clear) Urine pH (4.6-8.0) Ur Specific [place] (1.005-1.030) Urine Protein (Negative) Urine Glucose (UA) (Negative) mg/dL Urine Ketones (Negative) Urine Blood (Negative) Urine Nitrite (Negative) Urine Bilirubin (Negative) Urine Urobilinogen (0.2) mg/dL Ur Leukocyte Esterase (Negative) U Hyaline Cast (Auto) (0-2) /LPF Urine Microscopic RBC (0-5) /HPF Urine Microscopic WBC (0-5) /HPF Ur Epithelial Cells (None Seen) /HPF Urine Bacteria (None Seen) /HPF Urine Culture Reflexed (NO) Monoscreen (NEGATIVE) Influenza Type A Ag (NEGATIVE) Influenza Type B Ag (NEGATIVE) RSV (PCR) (NEGATIVE) SARS-CoV-2 (PCR) (NEGATIVE) - Progress Progress: improved, re-examined Air Movement: good Progress Note: 02/20/25 20:54 My medical decision making and the assignment of moderate complexity to this patient's medical issue today is based on review of the patient's past medical history, review of the patient's medication list, reviewed patient drug allergy list, history of present illness and physical findings on examination. The workup in this patient includes placement of intravenous line, CBC, CMP, amylase, lipase, viral swabs, monotest, urinalysis, troponin level, BNP, twelve- lead EKG and magnesium level. Will also order a chest x-ray. Differential diagnosis includes but is not limited to upper respiratory infection, pneumonia, viral illness, electrolyte abnormalities, urinary tract infection, dehydration, myocardial infarction 02/20/25 21:19 Members of her family arrived. The provided additional, independent history. The patient does have dementia. Her mental state at this time is at her baseline per their report. What they said happen was the patient had went to use the restroom and was sitting on the toilet when she had a vasovagal response. She has had these multiple times per their report. The difference today, prior to arrival, was that she did not come out of it as quickly and when she did come out of it she vomited. They called the paramedics and those were the events prior to arrival to the emergency department. The patient's family states that she appears to be at her baseline mentally. 02/21/25 00:05 I interpreted the patient's laboratory data results. Based on the laboratory data results, there are no acute, emergent medical issues. 02/21/25 00:06 I interpreted the preliminary report of the patient's chest x-ray. I see no acute cardiopulmonary process. Patient has evidence of scoliosis. Blood Culture(s) Obtained: Yes Antibiotics given: No Counseled pt/family regarding: lab results, diagnosis Medical Desision Making - Independent Historian Additional History obtained from: Family, Drivers' Cash Clerk/EMT - Diagnostic Testing Diagnostic test were ordered, analyzed, and reviewed by me: Yes Radiological Interpretation: Interpreted by me, Teleradiologist Report - Risk of complications Low Risk: Low risk of morbidity from additional dx testing or treatment - Departure Departure Disposition: Home Clinical Impression: Vasovagal response Condition: Stable Critical Care Time: No Referrals: BRITTANY JJ DO [Primary Care Provider, [facility]] - Follow up/PCP as directed Additional Instructions: Drink plenty of fluids. Take all your medications as prescribed. Call the patient's primary care provider on 02/22/2025, to make arrangements for follow-up appointment for further evaluation and management.
[2025-02-20 20:51] VITALS: TEMP 96.9
[2025-02-20] MEDS ORDERED: Sodium Chloride 0.9% 1000 ML 1,000 ML ONE (21:04)
[2025-02-20] MEDS: Sodium Chloride 0.9% 1000 ML 1,000 ML IV SCH (21:07)
[2025-02-20 21:40] LABS: BASOPHIL % 0.8 % (0.1-1.2); Basophil (Absolute #) 0.08 x10^3/uL (0.01-0.08); Eosinophil % 2.1 % (0.7-5.8); Hemoglobin 14.3 g/dL (11.2-15.7); IMMATURE GRAN # 0.04 x10^3u/L (0.001-0.031); IMMATURE GRAN % 0.4 % (0.001-0.429); Lymphocyte (Absolute #) 3.57 x10^3/uL (1.18-3.74); Lymphocytes % 37.3 % (19.3-51.7); Mean Corpuscular Hemoglobin 29.2 pg (25.6-32.2); Mean Corpuscular Hgb Concent. 31.8 g/dL (32.2-35.5); Mean Platelet Volume 11.2 fL (9.4-12.3); Monocyte (Absolute #) 0.49 x10^3/uL (0.24-0.86); Monocytes % 5.1 % (4.7-12.5); Neutrophil % 54.3 % (34.0-71.1); Platelet Count 330 x10^3/uL (182-369); Red Blood Count 4.89 x10^6/uL (3.93-5.22); White Blood Count 9.6 x10^3/uL (3.98-10.04)
[2025-02-20 21:56] LABS: ALBUMIN 3.1 g/dL (3.5-5.0); ANION GAP 13.1 MEQ/L (5-15); Calcium 8.4 mg/dL (8.4-10.2); Creatinine 1 0.84 mg/dL (0.52-1.04); EST GLOMERULAR FILTRATION RATE 67.2 ML/MIN; MAGNESIUM 1.9 mg/dL (1.6-2.3); Potassium 3.7 mmol/L (3.5-5.1); Total Protein 5.9 g/dL (6.3-8.2)
[2025-02-20 22:08] LABS: NT PRO BNPII 774 pg/mL (<300); TROPONIN < 0.012 ng/mL (0.000-0.033)
[2025-02-20 22:14] LABS: Appearance Clear (Clear); Bilirubin Negative (Negative); Blood Negative (Negative); Epithelial Cells Few /HPF (None Seen); Glucose, Urine Negative (Negative); Ketones Negative (Negative); Leukocyte Esterase Negative (Negative); Nitrite Negative (Negative); Protein,Urine Dip 30 (Negative); RBC 0-2 /HPF (0-5); Specific Gravity 1.015 (1.005-1.030)
[2025-02-20 22:17] LABS: Bacteria Rare /HPF (None Seen); Hyaline Casts 0-2 /LPF (0-2); WBC 0-2 /HPF (0-5)
[2025-02-20 22:18] LABS: INFLUENZA A NEGATIVE (NEGATIVE); INFLUENZA B NEGATIVE (NEGATIVE); RESPIRATORY SYNCTIAL VIRUS NEGATIVE (NEGATIVE); SARS-CoV-2 Xpert Express NEGATIVE (NEGATIVE)
[2025-02-21 00:06] VITALS: BP 148/72; PULSE 89; RESP 25; O2SAT 96
--- NOTE | 2025-02-21 08:03 | XRAY ---
Indication: Short of breath. Comparison: September 08, 2024 Portable chest again demonstrates chronic right hemidiaphragm elevation with adjacent subsegmental atelectasis/scarring. Stable left midlung calcified granuloma. No focal infiltrate, consolidation, or large effusion. Heart not enlarged again with tortuous descending aorta. Bony thorax intact again with osteopenia, degenerative changes, and scoliosis. Impression: Continued nonacute chest with chronic features.
== END 2025-02-21 00:27 | disposition home or self-care (01) ==
LOC: ED 20:34
DX: R55 Syncope and collapse (principal); E78.00 Pure hypercholesterolemia, unspecified; E78.5 Hyperlipidemia, unspecified; F03.90 Unspecified dementia, unspecified severity, without behavioral disturbance, psychotic disturbance, mood disturbance, and anxiety; Z79.899 Other long term (current) drug therapy; R06.02 Shortness of breath
CPT/HCPCS: 0241U; 36415; 71045; 80053; 81001; 83605; 83735; 83880; 84484; 85025; 86308; 87040; 87086; 93005; 94760; 96360; 96361; 99285; P9612; 99284

== ENCOUNTER 2025-02-21 19:01 | Observation (INO) | payer MEDICARE, OTHER ==
[2025-02-21] MEDS ORDERED: BACIGUENT PACKET ONE (19:10)
--- NOTE | 2025-02-21 19:28 | ERPHSYRPT ---
- History of Present Illness Time Seen by Provider: 02/21/25 19:05 Source: patient, EMS, old records Exam Limitations: clinical condition Patient Subjective Stated Complaint: c/o fall at home Triage Nursing Assessment: patient brought [facility] ED by EMS with c/o fall at home that was unwitnessed. patient is unaware of is she hit her head. complaing of left sided rib pain, patient has bruising and tenderness under her left breast. Patient has 3 skin tears on her left upper extremeity. There is a 1cm x 1cm skin tear on her lateral elbow, 4cm x 1.5cm skin tear on her posterior forearm, and a 3cm x 0.5cm skin tear on her posterior forearm. Patient is satting 93% on RA, patient doesn't appear to be in any distress at this time, patient has dementia, history obtained from family Physician History: This is a 89-year-old white female patient brought to the emergency department by the paramedics and is a patient Dr. Jj secondary to a fall with a complaint of left lower rib pain and left upper quadrant abdominal pain. The circumstances surrounding the fall is uncertain at this time. Patient has significant dementia. The family usually arrives later and provides more details. We will obtain greater detail from them upon their arrival. Patient has a history of hypertension and hyperlipidemia. She denies head injury. She denies neck injury. Patient was seen here less than 24 hours ago in our emergency department and was diagnosed with vasovagal response, syncopal episode. Patient denies chest pain. She is not short of breath. She has been falling more frequently. Occurred: just prior to arrival Reason for Fall: unknown Injuries/Pain Location: chest (Left lower chest/ribs), abdomen (Left upper quadrant abdominal pain) Loss of Consciousness: no loss of consciousness Quality: aching Severity of Pain-Max: moderate Severity of Pain-Current: moderate Modifying Factors: Improves With: movement Associated Symptoms (Fall): abdominal pain (Left rib pain left upper quadrant pain), other Allergies/Adverse Reactions: levofloxacin [From Levaquin] Adverse Reaction (Severe, Verified 02/21/25 19:04) Confusion, JOSE Home Medications: Lisinopril 10 mg [Zestril 10 MG] 20 mg PO DAILY 01/29/19 [History] Potassium Chloride Tab* [Klor Con] 10 meq PO DAILY 01/29/19 [History] Atorvastatin Calcium [Lipitor] 20 mg PO DAILY 01/12/24 [History] Nitrofurantoin Macro 100 mg [Macrobid 100MG Capsule] 100 mg PO DAILY 02/20/25 [History] Hx Tetanus, Diphtheria Vaccination/Date Given: No Hx Influenza Vaccination/Date Given: Yes Hx Pneumococcal Vaccination/Date Given: Yes Travel Risk - International Travel Have you traveled outside of the country in past 3 weeks: No - Emerging Infectious Disease Are you exhibiting symptoms associated with any current EIDs: No - Review of Systems Constitutional: No Symptoms Eyes: No Symptoms Ears, Nose, & Throat: No Symptoms Respiratory: No Symptoms, Other (Left lower anterior rib pain) Cardiac: No Symptoms Abdominal/Gastrointestinal: Abdominal Pain (Left upper quadrant abdominal pain) Genitourinary Symptoms: No Symptoms Musculoskeletal: No Symptoms Skin: No Symptoms Neurological: No Symptoms Psychological: No Symptoms Endocrine: No Symptoms Hematologic/Lymphatic: No Symptoms Immunological/Allergic: No Symptoms All Other Systems: Reviewed and Negative - Past Medical History Pertinent Past Medical History: Yes Neurological History: Dementia ENT History: No Pertinent History Cardiac History: High Cholesterol, Hypertension Respiratory History: No Pertinent History Endocrine Medical History: No Pertinent History Musculoskeletal History: Arthritis GI Medical History: No Pertinent History History: Other Psycho-Social History: No Pertinent History Female Reproductive Disorders: No Pertinent History Other Medical History: chronic UTIs - Past Surgical History Past Surgical History: Yes Neuro Surgical History: No Pertinent History Cardiac: No Pertinent History Respiratory: No Pertinent History Gastrointestinal: Colon Resection Genitourinary: No Pertinent History Musculoskeletal: Orthopedic Surgery, Joint Replacement Female Surgical History: Hysterectomy Other Surgical History: Abdias. Knee replacements, left ankle reconstruction Significant Family History: no pertinent family hx - Social History Smoking Status: Never smoker Exposure to second hand smoke: No Drug Use: none - Social Determinants of Health Will the patient participate in the screening: Yes Do you worry about a steady place to live?: No Do you have any problems with any of the following?: No known problems In the past 12 months,have you had to go without utilities?: No Transportation Issues: No Has anyone in your support network made you feel unsafe?: No Have you or anyone in your house had to go w/o enough food: No - Nursing Vital Signs Nursing Vital Signs: Initial Vital Signs Pulse Rate 58 L 02/21/25 19:04 Respiratory Rate 19 02/21/25 19:04 Blood Pressure 126/70 02/21/25 19:04 O2 Sat by Pulse Oximetry 95 02/21/25 19:04 Pain Scale Pain Intensity 5 - [place] Coma Score Best Eye Response (Kemah): (4) open spontaneously Best Verbal Response (Kemah): (4) confused conversation Best Motor Response (Peewee): (6) obeys commands [place] Total: 14 - Physical Exam General Appearance: no apparent distress, alert, obese Head Injury: no evidence of injury Eye Exam: PERRL/EOMI, eyes nml inspection ENT Exam: airway nml, nml ext.inspection Neck Exam: supple, trachea midline, full range of motion, normal alignment, normal inspection Respiratory/Chest Exam: normal breath sounds, rib tenderness (Left anterior lower rib tenderness to palpation), No respiratory distress Cardiovascular Exam: normal heart sounds, regular rate/rhythm Gastrointestinal Exam: soft, normal bowel sounds, tenderness (L UQ ABD tenderness to palpation), No rebound Rectal Exam: not done Back Exam: normal inspection, normal range of motion, No CVA tenderness Extremity Exam: normal inspection, normal range of motion, capillary refill <3 sec, pelvis stable Neurologic Exam: alert, cooperative, pan shaker II-XII nml as tested, normal mood/affect, sensation nml, confusion (chronic at baseline), other (Patient with chronic dementia) Skin Exam: normal color, warm, dry SpO2 Interpretation: normal SpO2: 95 O2 Delivery: Room Air - Course Nursing assessment & vital signs reviewed: Yes EKG Interpreted by Me: RATE (77), Sinus Rhythm, NORMAL AXIS, NORMAL INTERVALS, Right Bundle Branch Block, Other (Few PVCs. QTc is 457. No acute ischemia on today's twelve-lead EKG. No significant change from twelve-lead EKG dated 02/20/2025) Ordered Tests: Active Orders 24 hr Category Date Time Status EKG-ER Only STAT Care 02/21/25 19:25 Active IV Insertion STAT Care 02/21/25 19:25 Active ABDOMEN AND PELVIS W/0 CONTRAS [CT] Stat Exams 02/21/25 19:25 Completed CHEST WITHOUT CONTRAST [CT] Stat Exams 02/21/25 19:25 Completed HEAD WITHOUT CONTRAST [CT] Stat Exams 02/21/25 19:26 Completed CBC W DIFF Stat Lab 02/21/25 19:30 Completed CMP Stat Lab 02/21/25 19:25 Completed Medication Summary Generic Name Dose Route Start Last Admin Trade Name Freq PRN Reason Stop Dose Admin Sodium Chloride 500 mls @ 50 mls/hr 02/21/25 20:15 02/21/25 20:58 Sodium Chloride 0.9% 500 Ml IV 03/23/25 20:14 50 mls/hr .Q10H ARMEN Administration Discontinued Medications Generic Name Dose Route Start Last Admin Trade Name Freq PRN Reason Stop Dose Admin Bacitracin Zinc Confirm 02/21/25 19:10 Bacitracin Packet 1 Each Pckt Administered 02/21/25 19:11 Dose 1 each .ROUTE .STK-MED ONE Bacitracin Zinc 0.9 each 02/21/25 22:39 02/21/25 22:40 Bacitracin Packet 1 Each Pckt TP 02/21/25 22:40 0.9 each STAT ONE Administration Morphine Sulfate 2 mg 02/21/25 20:14 02/21/25 20:55 Morphine Sulfate 2 Mg/Ml Inj IV 02/21/25 20:15 2 mg STAT ONE Administration Morphine Sulfate Confirm 02/21/25 20:18 Morphine Sulfate 2 Mg/Ml Inj Administered 02/21/25 20:19 Dose 2 mg .ROUTE .STK-MED ONE Ondansetron HCl 4 mg 02/21/25 20:14 02/21/25 20:58 Ondansetron Hcl 4 Mg/2 Ml Vial IV 02/21/25 20:15 4 mg STAT ONE Administration Ondansetron HCl Confirm 02/21/25 20:18 Ondansetron Hcl 4 Mg/2 Ml Vial Administered 02/21/25 20:19 Dose 4 mg .ROUTE .STK-MED ONE Lab/Rad Data: Laboratory Result Diagrams 02/21/25 19:30 02/21/25 19:25 Laboratory Results 02/21/25 02/21/25 Range/Units 19:30 19: WBC 15.0 H (3.98-10.04) x10^3/uL RBC 4.99 (3.93-5.22) x10^6/uL Hgb 14.9 (11.2-15.7) g/dL Hct 45.7 H (34.1-44.9) % MCV 91.6 (79.4-94.8) fL MCH 29.9 (25.6-32.2) pg MCHC 32.6 (32.2-35.5) g/dL RDW 14.2 (11.7-14.4) % Plt Count 295 (182-369) x10^3/uL MPV 10.2 (9.4-12.3) fL Gran % 84.0 H (34.0-71.1) % Immature Gran % (Auto) 1.3 H (0.001-0.429) % Nucleat RBC Rel Count 0.0 (0.00-0.2) % Eos # (Auto) 0.04 (0.04-0.36) x10^3/uL Immature Gran # (Auto) 0.20 H (0.001-0.031) x10^3u/L Absolute Lymphs (auto) 1.41 (1.18-3.74) x10^3/uL Absolute Monos (auto) 0.70 (0.24-0.86) x10^3/uL Absolute Nucleated RBC 0.00 (0.00-0.012) x10^3u/L Lymphocytes % 9.4 L (19.3-51.7) % Monocytes % 4.7 (4.7-12.5) % Eosinophils % 0.3 L (0.7-5.8) % Basophils % 0.3 (0.1-1.2) % Absolute Granulocytes 12.62 H (1.56-6.13) x10^3/uL Basophils # 0.04 (0.01-0.08) x10^3/uL Sodium 138 (135-145) mmol/L Potassium 3.8 (3.5-5.1) mmol/L Chloride 107 (98-107) mmol/L Carbon Dioxide 20 L (22-30) mmol/L Anion Gap 14.8 (5-15) MEQ/L BUN 17 (7-17) mg/dL Creatinine 0.84 (0.52-1.04) mg/dL Estimated GFR 67.2 ML/MIN Glucose 122 H (74-106) mg/dL Calcium 8.8 (8.4-10.2) mg/dL Total Bilirubin 1.20 (0.2-1.3) mg/dL AST 31 (14-36) U/L ALT 17 (0-35) U/L Alkaline Phosphatase 104 (38-126) U/L Serum Total Protein 6.2 L (6.3-8.2) g/dL Albumin 3.4 L (3.5-5.0) g/dL - Progress Progress: unchanged, pain not gone completely Progress Note: 02/21/25 19:40 My medical decision making and the assignment of moderate to high complexity of this patient's medical issue today is based on review of the patient's past medical history, review the patient's medication list, review the patient drug allergy list, history present illness and physical findings on examination. The workup in this patient includes placement of intravenous line, CBC, CMP, twelve-lead EKG, CT scan of the head, chest and abdomen all without contrast. The patient was seen here less than 24 hours ago and I do not feel it is necessary to repeat viral swabs and urinalysis as well as troponin levels. Differential diagnosis includes but is not limited to fall injury, fall without significant injury, fractured ribs, splenic injury, contusion of left chest wall, contusion of left upper abdomen, frequent falls 02/21/25 22:39 I interpreted the patient's laboratory data results. Based on the laboratory data results, there are no acute, emergent medical issues. The following CT scans were interpreted by the radiologist and I reviewed the impression. The impressions state: CT scan of the head shows no acute traumatic injury. There is chronic microvascular changes. There is senile cortical atrophy without change from prior comparison study. The CT scan of the chest without contrast shows acute displaced fracture of the left 10th rib posterior lateral aspect. There is also acute nondisplaced fracture of the 11th rib posteriorly. There is a questionable cortical buckling of the ninth rib on the left side. Concerning for fracture. No pneumothorax and no hemothorax. CT scan of the abdomen and pelvis without contrast shows no acute traumatic injury. The spleen and pancreas and kidney are without traumatic injury. There is no evidence any bowel injury 02/21/25 23:[address] German our telehospitalist on at this time. I reviewed the patient's history, presenting complaint, physical findings on examination and the results of her workup. We will place this patient in observation and have respiratory follow her in the hospital, provide her pain control and have discharge planning discussed with patient and family regarding disposition post discharge from the hospital Discussed with : José Manuel Counseled pt/family regarding: lab results, diagnosis, need for follow-up, rad results Medical Desision Making - Independent Historian Additional History obtained from: Family, Physician Aide/EMT - Discussion of managment Care discussed with:: hospitalist Reviewed:: Test results, Need for additional workup Agreed on:: place in obs Will see patient: in hospital - Diagnostic Testing Diagnostic test were ordered, analyzed, and reviewed by me: Yes Radiological Interpretation: Reviewed by me, Teleradiologist Report - Risk of complications The pt has a high risk of morbidity or mortality based on: Decision regarding hospitilization or escalation of hosp level of care - Departure Departure Disposition: Observation Clinical Impression: Fall with significant injury, Fracture of rib of left side Condition: Fair Critical Care Time: No Referrals: BRITTANY JJ DO [Primary Care Provider, [facility]] - Follow up/PCP as directed
[2025-02-21 19:40] LABS: Absolute Neutrophil Ct (ANC) 12.62 x10^3/uL (1.56-6.13); BASOPHIL % 0.3 % (0.1-1.2); Basophil (Absolute #) 0.04 x10^3/uL (0.01-0.08); Eosinophil % 0.3 % (0.7-5.8); Eosinophil (Absolute #) 0.04 x10^3/uL (0.04-0.36); Hematocrit 45.7 % (34.1-44.9); Hemoglobin 14.9 g/dL (11.2-15.7); IMMATURE GRAN % 1.3 % (0.001-0.429); Lymphocyte (Absolute #) 1.41 x10^3/uL (1.18-3.74); Lymphocytes % 9.4 % (19.3-51.7); Mean Cell Volume 91.6 fL (79.4-94.8); Mean Corpuscular Hemoglobin 29.9 pg (25.6-32.2); Mean Corpuscular Hgb Concent. 32.6 g/dL (32.2-35.5); Mean Platelet Volume 10.2 fL (9.4-12.3); Monocytes % 4.7 % (4.7-12.5); Platelet Count 295 x10^3/uL (182-369); Red Blood Count 4.99 x10^6/uL (3.93-5.22); Red Cell Distribution Width 14.2 % (11.7-14.4)
[2025-02-21] MEDS ORDERED: Zofran 4 MG/2 ML VIAL ONE (20:18)
[2025-02-21] MEDS ORDERED: MORPHINE SULFATE 2 MG INJ ONE (20:18)
[2025-02-21] MEDS ORDERED: Sodium Chloride 0.9% 500 ML 500 ML IV ONE (20:18)
[2025-02-21 20:35] LABS: ALBUMIN 3.4 g/dL (3.5-5.0); ANION GAP 14.8 MEQ/L (5-15); BILIRUBIN,TOTAL 1.2 mg/dL (0.2-1.3); Calcium 8.8 mg/dL (8.4-10.2); Creatinine 1 0.84 mg/dL (0.52-1.04); EST GLOMERULAR FILTRATION RATE 67.2 ML/MIN; Potassium 3.8 mmol/L (3.5-5.1); Total Protein 6.2 g/dL (6.3-8.2)
[2025-02-21] MEDS: MORPHINE SULFATE 2 MG INJ IV ONE (20:55)
[2025-02-21] MEDS: Zofran 4 MG/2 ML VIAL IV ONE (20:58)
[2025-02-21] MEDS: Sodium Chloride 0.9% 500 ML 500 ML IV SCH (20:58)
--- NOTE | 2025-02-21 22:03 | XRAY ---
CLINICAL HISTORY: Fall with confusion COMPARISON: 11/26/2024 CT. TECHNIQUE: Axial noncontrast CT scan of the brain was performed from the skull base to the high parietal region .One of the following dose reduction techniques were utilized for this exam: Automated exposure control, adjustment of the mA and/or kV according to patient size, use of iterative reconstruction. DLP: 923.71 mGy-cm, CTDI: 53.92 mGy. FINDINGS: There are hypodense areas noted in the subcortical and periventricular white matter bilaterally, suggestive of microvascular ischemic changes. The ventricular system, cortical sulci and basal cisterns are prominent consistent with senile changes. The visualized brain parenchyma shows normal appearance. Ba-white matter differentiation is maintained. No midline shifts or deformity. No intracerebral or extra axial hematoma. Atherosclerotic vascular calcification. Normal CT appearance of the posterior fossa structures namely the cerebellar hemispheres, brainstem and cerebellar peduncles. The cerebello-pontine angles are clear. The osseous structures in the skull base are unremarkable. No definite calvarium fractures. The scanned paranasal sinuses show mild mucosal thickening in left maxillary sinus. Minimal left sided dependent mastoid effusion. IMPRESSION: 1. No acute traumatic injury detected at present 2. Chronic microvascular ischemic changes and senile cortical atrophy, unchanged Electronically Signed by: Noemy Ch MD. (02/21/2025 22:00:01 EDT)
--- NOTE | 2025-02-21 22:33 | XRAY ---
CLINICAL HISTORY: Fall with confusion COMPARISON: None. TECHNIQUE: Contiguous axial CT images of the chest were acquired without administration of intravenous contrast. Coronal and sagittal reconstructions were obtained. One of the following dose reduction techniques were utilized for this exam: Automated exposure control, adjustment of the mA and/or kV according to patient size, use of iterative reconstruction. DLP: 687.47 mGy-cm, CTDI: 10.98 mGy. FINDINGS: Bone: Acute displaced fracture of left tenth rib in posterolateral aspect with surrounding small hematoma and soft tissue thickening. Acute undisplaced fracture of left 11th rib in posterior aspect. Subtle cortical buckling in left ninth rib, concerning for acute fracture. Degenerative changes with dextroscoliosis of upper thoracic spine. Lungs: No evidence of pneumothorax Few calcified left lung nodules, largest measuring up to 8 mm. Mild subpleural thin plate atelectatic changes with subtle fibrosis in left lower lobe. Minimal right basal atelectatic changes. No pleural effusion or pleural thickening. Mediastinum: No mediastinal mass or abnormal lymphadenopathy. The heart size is within normal limits. Atherosclerotic changes in thoracic aorta. Trachea and Main Bronchi: The trachea and main bronchi are patent without evidence of obstruction or abnormality. Chest Wall: The chest wall is unremarkable with no evidence of soft tissue or bony abnormalities. Upper Abdomen: Please refer to dedicated CT abdomen report. IMPRESSION: 1. Acute displaced fracture of left tenth rib in the posterolateral aspect with a surrounding small hematoma and soft tissue thickening. 2. Acute undisplaced fracture of left 11th rib in posterior aspect. 3. Subtle cortical buckling in left ninth rib, concerning for acute fracture. 4. No evidence of pneumothorax 5. Sequelae to prior infection in left lung in form of calcified nodules and atelectatic changes Electronically Signed by: Noemy Ch MD. (02/21/2025 22:30:58 EDT)
[2025-02-21] MEDS: BACIGUENT PACKET TP ONE (22:40)
--- NOTE | 2025-02-21 22:46 | XRAY ---
CLINICAL HISTORY: Fall with confusion; L UQ ABD pain COMPARISON: None. TECHNIQUE: CT of the abdomen and pelvis was performed, with the following protocol: axial images, and reconstructed coronal and sagittal images. No intravenous contrast was administered. One of the following dose reduction techniques was utilized for this exam: Automated exposure control, adjustment of the mA and/or kV according to patient size, and use of iterative reconstruction. DLP: 687.47 mGy-cm, CTDI:10.98 mGy. FINDINGS: Abdomen: Chilaiditi sign noted. Raised right hemidiaphragm Liver: Normal in size, and density. Old tiny calcified granulomas. Hypodense 8 mm lesion in segment VII, possibly cyst. Gallbladder and Biliary System: The gallbladder is normal in size and shape. No wall thickening, pericholecystic fluid, or gallstones were identified. Pancreas: Pancreatic head, body, and tail are visualized and appear normal in size and density. No pancreatic masses or calcifications were noted. Spleen: Normal in size, shape, and density. Old calcified granulomas. Kidneys and Adrenal Glands: Mild decrease in cortical thickness with perinephric fat stranding in both kidneys 3 mm non-obstructive calculus in inferior calyx of right kidney with few ( at least 3 in number ) 3-4 mm non-obstructive calculi in left kidney Multiple bilateral parapelvic and few cortical cysts. Suggestion of mild thickening of left adrenal gland. Pelvis: Urinary Bladder: Partially distended. Post hysterectomy status. No adnexal lesions. Peritoneal and Retroperitoneal Structures: No free fluid or abnormal fluid collections were identified within the abdomen or pelvis. The abdominal aorta and its branches shows atherosclerotic changes with calcified plaques. Bowel: The visualized bowel loops are normal in caliber and appearance. No evidence of bowel obstruction or wall thickening. Appendix is not well delineated. Bones and Soft Tissues: Degenerative changes in lumbar spine with mild dextroscoliosis. Grade I anterolisthesis of L4 over L5. Minimal retrolisthesis of L2 over L3 with severe reduction of L2-L3 intervertebral disc space and associated posterior disc osteophyte complex causing neural foraminal narrowing. Diffuse osteopenic changes noted. Please refer to dedicated CT chest report for detailed findings on left 9 to 11th rib fractures. IMPRESSION: 1. No acute traumatic injury detected in plain CT abdomen and pelvis 2. Bilateral non-obstructive calculi 3. Old calcified granulomas in liver and spleen 4. Hypodense 8 mm lesion in segment VII, possibly cyst. 5. Rest of the findings as described above Electronically Signed by: Noemy Ch MD. (02/21/2025 22:41:50 EDT)
[2025-02-22] MEDS ORDERED: TYLENOL 325 MG PO PRN (00:30)
[2025-02-22] MEDS ORDERED: Sodium Chloride 0.9% 1000 ML 1,000 ML IV SCH (00:30)
--- NOTE | 2025-02-22 02:40 | PCM.HP ---
History of Present Illness - Chief Complaint Chief Complaint: fall, pain Date: 02/22/25 History of Present Illness: 89-year-old woman with history of dementia, recurrent UTI, and HTN, who presents after a fall. Note, history is primarily obtained from daughter, due to p georgina's dementia. Daughter notes that patient has been having more frequent falls, as well as general progressive debility and worsening of her dementia. She has had poor p.o. intake for some time. Yesterday, patient was brought to the ER after she had a witnessed vasovagal syncope while going to the bathroom. She was evaluated initially in the ED and discharged back to home. Today, patient had an unwitnessed fall while she was with other relatives. Patient does not recall the fall herself, and cannot describe how she was feeling, and if she had any episode of syncope today. Family was initially not concerned, as patient was alert when she was found. However, even after sitting in the chair and resting, patient continued to yell out in pain, so was brought to the emergency room. Daughter notes that when EMS arrived, patient's SpO2 was in the mid 80s. Patient has no history of lung disease or any prior hypoxia, although daughter notes that patient has had progressively more dyspnea on exertion over time. - Review of Systems All Other Systems: Unable due to dementia Medications & Allergies Home Medications: Home Medication List Lisinopril 10 mg [Zestril 10 MG] 20 mg PO DAILY 01/29/19 [History Confirmed 02/21/25] Potassium Chloride Tab* [Klor Con] 10 meq PO DAILY 01/29/19 [History Confirmed 02/21/25] Atorvastatin Calcium [Lipitor] 20 mg PO DAILY 01/12/24 [History Confirmed 02/21/25] Nitrofurantoin Macro 100 mg [Macrobid 100MG Capsule] 100 mg PO DAILY 02/20/25 [History Confirmed 02/21/25] Allergies/Adverse Reactions: Allergies Allergy/AdvReac Type Severity Reaction Status Date / Time levofloxacin [From Levaquin] AdvReac Severe Confusion, Verified 02/21/25 19:04 JOSE - Past Medical History Past Medical History: Yes Neurological History: Dementia ENT History: No Pertinent History, Cataracts Cardiac History: High Cholesterol, Hypertension Respiratory History: No Pertinent History Endocrine Medical History: No Pertinent History Musculoskelatal History: Arthritis GI Medical History: No Pertinent History History: Other (Recurrent UTI, on suppressive Macrobid) Pyscho-Social History: No Pertinent History Reproductive Disorders: No Pertinent History Comment: chronic UTIs - Past Surgical History Past Surgical History: Yes Neuro Surgical History: No Pertinent History Cardiac History: No Pertinent History Respiratory Surgery: No Pertinent History GI Surgical History: Colon Resection Genitourinary Surgical Hx: No Pertinent History Musculskeletal Surgical Hx: Orthopedic Surgery, Joint Replacement Female Surgical History: Hysterectomy Other Surgical History: Abdias. Knee replacements, left ankle reconstruction Significant Family History: no pertinent family hx - Social History Smoking Status: Never smoker Exposure to second hand smoke: No Alcohol: None Drug Use: none - Social Determinants of Health Will the patient participate in the screening: Yes Do you worry about a steady place to live?: No Do you have any problems with any of the following?: No known problems In the past 12 months,have you had to go without utilities?: No Have you or anyone in your house had to go without enough: No Transportation Issues: No Has anyone in your support network made you feel unsafe?: No Does the patient want assistance with any of the above?: No - Physical Exam Vital Signs: Vital Signs - 24 hr Temp Pulse Resp BP BP Pulse Ox 02/22/25 01:36 95 02/22/25 01:05 97.0 F 87 17 122/68 95 02/22/25 00:01 89 22 136/59 95 02/21/25 23:50 95 02/21/25 23:31 90 24 131/78 94 L 02/21/25 23:00 92 H 20 129/66 94 L 02/21/25 22:31 88 22 138/73 96 02/21/25 22:00 83 18 124/64 96 02/21/25 21:30 89 23 118/78 98 02/21/25 21:00 76 14 96/70 95 02/21/25 20:16 91 H 26 H 134/98 94 L 02/21/25 20:13 78 22 134/98 95 02/21/25 19:11 77 18 126/70 95 02/21/25 19:04 58 L 19 126/70 95 Physical Exam GEN: Sitting up in bed in no acute distress. HENT: Normocephalic, atraumatic. Moist mucous membranes. EYES: Normal inspection, anicteric sclera, extraocular movements intact. NECK: Supple, full range of motion CV: Regular rate and rhythm, no murmurs, no gallops. Mild nonpitting edema in bilateral ankles, at baseline per patient's daughter. PULM: Clear to auscultation bilaterally, no work of breathing. On 2 L oxygen by nasal cannula ABD: Nondistended, nontender. MSK: No joint effusions. SKIN: No rashes, normal color. NEURO: Face symmetric, no focal motor or sensory deficits. PSYCH: Alert, awake, oriented only to person Results - Labs Lab/Micro Results: Lab Results-Last 24 Hours 02/21/25 02/21/25 Range/Units 19:25 19:30 WBC 15.0 H (3.98-10.04) x10^3/uL RBC 4.99 (3.93-5.22) x10^6/uL Hgb 14.9 (11.2-15.7) g/dL Hct 45.7 H (34.1-44.9) % MCV 91.6 (79.4-94.8) fL MCH 29.9 (25.6-32.2) pg MCHC 32.6 (32.2-35.5) g/dL RDW 14.2 (11.7-14.4) % Plt Count 295 (182-369) x10^3/uL MPV 10.2 (9.4-12.3) fL Gran % 84.0 H (34.0-71.1) % Immature Gran % (Auto) 1.3 H (0.001-0.429) % Nucleat RBC Rel Count 0.0 (0.00-0.2) % Eos # (Auto) 0.04 (0.04-0.36) x10^3/uL Immature Gran # (Auto) 0.20 H (0.001-0.031) x10^3u/L Absolute Lymphs (auto) 1.41 (1.18-3.74) x10^3/uL Absolute Monos (auto) 0.70 (0.24-0.86) x10^3/uL Absolute Nucleated RBC 0.00 (0.00-0.012) x10^3u/L Lymphocytes % 9.4 L (19.3-51.7) % Monocytes % 4.7 (4.7-12.5) % Eosinophils % 0.3 L (0.7-5.8) % Basophils % 0.3 (0.1-1.2) % Absolute Granulocytes 12.62 H (1.56-6.13) x10^3/uL Basophils # 0.04 (0.01-0.08) x10^3/uL Sodium 138 (135-145) mmol/L Potassium 3.8 (3.5-5.1) mmol/L Chloride 107 (98-107) mmol/L Carbon Dioxide 20 L (22-30) mmol/L Anion Gap 14.8 (5-15) MEQ/L BUN 17 (7-17) mg/dL Creatinine 0.84 (0.52-1.04) mg/dL Estimated GFR 67.2 ML/MIN Glucose 122 H (74-106) mg/dL Calcium 8.8 (8.4-10.2) mg/dL Total Bilirubin 1.20 (0.2-1.3) mg/dL AST 31 (14-36) U/L ALT 17 (0-35) U/L Alkaline Phosphatase 104 (38-126) U/L Serum Total Protein 6.2 L (6.3-8.2) g/dL Albumin 3.4 L (3.5-5.0) g/dL - Radiology Impressions Radiology Exams & Impressions: Radiology Procedures Category Date Time Status ABDOMEN AND PELVIS W/0 CONTRAS [CT] Stat Exams 02/21/25 19:25 Completed CHEST WITHOUT CONTRAST [CT] Stat Exams 02/21/25 19:25 Completed HEAD WITHOUT CONTRAST [CT] Stat Exams 02/21/25 19:[address] chest acute displaced fracture of the left 10th rib, and acute nondisplaced fractures of the left 11th and likely ninth ribs. CT abdomen/pelvis no acute trauma noted. CT head no acute traumatic injury. Chronic microvascular ischemic changes and senile cortical atrophy which is unchanged. - Other Procedures and Tests Respiratory Therapy 02/22/25 01:35 Incentive Spirometry TID 02/22/25 01:36 Oxygen Nasal Cannula 2 lpm Assessment/Plan (1) Fracture of rib of left side Current Visit: Yes Status: Acute Assessment & Plan: 89-year-old woman with a history of hypertension, recurrent UTI, and progressive dementia, who present after fall with left rib fractures. ## Left rib fractures after fall. Is unclear if patient had recurrence of her prior vasovagal syncope, or just a mechanical fall. Unfortunate, the fall was unwitnessed. However, family has noted progressive decline in patient's overall physical condition, mobility, and p.o. intake. Only 1 fracture is displaced, and overall number is at most 3, so no concern for flail chest or need for surgical intervention. PRN acetaminophen Incentive spirometer at bedside, encourage patient's daughter on how to use PT and OT evaluation for mobility and safety while walking ## Hypertension blood pressure generally controlled. Resume home lisinopril 20 mg daily ## Recurrent UTI no evidence of current infection. Resume home suppressive Macrobid therapy. ## Dementia Per daughter, patient is at her baseline, alert, pleasant, but oriented only to person. CODE STATUS: DNR/DNI (confirmed with patient's daughter today) Prophylaxis: Lovenox 40 daily Diet: Regular Dispo: Place in observation Entirety of encounter took place via live audio/video telemedicine device, with remote physician and patient in hospital, with the assistance of bedside nurse. Code(s): S22.32XA - FRACTURE OF ONE RIB, LEFT SIDE, INIT FOR CLOS FX Telemedicine Encounter - Telemedicine Encounter Telemedicine Encounter: "The entirety of this encounter was performed via Telemedicine" This visit was performed using real-time audio and video connection between my location and thepatients locationwith the assistance of a surrogateat the patients location. Written or verbal consent was obtained from the patient/guardian to perform this visit using[employer] technology. Any patient questions regarding the telemedicine interaction were answered.
[2025-02-22 05:45] LABS: Hematocrit 39.8 % (34.1-44.9); Mean Cell Volume 92.3 fL (79.4-94.8); Mean Corpuscular Hemoglobin 30.2 pg (25.6-32.2); Mean Corpuscular Hgb Concent. 32.7 g/dL (32.2-35.5); Mean Platelet Volume 10.9 fL (9.4-12.3); Platelet Count 268 x10^3/uL (182-369); Red Blood Count 4.31 x10^6/uL (3.93-5.22); Red Cell Distribution Width 14.3 % (11.7-14.4); White Blood Count 11.7 x10^3/uL (3.98-10.04)
[2025-02-22 06:08] LABS: ANION GAP 12.1 MEQ/L (5-15); Calcium 8.7 mg/dL (8.4-10.2); Creatinine 1 0.86 mg/dL (0.52-1.04); EST GLOMERULAR FILTRATION RATE 65.3 ML/MIN; PREALBUMIN 13.31 mg/dL (17.6-36.0); Potassium 4.2 mmol/L (3.5-5.1)
[2025-02-22] MEDS ORDERED: NON-FORMULARY ITEM (Atorvastatin Calcium [Lipitor] 20 MG Tablet) PO SCH (10:00)
[2025-02-22] MEDS ORDERED: Zestril 10 MG PO SCH (10:00)
[2025-02-22] MEDS: ZOCOR 20MG PO SCH (10:45)
[2025-02-22] MEDS: Zestril 20 MG PO SCH (10:45)
[2025-02-22] MEDS: Macrobid 100MG Capsule PO SCH (10:45)
[2025-02-22] MEDS: Klor Con PO SCH (10:45)
[2025-02-22] MEDS: ENOXAPARIN SODIUM SQ SCH (10:45)
--- NOTE | 2025-02-22 11:56 | XRAY ---
Indication: Syncopal episode. Two-dimensional sonogram and color Doppler imaging carotid arteries of the neck performed. Comparison: October 29, 2017 Examination right carotid circulation again demonstrates widely patent common carotid, carotid bulb, internal carotid, and external carotid arteries. PSV CCA is 56 cm/s. PSV ICA is 52 cm/s. ICA/CCA ratio is 0.9. Normal antegrade vertebral flow. Examination left carotid circulation now demonstrates minimal eccentric carotid bulb calcified plaquing. Widely patent common carotid, internal carotid, and external carotid arteries. Internal carotid artery appears tortuous. PSV CCA is 63 cm/s. PSV ICA is 113 cm/s. ICA/CCA ratio is 1.8. Normal antegrade vertebral artery flow. Impression: Continued widely patent right carotid circulation. New minimal arteriosclerotic disease left carotid bulb. Velocity measurements and ratios continue to be negative for hemodynamic significant flow-limiting stenosis.
[2025-02-22] MEDS: MORPHINE SULFATE 2 MG INJ IV PRN (13:22)
[2025-02-23 05:24] LABS: BASOPHIL % 0.3 % (0.1-1.2); Basophil (Absolute #) 0.04 x10^3/uL (0.01-0.08); Eosinophil (Absolute #) 0.12 x10^3/uL (0.04-0.36); Hematocrit 45.5 % (34.1-44.9); Hemoglobin 14.1 g/dL (11.2-15.7); IMMATURE GRAN # 0.09 x10^3u/L (0.001-0.031); IMMATURE GRAN % 0.7 % (0.001-0.429); Lymphocyte (Absolute #) 1.26 x10^3/uL (1.18-3.74); Lymphocytes % 10.4 % (19.3-51.7); Mean Cell Volume 95.2 fL (79.4-94.8); Mean Corpuscular Hemoglobin 29.5 pg (25.6-32.2); Mean Platelet Volume 11.1 fL (9.4-12.3); Monocyte (Absolute #) 0.98 x10^3/uL (0.24-0.86); Monocytes % 8.1 % (4.7-12.5); Neutrophil % 79.5 % (34.0-71.1); Platelet Count 264 x10^3/uL (182-369); Red Blood Count 4.78 x10^6/uL (3.93-5.22); Red Cell Distribution Width 14.6 % (11.7-14.4); White Blood Count 12.1 x10^3/uL (3.98-10.04)
[2025-02-23 06:15] LABS: ALBUMIN 3.2 g/dL (3.5-5.0); ANION GAP 16.8 MEQ/L (5-15); BILIRUBIN,TOTAL 0.7 mg/dL (0.2-1.3); Calcium 8.9 mg/dL (8.4-10.2); Creatinine 1 1.39 mg/dL (0.52-1.04); EST GLOMERULAR FILTRATION RATE 36.7 ML/MIN; Potassium 4.3 mmol/L (3.5-5.1); Total Protein 5.8 g/dL (6.3-8.2)
[2025-02-23] MEDS: Zofran 4 MG/2 ML VIAL IV PRN (07:45)
[2025-02-23 07:47] VITALS: RESP 16
[2025-02-23] MEDS: ENOXAPARIN SODIUM SQ SCH (09:43)
[2025-02-23] MEDS: Sodium Chloride 0.9% 1000 ML 1,000 ML IV SCH (09:43)
--- NOTE | 2025-02-23 10:31 | PCM.DS ---
Discharge Summary Date of Admission: 02/22/25 00:22 Date of Discharge: 02/23/25 Admitting Physician: MAHOGANY TAYLOR MD Primary Care Provider: BRITTANY JJ DO Allergies Allergies levofloxacin [From Levaquin] Adverse Reaction (Severe, Verified 02/21/25 19:04) Confusion, JOSE Hospital Summary - Hospital Course Hospital Course: Ms. Mckenzie is an 89-year-old female with a history of hypertension, recurrent urinary tract infections, and advanced dementia, admitted following an unwitnessed fall at home. The patient's medical history and events surrounding the fall were primarily obtained from the daughter due to the patients advanced cognitive impairment. The daughter reports a progressive functional decline over the past several months, with poor oral intake, frequent falls, and worsening cognitive status. The patient was initially evaluated in the emergency department the day prior after a witnessed vasovagal syncopal event but was discharged. She returned the following day after suffering an unwitnessed fall while in the company of relatives, during which she sustained left-sided rib fractures. EMS noted hypoxia with SpO2 in the mid-80s upon arrival, although the patient has no prior history of chronic pulmonary disease. The patients condition was further complicated by progressive debility and increasing oxygen requirements during hospitalization. Given her advanced dementia, poor functional baseline, recurrent falls, and frailty, in conjunction with the recent traumatic injuries and the family's recognition of a steady decline, the goals of care were discussed at length with the patients daughter. The decision was made to transition the patient to comfort-focused care, and hospice services were arranged for discharge home. The family is in agreement with this plan, understanding the patients poor prognosis and prioritizing quality of life. I spent 35 minutes [id number] with the patient on the day of discharge performing discharge exam, discussing hospital stay and discharge instructions with patient and caregivers, preparation of discharge records, prescriptions & referral forms and addressing any questions/concerns the patient had as documented above. - Vitals & Intake/Output Vital Signs: Vital Signs Temperature 97.6 F 02/23/25 07:47 Pulse Rate 88 02/23/25 07:47 Respiratory Rate 16 02/23/25 07:47 Blood Pressure 109/55 02/23/25 07:47 O2 Sat by Pulse Oximetry 91 L 02/23/25 07:47 Intake & Output: Intake & Output 05/10/25 02/21/25 02/22/25 02/23/25 11:59 11:59 11:59 11:59 Intake Total 480 860 Output Total 200 Balance 280 860 Weight 76 kg - Lab Result Diagrams: 02/23/25 05:18 02/23/25 05:18 Lab Results-Last 24 Hrs: Lab Results-Last 24 Hours 02/23/25 02/23/25 02/23/25 Range/Units 05:18 05:18 05:18 WBC 12.1 H (3.98-10.04) x10^3/uL RBC 4.78 (3.93-5.22) x10^6/uL Hgb 14.1 (11.2-15.7) g/dL Hct 45.5 H (34.1-44.9) % MCV 95.2 H (79.4-94.8) fL MCH 29.5 (25.6-32.2) pg MCHC 31.0 L (32.2-35.5) g/dL RDW 14.6 H (11.7-14.4) % Plt Count 264 (182-369) x10^3/uL MPV 11.1 (9.4-12.3) fL Gran % 79.5 H (34.0-71.1) % Immature Gran % (Auto) 0.7 H (0.001-0.429) % Nucleat RBC Rel Count 0.0 (0.00-0.2) % Eos # (Auto) 0.12 (0.04-0.36) x10^3/uL Immature Gran # (Auto) 0.09 H (0.001-0.031) x10^3u/L Absolute Lymphs (auto) 1.26 (1.18-3.74) x10^3/uL Absolute Monos (auto) 0.98 H (0.24-0.86) x10^3/uL Absolute Nucleated RBC 0.00 (0.00-0.012) x10^3u/L Lymphocytes % 10.4 L (19.3-51.7) % Monocytes % 8.1 (4.7-12.5) % Eosinophils % 1.0 (0.7-5.8) % Basophils % 0.3 (0.1-1.2) % Absolute Granulocytes 9.60 H (1.56-6.13) x10^3/uL Basophils # 0.04 (0.01-0.08) x10^3/uL Sodium 140 (135-145) mmol/L Potassium 4.3 (3.5-5.1) mmol/L Chloride 106 (98-107) mmol/L Carbon Dioxide 22 (22-30) mmol/L Anion Gap 16.8 H (5-15) MEQ/L BUN 23 H (7-17) mg/dL Creatinine 1.39 H (0.52-1.04) mg/dL Estimated GFR 36.7 ML/MIN Glucose 132 H (74-106) mg/dL Calcium 8.9 (8.4-10.2) mg/dL Total Bilirubin 0.70 (0.2-1.3) mg/dL AST 33 (14-36) U/L ALT 22 (0-35) U/L Alkaline Phosphatase 89 (38-126) U/L Serum Total Protein 5.8 L (6.3-8.2) g/dL Albumin 3.2 L (3.5-5.0) g/dL TSH 3rd Generation 4.347 (0.470-4.680) mIU/L - Radiology Exams Ordered Rad Exams-Entire Visit: Radiology Procedures Category Date Time Status ABDOMEN AND PELVIS W/0 CONTRAS [CT] Stat Exams 02/21/25 19:25 Completed CAROTID BILATERAL [US] Urgent Exams 02/22/25 09:32 Completed CHEST WITHOUT CONTRAST [CT] Stat Exams 02/21/25 19:25 Completed ECHO W/2D AND DOPPLER [US] Urgent Exams 02/22/25 09:32 Taken HEAD WITHOUT CONTRAST [CT] Stat Exams 02/21/25 19:26 Completed - Procedures and Test Procedures and Tests throughout Hospitalization: Therapy Orders & Screens 02/22/25 00:30 Respiratory Therapy Consult ONCE Comment: Reason For Exam: 02/22/25 01:35 Incentive Spirometry TID Comment: 02/22/25 01:36 Oxygen Nasal Cannula 2 lpm Comment: 02/22/25 02:28 PT Eval & Treat (MD Order) ONCE Reason for Eval:: eval & treat Diagnosis: fall, fx ribs left side OT Eval and Treat (MD Order) ONCE Comment: Physician Instructions: Reason For Exam: Diagnosis: fall, fx ribs left side 02/23/25 08:59 Qualify for Home Oxygen TODAY Comment: Diagnosis: fall, pain Discharge Exam General Appearance: no apparent distress Neurologic Exam: alert, oriented x 3, cooperative Eye Exam: PERRL Ears, Nose, Throat Exam: normal ENT inspection Neck Exam: normal inspection Respiratory Exam: normal breath sounds, lungs clear Cardiovascular Exam: regular rate/rhythm, normal heart sounds Gastrointestinal/Abdomen Exam: soft, normal bowel sounds Pelvic Exam: deferred Rectal Exam: deferred Back Exam: normal inspection Extremity Exam: normal inspection Skin Exam: normal color Wound Assessment: Skin/Wound Assessment Wound/Incision Assessment Start: 02/22/25 02:27 Text: Status: Active Freq: Q6H Protocol: Document 02/23/25 08:00 DANI (Rec: 02/23/25 08:20 DANI [id number]) Wound/Incision Assessment Left Arm Wound Assessment Shift Assessment Wound Type Skin Tear Wound Stage Non Pressure Wound Dressing Status Dry & Intact Primary Dressing kerlix Comment skin tears on left arm, dressing in place from ER - dressing has not been removed yet, pt nauseous at this time, will assess when pt feeling better; Wound Photo Photo Taken No Final Diagnosis/Problem List - Final Discharge Diagnosis/Problem (1) Fracture of rib of left side Current Visit: Yes Status: Acute Assessment & Plan: Managed conservatively. Pain control with scheduled and PRN acetaminophen. No further imaging or surgical consultation required. Hospice to provide ongoing pain and symptom management. Code(s): S22.32XA - FRACTURE OF ONE RIB, LEFT SIDE, INIT FOR CLOS FX (2) Recurrent UTI Current Visit: Yes Status: Acute Assessment & Plan: No evidence of active infection during current admission. Hospice to provide comfort-directed treatment only if symptomatic infections arise Code(s): N39.0 - URINARY TRACT INFECTION, SITE NOT SPECIFIED (3) HTN (hypertension) Current Visit: Yes Status: Acute Code(s): I10 - ESSENTIAL (PRIMARY) HYPERTENSION (4) Dementia Current Visit: Yes Status: Acute Code(s): F03.90 - UNSP DEMENTIA, UNSP SEVERITY, WITHOUT BEH/PSYCH/MOOD/ANX (5) Fall with significant injury Current Visit: Yes Status: Acute Assessment & Plan: -see rib fracture above Code(s): W19.XXXA - UNSPECIFIED FALL, INITIAL ENCOUNTER (6) Acute renal injury Current Visit: No Status: Acute Assessment & Plan: Managed supportively with gentle hydration during hospitalization. Given transition to hospice and ongoing poor oral intake, no further monitoring or intervention for JOSE planned. Focus on comfort care; hospice to monitor for uremic symptoms only if they impact comfort. Code(s): N17.9 - ACUTE KIDNEY FAILURE, UNSPECIFIED (7) Hypoxia Current Visit: Yes Status: Acute Assessment & Plan: Hospice to manage oxygen therapy based on comfort needs Code(s): R09.02 - HYPOXEMIA (8) Declining functional status Current Visit: Yes Status: Acute Code(s): R53.81 - OTHER MALAISE - Discharge Discharge Date: 02/23/25 ([facility] ) Condition: Fair Prescriptions: Continue Lisinopril 10 mg [Zestril 10 MG] 20 mg PO DAILY Potassium Chloride Tab* [Klor Con] 10 meq PO DAILY Atorvastatin Calcium [Lipitor] 20 mg PO DAILY No Action Nitrofurantoin Macro 100 mg [Macrobid 100MG Capsule] 100 mg PO DAILY Additional Instructions: Pain meds [facility] Follow up with: BRITTANY JJ DO [Primary Care Provider, [facility]]
[2025-02-23 11:51] VITALS: BP 113/57; PULSE 90; TEMP 98.2; O2SAT 89
[2025-02-23] MEDS: ULTRAM 50 MG PO PRN (14:27)
[2025-02-23] MEDS: Duragesic 25MCG Patch TD ONE (14:40)
== END 2025-02-23 15:40 | disposition home or self-care (01) ==
LOC: ED 19:01 → MED SURG 02-22 00:22
PROVIDERS: ADMIT Internal Medicine; ATTEND Internal Medicine
DX: S22.32XA Fracture of one rib, left side, initial encounter for closed fracture (principal); N39.0 Urinary tract infection, site not specified; I10 Essential (primary) hypertension; F03.90 Unspecified dementia, unspecified severity, without behavioral disturbance, psychotic disturbance, mood disturbance, and anxiety; W19.XXXA Unspecified fall, initial encounter; N17.9 Acute kidney failure, unspecified; R09.02 Hypoxemia; R53.81 Other malaise; Z79.899 Other long term (current) drug therapy; E78.5 Hyperlipidemia, unspecified
CPT/HCPCS: 36415; 70450; 71250; 74176; 80048; 80053; 84134; 84443; 85025; 85027; 93005; 93306; 93880; 94760; 96374; 97161; 97165; 99285; Q3014; G0378; J1650; J2270; J2405; A9270-GY